=== PATIENT | male | born 1975 | race Caucasian/White ===

== ENCOUNTER → 2020-09-03 09:16 | Outpatient (BNVA) | payer MEDICARE, MEDICAID, SELFPAY | PROVIDERS: PCP Internal Medicine; Referring Provider Internal Medicine; Visit Provider Internal Medicine | DX: I48.19 Other persistent atrial fibrillation (principal); I44.7 Left bundle-branch block, unspecified; J96.10 Chronic respiratory failure, unspecified whether with hypoxia or hypercapnia; G71.11 Myotonic muscular dystrophy; Z79.01 Long term (current) use of anticoagulants; Z93.0 Tracheostomy status | CPT/HCPCS: 99212 ==

== ENCOUNTER 2020-10-28 11:58 | Emergency (ER) | payer MEDICARE, MEDICAID, SELFPAY ==
[2020-10-28] VITALS (19 sets, daily range): BP systolic 90–133; BP diastolic 57–98; PULSE 80–150; RESP 12–25; TEMP 36.7–37.2; O2SAT 80–99; BMI 36.4
--- NOTE | 2020-10-28 12:41 | PC.NURSE ---
patient a&ox3 upon arrival from ems, able to offer assistance for patient background, patients o2 sat was in the 80s, provider at bedside, attempts to transfer patient to hospital vent failed due to the type of trach the patient has due to his narrow airway, rt at bedside, deep suctioned patient and applied a trach mask, patients o2 sat increased to high 90s on 100% air, patient ekg monitor tech tachy 120s-150s, pt continues to be awake, and verbal, awaiting orders from provider, will continue to monitor.
--- NOTE | 2020-10-28 12:42 | ECG_ITS ---
Test Reason : SOB Blood Pressure : / mmHG Vent. Rate : 135 BPM Atrial Rate : 111 BPM P-R Int : 000 ms QRS Dur : 180 ms QT Int : 384 ms P-R-T Axes : 000 -25 132 degrees QTc Int : 576 ms Atrial fibrillation with rapid ventricular response Left bundle branch block Abnormal ECG When compared with ECG of 10-SEP-2017 17:35, No significant change was found Referred By: Marquis Talamantes Electronically Signed By:GALO CHOWDARY
--- NOTE | 2020-10-28 12:42 | XR_ITS ---
EXAMINATION: XR CHEST CLINICAL INFORMATION: Short of breath, hypoxia. COMPARISON: None TECHNIQUE: Frontal view of the chest was obtained. FINDINGS: The lungs are hypoexpanded with mild patchy opacity right lung base likely atelectasis/effusion. Heart size is borderline normal. Pulmonary vascularity is normal. There is a tracheostomy tube in place in good position.. XR/XR chest 1V IMPRESSION: Hypoexpanded lungs with minimal patchy opacity right lung base question atelectasis or effusion.
--- NOTE | 2020-10-28 13:00 | PC.NURSE ---
chest xray performed
[2020-10-28 13:26] LABS: MANUAL DIFF FLAG NO
[2020-10-28 13:27] LABS: Basophils Percent Auto 0.3 % (0-2); Eosinophils Absolute Auto 0.2 X10*3/uL (0.0-0.4); Eosinophils Percent Auto 1.6 % (0-4); Hematocrit 41.6 % (42-52); Hemoglobin 12.7 g/dl (14.0-18.0); Imm Gran Abs Auto 0.06 X10*3/uL (0.00-0.03); Imm Gran Pct Auto 0.4 % (0.0-0.4); Lymphocytes Absolute Auto 1.1 X10*3/uL (1.2-4.9); Lymphocytes Percent Auto 8.3 % (20-40); Mean Corpuscular HGB Conc 30.5 g/dl (31.0-36.0); Mean Corpuscular Hemoglobin 27.4 pg (27.0-33.0); Mean Corpuscular Volume 89.7 fL (80-98); Mean Platelet Volume 12.5 fL (9.4-12.4); Monocytes Absolute Auto 1.1 X10*3/uL (0.1-1.2); Neutrophils Percent Auto 81.4 % (45-73); Platelet Count 227 X10*3/uL (160-400); Red Blood Count 4.64 X10*6/uL (4.60-5.80); White Blood Count 13.6 X10*3/uL (4.8-10.8)
--- NOTE | 2020-10-28 13:31 | PC.NURSE ---
patient a&ox3, court recording monitor afib 130s-160, pt has trach collar on 100% oz sats in high 90s, bp stable, at bedside, ivf started per order, labs obtained, covid swab obtained, will continue to monitor.
[2020-10-28 13:33] LABS: INTERNATIONAL NORM RATIO 1.5 (0.9-1.1); Prothrombin Time 17.5 SEC (10.8-13.0)
[2020-10-28] MEDS: 0.9 % Sodium Chloride 1,000 ML 999 ML IV (13:33)
[2020-10-28 13:36] LABS: Partial Thromboplastin Time 42.4 SEC (24.1-38.0)
[2020-10-28 13:47] LABS: Lactic Acid 1.2 mmol/L (0.5-2.0)
[2020-10-28 13:59] LABS: Anion Gap 12 (12-20); Bilirubin Total 1.8 mg/dL (0.0-1.0); Blood Urea Nitrogen 18 mg/dL (9-16); Calcium 9.7 mg/dL (8.4-10.2); Carbon Dioxide 30 mmol/L (22-29); Chloride 108 mmol/L (96-108); Creatinine Clr Calc Pharmacy 132.9; Estimated Glomerular Filt Rate > 60; Glucose Random 186 mg/dL (60-115); Potassium 4.1 mmol/l (3.3-5.1); Sodium 146 mmol/L (135-145)
[2020-10-28] MEDS: levoFLOXacin/D5W 750 MG/150 ML PIGGYBACK 100 MG IV (13:59)
--- NOTE | 2020-10-28 14:03 | PC.NURSE ---
iv antibiotics running per order, changed trach dressing per patient request, pt remains afib 130-150- provider is aware, will continue to montior.
[2020-10-28 14:15] LABS: B Type Natriuretic Peptide 56 pg/mL (<100)
--- NOTE | 2020-10-28 14:15 | ED_ITS ---
HPI - General Adult General Chief complaint: Upper Respiratory Symptoms Stated complaint: DIZZY/HEADACHE/?PNEUMONIA Time Seen by Provider: 10/28/20 12:42 Source: patient Limitations: no limitations History of Present Illness HPI narrative: 45-year-old male who presents emergency department for evaluation of possible pneumonia, difficulty breathing and hypoxia. The patient has obstructive sleep apnea and has a tracheostomy. According to his , the patient has this for emergencies and also he uses a ventilator at night. The patient has not been feeling well since yesterday. The patient had a sore throat. He has had increased thick secretions from his tracheostomy and he also coughs up thick phlegm. Last night, the patient had increased difficulty breathing. This morning, the patient's tracheal secretions became very thick and yellow in the is having difficulty suctioning and the patient's trachea I spoke to the patient's provider who felt the patient may have developed pneumonia and was advised to go to the emergency department for evaluation. The patient denied fever, chills, chest pain, abdominal pain, nausea, vomiting or diarrhea. The patient stays at home and does not believe that he has had any COVID-19 exposures. He has not had his influenza vaccine this year since no one has been able to come to the house and given to him and he has not been able to leave the house secondary to his COVID precautions. Related Data Home Medications Medication Instructions Recorded Confirmed ascorbic acid (vitamin C) 500 mg 500 mg PO DAILY 09/03/20 09/03/20 tablet ferrous sulfate 140 mg (45 mg 140 mg PO DAILY 09/03/20 09/03/20 iron) tablet,extended release furosemide 20 mg tablet 20 mg PO QAM 09/03/20 09/03/20 metformin 500 mg tablet,extended 500 mg PO DAILY 09/03/20 09/03/20 release 24 hr metoprolol tartrate 50 mg tablet 50 mg PO BID 09/03/20 09/03/20 omeprazole 20 mg capsule,delayed 20 mg PO QAM 09/03/20 09/03/20 release rivaroxaban 20 mg tablet 20 mg PO ONCE tab 09/03/20 09/03/20 Previous Rx's Medication Instructions Recorded colestipol 1 gram tablet 1 g PO Q OTHER DAY #45 tab 08/25/20 pravastatin 20 mg tablet 20 mg PO DAILY #90 tab 08/25/20 levofloxacin 750 mg PO DAILY 5 Days #5 tab 10/28/20 Allergies Allergy/AdvReac Type Severity Reaction Status Date / Time No Known Allergies Allergy Verified 09/04/20 06:18 [No Known Allergies*] [facility] Past Medical History [facility] Narrative: Atrial fibrillation Medical History Chronic respiratory failure Left bundle branch block Myotonic dystrophy Obstructive sleep apnea Persistent atrial fibrillation Tracheostomy in place Surgical History History of cholecystectomy History of lithotripsy History of tracheostomy Family History Family History Father Medical history unknown Mother CVD (cardiovascular disease) Stroke Maternal Grandmother Cancer Maternal Grandfather Diabetes Social History Social History Alcohol intake: never Smoking Status: Never smoker Use of substances other than those prescribed or required for medical reasons: No Advance Directives: No Advance Directives Information Provided: No Physical Exam Vital Signs: Vital Signs: Last Vital Signs Temp 98.0 F 10/28/20 16:30 Pulse 105 H 10/28/20 16:30 Resp 15 10/28/20 16:30 BP 104/68 10/28/20 16:30 Pulse Ox 93 10/28/20 16:30 Body Mass Index 36.4 Const: General: cooperative, diaphoretic, ill appearing and other (Hypoxic and in respiratory distress) Nutritional Appearance: obese Orientation/consciousness: oriented to person and oriented to place Limitations: no limitations HENMT: Head: Yes normal to inspection, Yes normocephalic and Yes atraumatic Ears: external ears normal General nose exam: Normal external nose present Face and sinus: Yes normal facial exam Mouth: Normal oral and palatal mucosa present Throat: Yes posterior oropharynx normal Eyes: Periorbital: periorbital findings normal Eyelids: Yes eyelids normal Conjunctivae: conjunctivae normal Sclerae: sclerae normal Corneas: corneas normal Pupils: Equal, round and reactive pupils present Direct Ophthalmoscopy: normal light reflex Neck: Neck: Yes full ROM, Yes no lymphadenopathy, Yes no meningeal signs, Yes trachea midline, Yes supple and Yes other (Tracheostomy) Chest: Chest palpation & inspection: normal inspection of the chest and normal palpation of entire chest wall Resp: Effort & Inspection: labored, retractions and uses accessory muscles Auscultation: clear to auscultation bilaterally Cardio: Rate: tachycardic Rhythm: abnormal rhythm irregularly irregular Heart sounds: S1 normal heart sound present, S2 normal heart sound present and no murmurs GI: Inspection: Yes normal to inspection Palpation (GI): Soft to palpation, nontender, no guarding, not rigid and No hepatosplenomegaly present : General: Yes no CVA tenderness Back/Spine/Pelvis: Back: no CVA tenderness Cervical Spine: normal cervical lordosis Thoracic/Lumbar Spine: thoracic and lumbar spine normal to inspection Skin: Lesions: no lesions Rashes: no rashes Wounds: no wounds Neuro: General: oriented to person, oriented to place and no meningeal signs Cranial nerves: Yes Equal, round and reactive pupils present Cognition (Neuro): normal cognition Motor exam (neuro): 5/5 motor strength present throughout Extrem: General: Yes normal to inspection and Yes full ROM Psych: Appearance: well kempt Mental Status: mental status grossly normal Speech and movement: Normal speech and movement present Affect: normal affect Attitude: cooperative Thought process: Normal thought process present Thought content: Normal thought content present Course Course Course Narrative: 45-year-old male the history obstructive sleep apnea with tracheostomy and ventilator at night who presents to the emergency department for evaluation of shortness of breath and increased secretions times 2 days. On presentation the patient appeared to be in significant respiratory distress. The patient's tracheal secretions were thick. With respiratory therapy help, we were able to suction out large thick secretions from the patient's trachea. The inner cannula was also removed and cleaned. The patient's hypoxia improved significantly with a tracheal mask and suctioning. Patient's lung exam was clear. The patient is INR was 1.5. Lactic acid was normal. Troponin was elevated at 97.0.. The patient will need a repeat 3 hour troponin. Patient also was in rapid AFib was treated with diltiazem 20 mg and 15 mg IV push. Patient was treated with Levaquin 750 mg IV. 1707: The patient repeat troponin decreased to 88. The patient feels significantly better and does not want to be hospitalized in believes that he can take care of himself at home with his 's help. The patient will therefore be discharged home. He was given a prescription for Levaquin 500 mg once a day for 5 days. He was also given his outpatient dose of metoprolol since he has persistent tachycardia secondary to atrial fibrillation. Medical Decision Making Lab Data Result diagrams: 10/28/20 13:18 10/28/20 13:18 Labs: Lab Results 10/28/20 10/28/20 10/28/20 Range/Units 13:18 13:18 13:18 WBC 13.6 H (4.8-10.8) X10*3/uL RBC 4.64 (4.60-5.80) X10*6/uL Hgb 12.7 L (14.0-18.0) g/dl Hct 41.6 L (42-52) % MCV 89.7 (80-98) fL MCH 27.4 (27.0-33.0) pg MCHC 30.5 L (31.0-36.0) g/dl RDW 17.0 H (11.0-16.0) % Plt Count 227 (160-400) X10*3/uL MPV 12.5 H (9.4-12.4) fL Immature Gran % (Auto) 0.4 (0.0-0.4) % Neut % (Auto) 81.4 H (45-73) % Lymph % (Auto) 8.3 L (20-40) % [place] % (Auto) 8.0 (2-11) % Eos % (Auto) 1.6 (0-4) % Baso % (Auto) 0.3 (0-2) % Lymph # (Auto) 1.1 L (1.2-4.9) X10*3/uL [place] # (Auto) 1.1 (0.1-1.2) X10*3/uL Eos # (Auto) 0.2 (0.0-0.4) X10*3/uL Baso # (Auto) 0.0 (0.0-0.2) X10*3/uL Abs Immat Gran (auto) 0.06 H (0.00-0.03) X10*3/uL Absolute Neuts (auto) 11.0 H (2.0-8.3) X10*3/uL Absolute Nucleated RBC 0.000 (0.0-0.012) X10*3/uL Nucleated RBC % (auto) 0.0 (0.0-0.2) /100WBC PT 17.5 H (10.8-13.0) SEC INR 1.5 H (0.9-1.1) APTT 42.4 H (24.1-38.0) SEC Sodium (135-145) mmol/L Potassium (3.3-5.1) mmol/l Chloride (96-108) mmol/L Carbon Dioxide (22-29) mmol/L Anion Gap (12-20) BUN (9-16) mg/dL Creatinine (0.5-1.4) mg/dL Estim Creat Clear Calc Estimated GFR Random Glucose (60-115) mg/dL Lactic Acid 1.2 (0.5-2.0) mmol/L Calcium (8.4-10.2) mg/dL Total Bilirubin (0.0-1.0) mg/dL Troponin I High Sens (<3.5-35.0) ng/L B-Natriuretic Peptide (<100) pg/mL NT-Pro-B Natriuret Pep Coronavirus (PCR) (Negative) Influenza Type A (PCR) (Negative) Influenza Type B (PCR) (Negative) RSV RNA Qual (PCR) (Negative) 10/28/20 10/28/20 10/28/20 Range/Units 13:18 13:18 13:18 WBC (4.8-10.8) X10*3/uL RBC (4.60-5.80) X10*6/uL Hgb (14.0-18.0) g/dl Hct (42-52) % MCV (80-98) fL MCH (27.0-33.0) pg MCHC (31.0-36.0) g/dl RDW (11.0-16.0) % Plt Count (160-400) X10*3/uL MPV (9.4-12.4) fL Immature Gran % (Auto) (0.0-0.4) % Neut % (Auto) (45-73) % Lymph % (Auto) (20-40) % [place] % (Auto) (2-11) % Eos % (Auto) (0-4) % Baso % (Auto) (0-2) % Lymph # (Auto) (1.2-4.9) X10*3/uL [place] # (Auto) (0.1-1.2) X10*3/uL Eos # (Auto) (0.0-0.4) X10*3/uL Baso # (Auto) (0.0-0.2) X10*3/uL Abs Immat Gran (auto) (0.00-0.03) X10*3/uL Absolute Neuts (auto) (2.0-8.3) X10*3/uL Absolute Nucleated RBC (0.0-0.012) X10*3/uL Nucleated RBC % (auto) (0.0-0.2) /100WBC PT (10.8-13.0) SEC INR (0.9-1.1) APTT (24.1-38.0) SEC Sodium 146 H (135-145) mmol/L Potassium 4.1 (3.3-5.1) mmol/l Chloride 108 (96-108) mmol/L Carbon Dioxide 30 H (22-29) mmol/L Anion Gap 12 (12-20) BUN 18 H (9-16) mg/dL Creatinine 0.77 (0.5-1.4) mg/dL Estim Creat Clear Calc 132.9 Estimated GFR > 60 Random Glucose 186 H (60-115) mg/dL Lactic Acid (0.5-2.0) mmol/L Calcium 9.7 (8.4-10.2) mg/dL Total Bilirubin 1.8 H (0.0-1.0) mg/dL Troponin I High Sens 97.0 H (<3.5-35.0) ng/L B-Natriuretic Peptide (<100) pg/mL NT-Pro-B Natriuret Pep Cancelled Coronavirus (PCR) (Negative) Influenza Type A (PCR) (Negative) Influenza Type B (PCR) (Negative) RSV RNA Qual (PCR) (Negative) 10/28/20 10/28/20 10/28/20 Range/Units 13:22 13:22 15:51 WBC (4.8-10.8) X10*3/uL RBC (4.60-5.80) X10*6/uL Hgb (14.0-18.0) g/dl Hct (42-52) % MCV (80-98) fL MCH (27.0-33.0) pg MCHC (31.0-36.0) g/dl RDW (11.0-16.0) % Plt Count (160-400) X10*3/uL MPV (9.4-12.4) fL Immature Gran % (Auto) (0.0-0.4) % Neut % (Auto) (45-73) % Lymph % (Auto) (20-40) % [place] % (Auto) (2-11) % Eos % (Auto) (0-4) % Baso % (Auto) (0-2) % Lymph # (Auto) (1.2-4.9) X10*3/uL [place] # (Auto) (0.1-1.2) X10*3/uL Eos # (Auto) (0.0-0.4) X10*3/uL Baso # (Auto) (0.0-0.2) X10*3/uL Abs Immat Gran (auto) (0.00-0.03) X10*3/uL Absolute Neuts (auto) (2.0-8.3) X10*3/uL Absolute Nucleated RBC (0.0-0.012) X10*3/uL Nucleated RBC % (auto) (0.0-0.2) /100WBC PT (10.8-13.0) SEC INR (0.9-1.1) APTT (24.1-38.0) SEC Sodium (135-145) mmol/L Potassium (3.3-5.1) mmol/l Chloride (96-108) mmol/L Carbon Dioxide (22-29) mmol/L Anion Gap (12-20) BUN (9-16) mg/dL Creatinine (0.5-1.4) mg/dL Estim Creat Clear Calc Estimated GFR Random Glucose (60-115) mg/dL Lactic Acid (0.5-2.0) mmol/L Calcium (8.4-10.2) mg/dL Total Bilirubin (0.0-1.0) mg/dL Troponin I High Sens 88.7 H (<3.5-35.0) ng/L B-Natriuretic Peptide 56 (<100) pg/mL NT-Pro-B Natriuret Pep Coronavirus (PCR) NEGATIVE (Negative) Influenza Type A (PCR) NEGATIVE (Negative) Influenza Type B (PCR) NEGATIVE (Negative) RSV RNA Qual (PCR) NEGATIVE (Negative) Critical Care Time Critical Care Time Critical Care Time: Yes Total Critical Care Time: 45 Attestation: Critical Care: The patient was critically ill with a high probability of imminent or life threatening deterioration. I spent greater than 30 minutes of discontinuous time evaluating the patient,delivering critical care at the bedside, discussing and evaluating pertinent data with consultants. Critical care time does not include time spent performing separately billable procedures or teaching. Total time spent performing critical care was 45 minutes. Discharge Plan Discharge Clinical Impression: Acute respiratory distress Pneumonia Qualifiers: Pneumonia type: due to unspecified organism Laterality: right Lung location: lower lobe of lung Qualified Code(s): J18.9 - Pneumonia, unspecified organism Atrial fibrillation Qualifiers: Atrial fibrillation type: longstanding persistent Qualified Code(s): I48.11 - Longstanding persistent atrial fibrillation Patient Disposition: Home, Self-Care Instructions: Pneumonia (ED) Additional Instructions: Your chest x-ray is concerning for pneumonia and a right lower lobe of your lung. You received Levaquin 750 mg IV. This drug will last 24 hours. Take Levaquin 750 mg once a day for 5 days. Start your 1st dose tomorrow morning. Take all your no patient medications as prescribed by your doctor. Usual ventilator for the next 24 hours. Your should suction you frequently to prevent mucous plugging of your tracheostomy tube. Follow-up with your doctor in 2 days. Please return to the emergency department if your symptoms get worse or if you develop any symptoms that are concerning to you. Prescriptions: New levofloxacin 750 mg tablet 750 mg PO DAILY 5 Days Qty: 5 RF: 0 No Action pravastatin 20 mg tablet 20 mg PO DAILY Qty: 90 RF: 0 colestipol 1 gram tablet 1 g PO Q OTHER DAY Qty: 45 RF: 0 ferrous sulfate 140 mg (45 mg iron) tablet extended release 140 mg PO DAILY RF: 0 ascorbic acid (vitamin C) 500 mg tablet 500 mg PO DAILY RF: 0 furosemide 20 mg tablet 20 mg PO QAM RF: 0 metoprolol tartrate 50 mg tablet 50 mg PO BID RF: 0 Xarelto 20 mg tablet 20 mg PO ONCE RF: 0 metformin 500 mg tablet extended release 24 hr 500 mg PO DAILY RF: 0 omeprazole 20 mg capsule,delayed release(DR/EC) 20 mg PO QAM RF: 0 Referrals: Maryam Hairston [Emergency Nurse] - 2 days
--- NOTE | 2020-10-28 14:20 | PC.NURSE ---
patient desat into 89%, pt requesting deep suction, deep suctioning performed- 3 passes with adequate re-oxygenation between each pass, patient tolerated suctioning well, o2 sat increased to 99%
[2020-10-28] MEDS: dilTIAZem HCL 50 MG/10 ML VIAL 20 MG IVPUSH (14:31)
[2020-10-28] MEDS: Flu Vacc QS2020-21(6mos up)/PF 0.5 ML SYRINGE IM (14:31)
--- NOTE | 2020-10-28 14:40 | PC.NURSE ---
patient medicated with cardizem per order patients current hr on the monitor is afib mid 100s, will continue to monitor.
[2020-10-28 14:48] LABS: Influenza A PCR NEGATIVE (Negative); Influenza B PCR NEGATIVE (Negative); Resp Syncy Virus RNA Qual PCR NEGATIVE (Negative); SARS COV2 PCR INHOUSE NEGATIVE (Negative)
[2020-10-28] MEDS: dilTIAZem HCL 50 MG/10 ML VIAL 15 MG IVPUSH (15:13)
--- NOTE | 2020-10-28 15:14 | PC.NURSE ---
pt oob with male assist to attempt to urinate, pt was unable to do so, pt put back in bed and made comfortable, pt medicated with additional dose of cardizem, pt currently afib 110-113 on monitor, vitals otherwise stable, will continue to monitor.
--- NOTE | 2020-10-28 16:15 | PC.NURSE ---
Sats dropped while on trach collar into high 70 and pt reporting SOB with tachypnea. Pt suctioned with minimal secretions noted and no relief from SOB. RT notified. He was placed back on home ventilator at 3liters o2 with sats improving to mid 90s immediately. Pt feels better at this time. aware that pt is on home vent.
[2020-10-28 16:34] LABS: Troponin-I High Sensitivity 88.7 ng/L (<3.5-35.0)
[2020-10-28] MEDS: Metoprolol Tartrate 50 MG TABLET PO (17:34)
--- NOTE | 2020-10-28 17:37 | PC.NURSE ---
PT MEDICATED PER ORDER, PT AFIB 115 ON MONITOR, VITALS OTHERWISE STABLE, WILL CONTINUE TO MONITOR.
--- NOTE | 2020-10-28 19:05 | PC.NURSE ---
patient continues to be a&ox3, vss, pt monitoring manager afib now rate controlled in the 80s, pt awaiting ambulace to transfer back to home, pt is currently on home vent for the transfer, prescriptions for vent supplies have been faxed to the home pharmacy patients requested. will continue to monitor.
--- NOTE | 2020-10-28 20:03 | PC.NURSE ---
patient a&ox3, currently on home vent awaiting for ambulance to transport home, at bedside, pt afib rate controlled 80s on equipment monitor phototypesetting, no c/o pain or discomfort, pt in good spirits and sipping on some water, will continue to monitor.
== END 2020-10-28 20:55 | disposition home or self-care (01) ==
PROVIDERS: Emergency Provider Emergency Medicine Emergency Medical Services
DX: J18.9 Pneumonia, unspecified organism (principal); R06.02 Shortness of breath; I48.11 Longstanding persistent atrial fibrillation; Z20.828 Contact with and (suspected) exposure to other viral communicable diseases; Z23 Encounter for immunization
CPT/HCPCS: 0241U; 36415; 71045; 80048; 82247; 83605; 83880; 84484; 85025; 85610; 85730; 87040; 90471; 90686; 93005; 96365; 96366; 96375; 96376; 99284; 99291; J1956

== ENCOUNTER → 2020-11-27 09:52 | Outpatient (BNVA) | payer MEDICARE, MEDICAID, SELFPAY | PROVIDERS: PCP Internal Medicine; Visit Provider Internal Medicine | DX: I48.19 Other persistent atrial fibrillation (principal); I44.7 Left bundle-branch block, unspecified; J96.10 Chronic respiratory failure, unspecified whether with hypoxia or hypercapnia; G71.11 Myotonic muscular dystrophy; Z93.0 Tracheostomy status | CPT/HCPCS: Q3014 ==

== ENCOUNTER 2020-12-21 14:06 | Emergency (ER) | payer MEDICARE, MEDICAID, SELFPAY ==
--- NOTE | ~2020-12-21 | XR_ITS ---
EXAMINATION: XR SHOULDER, RIGHT CLINICAL INFORMATION: Fall COMPARISON: None TECHNIQUE: Three views of the right shoulder. FINDINGS: Acromioclavicular and glenohumeral articulations are maintained. No fracture, dislocation or acute osseous abnormality is seen. Tracheostomy is midline. A small right pleural effusion is suspected. XR/XR shoulder RT min 2V IMPRESSION: No acute fracture or dislocation is seen.
--- NOTE | ~2020-12-21 | CT_ITS ---
EXAMINATION: CT HEAD WITHOUT CONTRAST CT CERVICAL SPINE WITHOUT CONTRAST CLINICAL INFORMATION: 45-year-old male patient following trauma. Patient on Xarelto. COMPARISON: CT of the head on 06/24/2017. CT the brain and cervical spine on 05/25/2019. CT of the head on 06/18/2019. TECHNIQUE: Contiguous axial imaging was performed from the skullbase to vertex without intravenous administration of contrast. Multidetector helical imaging was performed through the cervical spine. This CT examination was performed using dose optimization techniques as appropriate, variously including the following: *Automated exposure control *Adjustment of mA and/or kV according to patient size (this includes techniques or standardized protocols for targeted exams where dose is matched to indication/reason for exam; i.e. extremities or head) *Use of iterative reconstruction technique DLP: 1183 mGy-cm. FINDINGS: HEAD: There is no evidence of acute intracranial hemorrhage or territorial infarction. No abnormal mass effect or midline shift is seen. [place] to white matter differentiation is well preserved. No extra-axial fluid collections are identified. The ventricles are normal in size. Brain parenchymal attenuation is normal. The osseous structures are normal. A moderate-sized scalp hematoma is noted over the right parieto-occipital region. Scattered dermal calcifications are present. The mastoid air cells and visualized portions of the paranasal sinuses are well aerated. CERVICAL SPINE: No acute fracture or dislocation is identified in the cervical spine. There is fixed but chronic rotatory subluxation at C1-C2. No change from previous. The disc spaces are maintained. No focal protrusion is noted. The paraspinal soft tissues are normal. The lung apices are clear. CT/CT cervical spine wo con IMPRESSION: 1. No acute intracranial pathology. 2. No evidence of acute cervical spine traumatic injury.
--- NOTE | 2020-12-21 14:08 | ED_ITS ---
HPI - Fall General Chief Complaint: Extremity Injury, Upper Stated Complaint: bump on head Time Seen by Provider: 12/21/20 14:07 Source: patient, EMS and old records reviewed Mode of arrival: EMS Limitations: no limitations History of Present Illness HPI Narrative: 45 yo male with hx of tracheostomy, myotonic dystrophy, LBBB, afib on xarelto - fell on Tuesday - has hematoma to R occiput that seems to be bigger as well as R shoulder pain complaint: fall Onset (ago): day(s) (Tuesday ) Fall from: standing Fall witnessed: yes, by family Place fall occurred: home Loss of consciousness: none Prolonged down time: no Symptoms prior to fall: other (hematoma to occiput, R shoulder pain) Context: history of frequent falls (lost balance) Location of injury: head Location of injury - extremities: right: shoulder Related Data Home Medications Medication Instructions Recorded Confirmed ferrous sulfate 140 mg (45 mg 140 mg PO DAILY 09/03/20 11/27/20 iron) tablet,extended release furosemide 20 mg tablet 20 mg PO QAM 09/03/20 11/27/20 metoprolol tartrate 50 mg tablet 50 mg PO BID 09/03/20 11/27/20 Previous Rx's Medication Instructions Recorded pravastatin 20 mg tablet 20 mg PO DAILY #90 tab 11/12/20 colestipol 1 gram tablet 1 g PO Q OTHER DAY #45 tab 11/18/20 metformin 500 mg tablet,extended 500 mg PO DAILY 90 Days #90 tab 12/10/20 release 24 hr ascorbic acid (vitamin C) 500 mg 500 mg PO DAILY #30 tab 12/19/20 tablet omeprazole 20 mg capsule,delayed 20 mg PO QAM #90 cap 12/19/20 release rivaroxaban 20 mg tablet 20 mg PO DAILY #90 tab 12/19/20 Allergies Allergy/AdvReac Type Severity Reaction Status Date / Time No Known Allergies Allergy Verified 11/27/20 09:55 [No Known Allergies*] Review of Systems Review of Systems: Constitutional : No Fever, No Chills ENT/Mouth : No Ear Pain, No Hoarseness, No sore throat Eyes: No Eye Pain, No Swelling, No Redness, No Foreign Body Cardiovascular : No Chest Pain, No SOB Respiratory : No Cough, No Dyspnea Gastrointestinal : No Nausea, No Vomiting, No Diarrhea, No abdominal Pain Genitourinary : No Dysuria, No Hematuria Musculoskeletal : positive joint pain, No Myalgias, No Joint Swelling Skin : No Skin lacerations, No rash Neuro : No Weakness, No Numbness, No Loss of Consciousness, No Dizziness, No Headache Psych : No Anxiety/Panic, No Depression Heme/Lymph: no easy bruising, no Lymphadenopathy Endocrine : No Polyuria, No Polydipsia All other systems reviewed and are negative [facility] Past Medical History Attestation statement: The following information was validated with the patient. Medical History Chronic respiratory failure Left bundle branch block Myotonic dystrophy Obstructive sleep apnea Persistent atrial fibrillation Tracheostomy in place Surgical History History of cholecystectomy History of lithotripsy History of tracheostomy Family History Family History Father Medical history unknown Mother CVD (cardiovascular disease) Stroke Maternal Grandmother Cancer Maternal Grandfather Diabetes Social History Social History Alcohol intake: never Smoking Status: Never smoker Use of substances other than those prescribed or required for medical reasons: No Advance Directives: Yes Advance Directives Information Provided: No Advance Directives on File: No Physical Exam Vital Signs: Vital Signs: Last Vital Signs Temp 98.0 F 12/21/20 14:13 Pulse 90 12/21/20 14:13 Resp 16 12/21/20 14:13 BP 124/91 H 12/21/20 14:13 Pulse Ox 99 12/21/20 14:13 Body Mass Index 36.3 Appearance: Alert. Oriented X3. No acute distress. Eyes: Pupils equal, round and reactive to light. ENT: Pharynx normal. Trach in place c/d/i. contusion to R occiput Neck: Normal inspection. Neck supple. CVS: Normal heart rate and rhythm. Pulses normal. Respiratory: No respiratory distress. Breath sounds normal. Abdomen: Soft and nontender. Skin: Skin warm and dry. Normal skin color. Normal skin turgor. Extremities: No lower extremity edema. R shoulder mild ttp normal elbow Neuro: at baseline per family Course Course Course Narrative: negative for trauma stable for DC MDM - Fall MDM Narrative Medical decision making narrative: 45 yo male with hx of afib on xarelto mytonic dystrophy / has trach frequent falls - fell on Tuesday caregiver worried as the patient's hematoma is increasing in size at this time - CT head/cspine, R shoulder xray ordered Discharge Plan Discharge Clinical Impression: Hematoma Patient Disposition: Home, Self-Care Instructions: Hematoma (ED) Additional Instructions: return to ED for any worsening symptoms or concerns Prescriptions: No Action pravastatin 20 mg tablet 20 mg PO DAILY Qty: 90 RF: 1 colestipol 1 gram tablet 1 g PO Q OTHER DAY Qty: 45 RF: 1 metformin 500 mg tablet extended release 24 hr 500 mg PO DAILY 90 Days Qty: 90 RF: 1 rivaroxaban [Xarelto] 20 mg tablet 20 mg PO DAILY Qty: 90 RF: 1 omeprazole 20 mg capsule,delayed release(DR/EC) 20 mg PO QAM Qty: 90 RF: 3 ascorbic acid (vitamin C) [Vitamin C] 500 mg tablet 500 mg PO DAILY Qty: 30 RF: 5 ferrous sulfate 140 mg (45 mg iron) tablet extended release 140 mg PO DAILY RF: 0 furosemide 20 mg tablet 20 mg PO QAM RF: 0 metoprolol tartrate 50 mg tablet 50 mg PO BID RF: 0
[2020-12-21 14:13] VITALS: BP 124/91; PULSE 90; RESP 16; TEMP 36.7; O2SAT 99; BMI 36.3
== END 2020-12-21 17:23 | disposition home or self-care (01) ==
PROVIDERS: Emergency Provider Emergency Medicine; PCP Internal Medicine
DX: S00.83XA Contusion of other part of head, initial encounter (principal); S40.911A Unspecified superficial injury of right shoulder, initial encounter; M25.511 Pain in right shoulder; G44.309 Post-traumatic headache, unspecified, not intractable; M54.2 Cervicalgia; W01.0XXA Fall on same level from slipping, tripping and stumbling without subsequent striking against object, initial encounter; Y93.9 Activity, unspecified; Y92.9 Unspecified place or not applicable; Y99.9 Unspecified external cause status; Z20.822 Contact with and (suspected) exposure to COVID-19; I48.91 Unspecified atrial fibrillation; Z79.01 Long term (current) use of anticoagulants; Z91.81 History of falling; Z79.899 Other long term (current) drug therapy
CPT/HCPCS: 70450; 72125; 73030; 99284

== ENCOUNTER → 2020-12-24 09:24 | Outpatient (BNVA) | payer MEDICARE, MEDICAID, SELFPAY | PROVIDERS: PCP Internal Medicine; Visit Provider Internal Medicine | DX: I48.19 Other persistent atrial fibrillation (principal); I44.7 Left bundle-branch block, unspecified; J96.10 Chronic respiratory failure, unspecified whether with hypoxia or hypercapnia; G71.11 Myotonic muscular dystrophy; Z93.0 Tracheostomy status | CPT/HCPCS: Q3014 ==

== ENCOUNTER → 2021-04-02 10:13 | Outpatient (BNVA) | payer MEDICARE, MEDICAID, SELFPAY | PROVIDERS: PCP Internal Medicine; Visit Provider Internal Medicine | DX: I48.19 Other persistent atrial fibrillation (principal); I44.7 Left bundle-branch block, unspecified; J96.10 Chronic respiratory failure, unspecified whether with hypoxia or hypercapnia; G71.11 Myotonic muscular dystrophy; Z93.0 Tracheostomy status | CPT/HCPCS: Q3014 ==

== ENCOUNTER → 2021-06-17 14:19 | Outpatient (BNVA) | payer MEDICARE, MEDICAID, SELFPAY | PROVIDERS: PCP Internal Medicine; Visit Provider Internal Medicine | DX: G71.11 Myotonic muscular dystrophy (principal); G47.33 Obstructive sleep apnea (adult) (pediatric); J96.10 Chronic respiratory failure, unspecified whether with hypoxia or hypercapnia; Z93.0 Tracheostomy status; Z99.89 Dependence on other enabling machines and devices | CPT/HCPCS: Q3014 ==

== ENCOUNTER 2022-01-12 12:06 | Inpatient (IN) | payer MEDICARE, MEDICAID, SELFPAY ==
[2022-01-12] VITALS (15 sets, daily range): BP systolic 97–112; BP diastolic 64–77; PULSE 84–145; RESP 12–30; TEMP 36.7–36.9; O2SAT 94–99; BMI 32.8
--- NOTE | 2022-01-12 | ECG_ITS ---
Test Reason : REPEAT Blood Pressure : / mmHG Vent. Rate : 096 BPM Atrial Rate : 000 BPM P-R Int : 000 ms QRS Dur : 180 ms QT Int : 434 ms P-R-T Axes : 000 -13 147 degrees QTc Int : 548 ms Atrial fibrillation Left bundle branch block Abnormal ECG When compared with ECG of 12-JAN-2022 12:30, No significant change was found Referred By: Jeanna Nunez Electronically Signed By:GALO CHOWDARY
--- NOTE | ~2022-01-12 | CT_ITS ---
EXAMINATION: CT CHEST WITHOUT CONTRAST CLINICAL INFORMATION: Pneumonia COMPARISON: Chest radiograph earlier today and prior chest CT 12/18/2006 TECHNIQUE: Multidetector volumetric CT imaging of the chest was done. Axial MIP volume rendering provided. Sagittal and coronal reformatted images were obtained. This CT examination was performed using dose optimization techniques as appropriate, variously including the following: *Automated exposure control *Adjustment of mA and/or kV according to patient size (this includes techniques or standardized protocols for targeted exams where dose is matched to indication/reason for exam; i.e. extremities or head) *Use of iterative reconstruction technique DLP: 507 mGy-cm FINDINGS: LUNGS: There is a left lower lobe collapse/consolidation with 2 areas of infiltrate/atelectasis. There is a small area of patchy groundglass infiltrate in the left upper lobe along the major fissure (5:158). Multiple solid and groundglass nodular densities are seen. [place] images of all have been saved. For example, there is a 5 mm solid left apical nodule (5:126), a 7 mm right upper lobe groundglass nodule (6:167), an 8 mm left upper lobe solid nodule (5:173) along with multiple others. The quality of the 2006 CT chest is not adequate for comparison. At that time, the lungs were markedly hypoinflated, marked respiratory artifact was present bilateral lower lobe collapse/consolidation pleural effusions were present. MEDIASTINUM: Heart is enlarged, pericardial effusion is present. Both of these are new findings since 2006. A tracheostomy tube is in place in good position. Multiple small mediastinal lymph nodes are present with the largest measuring about 0.8 cm in short axis (for example 5:132). PLEURA: There is no pleural effusion. No pleural mass or thickening. AXILLA: No lymphadenopathy. UPPER ABDOMEN: Unremarkable. OSSEOUS STRUCTURES: Unremarkable. CT/CT chest wo con IMPRESSION: 1. Cardiomegaly and a small pericardial effusion. 2. Left lower lobe infiltrate/consolidation consistent with pneumonia. 3. Additional area of groundglass infiltrate in the left upper lobe. 4. Multiple solid and groundglass pulmonary nodules with the largest solid nodule measuring 8 mm. 2017 Fleischner Society Recommendations for Lung Nodule(s): Follow-Up based on size (average of long- and short-axis diameters). Use most suspicious nodule for followup. Multiple Solid lung nodules 6-8 mm: Follow up management based on most suspicious nodule. In a low-risk patient, recommend a non-contrast Chest CT at 3-6 months, then consider another non-contrast Chest CT at 18-24 months. In a high-risk patient, recommend a non-contrast Chest CT at 3-6 months, then another non-contrast Chest CT at 18-24 months. These guidelines do not apply to patients younger than 35 years, immunocompromised patients, and patients with cancer. F/u in patients with significant comorbidities as clinically warranted. For lung cancer screening, adhere to Lung-RADS guidelines. Reference: Radiology. 2017 [place]; 284(1):228-243 Fleischner guidelines were followed.
--- NOTE | ~2022-01-12 | XR_ITS ---
EXAMINATION: XR CHEST CLINICAL INFORMATION: Dyspnea COMPARISON: Previous chest x-ray September 2020 TECHNIQUE: Frontal view of the chest was obtained. FINDINGS: The cardiac and mediastinal contours are stable. There is a tracheostomy tube that appears similar in position. The lung volumes are low. There may be atelectasis at the lung bases. The lungs are otherwise clear. There is no pleural effusion or pneumothorax. XR/XR chest 1V IMPRESSION: No evidence for acute disease in the chest. Low lung volumes and atelectasis at the lung bases similar to September 2020 exam.
--- NOTE | 2022-01-12 12:19 | ECG_ITS ---
Test Reason : DYSPNEA Blood Pressure : / mmHG Vent. Rate : 115 BPM Atrial Rate : 000 BPM P-R Int : 000 ms QRS Dur : 168 ms QT Int : 422 ms P-R-T Axes : 000 -36 136 degrees QTc Int : 583 ms Atrial fibrillation with rapid ventricular response Left axis deviation Left bundle branch block Abnormal ECG When compared with ECG of 28-OCT-2020 13:26, No significant changes seen Referred By: Paula Silva Electronically Signed By:GALO CHOWDARY
--- NOTE | 2022-01-12 12:30 | ED.SOB ---
HPI - SOB/Dyspnea General Chief Complaint: Upper Respiratory Symptoms Stated Complaint: RESPIRATORY FAILURE,TRACH,ON CPAP Time Seen by Provider: 01/12/22 12:16 Source: patient, EMS and old records reviewed Mode of arrival: EMS Limitations: no limitations History of Present Illness HPI Narrative: patient reports increased sputum productions x 3 days, then noted he felt weak and dizzy at home and couldn't breathe x 1 hour, EMS found him hypoxic and tried to suction his trach with some secretions ended up capping trach and using CPAP with good effect. MD elicited complaint: shortness of breath and cough Pertinent past history: COPD and other (chronic resp failure, 3L NC, trach ac night from what I can tell obesity hypoventilation syndrome/COPD/chronic resp failure per pulm notes) Onset (ago): hour(s) (1) Timing: improved Severity: severe Exacerbating factors: lying flat and coughing Relieving factors: oxygen (CPAP with EMS) Known history of: COPD Associated symptoms: cough, sputum production and lightheadedness Treatment prior to arrival: oxygen Related Data Home Medications Medication Instructions Recorded Confirmed albuterol sulfate 2.5 mg INHALATION QID PRN 06/17/21 01/12/22 albuterol sulfate 90 mcg/actuation 2 puff INHALATION Q6H PRN 06/17/21 01/12/22 aerosol inhaler colestipol 1 gram tablet 1 g PO .mwf tab 06/17/21 01/12/22 multivitamin (Daily Multi-Vitamin) 1 tab PO DAILY 06/17/21 01/12/22 Previous Rx's Medication Instructions Recorded ascorbic acid (vitamin C) 500 mg 500 mg PO DAILY #30 tab 07/18/21 tablet (Vitamin C) metoprolol tartrate 50 mg tablet 50 mg PO BID #180 tab 08/12/21 pravastatin 20 mg tablet 20 mg PO DAILY #90 tab 11/09/21 tracheostomy #1 ea 12/08/21 ferrous sulfate 140 mg (45 mg 140 mg PO DAILY 90 Days #90 tab 12/10/21 iron) tablet,extended release furosemide 20 mg tablet 20 mg PO QAM #90 tab 12/10/21 metformin 500 mg tablet,extended 500 mg PO DAILY 90 Days #90 tab 12/10/21 release 24 hr omeprazole 20 mg capsule,delayed 20 mg PO QAM #90 cap 12/10/21 release rivaroxaban 20 mg tablet (Xarelto) 20 mg PO DAILY #90 tab 12/10/21 Allergies Allergy/AdvReac Type Severity Reaction Status Date / Time No Known Allergies Allergy Verified 12/10/21 09:06 [No Known Allergies*] Review of Systems Review of Systems: Constitutional : No Fever, No Chills ENT/Mouth : No sore throat, No Rhinorrhea, No Swallowing Difficulty Eyes: No Eye Pain, No Swelling, No Redness Cardiovascular : No Chest Pain, positive SOB, pos Orthopnea, no Edema Respiratory : No Cough, pos Sputum, No Wheezing, positive dyspnea Gastrointestinal : No Nausea, No Vomiting, No Diarrhea, No abdominal Pain, No Hematochezia, No Melena Genitourinary : No Dysuria, No Urinary Frequency, No Hematuria Musculoskeletal : No joint pain, No Myalgias Skin : No Skin Lesions, No rash Neuro : pos Weakness, No Numbness, No Dizziness, No Headache Psych : No Anxiety/Panic, No Depression Heme/Lymph: No Bruising, No Lymphadenopathy Endocrine : No Polyuria, No Polydipsia All other systems reviewed and are negative [facility] Past Medical History Attestation statement: The following information was validated with the patient. Source: old records reviewed Medical History Anemia Chronic respiratory failure GERD (gastroesophageal reflux disease) Left bundle branch block Myotonic dystrophy Obesity Obstructive sleep apnea Persistent atrial fibrillation Psoriasis Pure hypercholesterolemia Tracheostomy in place Surgical History History of cholecystectomy History of lithotripsy History of tracheostomy Family History Family History Father Medical history unknown Mother CVD (cardiovascular disease) Stroke Maternal Grandmother Cancer Maternal Grandfather Diabetes Social History Social History Housing: House Alcohol intake: never Patient Tobacco Use Status: Never used Tobacco Second Hand Smoke Exposure: Yes Advance Directives: No Advance Directives Information Provided: No service: No Current occupational status: disabled Physical Exam Vital Signs: Vital Signs: Last Vital Signs Temp 98.2 F 01/12/22 15:13 Pulse 105 H 01/12/22 15:13 Resp 14 01/12/22 15:13 BP 106/70 01/12/22 15:13 Pulse Ox 98 01/12/22 15:13 Oxygen Flow Rate 15 01/12/22 12:15 BMI result Body Mass Index 32.8 Appearance: slightly somnolent Oriented X3. Mild acute distress. Eyes: Pupils equal, round and reactive to light. ENT: Pharynx normal. Neck: Normal inspection. Neck supple. CVS: tachycardic irregular heart rate and rhythm. Pulses normal. Respiratory: Mild respiratory distress. Breath sounds very diminished. Foul smelling trach with some secretions no blood noted Abdomen: Soft and non-tender. Skin: Skin warm and dry. pale skin color. Normal skin turgor. Extremities: No lower extremity edema. No calf ttp Neuro: Oriented X 3. No motor deficit. No sensory deficit. UE seems slightly contracted Course Course Course Narrative: Dr. Ariza at bedside - ECHO done ?pericardial effusion, message sent to Dr. Triplett aware ECHO stat ordered in ED Dr. Villa aware of trach issues in ED patient doing well on NC at this time. will place him on his home O2 vent settings, did not take his xarelto this AM delay in labs due to failed staff attempt I was not made aware of this. patient has his own home O2 vent - refuses to go on it, was checked by biomed put patient on his home vent pressure support cardiology notes that this is likely not tamponade refuses CT scan at this time although has had head CT scans in the past without issue, still refuses CT scan of chest slight rise in troponin - suspect due to hypoxia Cardiology aware had ECHO EKG unchanged no chest pain. on his home vent being treated for possible tracheitis - rise in troponin but likely due to his hypoxic event at home has not had chest pain, will continue to trend and monitor, will broaden coverage and add on flagyl, vancomycin for possible trachetitis cannot go to the floor with home vent per hospitalist ICU aware will admit pateint he uses his vent every night per MDM - SOB/Dyspnea MDM Narrative Medical decision making narrative: 46 yo male with hx of myotonic dystrophy, chronic resp failure - trach with night CPAP, REBECA, LBBB, persistent afib on xarelto, HLD, GERD, comes in with c/o feeling dyspnea and increased sputum production - at this time required CPAP en route but he is improving now on NC 6L - mentation improving will obtain labs, CXR, ECHO given possible efffusion seen on bedside ECHO, neb treatment. Could be CHF, tracheitis, mucous plugging, dispo per results and findings. Lab Data Result diagrams: 01/12/22 14:06 01/12/22 14:06 Labs: Lab Results 01/12/22 01/12/22 01/12/22 Range/Units 12:47 13:34 14:06 WBC 15.7 H (4.8-10.8) X10*3/uL RBC 4.46 L (4.60-5.80) X10*6/uL Hgb 13.1 L (14.0-18.0) g/dl Hct 43.7 (42.0-52.0) % MCV 98.0 (80.0-98.0) fL MCH 29.4 (27.0-33.0) pg MCHC 30.0 L (31.0-36.0) g/dl RDW 15.1 (11.0-16.0) % Plt Count 196 (160-400) X10*3/uL MPV 12.9 H (9.4-12.4) fL Immature Gran % (Auto) 0.5 H (0.0-0.4) % Neut % (Auto) 88.6 H (45-73) % Lymph % (Auto) 4.4 L (20-40) % [place] % (Auto) 5.8 (2-11) % Eos % (Auto) 0.4 (0-4) % Baso % (Auto) 0.3 (0-2) % Lymph # (Auto) 0.7 L (1.2-4.9) X10*3/uL [place] # (Auto) 0.9 (0.1-1.2) X10*3/uL Eos # (Auto) 0.1 (0.0-0.4) X10*3/uL Baso # (Auto) 0.0 (0.0-0.2) X10*3/uL Abs Immat Gran (auto) 0.08 H (0.00-0.03) X10*3/uL Absolute Neuts (auto) 13.9 H (2.0-8.3) x10*3/uL Absolute Nucleated RBC 0.000 (0.0-0.012) X10*3/uL Nucleated RBC % (auto) 0.0 (0.0-0.2) /100WBC PT (9.9-13.0) SEC INR (0.9-1.1) O2 Saturation 91.0 % ABG pH at Pt Temp 7.32 L (7.35-7.45) ABG pCO2 at Pt Temp 50 H (32-45) mmHg ABG pO2 at Pt Temp 80 L (83-108) mmHg ABG HCO3 26 (22-26) mmol/L ABG Base Excess (Actual) -0.3 mmol/L VBG pH (7.32-7.43) VBG pCO2 mmHg VBG pO2 mmHg VBG HCO3 (22-26) mmol/L VBG O2 Saturation % VBG Base Excess mmol/L Sodium (135-145) mmol/L Potassium (3.3-5.1) mmol/L Chloride (96-108) mmol/L Carbon Dioxide (22-29) mmol/L Anion Gap (12-20) BUN (9-16) mg/dL Creatinine (0.5-1.4) mg/dL Estim Creat Clear Calc Estimated GFR Random Glucose (60-115) mg/dL Lactic Acid (0.5-2.0) mmol/L Calcium (8.4-10.2) mg/dL Magnesium (1.6-2.6) mg/dL Total Bilirubin (0.0-1.0) mg/dL Direct Bilirubin (0.0-0.5) mg/dL AST (5-37) U/L ALT (0-40) U/L Alkaline Phosphatase (39-117) U/L Troponin I High Sens (<3.5-35.0) ng/L C-Reactive Protein (< or = 0.50) mg/dL B-Natriuretic Peptide (<100) pg/mL Total Protein (6.5-8.0) g/dL Albumin (3.5-5.0) g/dL Lipase (8-78) U/L Procalcitonin ng/mL COVID-19 ([place]) Negative (Negative) COVID-19 Clin Com See Note 01/12/22 01/12/22 01/12/22 Range/Units 14:06 14:06 14:06 WBC (4.8-10.8) X10*3/uL RBC (4.60-5.80) X10*6/uL Hgb (14.0-18.0) g/dl Hct (42.0-52.0) % MCV (80.0-98.0) fL MCH (27.0-33.0) pg MCHC (31.0-36.0) g/dl RDW (11.0-16.0) % Plt Count (160-400) X10*3/uL MPV (9.4-12.4) fL Immature Gran % (Auto) (0.0-0.4) % Neut % (Auto) (45-73) % Lymph % (Auto) (20-40) % [place] % (Auto) (2-11) % Eos % (Auto) (0-4) % Baso % (Auto) (0-2) % Lymph # (Auto) (1.2-4.9) X10*3/uL [place] # (Auto) (0.1-1.2) X10*3/uL Eos # (Auto) (0.0-0.4) X10*3/uL Baso # (Auto) (0.0-0.2) X10*3/uL Abs Immat Gran (auto) (0.00-0.03) X10*3/uL Absolute Neuts (auto) (2.0-8.3) x10*3/uL Absolute Nucleated RBC (0.0-0.012) X10*3/uL Nucleated RBC % (auto) (0.0-0.2) /100WBC PT 15.1 H (9.9-13.0) SEC INR 1.3 H (0.9-1.1) O2 Saturation % ABG pH at Pt Temp (7.35-7.45) ABG pCO2 at Pt Temp (32-45) mmHg ABG pO2 at Pt Temp (83-108) mmHg ABG HCO3 (22-26) mmol/L ABG Base Excess (Actual) mmol/L VBG pH (7.32-7.43) VBG pCO2 mmHg VBG pO2 mmHg VBG HCO3 (22-26) mmol/L VBG O2 Saturation % VBG Base Excess mmol/L Sodium 147 H (135-145) mmol/L Potassium 5.1 (3.3-5.1) mmol/L Chloride 108 (96-108) mmol/L Carbon Dioxide 29 (22-29) mmol/L Anion Gap 15 (12-20) BUN 19 H (9-16) mg/dL Creatinine 0.93 (0.5-1.4) mg/dL Estim Creat Clear Calc 103.3 Estimated GFR > 60 Random Glucose 281 H D (60-115) mg/dL Lactic Acid 1.9 (0.5-2.0) mmol/L Calcium 10.4 H D (8.4-10.2) mg/dL Magnesium 2.6 (1.6-2.6) mg/dL Total Bilirubin 0.9 (0.0-1.0) mg/dL Direct Bilirubin 0.4 (0.0-0.5) mg/dL AST 32 (5-37) U/L ALT 22 (0-40) U/L Alkaline Phosphatase 203 H (39-117) U/L Troponin I High Sens (<3.5-35.0) ng/L C-Reactive Protein 3.60 H (< or = 0.50) mg/dL B-Natriuretic Peptide (<100) pg/mL Total Protein 7.4 (6.5-8.0) g/dL Albumin 3.8 (3.5-5.0) g/dL Lipase 30 (8-78) U/L Procalcitonin ng/mL COVID-19 ([place]) (Negative) COVID-19 Clin Com 01/12/22 01/12/22 01/12/22 Range/Units 14:06 14:06 14:06 WBC (4.8-10.8) X10*3/uL RBC (4.60-5.80) X10*6/uL Hgb (14.0-18.0) g/dl Hct (42.0-52.0) % MCV (80.0-98.0) fL MCH (27.0-33.0) pg MCHC (31.0-36.0) g/dl RDW (11.0-16.0) % Plt Count (160-400) X10*3/uL MPV (9.4-12.4) fL Immature Gran % (Auto) (0.0-0.4) % Neut % (Auto) (45-73) % Lymph % (Auto) (20-40) % [place] % (Auto) (2-11) % Eos % (Auto) (0-4) % Baso % (Auto) (0-2) % Lymph # (Auto) (1.2-4.9) X10*3/uL [place] # (Auto) (0.1-1.2) X10*3/uL Eos # (Auto) (0.0-0.4) X10*3/uL Baso # (Auto) (0.0-0.2) X10*3/uL Abs Immat Gran (auto) (0.00-0.03) X10*3/uL Absolute Neuts (auto) (2.0-8.3) x10*3/uL Absolute Nucleated RBC (0.0-0.012) X10*3/uL Nucleated RBC % (auto) (0.0-0.2) /100WBC PT (9.9-13.0) SEC INR (0.9-1.1) O2 Saturation % ABG pH at Pt Temp (7.35-7.45) ABG pCO2 at Pt Temp (32-45) mmHg ABG pO2 at Pt Temp (83-108) mmHg ABG HCO3 (22-26) mmol/L ABG Base Excess (Actual) mmol/L VBG pH (7.32-7.43) VBG pCO2 mmHg VBG pO2 mmHg VBG HCO3 (22-26) mmol/L VBG O2 Saturation % VBG Base Excess mmol/L Sodium (135-145) mmol/L Potassium (3.3-5.1) mmol/L Chloride (96-108) mmol/L Carbon Dioxide (22-29) mmol/L Anion Gap (12-20) BUN (9-16) mg/dL Creatinine (0.5-1.4) mg/dL Estim Creat Clear Calc Estimated GFR Random Glucose (60-115) mg/dL Lactic Acid (0.5-2.0) mmol/L Calcium (8.4-10.2) mg/dL Magnesium (1.6-2.6) mg/dL Total Bilirubin (0.0-1.0) mg/dL Direct Bilirubin (0.0-0.5) mg/dL AST (5-37) U/L ALT (0-40) U/L Alkaline Phosphatase (39-117) U/L Troponin I High Sens 228.8 H* (<3.5-35.0) ng/L C-Reactive Protein (< or = 0.50) mg/dL B-Natriuretic Peptide 64 (<100) pg/mL Total Protein (6.5-8.0) g/dL Albumin (3.5-5.0) g/dL Lipase (8-78) U/L Procalcitonin 0.59 ng/mL COVID-19 ([place]) (Negative) COVID-19 Clin Com 01/12/22 01/12/22 Range/Units 14:13 16:02 WBC (4.8-10.8) X10*3/uL RBC (4.60-5.80) X10*6/uL Hgb (14.0-18.0) g/dl Hct (42.0-52.0) % MCV (80.0-98.0) fL MCH (27.0-33.0) pg MCHC (31.0-36.0) g/dl RDW (11.0-16.0) % Plt Count (160-400) X10*3/uL MPV (9.4-12.4) fL Immature Gran % (Auto) (0.0-0.4) % Neut % (Auto) (45-73) % Lymph % (Auto) (20-40) % [place] % (Auto) (2-11) % Eos % (Auto) (0-4) % Baso % (Auto) (0-2) % Lymph # (Auto) (1.2-4.9) X10*3/uL [place] # (Auto) (0.1-1.2) X10*3/uL Eos # (Auto) (0.0-0.4) X10*3/uL Baso # (Auto) (0.0-0.2) X10*3/uL Abs Immat Gran (auto) (0.00-0.03) X10*3/uL Absolute Neuts (auto) (2.0-8.3) x10*3/uL Absolute Nucleated RBC (0.0-0.012) X10*3/uL Nucleated RBC % (auto) (0.0-0.2) /100WBC PT (9.9-13.0) SEC INR (0.9-1.1) O2 Saturation % ABG pH at Pt Temp (7.35-7.45) ABG pCO2 at Pt Temp (32-45) mmHg ABG pO2 at Pt Temp (83-108) mmHg ABG HCO3 (22-26) mmol/L ABG Base Excess (Actual) mmol/L VBG pH 7.27 L (7.32-7.43) VBG pCO2 72 mmHg VBG pO2 40 mmHg VBG HCO3 33 H (22-26) mmol/L VBG O2 Saturation 56.0 % VBG Base Excess 4.5 mmol/L Sodium (135-145) mmol/L Potassium (3.3-5.1) mmol/L Chloride (96-108) mmol/L Carbon Dioxide (22-29) mmol/L Anion Gap (12-20) BUN (9-16) mg/dL Creatinine (0.5-1.4) mg/dL Estim Creat Clear Calc Estimated GFR Random Glucose (60-115) mg/dL Lactic Acid (0.5-2.0) mmol/L Calcium (8.4-10.2) mg/dL Magnesium (1.6-2.6) mg/dL Total Bilirubin (0.0-1.0) mg/dL Direct Bilirubin (0.0-0.5) mg/dL AST (5-37) U/L ALT (0-40) U/L Alkaline Phosphatase (39-117) U/L Troponin I High Sens 461.4 H* D (<3.5-35.0) ng/L C-Reactive Protein (< or = 0.50) mg/dL B-Natriuretic Peptide (<100) pg/mL Total Protein (6.5-8.0) g/dL Albumin (3.5-5.0) g/dL Lipase (8-78) U/L Procalcitonin ng/mL COVID-19 ([place]) (Negative) COVID-19 Clin Com ECG Data Attestation: I personally reviewed and interpreted this ECG as follows: ECG interpretation date: 01/12/22 ECG interpretation time: 12:52 Interpretation: Rate: 115 Rhythm: afib [place]: left LBBB ST T wave : tall T waves qTC: normal prior studies: no change from 2020 The study has been interpreted contemporaneously by me. Critical Care Time Critical Care Time Critical Care Time: Yes Total Critical Care Time: 90 Attestation: medical consults, stat ECHO, O2 correction and supplementation, review of records, repeat ABGs I attest to this time spent taking care of the patient Discharge Plan Discharge Clinical Impression: Atrial fibrillation with rapid ventricular response, Hypoxia, Elevated troponin Leukocytosis Qualifiers: Leukocytosis type: unspecified Qualified Code(s): D72.829 - Elevated white blood cell count, unspecified Acute tracheitis Qualifiers: Airway obstruction: without obstruction Qualified Code(s): J04.10 - Acute tracheitis without obstruction Patient Disposition: Admitted As Inpatient
[2022-01-12] MEDS: Albuterol Sulfate (0.083%) 2.5 MG/3 ML VIAL.NEB INHALE (12:35)
--- NOTE | 2022-01-12 12:39 | CA_ITS ---
Transthoracic Echocardiogram Patient (Last, First, Middle): Jose Puentes L Gender: Male Date of : 1975 Age: 46 Procedure Date: 01/12/2022 Procedure Type: Transthoracic Echocardiogram Location: ER Height: 167.64 cm Weight: 92.08 kg BSA: 2.01 m2 Heart Rate: bpm BP: 122 / [address] Hot Mix: Referring MD: Paula Silva DO Symptoms: acute dyspnea, possible effusion Study Quality: Technically Difficult/CONTRAST ECG Rhythm: Undetermined Conclusions: - Technically difficult study. - LVEF moderately reduced. Probably 30-35%. - Small to moderate pericardial effusion noted lateral/inferolateral to left ventricle. Doubt any tamponade physiology but difficult to assess inflow Dopplers due to atrial flutter versus fibrillation and rapid rate. Findings Procedure Information Contrast agent, definity, is being given per protocol without apparent complications. Left Ventricle Normal left ventricular cavity size. There is mildly increased left ventricular wall thickness. There is paradoxical septal motion consistent with a left bundle branch block. Diastolic function is indeterminate on the basis of available data. LVEF moderately reduced. Probably 30-35%. Difficult to accurately quantify due to tachycardia, abnormal septal motion, limited image quality and off axis views. Right Ventricle The right ventricle was not well visualized. Atria The left atrium is moderately dilated. The right atrium is normal in size. Aortic Valve The aortic valve was not well visualized. There is no aortic valve stenosis. The mean gradient is 6 mmHg. There is no aortic valve regurgitation. Mitral Valve The mitral valve appears normal. There is trace mitral valve regurgitation. There is no mitral valve stenosis. Pulmonic Valve The pulmonic valve was not well visualized. Tricuspid Valve There is trace tricuspid valve regurgitation. The pulmonary artery systolic pressure is normal. Great Vessels The aorta was not well visualized. Venous The inferior vena cava is normal in size and collapses less than 50% with inspiration. Pericardium/Pleural Small to moderate pericardial effusion noted lateral/inferolateral to left ventricle. Doubt any tamponade physiology but difficult to assess inflow Dopplers due to atrial flutter versus fibrillation and rapid rate. Prior Study Comparison Changes noted compared to prior study dated: 04/28/2017. Pericardial effusion not previously described. Measurements 2D Linear Measurements IVSd: 1.23 0.6-0.9/0.6-1.0 cm LVIDd: 4.20 3.9-5.3/4.2-5.9 cm LVIDd Index: 2.09 2.4-3.2/2.2-3.1 cm/m2 LVIDs: 3.51 2.0-3.6 cm LVPWd: 1.21 0.7-1.1 cm LA Diam: 4.70 2.7-3.8/3.0-4.0 cm LAIDs Index: 2.34 1.5-2.3 cm/m2 LV Mass: 227.41 67-162/88-224 g LV Mass Index: 113.14 43-95/49-115 g/m2 LVOT Diam: 2.00 3.0+(-)1.3 cm 2D Systolic Function EF 4C: 34.40 >55% EF 2C: 18.50 >55% EF BiP: 30.30 >55% Mitral Valve E'Lateral: 11.10 E'Medial: 7.94 Aortic Valve AoV Pk John: 1.64 AoV Mn John: 1.09 AoV VTI: 0.30 AoV Pk Grad: 11.00 Aov Mn Grad: 6.00 TONG Cont.VTI: 1.08 LVOT LVOT Pk John: 0.69 LVOT Mn John: 0.49 LVOT VTI: 0.10 LVOT Pk Grad: 2.00 LVOT Mn Grad: 1.00 LVOT Diam: 2.00 LVOT Area: 3.14 Diastolic Function E'Medial: 7.94 E' Laterial: 11.10 Tricuspid Valve TR Pk John: 2.30 TR Pk Grad: 21.00 Pulmonary Valve PV Pk John: 1.25 Peak PV Grad: 6.00 Updated in Other Vendor System with Status of Final Prakash Triplett MD electronically signed on 01/12/2022 4:15:58 PM with status of Final
[2022-01-12 12:55] LABS: ABG Base Excess -0.3 mmol/L; ABG HCO3 26 mmol/L (22-26); ABG pCO2 50 mmHg (32-45); ABG pH 7.32 (7.35-7.45); ABG pO2 80 mmHg (83-108)
--- NOTE | 2022-01-12 13:16 | PHA.MEDREC ---
Pharmacy Consult ? Medication Reconciliation Pharmacy has completed the medication reconciliation.
[2022-01-12 13:21] LABS: ABG Refer to POC result
[2022-01-12 13:55] LABS: COVID-19 Test Negative (Negative)
[2022-01-12 14:16] LABS: MANUAL DIFF FLAG NO
[2022-01-12 14:19] LABS: Venous Blood Gas Refer to POC result
[2022-01-12 14:20] LABS: VBG Base Excess 4.5 mmol/L; VBG HCO3 33 mmol/L (22-26); VBG pCO2 72 mmHg; VBG pH 7.27 (7.32-7.43); VBG pO2 40 mmHg
[2022-01-12 14:20] LABS: Basophils Percent Auto 0.3 % (0-2); Eosinophils Absolute Auto 0.1 X10*3/uL (0.0-0.4); Eosinophils Percent Auto 0.4 % (0-4); Hematocrit 43.7 % (42.0-52.0); Hemoglobin 13.1 g/dl (14.0-18.0); Imm Gran Abs Auto 0.08 X10*3/uL (0.00-0.03); Imm Gran Pct Auto 0.5 % (0.0-0.4); Lymphocytes Absolute Auto 0.7 X10*3/uL (1.2-4.9); Lymphocytes Percent Auto 4.4 % (20-40); Mean Corpuscular Hemoglobin 29.4 pg (27.0-33.0); Mean Platelet Volume 12.9 fL (9.4-12.4); Monocytes Absolute Auto 0.9 X10*3/uL (0.1-1.2); Monocytes Percent Auto 5.8 % (2-11); Neutrophils Absolute Auto 13.9 x10*3/uL (2.0-8.3); Neutrophils Percent Auto 88.6 % (45-73); Platelet Count 196 X10*3/uL (160-400); Red Blood Count 4.46 X10*6/uL (4.60-5.80); Red Cell Distribution Width 15.1 % (11.0-16.0); White Blood Count 15.7 X10*3/uL (4.8-10.8)
[2022-01-12 14:31] LABS: INTERNATIONAL NORM RATIO 1.3 (0.9-1.1); Prothrombin Time 15.1 SEC (9.9-13.0)
[2022-01-12 14:32] LABS: Lactic Acid 1.9 mmol/L (0.5-2.0)
[2022-01-12 14:38] LABS: Alanine Aminotransferase 22 U/L (0-40); Anion Gap 15 (12-20); Aspartate Amino Transferase 32 U/L (5-37); Bilirubin Direct 0.4 mg/dL (0.0-0.5); Bilirubin Total 0.9 mg/dL (0.0-1.0); Blood Urea Nitrogen 19 mg/dL (9-16); Calcium 10.4 mg/dL (8.4-10.2); Carbon Dioxide 29 mmol/L (22-29); Chloride 108 mmol/L (96-108); Creatinine Clr Calc Pharmacy 103.3; Estimated Glomerular Filt Rate > 60; Glucose Random 281 mg/dL (60-115); Magnesium 2.6 mg/dL (1.6-2.6); Potassium 5.1 mmol/L (3.3-5.1); Sodium 147 mmol/L (135-145); Total Protein 7.4 g/dL (6.5-8.0)
[2022-01-12 14:39] LABS: Albumin Level 3.8 g/dL (3.5-5.0); Alkaline Phosphatase 203 U/L (39-117); Lipase 30 U/L (8-78)
[2022-01-12 14:41] LABS: B Type Natriuretic Peptide 64 pg/mL (<100)
[2022-01-12] MEDS: methylPREDNISolone Sod Succ 125 MG/2 ML VIAL 60 MG IVPUSH (14:42)
[2022-01-12] MEDS: levoFLOXacin/D5W 500 MG/100 ML PIGGYBACK 100 MG IV (14:42)
[2022-01-12] MEDS: dilTIAZem HCL 50 MG/10 ML VIAL IVPUSH (14:42)
[2022-01-12 14:44] LABS: Troponin-I High Sensitivity 228.8 ng/L (<3.5-35.0)
[2022-01-12 15:08] LABS: Procalcitonin 0.59 ng/mL
--- NOTE | 2022-01-12 15:42 | PC.NURSE ---
PT CURRENTLY ON HOME VENT, THROUGH TRACH, TRACH WAS CHANGED BY RT ON ARRIVAL DUE TO CONCERN FOR PLUG. CURRENTLY SATING WELL, 96-98% PT HAS MINIMAL SECREATIONS VIA TRACH LABS DONE AND MEDS GIVEN ORDERED
[2022-01-12 16:41] LABS: Troponin-I High Sensitivity 461.4 ng/L (<3.5-35.0)
[2022-01-12 17:09] LABS: ABG Base Excess 3.6 mmol/L; ABG HCO3 25 mmol/L (22-26); ABG pCO2 30 mmHg (32-45); ABG pH 7.52 (7.35-7.45); ABG pO2 51 mmHg (83-108)
--- NOTE | 2022-01-12 17:25 | P.HPCC_ITS ---
History of Present Illness Date of Service: 01/12/22 Attending physician on admission: Yunior Ariza Chief Complaint: sob 46-year-old male with permanent tracheostomy for the last 12 years due to underlying myotonic muscular dystrophy and he has been having frequent recurrent chest infections apparently he and his administer self-care to the tracheostomy and a came in fairly dirty probably occluded by concretions and he developed respiratory distress there were unable to clear the it tracheostomy outer cannula at home came in in some extremis status asthmaticus and frequent suctioning and lavage and then high-dose continuous nebulized treatments and slowly breathing calm down CT scan of the chest shows a right lower lobe infiltrate so it is possible aspiration mechanism involved not due to dysphagia but may be more likely microaspiration from that rather dirty tracheostomy and bedside echo that I had done from the subxiphoid position shows no primary valve disease but about a 250-300 cc tidal volume pericardial effusion but the right ventricle appears to expand it was noted mostly posteriorly but I can not rule in or out significant thickening of the parietal pericardium to the point where it there could be some restrictive a rather constrictive hemodynamics the inflow data obtained across mitral and tricuspid valve was tented by the rapid atrial fibrillation so very hard to interpret but he had a significantly myopathic left ventricle with severe septal paradox due to a very wide left bundle branch block which was a complete left bundle branch block with left axis 70 millisecond QRS but that the years coupled back atrial fibrillation probably has led to the myopathy but he also had rising troponins 50 8 the over the course of 12 hours but negative BNP interestingly enough and there was no indication of interstitial edema or pleural effusion so I do not think heart failure played a role He presented with rapid atrial fibrillation out of control at rate 170 related to work of breathing and came down to about 110 as a result of improving his breathing work and he he was placed on a low-dose Cardizem drip at the keep his rates at approximately 80 and he was just put on a at minimal maintenance IV drip started on steroids bronchodilator therapy and because of the fetid odor of the sputum the likelihood is there probably is an anaerobic infection and was started on a combination of clindamycin and Levaquin Review of Systems Review of Systems: No fever no shaking chills no chest discomfort Yes all other systems are reviewed and are negative [facility] Past Medical History Medical History Anemia Cardiomyopathy Chronic respiratory failure GERD (gastroesophageal reflux disease) Left bundle branch block Myotonic dystrophy Obesity Obstructive sleep apnea Persistent atrial fibrillation Pneumonia Psoriasis Pure hypercholesterolemia Tracheostomy dependent Tracheostomy in place Family History Family History Father Medical history unknown Mother CVD (cardiovascular disease) Stroke Maternal Grandmother Cancer Maternal Grandfather Diabetes Surgical History Surgical History History of cholecystectomy History of lithotripsy History of tracheostomy Social History Social History Housing: House Alcohol intake: never Patient Tobacco Use Status: Never used Tobacco Second Hand Smoke Exposure: Yes Currently Displaying Signs/Symptoms of Drug Intoxication Withdrawal: No Advance Directives: No Advance Directives Information Provided: No service: No Current occupational status: disabled Meds Allergies Allergy/AdvReac Type Severity Reaction Status Date / Time No Known Allergies Allergy Verified 12/10/21 09:06 [No Known Allergies*] Active Medications: Current Medications Vancomycin HCl 1,250 mg/ (Sodium Chloride) 250 mls @ 166.667 mls/hr IV ONCE ONE Stop: 01/12/22 18:10 Metronidazole (Flagyl) 500 mg in 100 mls @ 100 mls/hr IV ONCE ONE Stop: 01/12/22 17:40 Sodium Chloride (Ns) 1,000 mls @ 40 mls/hr IVCONT .Q24H [facility] Pantoprazole Sodium 40 mg/ (Sodium Chloride) 110 mls @ 400 mls/hr IV DAILY@0630 [facility] Levofloxacin (Levaquin) 750 mg in 150 mls @ 100 mls/hr IV Q24H [facility] Pharmacy Consult (Consult Rx Perform Med Rec) 1 each MISCELLANE ONCE PRN PRN Reason: Consult order Rivaroxaban (Rivaroxaban 20 Mg Tablet) 20 mg PO DAILY [facility] Home Medications Medication Instructions Recorded Confirmed Last Taken Type albuterol sulfate 2.5 mg INHALATION QID PRN 06/17/21 01/12/22 Unknown History albuterol sulfate 90 mcg/actuation 2 puff INHALATION Q6H PRN 06/17/21 01/12/22 Unknown History aerosol inhaler colestipol 1 gram tablet 1 g PO .mwf tab 06/17/21 01/12/22 Unknown History multivitamin (Daily Multi-Vitamin) 1 tab PO DAILY 06/17/21 01/12/22 Unknown History Physical Exam Vital Signs: Vital Signs: Last Vital Signs Temp 98.2 F 01/12/22 15:13 Pulse 105 H 01/12/22 15:13 Resp 14 01/12/22 15:13 BP 106/70 01/12/22 15:13 Pulse Ox 98 01/12/22 15:13 Oxygen Flow Rate 15 01/12/22 12:15 BMI result Body Mass Index 32.8 And his vital signs were stable and he has got some deformities of his extre mities from the muscular dystrophy but nonfocal neurologically and mental status was intact Chest with virtual absence of breath sounds bilaterally and significant diaphragmatic effort and prolonged expiratory time Abdomen somewhat obese but no organomegaly and nontender Cardiac exam by bedside echo as described Skin intact with no acrocyanosis Results Labs CBC and Chem 7: 01/13/22 05:25 01/13/22 05:25 Labs: Laboratory Results - last 24 hr 01/12/22 01/12/22 01/12/22 12:47 13:34 14:06 MCV 98.0 MCH 29.4 MCHC 30.0 L RDW 15.1 Plt Count 196 MPV 12.9 H Immature Gran % (Auto) 0.5 H Neut % (Auto) 88.6 H Lymph % (Auto) 4.4 L [place] % (Auto) 5.8 Eos % (Auto) 0.4 Baso % (Auto) 0.3 Lymph # (Auto) 0.7 L [place] # (Auto) 0.9 Eos # (Auto) 0.1 Baso # (Auto) 0.0 Abs Immat Gran (auto) 0.08 H Absolute Neuts (auto) 13.9 H Absolute Nucleated RBC 0.000 Nucleated RBC % (auto) 0.0 PT INR O2 Saturation 91.0 ABG pH at Pt Temp 7.32 L ABG pCO2 at Pt Temp 50 H ABG pO2 at Pt Temp 80 L ABG HCO3 26 ABG Base Excess (Actual) -0.3 VBG pH VBG pCO2 VBG pO2 VBG HCO3 VBG O2 Saturation VBG Base Excess Anion Gap Estim Creat Clear Calc Estimated GFR Random Glucose Lactic Acid Calcium Magnesium Total Bilirubin Direct Bilirubin AST ALT Alkaline Phosphatase C-Reactive Protein B-Natriuretic Peptide Total Protein Albumin Lipase Procalcitonin COVID-19 ([place]) Negative COVID-19 Clin Com See Note 01/12/22 01/12/22 01/12/22 14:06 14:06 14:06 MCV MCH MCHC RDW Plt Count MPV Immature Gran % (Auto) Neut % (Auto) Lymph % (Auto) [place] % (Auto) Eos % (Auto) Baso % (Auto) Lymph # (Auto) [place] # (Auto) Eos # (Auto) Baso # (Auto) Abs Immat Gran (auto) Absolute Neuts (auto) Absolute Nucleated RBC Nucleated RBC % (auto) PT 15.1 H INR 1.3 H O2 Saturation ABG pH at Pt Temp ABG pCO2 at Pt Temp ABG pO2 at Pt Temp ABG HCO3 ABG Base Excess (Actual) VBG pH VBG pCO2 VBG pO2 VBG HCO3 VBG O2 Saturation VBG Base Excess Anion Gap 15 Estim Creat Clear Calc 103.3 Estimated GFR > 60 Random Glucose 281 H D Lactic Acid 1.9 Calcium 10.4 H D Magnesium 2.6 Total Bilirubin 0.9 Direct Bilirubin 0.4 AST 32 ALT 22 Alkaline Phosphatase 203 H C-Reactive Protein 3.60 H B-Natriuretic Peptide Total Protein 7.4 Albumin 3.8 Lipase 30 Procalcitonin COVID-19 ([place]) COVID-19 Clin Com 01/12/22 01/12/22 01/12/22 14:06 14:06 14:13 MCV MCH MCHC RDW Plt Count MPV Immature Gran % (Auto) Neut % (Auto) Lymph % (Auto) [place] % (Auto) Eos % (Auto) Baso % (Auto) Lymph # (Auto) [place] # (Auto) Eos # (Auto) Baso # (Auto) Abs Immat Gran (auto) Absolute Neuts (auto) Absolute Nucleated RBC Nucleated RBC % (auto) PT INR O2 Saturation ABG pH at Pt Temp ABG pCO2 at Pt Temp ABG pO2 at Pt Temp ABG HCO3 ABG Base Excess (Actual) VBG pH 7.27 L VBG pCO2 72 VBG pO2 40 VBG HCO3 33 H VBG O2 Saturation 56.0 VBG Base Excess 4.5 Anion Gap Estim Creat Clear Calc Estimated GFR Random Glucose Lactic Acid Calcium Magnesium Total Bilirubin Direct Bilirubin AST ALT Alkaline Phosphatase C-Reactive Protein B-Natriuretic Peptide 64 Total Protein Albumin Lipase Procalcitonin 0.59 COVID-19 ([place]) COVID-19 [employer] 01/12/22 17:02 MCV MCH MCHC RDW Plt Count MPV Immature Gran % (Auto) Neut % (Auto) Lymph % (Auto) [place] % (Auto) Eos % (Auto) Baso % (Auto) Lymph # (Auto) [place] # (Auto) Eos # (Auto) Baso # (Auto) Abs Immat Gran (auto) Absolute Neuts (auto) Absolute Nucleated RBC Nucleated RBC % (auto) PT INR O2 Saturation 82.0 ABG pH at Pt Temp 7.52 H ABG pCO2 at Pt Temp 30 L ABG pO2 at Pt Temp 51 L ABG HCO3 25 ABG Base Excess (Actual) 3.6 VBG pH VBG pCO2 VBG pO2 VBG HCO3 VBG O2 Saturation VBG Base Excess Anion Gap Estim Creat Clear Calc Estimated GFR Random Glucose Lactic Acid Calcium Magnesium Total Bilirubin Direct Bilirubin AST ALT Alkaline Phosphatase C-Reactive Protein B-Natriuretic Peptide Total Protein Albumin Lipase Procalcitonin COVID-19 ([place]) COVID-19 Clin Com Imaging Radiologist's Impressions: Impressions Chest X-Ray 01/12/22 12:30 IMPRESSION: No evidence for acute disease in the chest. Low lung volumes and atelectasis at the lung bases similar to September 2020 exam. Assessment and Plan (1) Tracheostomy dependent: Status: Acute (2) Pneumonia: Qualifiers: Pneumonia type: aspiration pneumonia Aspiration pneumonia type: unspecified Laterality: right Lung location: lower lobe of lung Qualified Code(s): J69.0 - Pneumonitis due to inhalation of food and vomit Status: Acute (3) Acute and chronic respiratory failure: Qualifiers: Respiratory failure complication: hypoxia and hypercapnia Qualified Code(s): J96.21 - Acute and chronic respiratory failure with hypoxia; J96.22 - Acute and chronic respiratory failure with hypercapnia Status: Acute (4) Cardiomyopathy: Status: Acute (5) Atrial fibrillation with rapid ventricular response: Status: Acute (6) Leukocytosis: Qualifiers: Leukocytosis type: unspecified Qualified Code(s): D72.829 - Elevated white blood cell count, unspecified Status: Acute (7) Hypoxia: Status: Acute (8) Acute tracheitis: Qualifiers: Airway obstruction: without obstruction Qualified Code(s): J04.10 - Acute tracheitis without obstruction Status: Acute (9) Elevated troponin: Status: Acute (10) GERD (gastroesophageal reflux disease): Qualifiers: Esophagitis presence: without esophagitis Qualified Code(s): K21.9 - Gastro-esophageal reflux disease without esophagitis Status: Acute (11) Pure hypercholesterolemia: Status: Acute (12) Obesity: Status: Acute (13) Psoriasis: Status: Acute (14) Anemia: Status: Acute (15) Myotonic dystrophy: Status: Acute (16) Left bundle branch block: Status: Acute (17) Chronic respiratory failure: Qualifiers: Respiratory failure complication: unspecified whether with hypoxia or hypercapnia Qualified Code(s): J96.10 - Chronic respiratory failure, unspecified whether with hypoxia or hypercapnia Status: Acute (18) Persistent atrial fibrillation: Status: Acute Plan The plan is to rest him overnight on his home ventilator which brought his rising pCO2 which had gone from 50-70 back down to 30 with a compensated pH Treated heart rate with a low-dose IV Cardizem drip Airway management and probable exchange of his old tracheostomy tube in the morning
[2022-01-12] MEDS: metroNIDAZOLE/NS 500 MG/100 ML PIGGYBACK 100 MG IV (18:21)
[2022-01-12] MEDS: vancomycin HCL 1,250 MG in 0.9 % Sodium Chloride 250 ML 166.67 MG IV (18:22)
[2022-01-12] MEDS: 0.9 % Sodium Chloride 1,000 ML 40 ML IVCONT (18:23)
--- NOTE | 2022-01-12 19:10 | MHC.CM.PN ---
CM met with pt and his . Pt is on his own home CPAP. A&Ox3. IMM reviewed and signed 01/12/2022@4856. HCP on file.HCP/ Evelia Puentes ([phone]). Pt received 2 Pfizer vaccinations, second dose 1 week ago. Scheduled for Booster in July. Pt has a home ventilator, oxygen, nebulizer, suction and walker. Resp. services provided by [employer]. No home services. Pt has been essentially homebound with Covid Pandemic. Pt is independent at home and completes ADL's without assistance. D/C plan is home, ? [facility] services. No referrals placed. Pt and unsure if they will need them. Pt will need transportation home. CM to follow for d/c needs.
[2022-01-12 20:02] LABS: Anion Gap 14 (12-20); Blood Urea Nitrogen 18 mg/dL (9-16); Calcium 9.9 mg/dL (8.4-10.2); Carbon Dioxide 25 mmol/L (22-29); Chloride 111 mmol/L (96-108); Creatinine Clr Calc Pharmacy 126.5; Estimated Glomerular Filt Rate > 60; Glucose Random 183 mg/dL (60-115); Potassium 4.2 mmol/L (3.3-5.1); Sodium 146 mmol/L (135-145)
[2022-01-12] MEDS: Albuterol/Iprat 2.5/0.5MG 3 ML AMPUL.NEB INHALE ×2 (20:15→23:40)
[2022-01-12 20:20] LABS: Troponin-I High Sensitivity 680.1 ng/L (<3.5-35.0)
[2022-01-12 20:24] LABS: TSH reflex Free T4 1.18 uIU/mL (0.32-4.0)
[2022-01-12 20:36] LABS: ABG Refer to POC result
[2022-01-12] MEDS: Clindamycin Phosphate/D5W 600 MG/50 ML PIGGYBACK 100 MG IV (20:51)
[2022-01-12] MEDS: dilTIAZem HCL 125 MG in 0.9 % Sodium Chloride 100 ML 10 MG IVCONT (20:51)
[2022-01-12 22:01] LABS: Glucose, Whole Blood 208 mg/dL (60-115)
[2022-01-12] MEDS: Insulin Lispro 100 UNIT/ML 3 ML VIAL SUBCUT (22:21)
[2022-01-12] MEDS: methylPREDNISolone Sod Succ 40 MG/ML VIAL IVPUSH (22:22)
--- NOTE | 2022-01-12 22:32 | PC.NURSE ---
PT's HR fluctuating between 80-90 bpm with cardizem drip at 10 mL/hr. Drip paused at this time for HR below 90.
[2022-01-12] MEDS: Lactated Ringers 1,000 ML 50 ML IVCONT (23:26)
[2022-01-13] VITALS (29 sets, daily range): BP systolic 91–145; BP diastolic 55–88; PULSE 73–112; RESP 12–29; TEMP 36.6–36.8; O2SAT 90–100; BMI 32.1; BMI 32.4
[2022-01-13] MEDS: Clindamycin Phosphate/D5W 600 MG/50 ML PIGGYBACK 100 MG IV ×4 (02:23→20:58)
--- NOTE | 2022-01-13 02:50 | PC.NURSE ---
ADMIT TO 255-2 VIA STRETCHER...VENTED VIA HOME VENTILATOR/#6.0 CUFFLESS SHILEY TRACH...RATE 12/TV900/PEEP 0/O2 8 L/M...SAO2 96-98%..SUCTIONED SMALL AMOUNT THICK BANUELOS SECRETIONS VIA TRACH..ALERT...ORIENTED X3...SPEECH CLEAR..WOODS...ATRIAL FIB HR 90'S-100'S...CARDIZEM DRIP 5 MG/HR....OOB TO BEDSIDE COMMODE WITH 2 ASSISTS...REFUSED BEDPAN....(+) FLATUS BUT NO STOOL...BACK TO BED...RESTFUL... AT BEDSIDE...REFUSED SEQUENTIAL STOCKINGS...NAPPING INTERMITTANTLY..AWAKE/COHERENT WITH F/U ASSESSMENT...MENTATING AT BASELINE
[2022-01-13] MEDS: Albuterol/Iprat 2.5/0.5MG 3 ML AMPUL.NEB INHALE ×6 (04:00→23:09)
[2022-01-13] MEDS: Pantoprazole Sodium 40 MG/10 ML VIAL IVPUSH (05:26)
[2022-01-13 05:37] LABS: VBG Base Excess -0.2 mmol/L; VBG HCO3 20 mmol/L (22-26); VBG pCO2 22 mmHg; VBG pH 7.55 (7.32-7.43); VBG pO2 68 mmHg
[2022-01-13 05:40] LABS: Venous Blood Gas Refer to POC result
[2022-01-13 05:50] LABS: Hematocrit 38.7 % (42.0-52.0); Imm Gran Abs Auto 0.02 X10*3/uL (0.00-0.03); Imm Gran Pct Auto 0.3 % (0.0-0.4); Lymphocytes Absolute Auto 0.4 X10*3/uL (1.2-4.9); Lymphocytes Percent Auto 5.2 % (20-40); MANUAL DIFF FLAG SCAN; Mean Corpuscular Hemoglobin 29.1 pg (27.0-33.0); Mean Corpuscular Volume 93.9 fL (80.0-98.0); Mean Platelet Volume 13.3 fL (9.4-12.4); Monocytes Absolute Auto 0.1 X10*3/uL (0.1-1.2); Monocytes Percent Auto 0.9 % (2-11); Neutrophils Absolute Auto 7.2 x10*3/uL (2.0-8.3); Neutrophils Percent Auto 93.6 % (45-73); Platelet Count 156 X10*3/uL (160-400); Red Blood Count 4.12 X10*6/uL (4.60-5.80); Red Cell Distribution Width 14.9 % (11.0-16.0); SCAN SMEAR FLAG 1; White Blood Count 7.7 X10*3/uL (4.8-10.8)
[2022-01-13 06:07] LABS: Anion Gap 18 (12-20); Blood Urea Nitrogen 18 mg/dL (9-16); C Reactive Protein 4.64 mg/dL (< or = 0.50); Calcium 10.1 mg/dL (8.4-10.2); Carbon Dioxide 19 mmol/L (22-29); Chloride 112 mmol/L (96-108); Creatinine Clr Calc Pharmacy 123.9; Estimated Glomerular Filt Rate > 60; Glucose Random 247 mg/dL (60-115); Magnesium 2.3 mg/dL (1.6-2.6); Phosphorus 1.5 mg/dL (2.7-4.5); Potassium 3.9 mmol/L (3.3-5.1); Sodium 145 mmol/L (135-145)
[2022-01-13 06:13] LABS: SLIDE REVIEW VERIFIED
[2022-01-13 07:26] LABS: Glucose, Whole Blood 219 mg/dL (60-115)
--- NOTE | 2022-01-13 07:47 | P.CDIC_ITS ---
CDI Concurrent Query Documentation Clarification: PHYSICIAN'S DOCUMENTATION REQUEST Date of Query: 01/13/22 0748 Patient Name: Jose Puentes Admit Date: 01/12/22 Dear Doctor, A review of the medical record indicates additional documentation may be needed. Please review below and update the documentation accordingly. Clinical Indicators: Risk Factors/Clinical Indicators/Treatments Shortness of breath, cough, has trach respiratory rate 30 on home oxygen 3L NC and CPAP Obesity Hypoventilation Syndrome Per ED, Chronic Respiratory Failure, hypoxia If possible, please further clarify the type and acuity of respiratory failure: Type: * Respiratory failure with hypoxia * Respiratory failure with hypercapnia * Respiratory failure with hypoxia and hypercapnia * Other (please specify) * Unable to determine Acuity: * Acute * Chronic * Acute on chronic * Unable to determine Use of terms such as suspected, likely, concern for, or probable (associated with a specific diagnosis that is being evaluated, monitored, or treated as if it exists) are acceptable and can be coded in the inpatient setting, when documented at the time of discharge. Thank you, Kay Heller RN Extension: [phone] Please use your independent medical judgment in providing your response. THIS QUERY IS PART OF THE PERMANENT MEDICAL RECORD Provider Response: Other Other Diagnosis: Hypoxic and hypercapnic respiratory failure which is acute on chronic
[2022-01-13 08:00] LABS: Vitamin D 25-OH Total 36.8 ng/mL (>30)
[2022-01-13] MEDS: methylPREDNISolone Sod Succ 40 MG/ML VIAL IVPUSH ×2 (08:08→20:58)
[2022-01-13] MEDS: Insulin Lispro 100 UNIT/ML 3 ML VIAL SUBCUT ×4 (08:08→21:48)
[2022-01-13] MEDS: Potassium Phosphate/NS 15 MMOL/250 ML PLAST..BAG 62.5 MMOL IV (08:51)
--- NOTE | 2022-01-13 11:07 | P.CONCA_ITS ---
History of Present Illness History of Present Illness Date of Service: 01/13/22 Chief complaint: Acute hypercarbic,hypoxic respiratory failure Narrative: This is a cardiology consultation regarding cardiomyopathy as well as atrial fibrillation. Well known to us. He has a history of myotonic dystrophy and chronic respiratory failure. He also has a tracheostomy that is many years old. We have not been able to see him in the office in the last few years mainly due to COVID as well as transport issues. However, we were able to do tele visits, last in March of 2021. At that time, he was recently doing okay. Heart rates were between 70-80/Min. Most likely, atrial fibrillation although we do not have any EKG from that time. However EKG from October 2020 had shown atrial fibrillation with left bundle-branch block pattern. He is maintained on beta- blockers and anticoagulation. Current admission is for shortness of breath and he is being treated for pneumonia. From the cardiac standpoint he is on Cardizem drip for atrial fibrillation. He states that he is generally feeling okay. At home, he is generally able to get around although quite limited due to myotonic dystrophy and chronic respiratory failure. He really does not feel palpitations. Review of Systems Review of Systems: Yes all other systems are reviewed and are negative Cardiovascular: Cardiovascular: Reports as per HPI, Reports no additional cardiovascular complaints, Denies acrocyanosis, Denies cool extremities, Denies chest pain, Denies diaphoresis, Denies syncope, Denies claudication, Denies leg edema, Denies lightheadedness, Denies palpitations and Reports dyspnea Respiratory: Respiratory: Reports dyspnea Neurologic: Denies syncope Endocrine: Endocrine: Denies palpitations [facility] Past Medical History Medical History (Updated 01/13/22 @ 11:11 by Prakash Triplett MD) Anemia Cardiomyopathy Chronic respiratory failure GERD (gastroesophageal reflux disease) Left bundle branch block Myotonic dystrophy Obesity Obstructive sleep apnea Persistent atrial fibrillation Psoriasis Pure hypercholesterolemia Tracheostomy in place Family History Family History Father Medical history unknown Mother CVD (cardiovascular disease) Stroke Maternal Grandmother Cancer Maternal Grandfather Diabetes Surgical History Surgical History History of cholecystectomy History of lithotripsy History of tracheostomy Social History Social History Housing: House Alcohol intake: never Patient Tobacco Use Status: Never used Tobacco Second Hand Smoke Exposure: Yes Currently Displaying Signs/Symptoms of Drug Intoxication Withdrawal: No Advance Directives: No Advance Directives Information Provided: No service: No Current occupational status: disabled Meds Allergies Allergy/AdvReac Type Severity Reaction Status Date / Time No Known Allergies Allergy Verified 12/10/21 09:06 [No Known Allergies*] Active Medications: Current Medications Albuterol/Ipratropium (Albuterol/Iprat 2.5/0.5mg 3 Ml Ampul.Neb) 3 ml INHALE RQ4H [facility] Last Admin: 01/13/22 07:55 Dose: 3 ml Documented by: Dextrose (Dextrose 50 % 25 Gm/50 Ml Vial) 25 gm IVPUSH Q15M PRN; Protocol PRN Reason: per Hypoglycemia Standing Ord. Glucose (Glucose Gel 15 Gm Gel..Gram.) 15 gm PO Q15M PRN; Protocol PRN Reason: per Hypoglycemia Standing Ord. Levofloxacin (Levaquin) 750 mg in 150 mls @ 100 mls/hr IV Q24H [facility] Clindamycin Phosphate (Cleocin) 600 mg in 50 mls @ 100 mls/hr IV Q6H [facility] Last Infusion: 01/13/22 08:46 Dose: Infused Documented by: Diltiazem HCl 125 mg/ Sodium (Chloride) 125 mls @ 0 mls/hr IVCONT .Q0M ALEX; Protocol Last Titration: 01/13/22 09:49 Dose: 5 mg/hr, 5 mls/hr Documented by: Lactated Ringer's (Lr) 1,000 mls @ 50 mls/hr IVCONT .Q20H ALEX Last Admin: 01/12/22 23:26 Dose: 50 mls/hr Documented by: Potassium Phosphate (Kphos) 15 mmol in 250 mls @ 62.5 mls/hr IV ONCE ONE Stop: 01/13/22 12:15 Last Admin: 01/13/22 08:51 Dose: 62.5 mls/hr Documented by: Insulin Human Lispro (Insulin Lispro 100 Unit/Ml 3 Ml Vial) 0 unit SUBCUT QIDACHS ALEX; Protocol Stop: 01/13/22 17:19 Last Admin: 01/13/22 08:08 Dose: 4 unit Documented by: Methylprednisolone Sodium Succinate (Methylprednisolone Sod Succ 40 Mg/Ml Vial) 40 mg IVPUSH BID [facility] Last Admin: 01/13/22 08:08 Dose: 40 mg Documented by: Pantoprazole Sodium (Pantoprazole Sodium 40 Mg/10 Ml Vial) 40 mg IVPUSH DAILY@0630 [facility] Last Admin: 01/13/22 05:26 Dose: 40 mg Documented by: Pharmacy Consult (Consult Rx Perform Med Rec) 1 each MISCELLANE ONCE PRN PRN Reason: Consult order Rivaroxaban (Rivaroxaban 20 Mg Tablet) 20 mg PO DAILY [facility] Home Medications Medication Instructions Recorded Confirmed Last Taken Type albuterol sulfate 2.5 mg INHALATION QID PRN 06/17/21 01/12/22 Unknown History albuterol sulfate 90 mcg/actuation 2 puff INHALATION Q6H PRN 06/17/21 01/12/22 Unknown History aerosol inhaler colestipol 1 gram tablet 1 g PO .mwf tab 06/17/21 01/12/22 Unknown History multivitamin (Daily Multi-Vitamin) 1 tab PO DAILY 06/17/21 01/12/22 Unknown History Physical Exam Vital Signs: Vital Signs: Last Vital Signs Temp 98.2 F 01/13/22 08:00 Pulse 92 01/13/22 10:00 Resp 13 01/13/22 10:00 BP 106/62 01/13/22 10:00 Pulse Ox 100 01/13/22 10:00 Oxygen Flow Rate 8 01/12/22 17:10 BMI result Body Mass Index 32.4 Const: General: comfortable HENMT: Other: Unremarkable Neck: Neck: Yes normal visual inspection Chest: Chest palpation & inspection: normal inspection of the chest Resp: Auscultation: rhonchi Cardio: Palpation: normal PMI Heart sounds: S1 normal heart sound present, S2 normal heart sound present, no gallops, no murmurs and no rubs GI: Palpation (GI): Soft to palpation Back/Spine/Pelvis: Other: unremarkable Skin: Lesions: other Neuro: General: other Extrem: General: Yes other Psych: Mental Status: other Objective Labs and Meds Result diagrams: 01/13/22 05:25 01/13/22 05:25 Lab results: Laboratory Results - last 24 hr 01/12/22 01/12/22 01/12/22 12:47 13:34 14:06 WBC 15.7 H RBC 4.46 L Hgb 13.1 L Hct 43.7 MCV 98.0 MCH 29.4 MCHC 30.0 L RDW 15.1 Plt Count 196 MPV 12.9 H Immature Gran % (Auto) 0.5 H Neut % (Auto) 88.6 H Lymph % (Auto) 4.4 L [place] % (Auto) 5.8 Eos % (Auto) 0.4 Baso % (Auto) 0.3 Lymph # (Auto) 0.7 L [place] # (Auto) 0.9 Eos # (Auto) 0.1 Baso # (Auto) 0.0 Abs Immat Gran (auto) 0.08 H Absolute Neuts (auto) 13.9 H Absolute Nucleated RBC 0.000 Nucleated RBC % (auto) 0.0 Smear Tech's Comments PT INR O2 Saturation 91.0 ABG pH at Pt Temp 7.32 L ABG pCO2 at Pt Temp 50 H ABG pO2 at Pt Temp 80 L ABG HCO3 26 ABG Base Excess (Actual) -0.3 VBG pH VBG pCO2 VBG pO2 VBG HCO3 VBG O2 Saturation VBG Base Excess Sodium Potassium Chloride Carbon Dioxide Anion Gap BUN Creatinine Estim Creat Clear Calc Estimated GFR POC Glucose Random Glucose Lactic Acid Calcium Phosphorus Magnesium Total Bilirubin Direct Bilirubin AST ALT Alkaline Phosphatase Troponin I High Sens C-Reactive Protein B-Natriuretic Peptide Total Protein Albumin Lipase 25-OH Vitamin D Total Procalcitonin TSH COVID-19 ([facility]) Negative COVID-19 Clin Com See Note 01/12/22 01/12/22 01/12/22 14:06 14:06 14:06 WBC RBC Hgb Hct MCV MCH MCHC RDW Plt Count MPV Immature Gran % (Auto) Neut % (Auto) Lymph % (Auto) [place] % (Auto) Eos % (Auto) Baso % (Auto) Lymph # (Auto) [place] # (Auto) Eos # (Auto) Baso # (Auto) Abs Immat Gran (auto) Absolute Neuts (auto) Absolute Nucleated RBC Nucleated RBC % (auto) Smear Tech's Comments PT 15.1 H INR 1.3 H O2 Saturation ABG pH at Pt Temp ABG pCO2 at Pt Temp ABG pO2 at Pt Temp ABG HCO3 ABG Base Excess (Actual) VBG pH VBG pCO2 VBG pO2 VBG HCO3 VBG O2 Saturation VBG Base Excess Sodium 147 H Potassium 5.1 Chloride 108 Carbon Dioxide 29 Anion Gap 15 BUN 19 H Creatinine 0.93 Estim Creat Clear Calc 103.3 Estimated GFR > 60 POC Glucose Random Glucose 281 H D Lactic Acid 1.9 Calcium 10.4 H D Phosphorus Magnesium 2.6 Total Bilirubin 0.9 Direct Bilirubin 0.4 AST 32 ALT 22 Alkaline Phosphatase 203 H Troponin I High Sens C-Reactive Protein 3.60 H B-Natriuretic Peptide Total Protein 7.4 Albumin 3.8 Lipase 30 25-OH Vitamin D Total Procalcitonin TSH COVID-19 ([place]) COVID-19 Clin Com 01/12/22 01/12/22 01/12/22 14:06 14:06 14:06 WBC RBC Hgb Hct MCV MCH MCHC RDW Plt Count MPV Immature Gran % (Auto) Neut % (Auto) Lymph % (Auto) [place] % (Auto) Eos % (Auto) Baso % (Auto) Lymph # (Auto) [place] # (Auto) Eos # (Auto) Baso # (Auto) Abs Immat Gran (auto) Absolute Neuts (auto) Absolute Nucleated RBC Nucleated RBC % (auto) Smear Tech's Comments PT INR O2 Saturation ABG pH at Pt Temp ABG pCO2 at Pt Temp ABG pO2 at Pt Temp ABG HCO3 ABG Base Excess (Actual) VBG pH VBG pCO2 VBG pO2 VBG HCO3 VBG O2 Saturation VBG Base Excess Sodium Potassium Chloride Carbon Dioxide Anion Gap BUN Creatinine Estim Creat Clear Calc Estimated GFR POC Glucose Random Glucose Lactic Acid Calcium Phosphorus Magnesium Total Bilirubin Direct Bilirubin AST ALT Alkaline Phosphatase Troponin I High Sens 228.8 H* C-Reactive Protein B-Natriuretic Peptide 64 Total Protein Albumin Lipase 25-OH Vitamin D Total Procalcitonin 0.59 TSH COVID-19 ([place]) COVID-19 Clin Com 01/12/22 01/12/22 01/12/22 14:13 16:02 17:02 WBC RBC Hgb Hct MCV MCH MCHC RDW Plt Count MPV Immature Gran % (Auto) Neut % (Auto) Lymph % (Auto) [place] % (Auto) Eos % (Auto) Baso % (Auto) Lymph # (Auto) [place] # (Auto) Eos # (Auto) Baso # (Auto) Abs Immat Gran (auto) Absolute Neuts (auto) Absolute Nucleated RBC Nucleated RBC % (auto) Smear Tech's Comments PT INR O2 Saturation 82.0 ABG pH at Pt Temp 7.52 H ABG pCO2 at Pt Temp 30 L ABG pO2 at Pt Temp 51 L ABG HCO3 25 ABG Base Excess (Actual) 3.6 VBG pH 7.27 L VBG pCO2 72 VBG pO2 40 VBG HCO3 33 H VBG O2 Saturation 56.0 VBG Base Excess 4.5 Sodium Potassium Chloride Carbon Dioxide Anion Gap BUN Creatinine Estim Creat Clear Calc Estimated GFR POC Glucose Random Glucose Lactic Acid Calcium Phosphorus Magnesium Total Bilirubin Direct Bilirubin AST ALT Alkaline Phosphatase Troponin I High Sens 461.4 H* D C-Reactive Protein B-Natriuretic Peptide Total Protein Albumin Lipase 25-OH Vitamin D Total Procalcitonin TSH COVID-19 ([place]) COVID-19 [facility] 01/12/22 01/12/22 01/12/22 19:29 19:29 21:56 WBC RBC Hgb Hct MCV MCH MCHC RDW Plt Count MPV Immature Gran % (Auto) Neut % (Auto) Lymph % (Auto) [place] % (Auto) Eos % (Auto) Baso % (Auto) Lymph # (Auto) [place] # (Auto) Eos # (Auto) Baso # (Auto) Abs Immat Gran (auto) Absolute Neuts (auto) Absolute Nucleated RBC Nucleated RBC % (auto) Smear Tech's Comments PT INR O2 Saturation ABG pH at Pt Temp ABG pCO2 at Pt Temp ABG pO2 at Pt Temp ABG HCO3 ABG Base Excess (Actual) VBG pH VBG pCO2 VBG pO2 VBG HCO3 VBG O2 Saturation VBG Base Excess Sodium 146 H Potassium 4.2 Chloride 111 H Carbon Dioxide 25 Anion Gap 14 BUN 18 H Creatinine 0.76 Estim Creat Clear Calc 126.5 Estimated GFR > 60 POC Glucose 208 H Random Glucose 183 H Lactic Acid Calcium 9.9 Phosphorus Magnesium Total Bilirubin Direct Bilirubin AST ALT Alkaline Phosphatase Troponin I High Sens 680.1 H* C-Reactive Protein B-Natriuretic Peptide Total Protein Albumin Lipase 25-OH Vitamin D Total Procalcitonin TSH 1.18 COVID-19 ([place]) COVID-19 [facility] 01/13/22 01/13/22 01/13/22 05:25 05:25 05:25 WBC 7.7 RBC 4.12 L Hgb 12.0 L Hct 38.7 L MCV 93.9 MCH 29.1 MCHC 31.0 RDW 14.9 Plt Count 156 L MPV 13.3 H Immature Gran % (Auto) 0.3 Neut % (Auto) 93.6 H Lymph % (Auto) 5.2 L [place] % (Auto) 0.9 L Eos % (Auto) 0.0 Baso % (Auto) 0.0 Lymph # (Auto) 0.4 L [place] # (Auto) 0.1 Eos # (Auto) 0.0 Baso # (Auto) 0.0 Abs Immat Gran (auto) 0.02 Absolute Neuts (auto) 7.2 Absolute Nucleated RBC 0.000 Nucleated RBC % (auto) 0.0 Smear Tech's Comments VERIFIED PT INR O2 Saturation ABG pH at Pt Temp ABG pCO2 at Pt Temp ABG pO2 at Pt Temp ABG HCO3 ABG Base Excess (Actual) VBG pH VBG pCO2 VBG pO2 VBG HCO3 VBG O2 Saturation VBG Base Excess Sodium 145 Potassium 3.9 Chloride 112 H Carbon Dioxide 19 L Anion Gap 18 BUN 18 H Creatinine 0.77 Estim Creat Clear Calc 123.9 Estimated GFR > 60 POC Glucose Random Glucose 247 H Lactic Acid Calcium 10.1 Phosphorus 1.5 L Magnesium 2.3 Total Bilirubin Direct Bilirubin AST ALT Alkaline Phosphatase Troponin I High Sens 685.0 H* C-Reactive Protein 4.64 H B-Natriuretic Peptide Total Protein Albumin Lipase 25-OH Vitamin D Total 36.8 Procalcitonin TSH COVID-19 ([place]) COVID-19 Clin Com 01/13/22 01/13/22 05:30 07:22 WBC RBC Hgb Hct MCV MCH MCHC RDW Plt Count MPV Immature Gran % (Auto) Neut % (Auto) Lymph % (Auto) [place] % (Auto) Eos % (Auto) Baso % (Auto) Lymph # (Auto) [place] # (Auto) Eos # (Auto) Baso # (Auto) Abs Immat Gran (auto) Absolute Neuts (auto) Absolute Nucleated RBC Nucleated RBC % (auto) Smear Tech's Comments PT INR O2 Saturation ABG pH at Pt Temp ABG pCO2 at Pt Temp ABG pO2 at Pt Temp ABG HCO3 ABG Base Excess (Actual) VBG pH 7.55 H VBG pCO2 22 VBG pO2 68 VBG HCO3 20 L VBG O2 Saturation 91.0 VBG Base Excess -0.2 Sodium Potassium Chloride Carbon Dioxide Anion Gap BUN Creatinine Estim Creat Clear Calc Estimated GFR POC Glucose 219 H Random Glucose Lactic Acid Calcium Phosphorus Magnesium Total Bilirubin Direct Bilirubin AST ALT Alkaline Phosphatase Troponin I High Sens C-Reactive Protein B-Natriuretic Peptide Total Protein Albumin Lipase 25-OH Vitamin D Total Procalcitonin TSH COVID-19 ([place]) COVID-19 Clin Com ECG Interpretation: EKG with atrial fibrillation at 96/Min; left bundle-branch block pattern. Imaging Radiologist's impression: Impressions Chest X-Ray 01/12/22 12:30 IMPRESSION: No evidence for acute disease in the chest. Low lung volumes and atelectasis at the lung bases similar to September [address] 01/12/22 21:51 IMPRESSION: 1. Cardiomegaly and a small pericardial effusion. 2. Left lower lobe infiltrate/consolidation consistent with pneumonia. 3. Additional area of groundglass infiltrate in the left upper lobe. 4. Multiple solid and groundglass pulmonary nodules with the largest solid nodule measuring 8 mm. 2017 Fleischner Society Recommendations for Lung Nodule(s): Follow-Up based on size (average of long- and short-axis diameters). Use most suspicious nodule for followup. Multiple Solid lung nodules 6-8 mm: Follow up management based on most suspicious nodule. In a low-risk patient, recommend a non-contrast Chest CT at 3-6 months, then consider another non-contrast Chest CT at 18-24 months. In a high-risk patient, recommend a non-contrast Chest CT at 3-6 months, then another non-contrast Chest CT at 18-24 months. These guidelines do not apply to patients younger than 35 years, immunocompromised patients, and patients with cancer. F/u in patients with significant comorbidities as clinically warranted. For lung cancer screening, adhere to Lung-RADS guidelines. Reference: Radiology. 2017 Apr; 284(1):228-243 Fleischner guidelines were followed. Assessment and Plan (1) Atrial fibrillation with rapid ventricular response: Status: Acute (2) Left bundle branch block: Status: Acute (3) Cardiomyopathy: Status: Acute (4) Myotonic dystrophy: Status: Acute (5) Tracheostomy in place: Status: Acute Plan Labs reviewed. He has elevation troponins from 228, 461 and 680. Possible underlying coronary disease but difficult to assess mainly because of neuro logical issues/vent dependence. He is not total for a stress test and cardiac catheterization is also quite challenging. He has no clear chest pain. Hence reasonable to just medically managed at least at this time. May resume beta- blockers that he takes at home but switch to sustained release. Continue with anticoagulation as he takes at home-Xarelto. He does have cardiomyopathy which could be from some combination of left bundle- branch block plus/minus coronary disease+/-nonischemic cardiomyopathy. However, investigating this from ischemic standpoint is very difficult. Also other measu res like a Bi V ICD is also difficult and he may still not feel better as most of the shortness of breath seems to be rather respiratory than cardiac. I did bring it up with them but no definitive plans as yet. Also discussed with Dr. Ariza. With regard to the pericardial effusion on echo, could be related to the pneumonia on the left lung field. No specific management for that at this time. Procedures Date of Service Date of Service: 01/13/22
[2022-01-13 12:06] LABS: Glucose, Whole Blood 284 mg/dL (60-115)
--- NOTE | 2022-01-13 12:22 | PM.CNPUL ---
History of Present Illness History of Present Illness Consult date: 01/13/22 Chief complaint: Acute hypercarbic,hypoxic respiratory failure Narrative: This is an inpatient pulmonary consultation. The patient is a 46-year-old gentleman with known myotonic dystrophy and chronic respiratory failure currently with a tracheostomy. 6CFS that has not been changed in a significant amount time. The patient has been homebound due to different obstacles including his living situation a 2nd floor where he has gotten weaker in cannot go down the stairs and now with the pandemic he has been basically homebound for about 3 years. His , caregiver has been very diligent taking good care him. He also has a respiratory company that since her respiratory therapist once a month to check his ventilator. The patient does have a new port ventilator set up with a total volume of 900 due to fact that he does ventilate with an on cough tracheostomy. He uses the ventilator to be at nighttime when he sleeps. During the daytime he has oxygen. More recently started developing a worsening cough in addition to shortness of breath. He presented to the ER with acute on chronic hypercarbic respiratory failure and hypoxia. He was placed on a ventilator. His significant mucus plugging. He also had AFib rapid ventricular response. He was placed on rate controlling agents in addition to broad-spectrum antibiotics. He had a CT scan of the chest that was personally by me demonstrating a right lower lobe consolidation suggesting of aspiration pneumonia. Current antibiotic regimen is covering him for broad-spectrum in addition to aspiration. The patient does have his own teeth. He has poor dentition. He still eats and denies any choking needs. My suspicion is that he is not protecting his airway and developing further micro aspirations now due to his progressive muscular dystrophy. I did change his tracheostomy at the bedside. The area was irritated friable due to the secretions. Now is trach is not available and will have to provide him with a new trach which I have already called his DME company and provide information. I will also write a script in order for him to receive that. Review of Systems Constitutional: Constitutional: Reports difficulty sleeping, Reports fatigue and Reports weakness Eyes: Eyes: Denies change in vision ENT: Reports Normal hearing present, Denies dysphagia, Denies mouth pain, Denies nasal congestion and Denies neck pain Cardiovascular: Cardiovascular: Reports palpitations Respiratory: Respiratory: Reports change in phlegm color, Reports chest congestion, Reports excessive phlegm production, Denies pain on inspiration and Denies pain with cough Gastrointestinal: Gastrointestinal: Denies dysphagia Musculoskeletal: Musculoskeletal: Denies neck pain Neurologic: Reports Normal hearing present and Reports weakness Psychiatric: Psychiatric: Reports no additional psychiatric complaints Endocrine: Endocrine: Reports fatigue and Reports palpitations [facility] Past Medical History Medical History (Updated 01/13/22 @ 12:32 by Mikhail Sierra MD) Anemia Cardiomyopathy Chronic respiratory failure GERD (gastroesophageal reflux disease) Left bundle branch block Myotonic dystrophy Obesity Obstructive sleep apnea Persistent atrial fibrillation Pneumonia Psoriasis Pure hypercholesterolemia Tracheostomy dependent Tracheostomy in place Family History Family History Father Medical history unknown Mother CVD (cardiovascular disease) Stroke Maternal Grandmother Cancer Maternal Grandfather Diabetes Surgical History Surgical History History of cholecystectomy History of lithotripsy History of tracheostomy Social History Social History Housing: House Alcohol intake: never Patient Tobacco Use Status: Never used Tobacco Second Hand Smoke Exposure: Yes Currently Displaying Signs/Symptoms of Drug Intoxication Withdrawal: No Advance Directives: No Advance Directives Information Provided: No service: No Current occupational status: disabled Meds Allergies Allergy/AdvReac Type Severity Reaction Status Date / Time No Known Allergies Allergy Verified 12/10/21 09:06 [No Known Allergies*] Active Medications: Current Medications Albuterol/Ipratropium (Albuterol/Iprat 2.5/0.5mg 3 Ml Ampul.Neb) 3 ml INHALE RQ4H [facility] Last Admin: 01/13/22 11:44 Dose: 3 ml Documented by: Chlorhexidine Gluconate (Chlorhexidine Gluc Oral Rinse 15 Ml Mouthwash) 15 ml BUCCAL TID [facility] Dextrose (Dextrose 50 % 25 Gm/50 Ml Vial) 25 gm IVPUSH Q15M PRN; Protocol PRN Reason: per Hypoglycemia Standing Ord. Glucose (Glucose Gel 15 Gm Gel..Gram.) 15 gm PO Q15M PRN; Protocol PRN Reason: per Hypoglycemia Standing Ord. Levofloxacin (Levaquin) 750 mg in 150 mls @ 100 mls/hr IV Q24H [facility] Clindamycin Phosphate (Cleocin) 600 mg in 50 mls @ 100 mls/hr IV Q6H [facility] Last Infusion: 01/13/22 08:46 Dose: Infused Documented by: Diltiazem HCl 125 mg/ Sodium (Chloride) 125 mls @ 0 mls/hr IVCONT .Q0M [facility]; Protocol Last Titration: 01/13/22 09:49 Dose: 5 mg/hr, 5 mls/hr Documented by: Lactated Ringer's (Lr) 1,000 mls @ 50 mls/hr IVCONT .Q20H [facility] Last Admin: 01/12/22 23:26 Dose: 50 mls/hr Documented by: Insulin Human Lispro (Insulin Lispro 100 Unit/Ml 3 Ml Vial) 0 unit SUBCUT QIDACHS [facility]; Protocol Stop: 01/13/22 17:19 Last Admin: 01/13/22 12:11 Dose: 6 unit Documented by: Methylprednisolone Sodium Succinate (Methylprednisolone Sod Succ 40 Mg/Ml Vial) 40 mg IVPUSH BID [facility] Last Admin: 01/13/22 08:08 Dose: 40 mg Documented by: Pantoprazole Sodium (Pantoprazole Sodium 40 Mg/10 Ml Vial) 40 mg IVPUSH DAILY@0630 [facility] Last Admin: 01/13/22 05:26 Dose: 40 mg Documented by: Pharmacy Consult (Consult Rx Perform Med Rec) 1 each MISCELLANE ONCE PRN PRN Reason: Consult order Rivaroxaban (Rivaroxaban 20 Mg Tablet) 20 mg PO DAILY [facility] Home Medications Medication Instructions Recorded Confirmed Last Taken Type albuterol sulfate 2.5 mg INHALATION QID PRN 06/17/21 01/12/22 Unknown History albuterol sulfate 90 mcg/actuation 2 puff INHALATION Q6H PRN 06/17/21 01/12/22 Unknown History aerosol inhaler colestipol 1 gram tablet 1 g PO .mwf tab 06/17/21 01/12/22 Unknown History multivitamin (Daily Multi-Vitamin) 1 tab PO DAILY 06/17/21 01/12/22 Unknown History Physical Exam Vital Signs: Vital Signs: Last Vital Signs Temp 98.2 F 01/13/22 08:00 Pulse 85 01/13/22 11:00 Resp 12 01/13/22 11:00 BP 110/62 01/13/22 11:00 Pulse Ox 98 01/13/22 11:00 Oxygen Flow Rate 8 01/12/22 17:10 BMI result Body Mass Index 32.4 Const: General: alert Neck: Neck: Yes normal visual inspection, Yes full ROM, Yes no lymphadenopathy and Yes tracheostomy present Chest: Chest palpation & inspection: normal inspection of the chest Resp: Auscultation: diminished lung sounds Cardio: Rate: regular rate Rhythm: regular rhythm Heart sounds: S1 normal heart sound present and S2 normal heart sound present GI: Palpation (GI): Soft to palpation and nontender Auscultation: normal bowel sounds Skin: General skin exam: rashes and/or lesions noted Neuro: Cranial nerves: Yes Normal hearing present Results Laboratory Findings CBC and BMP: 01/13/22 05:25 01/13/22 05:25 ABG, PT/INR, D-dimer: PT/INR, D-dimer PT 15.1 SEC (9.9-13.0) H 01/12/22 14:06 INR 1.3 (0.9-1.1) H 01/12/22 14:06 Abnormal lab findings: Abnormal Labs 01/12/22 01/12/22 01/12/22 12:47 14:06 14:06 WBC 15.7 H RBC 4.46 L Hgb 13.1 L Hct MCHC 30.0 L Plt Count MPV 12.9 H Immature Gran % (Auto) 0.5 H Neut % (Auto) 88.6 H Lymph % (Auto) 4.4 L [place] % (Auto) Lymph # (Auto) 0.7 L Abs Immat Gran (auto) 0.08 H Absolute Neuts (auto) 13.9 H PT 15.1 H INR 1.3 H ABG pH at Pt Temp 7.32 L ABG pCO2 at Pt Temp 50 H ABG pO2 at Pt Temp 80 L VBG pH VBG HCO3 Sodium Chloride Carbon Dioxide BUN POC Glucose Random Glucose Calcium Phosphorus Alkaline Phosphatase Troponin I High Sens C-Reactive Protein 01/12/22 01/12/22 01/12/22 14:06 14:06 14:13 WBC RBC Hgb Hct MCHC Plt Count MPV Immature Gran % (Auto) Neut % (Auto) Lymph % (Auto) [place] % (Auto) Lymph # (Auto) Abs Immat Gran (auto) Absolute Neuts (auto) PT INR ABG pH at Pt Temp ABG pCO2 at Pt Temp ABG pO2 at Pt Temp VBG pH 7.27 L VBG HCO3 33 H Sodium 147 H Chloride Carbon Dioxide BUN 19 H POC Glucose Random Glucose 281 H D Calcium 10.4 H D Phosphorus Alkaline Phosphatase 203 H Troponin I High Sens 228.8 H* C-Reactive Protein 3.60 H 01/12/22 01/12/22 01/12/22 16:02 17:02 19:29 WBC RBC Hgb Hct MCHC Plt Count MPV Immature Gran % (Auto) Neut % (Auto) Lymph % (Auto) [place] % (Auto) Lymph # (Auto) Abs Immat Gran (auto) Absolute Neuts (auto) PT INR ABG pH at Pt Temp 7.52 H ABG pCO2 at Pt Temp 30 L ABG pO2 at Pt Temp 51 L VBG pH VBG HCO3 Sodium 146 H Chloride 111 H Carbon Dioxide BUN 18 H POC Glucose Random Glucose 183 H Calcium Phosphorus Alkaline Phosphatase Troponin I High Sens 461.4 H* D C-Reactive Protein 01/12/22 01/12/22 01/13/22 19:29 21:56 05:25 WBC RBC 4.12 L Hgb 12.0 L Hct 38.7 L MCHC Plt Count 156 L MPV 13.3 H Immature Gran % (Auto) Neut % (Auto) 93.6 H Lymph % (Auto) 5.2 L [place] % (Auto) 0.9 L Lymph # (Auto) 0.4 L Abs Immat Gran (auto) Absolute Neuts (auto) PT INR ABG pH at Pt Temp ABG pCO2 at Pt Temp ABG pO2 at Pt Temp VBG pH VBG HCO3 Sodium Chloride Carbon Dioxide BUN POC Glucose 208 H Random Glucose Calcium Phosphorus Alkaline Phosphatase Troponin I High Sens 680.1 H* C-Reactive Protein 01/13/22 01/13/22 01/13/22 05:25 05:25 05:30 WBC RBC Hgb Hct MCHC Plt Count MPV Immature Gran % (Auto) Neut % (Auto) Lymph % (Auto) [place] % (Auto) Lymph # (Auto) Abs Immat Gran (auto) Absolute Neuts (auto) PT INR ABG pH at Pt Temp ABG pCO2 at Pt Temp ABG pO2 at Pt Temp VBG pH 7.55 H VBG HCO3 20 L Sodium Chloride 112 H Carbon Dioxide 19 L BUN 18 H POC Glucose Random Glucose 247 H Calcium Phosphorus 1.5 L Alkaline Phosphatase Troponin I High Sens 685.0 H* C-Reactive Protein 4.64 H 01/13/22 01/13/22 07:22 12:03 WBC RBC Hgb Hct MCHC Plt Count MPV Immature Gran % (Auto) Neut % (Auto) Lymph % (Auto) [place] % (Auto) Lymph # (Auto) Abs Immat Gran (auto) Absolute Neuts (auto) PT INR ABG pH at Pt Temp ABG pCO2 at Pt Temp ABG pO2 at Pt Temp VBG pH VBG HCO3 Sodium Chloride Carbon Dioxide BUN POC Glucose 219 H 284 H Random Glucose Calcium Phosphorus Alkaline Phosphatase Troponin I High Sens C-Reactive Protein Microbiology: Microbiology 01/13/22 00:37 Sputum - Suctioned Gram Stain - Final 01/12/22 14:06 Blood - Venous Blood Culture - Preliminary Prelim: GPC Gram Stain only Assessment and Plan (1) Acute and chronic respiratory failure: Qualifiers: Respiratory failure complication: hypoxia and hypercapnia Qualified Code(s): J96.21 - Acute and chronic respiratory failure with hypoxia; J96.22 - Acute and chronic respiratory failure with hypercapnia Status: Acute (2) Pneumonia: Qualifiers: Pneumonia type: aspiration pneumonia Aspiration pneumonia type: unspecified Laterality: right Lung location: lower lobe of lung Qualified Code(s): J69.0 - Pneumonitis due to inhalation of food and vomit Status: Acute (3) Myotonic dystrophy: Status: Acute (4) Tracheostomy dependent: Status: Acute Plan Changes tracheostomy at the bedside 6CFS, will [id number] moving forward Ventilator support with sleep and naps OXygen via trach collar while not on the ventilator, needs humidification 8-10 days of abx therapy should get swallow eval Start chlorhexadine mouth wash x 30 days Needs CPT with cough assist, to be set up as an outpt Needs to f/u with pulmonary in 3-4 weeks to change his tracheostomy Procedures Date of Service Date of Service: 01/13/22
[2022-01-13] MEDS: levoFLOXacin/D5W 750 MG/150 ML PIGGYBACK 100 MG IV (14:18)
--- NOTE | 2022-01-13 14:32 | P.CONGS_ITS ---
History of Present Illness Consult details Consult date: 01/13/22 Narrative: 46-year-old male referred to me for trach change. He is well known to me for care of his tracheostomy for many years now. He has been regularly seeing me in the office for trach change in the past. He was admitted yesterday because of hypercarbic hypoxic respiratory failure. He does have a history of. However, he seemed to have had a cough for the past few days which has been worsening. He had to be placed on the ventilator. He also seems to have a pneumonia on the left side as well. According to his who is his primary caregiver, he has had not changed his tracheostomy in a long time because of the inavailability the same type of tracheostomy. The particular trach tube that he has been using has been phased out and the company has been bought out by [employer]. He normally uses his ventilator at night for his chronic respiratory failure. He has known Myotonic dystrophy as well. Review of Systems Constitutional: Constitutional: Denies chills and Denies fever(s) Cardiovascular: Cardiovascular: Denies chest pain Respiratory: Respiratory: Reports cough Gastrointestinal: Gastrointestinal: Denies abdominal pain Genitourinary: Genitourinary: Denies difficulty urinating PMFSH Past Medical History Medical History Anemia Cardiomyopathy Chronic respiratory failure GERD (gastroesophageal reflux disease) Left bundle branch block Myotonic dystrophy Obesity Obstructive sleep apnea Persistent atrial fibrillation Pneumonia Psoriasis Pure hypercholesterolemia Tracheostomy dependent Tracheostomy in place Family History Family History Father Medical history unknown Mother CVD (cardiovascular disease) Stroke Maternal Grandmother Cancer Maternal Grandfather Diabetes Surgical History Surgical History History of cholecystectomy History of lithotripsy History of tracheostomy Social History Social History Housing: House Alcohol intake: never Patient Tobacco Use Status: Never used Tobacco Second Hand Smoke Exposure: Yes Currently Displaying Signs/Symptoms of Drug Intoxication Withdrawal: No Advance Directives: No Advance Directives Information Provided: No service: No Current occupational status: disabled Meds Allergies Allergy/AdvReac Type Severity Reaction Status Date / Time No Known Allergies Allergy Verified 12/10/21 09:06 [No Known Allergies*] Active Medications: Current Medications Albuterol/Ipratropium (Albuterol/Iprat 2.5/0.5mg 3 Ml Ampul.Neb) 3 ml INHALE RQ4H [facility] Last Admin: 01/13/22 11:44 Dose: 3 ml Documented by: Chlorhexidine Gluconate (Chlorhexidine Gluc Oral Rinse 15 Ml Mouthwash) 15 ml BUCCAL TID [facility] Dextrose (Dextrose 50 % 25 Gm/50 Ml Vial) 25 gm IVPUSH Q15M PRN; Protocol PRN Reason: per Hypoglycemia Standing Ord. Glucose (Glucose Gel 15 Gm Gel..Gram.) 15 gm PO Q15M PRN; Protocol PRN Reason: per Hypoglycemia Standing Ord. Levofloxacin (Levaquin) 750 mg in 150 mls @ 100 mls/hr IV Q24H [facility] Last Admin: 01/13/22 14:18 Dose: 100 mls/hr Documented by: Clindamycin Phosphate (Cleocin) 600 mg in 50 mls @ 100 mls/hr IV Q6H [facility] Last Admin: 01/13/22 14:18 Dose: 100 mls/hr Documented by: Diltiazem HCl 125 mg/ Sodium (Chloride) 125 mls @ 0 mls/hr IVCONT .Q0M [facility]; Protocol Last Titration: 01/13/22 14:26 Dose: 7.5 mg/hr, 7.5 mls/hr Documented by: Lactated Ringer's (Lr) 1,000 mls @ 50 mls/hr IVCONT .Q20H [facility] Last Admin: 01/12/22 23:26 Dose: 50 mls/hr Documented by: Insulin Human Lispro (Insulin Lispro 100 Unit/Ml 3 Ml Vial) 0 unit SUBCUT QIDACHS [facility]; Protocol Stop: 01/13/22 17:19 Last Admin: 01/13/22 12:11 Dose: 6 unit Documented by: Methylprednisolone Sodium Succinate (Methylprednisolone Sod Succ 40 Mg/Ml Vial) 40 mg IVPUSH BID [facility] Last Admin: 01/13/22 08:08 Dose: 40 mg Documented by: Pantoprazole Sodium (Pantoprazole Sodium 40 Mg/10 Ml Vial) 40 mg IVPUSH DAILY@0630 [facility] Last Admin: 01/13/22 05:26 Dose: 40 mg Documented by: Pharmacy Consult (Consult Rx Perform Med Rec) 1 each MISCELLANE ONCE PRN PRN Reason: Consult order Rivaroxaban (Rivaroxaban 20 Mg Tablet) 20 mg PO DAILY [facility] Home Medications Medication Instructions Recorded Confirmed Last Taken Type albuterol sulfate 2.5 mg INHALATION QID PRN 06/17/21 01/12/22 Unknown History albuterol sulfate 90 mcg/actuation 2 puff INHALATION Q6H PRN 06/17/21 01/12/22 Unknown History aerosol inhaler colestipol 1 gram tablet 1 g PO .mwf tab 06/17/21 01/12/22 Unknown History multivitamin (Daily Multi-Vitamin) 1 tab PO DAILY 06/17/21 01/12/22 Unknown History Physical Exam Vital Signs: Vital Signs: Last Vital Signs Temp 98.2 F 01/13/22 08:00 Pulse 104 H 01/13/22 14:00 Resp 19 01/13/22 14:00 BP 130/74 01/13/22 14:00 Pulse Ox 98 01/13/22 14:00 Oxygen Flow Rate 8 01/12/22 17:10 BMI result Body Mass Index 32.4 Const: Other: Awake and comfortable, communicative, on ventilator via his tracheostomy Neck: Other: #[address] functioning well Resp: Other: on ventilator via tracheostomy Effort & Inspection: normal respiratory effort Cardio: Other: atrial fibrillation GI: Palpation (GI): Soft to palpation and nontender Results Labs Result diagrams: 01/13/22 05:25 01/13/22 05:25 Labs: Abnormal lab results 01/12/22 01/12/22 01/12/22 Range/Units 14:06 14:06 16:02 RBC (4.60-5.80) X10*6/uL Hgb (14.0-18.0) g/dl Hct (42.0-52.0) % Plt Count (160-400) X10*3/uL MPV (9.4-12.4) fL Neut % (Auto) (45-73) % Lymph % (Auto) (20-40) % [place] % (Auto) (2-11) % Lymph # (Auto) (1.2-4.9) X10*3/uL ABG pH at Pt Temp (7.35-7.45) ABG pCO2 at Pt Temp (32-45) mmHg ABG pO2 at Pt Temp (83-108) mmHg VBG pH (7.32-7.43) VBG HCO3 (22-26) mmol/L Sodium 147 H (135-145) mmol/L Chloride (96-108) mmol/L Carbon Dioxide (22-29) mmol/L BUN 19 H (9-16) mg/dL POC Glucose (60-115) mg/dL Random Glucose 281 H D (60-115) mg/dL Calcium 10.4 H D (8.4-10.2) mg/dL Phosphorus (2.7-4.5) mg/dL Alkaline Phosphatase 203 H (39-117) U/L Troponin I High Sens 228.8 H* 461.4 H* D (<3.5-35.0) ng/L C-Reactive Protein 3.60 H (< or = 0.50) mg/dL 01/12/22 01/12/22 01/12/22 Range/Units 17:02 19:29 19:29 RBC (4.60-5.80) X10*6/uL Hgb (14.0-18.0) g/dl Hct (42.0-52.0) % Plt Count (160-400) X10*3/uL MPV (9.4-12.4) fL Neut % (Auto) (45-73) % Lymph % (Auto) (20-40) % [place] % (Auto) (2-11) % Lymph # (Auto) (1.2-4.9) X10*3/uL ABG pH at Pt Temp 7.52 H (7.35-7.45) ABG pCO2 at Pt Temp 30 L (32-45) mmHg ABG pO2 at Pt Temp 51 L (83-108) mmHg VBG pH (7.32-7.43) VBG HCO3 (22-26) mmol/L Sodium 146 H (135-145) mmol/L Chloride 111 H (96-108) mmol/L Carbon Dioxide (22-29) mmol/L BUN 18 H (9-16) mg/dL POC Glucose (60-115) mg/dL Random Glucose 183 H (60-115) mg/dL Calcium (8.4-10.2) mg/dL Phosphorus (2.7-4.5) mg/dL Alkaline Phosphatase (39-117) U/L Troponin I High Sens 680.1 H* (<3.5-35.0) ng/L C-Reactive Protein (< or = 0.50) mg/dL 01/12/22 01/13/22 01/13/22 Range/Units 21:56 05:25 05:25 RBC 4.12 L (4.60-5.80) X10*6/uL Hgb 12.0 L (14.0-18.0) g/dl Hct 38.7 L (42.0-52.0) % Plt Count 156 L (160-400) X10*3/uL MPV 13.3 H (9.4-12.4) fL Neut % (Auto) 93.6 H (45-73) % Lymph % (Auto) 5.2 L (20-40) % [place] % (Auto) 0.9 L (2-11) % Lymph # (Auto) 0.4 L (1.2-4.9) X10*3/uL ABG pH at Pt Temp (7.35-7.45) ABG pCO2 at Pt Temp (32-45) mmHg ABG pO2 at Pt Temp (83-108) mmHg VBG pH (7.32-7.43) VBG HCO3 (22-26) mmol/L Sodium (135-145) mmol/L Chloride 112 H (96-108) mmol/L Carbon Dioxide 19 L (22-29) mmol/L BUN 18 H (9-16) mg/dL POC Glucose 208 H (60-115) mg/dL Random Glucose 247 H (60-115) mg/dL Calcium (8.4-10.2) mg/dL Phosphorus 1.5 L (2.7-4.5) mg/dL Alkaline Phosphatase (39-117) U/L Troponin I High Sens (<3.5-35.0) ng/L C-Reactive Protein 4.64 H (< or = 0.50) mg/dL 01/13/22 01/13/22 01/13/22 Range/Units 05:25 05:30 07:22 RBC (4.60-5.80) X10*6/uL Hgb (14.0-18.0) g/dl Hct (42.0-52.0) % Plt Count (160-400) X10*3/uL MPV (9.4-12.4) fL Neut % (Auto) (45-73) % Lymph % (Auto) (20-40) % [place] % (Auto) (2-11) % Lymph # (Auto) (1.2-4.9) X10*3/uL ABG pH at Pt Temp (7.35-7.45) ABG pCO2 at Pt Temp (32-45) mmHg ABG pO2 at Pt Temp (83-108) mmHg VBG pH 7.55 H (7.32-7.43) VBG HCO3 20 L (22-26) mmol/L Sodium (135-145) mmol/L Chloride (96-108) mmol/L Carbon Dioxide (22-29) mmol/L BUN (9-16) mg/dL POC Glucose 219 H (60-115) mg/dL Random Glucose (60-115) mg/dL Calcium (8.4-10.2) mg/dL Phosphorus (2.7-4.5) mg/dL Alkaline Phosphatase (39-117) U/L Troponin I High Sens 685.0 H* (<3.5-35.0) ng/L C-Reactive Protein (< or = 0.50) mg/dL 01/13/22 Range/Units 12:03 RBC (4.60-5.80) X10*6/uL Hgb (14.0-18.0) g/dl Hct (42.0-52.0) % Plt Count (160-400) X10*3/uL MPV (9.4-12.4) fL Neut % (Auto) (45-73) % Lymph % (Auto) (20-40) % [place] % (Auto) (2-11) % Lymph # (Auto) (1.2-4.9) X10*3/uL ABG pH at Pt Temp (7.35-7.45) ABG pCO2 at Pt Temp (32-45) mmHg ABG pO2 at Pt Temp (83-108) mmHg VBG pH (7.32-7.43) VBG HCO3 (22-26) mmol/L Sodium (135-145) mmol/L Chloride (96-108) mmol/L Carbon Dioxide (22-29) mmol/L BUN (9-16) mg/dL POC Glucose 284 H (60-115) mg/dL Random Glucose (60-115) mg/dL Calcium (8.4-10.2) mg/dL Phosphorus (2.7-4.5) mg/dL Alkaline Phosphatase (39-117) U/L Troponin I High Sens (<3.5-35.0) ng/L C-Reactive Protein (< or = 0.50) mg/dL Short CBC 01/13/22 Range/Units 05:25 WBC 7.7 (4.8-10.8) X10*3/uL Hgb 12.0 L (14.0-18.0) g/dl Hct 38.7 L (42.0-52.0) % Plt Count 156 L (160-400) X10*3/uL BMP 01/12/22 01/12/22 01/13/22 14:06 19:29 05:25 Sodium 147 H 146 H 145 Potassium 5.1 4.2 3.9 Chloride 108 111 H 112 H Carbon Dioxide 29 25 19 L BUN 19 H 18 H 18 H Creatinine 0.93 0.76 0.77 Calcium 10.4 H D 9.9 10.1 Liver Function 01/12/22 Range/Units 14:06 Total Bilirubin 0.9 (0.0-1.0) mg/dL Direct Bilirubin 0.4 (0.0-0.5) mg/dL AST 32 (5-37) U/L ALT 22 (0-40) U/L Alkaline Phosphatase 203 H (39-117) U/L Albumin 3.8 (3.5-5.0) g/dL All other labs normal. Assessment and Plan (1) Tracheostomy dependent: Status: Acute Plan He has well known to me as I have been taking care of his tracheostomy for many years. He has been unable to procure a new tracheostomy for replacement. Unfortunately, the type of tracheostomy has been using has been phased out by a new company. However, Dr. Sierra of Pulmonary was able to a replacemen and his tracheotomy was change without difficulty bedside. He will try to get is similar tracheostomy tube for him for future changes fro [employer]. He also seems to have a left-sided pneumonia. His ejection fraction is at 30% and he has a small pericardial effusion. Procedures Date of Service Date of Service: 01/13/22
--- NOTE | 2022-01-13 15:52 | MHC.CM.PN ---
Met with pt and spouse in ICU: reviewed d/c plan - no services supported at this time. [facility] home if possible before [facility]. Will follow for d/c planning needs
[2022-01-13] MEDS: Chlorhexidine Gluc Oral Rinse 15 ML MOUTHWASH BUCCAL ×2 (16:20→20:58)
--- NOTE | 2022-01-13 16:23 | P.PNCC_ITS ---
Subjective Subjective Date of Service: 01/13/22 Interval History: 46-year-old with muscular dystrophy chronic tracheostomy which was changed today the inside of which was obviously dirty indicating probable microaspiration causing right lower lobe pneumonia and currently back on a trach collar seems to be comfortable with corrected acute on chronic hypercarbic and hypoxic respiratory failure No longer clinically in status asthmaticus Echo with modest pericardial effusion significant cardiomyopathy with 30% ejection fraction in large part due to significant left bundle branch block and septal paradox Critical Care Time (minutes): 45 Physical Exam Vital Signs: Vital Signs: Last Vital Signs Temp 98.2 F 01/13/22 08:00 Pulse 88 01/13/22 16:00 Resp 13 01/13/22 16:00 BP 107/78 01/13/22 16:00 Pulse Ox 98 01/13/22 16:00 Oxygen Flow Rate 8 01/12/22 17:10 BMI result Body Mass Index 32.4 Awake and alert and nonfocal neurologically Comfortable respiratory status off the ventilator which is necessary to indicate that he has got reserve comfortably enough to go home hopefully in the morning Abdomen benign nontender Bedside echo with 30% ejection fraction controlled heart rate on Cardizem Absent bilateral breath sounds but no adventitious sounds no accessory muscle use Skin intact Objective Data Labs CBC & Chem 7: 01/13/22 05:25 01/13/22 05:25 Labs: Laboratory Results - last 24 hr 01/12/22 01/12/22 01/12/22 16:02 17:02 19:29 WBC RBC Hgb Hct MCV MCH MCHC RDW Plt Count MPV Immature Gran % (Auto) Neut % (Auto) Lymph % (Auto) [place] % (Auto) Eos % (Auto) Baso % (Auto) Lymph # (Auto) [place] # (Auto) Eos # (Auto) Baso # (Auto) Abs Immat Gran (auto) Absolute Neuts (auto) Absolute Nucleated RBC Nucleated RBC % (auto) Smear Tech's Comments O2 Saturation 82.0 ABG pH at Pt Temp 7.52 H ABG pCO2 at Pt Temp 30 L ABG pO2 at Pt Temp 51 L ABG HCO3 25 ABG Base Excess (Actual) 3.6 VBG pH VBG pCO2 VBG pO2 VBG HCO3 VBG O2 Saturation VBG Base Excess Sodium 146 H Potassium 4.2 Chloride 111 H Carbon Dioxide 25 Anion Gap 14 BUN 18 H Creatinine 0.76 Estim Creat Clear Calc 126.5 Estimated GFR > 60 POC Glucose Random Glucose 183 H Calcium 9.9 Phosphorus Magnesium Troponin I High Sens 461.4 H* D C-Reactive Protein 25-OH Vitamin D Total TSH 1.18 01/12/22 01/12/22 01/13/22 19:29 21:56 05:25 WBC 7.7 RBC 4.12 L Hgb 12.0 L Hct 38.7 L MCV 93.9 MCH 29.1 MCHC 31.0 RDW 14.9 Plt Count 156 L MPV 13.3 H Immature Gran % (Auto) 0.3 Neut % (Auto) 93.6 H Lymph % (Auto) 5.2 L [place] % (Auto) 0.9 L Eos % (Auto) 0.0 Baso % (Auto) 0.0 Lymph # (Auto) 0.4 L [place] # (Auto) 0.1 Eos # (Auto) 0.0 Baso # (Auto) 0.0 Abs Immat Gran (auto) 0.02 Absolute Neuts (auto) 7.2 Absolute Nucleated RBC 0.000 Nucleated RBC % (auto) 0.0 Smear Tech's Comments VERIFIED O2 Saturation ABG pH at Pt Temp ABG pCO2 at Pt Temp ABG pO2 at Pt Temp ABG HCO3 ABG Base Excess (Actual) VBG pH VBG pCO2 VBG pO2 VBG HCO3 VBG O2 Saturation VBG Base Excess Sodium Potassium Chloride Carbon Dioxide Anion Gap BUN Creatinine Estim Creat Clear Calc Estimated GFR POC Glucose 208 H Random Glucose Calcium Phosphorus Magnesium Troponin I High Sens 680.1 H* C-Reactive Protein 25-OH Vitamin D Total TSH 01/13/22 01/13/22 01/13/22 05:25 05:25 05:30 WBC RBC Hgb Hct MCV MCH MCHC RDW Plt Count MPV Immature Gran % (Auto) Neut % (Auto) Lymph % (Auto) [place] % (Auto) Eos % (Auto) Baso % (Auto) Lymph # (Auto) [place] # (Auto) Eos # (Auto) Baso # (Auto) Abs Immat Gran (auto) Absolute Neuts (auto) Absolute Nucleated RBC Nucleated RBC % (auto) Smear Tech's Comments O2 Saturation ABG pH at Pt Temp ABG pCO2 at Pt Temp ABG pO2 at Pt Temp ABG HCO3 ABG Base Excess (Actual) VBG pH 7.55 H VBG pCO2 22 VBG pO2 68 VBG HCO3 20 L VBG O2 Saturation 91.0 VBG Base Excess -0.2 Sodium 145 Potassium 3.9 Chloride 112 H Carbon Dioxide 19 L Anion Gap 18 BUN 18 H Creatinine 0.77 Estim Creat Clear Calc 123.9 Estimated GFR > 60 POC Glucose Random Glucose 247 H Calcium 10.1 Phosphorus 1.5 L Magnesium 2.3 Troponin I High Sens 685.0 H* C-Reactive Protein 4.64 H 25-OH Vitamin D Total 36.8 TSH 01/13/22 01/13/22 07:22 12:03 WBC RBC Hgb Hct MCV MCH MCHC RDW Plt Count MPV Immature Gran % (Auto) Neut % (Auto) Lymph % (Auto) [place] % (Auto) Eos % (Auto) Baso % (Auto) Lymph # (Auto) [place] # (Auto) Eos # (Auto) Baso # (Auto) Abs Immat Gran (auto) Absolute Neuts (auto) Absolute Nucleated RBC Nucleated RBC % (auto) Smear Tech's Comments O2 Saturation ABG pH at Pt Temp ABG pCO2 at Pt Temp ABG pO2 at Pt Temp ABG HCO3 ABG Base Excess (Actual) VBG pH VBG pCO2 VBG pO2 VBG HCO3 VBG O2 Saturation VBG Base Excess Sodium Potassium Chloride Carbon Dioxide Anion Gap BUN Creatinine Estim Creat Clear Calc Estimated GFR POC Glucose 219 H 284 H Random Glucose Calcium Phosphorus Magnesium Troponin I High Sens C-Reactive Protein 25-OH Vitamin D Total TSH Microbiology Microbiology Results: Microbiology 01/12/22 14:06 Blood - Venous Blood Culture - Preliminary No growth after 24 hours. 01/13/22 00:37 Sputum - Suctioned Gram Stain - Final 01/12/22 14:06 Blood - Venous Blood Culture - Preliminary Prelim: GPC Gram Stain only Progress Note: A&P Assessment and plan (1) Tracheostomy dependent: Status: Acute (2) Pneumonia: Status: Acute (3) Acute and chronic respiratory failure: Status: Acute (4) Cardiomyopathy: Status: Acute (5) Atrial fibrillation with rapid ventricular response: Status: Acute (6) Leukocytosis: Status: Acute (7) Hypoxia: Status: Acute (8) Acute tracheitis: Status: Acute (9) Elevated troponin: Status: Acute (10) GERD (gastroesophageal reflux disease): Status: Acute (11) Pure hypercholesterolemia: Status: Acute (12) Obesity: Status: Acute (13) Psoriasis: Status: Acute (14) Anemia: Status: Acute (15) Tracheostomy in place: Status: Acute (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
[2022-01-13 17:02] LABS: Glucose, Whole Blood 249 mg/dL (60-115)
[2022-01-13] MEDS: dilTIAZem HCL 125 MG in 0.9 % Sodium Chloride 100 ML 10 MG IVCONT (17:05)
[2022-01-13] MEDS: Rivaroxaban 20 MG TABLET PO (20:58)
[2022-01-13 22:00] LABS: Glucose, Whole Blood 219 mg/dL (60-115)
[2022-01-14] VITALS (16 sets, daily range): BP systolic 106–133; BP diastolic 58–95; PULSE 74–113; RESP 12–26; TEMP 36.6–37.1; O2SAT 85–98; BMI 32.3
[2022-01-14] MEDS: Clindamycin Phosphate/D5W 600 MG/50 ML PIGGYBACK 100 MG IV (01:58)
--- NOTE | 2022-01-14 03:23 | PC.NURSE ---
Assumed care from HELLEN Faustin, at 15:00. Patient is alert and oriented x3. His priority has been that he needs sleep, and he is also initially upset about the number of tubes and wires attached to him. He was asking if one of his IVs could be discontinued. Discussed with MD, and given his adequate PO intake, his LR was discontinued; subsequently, he has been oliguric, with only 225 ccs urine output this evening. He had only about 50% of dinner as well. Patient with aspiration risk, his , Evelia, is present at bedside, and she and patient have been educated about good hand hygiene prior to trach care, as well as to encourage meals without talking, chewing food completely, taking small bites, and patient with speech and swallow eval in the AM, but is permitted to eat. Patient with cardizem gtt in context of rapid afib on telemetry with a BBB. HR tachycardia only exasperated with activity at this time noted to have HR in 130's with any activity or sitting at edge of bed to eat, associated breaking speech to breathe, tachypnea in the 30's. At rest, his HR was consistently in the 70's-90, and dilt has been weaned down to 2.5. Discussed with PA that cardio had recommended restarting lopressor long acting, and can we consider converting to PO dilt? Under consideration for AM. Patient with home ventilator, IMV settings Rt 12, tv 900, 3.5 lpm, small amount of clear inline secretions suctioned. Breathes over vent. When not sleeping, patient uses NC 3.5 LPM and has a capped trach and speaks, #6 cuffless shiley. Lung sounds are markedly diminished throughout bases and RML. Afebrile, continues on IV clindamycin and Levaquin. On solumedrol, POCs are 240's, recieved 4 U lispro with dinner and bedtime. Patient and say he does not check sugar at home. Consider checking A1C. Psoriasis on forehead and cheeks, eczema to bilateral elbows, used to use a cream topically for this at home, but not for some time. Nothing ordered at this time.
[2022-01-14] MEDS: Albuterol/Iprat 2.5/0.5MG 3 ML AMPUL.NEB INHALE ×3 (04:35→12:20)
[2022-01-14 05:13] LABS: MANUAL DIFF FLAG NO
[2022-01-14 05:16] LABS: Hematocrit 35.9 % (42.0-52.0); Hemoglobin 11.1 g/dl (14.0-18.0); Imm Gran Abs Auto 0.03 X10*3/uL (0.00-0.03); Imm Gran Pct Auto 0.6 % (0.0-0.4); Lymphocytes Absolute Auto 0.5 X10*3/uL (1.2-4.9); Lymphocytes Percent Auto 8.6 % (20-40); Mean Corpuscular HGB Conc 30.9 g/dl (31.0-36.0); Mean Corpuscular Hemoglobin 29.1 pg (27.0-33.0); Mean Platelet Volume 12.4 fL (9.4-12.4); Monocytes Absolute Auto 0.1 X10*3/uL (0.1-1.2); Monocytes Percent Auto 1.7 % (2-11); Neutrophils Absolute Auto 4.9 x10*3/uL (2.0-8.3); Neutrophils Percent Auto 89.1 % (45-73); Platelet Count 181 X10*3/uL (160-400); Red Blood Count 3.82 X10*6/uL (4.60-5.80); Red Cell Distribution Width 15.4 % (11.0-16.0); White Blood Count 5.5 X10*3/uL (4.8-10.8)
[2022-01-14 05:18] LABS: VBG HCO3 23 mmol/L (22-26); VBG pCO2 28 mmHg; VBG pH 7.53 (7.32-7.43); VBG pO2 55 mmHg
[2022-01-14 05:22] LABS: Venous Blood Gas Refer to POC result
[2022-01-14] MEDS: Pantoprazole Sodium 40 MG/10 ML VIAL IVPUSH (05:55)
[2022-01-14 06:02] LABS: Anion Gap 14 (12-20); Blood Urea Nitrogen 20 mg/dL (9-16); C Reactive Protein 1.75 mg/dL (< or = 0.50); Calcium 10.2 mg/dL (8.4-10.2); Carbon Dioxide 23 mmol/L (22-29); Chloride 113 mmol/L (96-108); Creatinine Clr Calc Pharmacy 114.9; Estimated Glomerular Filt Rate > 60; Glucose Random 280 mg/dL (60-115); Magnesium 2.4 mg/dL (1.6-2.6); Phosphorus 2.9 mg/dL (2.7-4.5); Potassium 4.1 mmol/L (3.3-5.1); Sodium 146 mmol/L (135-145)
[2022-01-14 07:05] LABS: Glucose, Whole Blood 256 mg/dL (60-115)
[2022-01-14] MEDS: Insulin Lispro 100 UNIT/ML 3 ML VIAL SUBCUT ×2 (07:20→11:34)
[2022-01-14] MEDS: methylPREDNISolone Sod Succ 40 MG/ML VIAL IVPUSH (07:20)
[2022-01-14] MEDS: Clindamycin Phosphate/D5W 600 MG/50 ML PIGGYBACK 50 MG IV ×2 (07:21→13:16)
[2022-01-14] MEDS: Metoprolol Tartrate 50 MG TABLET PO (07:22)
[2022-01-14] MEDS: Rivaroxaban 20 MG TABLET PO (07:22)
--- NOTE | 2022-01-14 10:13 | PM.DS ---
DS: Providers Provider Date of Service: 01/14/22 Date of admission: 01/12/22 17:10 Date of discharge: 01/14/22 Primary care physician: Constantino Foley MD Admitting clinician: Yunior Ariza Attending physician on admission: Yunior Ariza Consults: 01/13/22 09:58 Consult to General Surgery Routine Consulting Provider: Roberto Villa Reason for consultation: tracheostomy change Has provider been notified: Yes 01/13/22 09:59 Consult to Pulmonology Routine Consulting Provider: Kandis Saravia Reason for consultation: resp failure Has provider been notified: Yes 01/13/22 10:00 Consult to Cardiology Routine Consulting Provider: Prakash Triplett Reason for consultation: pericardial effusion Has provider been notified: Yes Attending physician on discharge: Yunior Ariza Discharging clinician: Yunior Ariza DS: Diagnosis Discharge Diagnosis (1) Tracheostomy dependent: Status: Acute (2) Pneumonia: Status: Acute (3) Acute and chronic respiratory failure: Status: Acute (4) Cardiomyopathy: Status: Acute (5) Atrial fibrillation with rapid ventricular response: Status: Acute (6) Leukocytosis: Status: Acute (7) Hypoxia: Status: Acute (8) Acute tracheitis: Status: Acute (9) Elevated troponin: Status: Acute (10) GERD (gastroesophageal reflux disease): Status: Acute (11) Pure hypercholesterolemia: Status: Acute (12) Obesity: Status: Acute (13) Psoriasis: Status: Acute (14) Anemia: Status: Acute (15) Tracheostomy in place: Status: Acute (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 and apparently developed acute respiratory distress probable mucous plugging which they could not alleviate at home from their learned suctioning mechanism came in here with aggressive lavage bronchodilator therapy and suctioning able to dislodge considerable volume of secretions which were fetid with CT scan revealing a right lower lobe probably consolidation and atelectasis on the basis of microaspiration for what appears to be a very dirty tracheostomy filled with the other debris as well including hair etc. and was started on Levaquin and clindamycin based on the quality of the sputum and we got back 4+ polys but mixed mary from that and contaminated blood cultures so I do not believe he was ever septic never had a positive lactic acid and just demonstrated a hyperchloremic metabolic acidosis with preserved renal function and he has chronic atrial fibrillation with a chronic complete left bundle branch block and my bedside echo revealed that he does have a cardiomyopathy in part due to the septal 30% ejection fraction probably at best no primary valve or pericardial disease and with negative BNP despite the nonspecific troponin which went from 250-4 50-650 over a 12 hour. That easily could of reflected subendocardial ischemic injury from persistent rapid atrial fibrillation which began at 170 on the persistent rapid atrial fibrillation but as work of breathing he has came down to 110 and then was briefly controlled at 80-90 with gentle IV Cardizem and now we are restoring his home oral metoprolol Bedside echo also demonstrated a modest pericardial effusion volume of about 250 cc without evidence of tamponade At that point it looked like he had acute hypoxemic and hypercarbic respiratory failure from community-acquired right lower lobe pneumonia possible microaspiration basis from a dirty tracheostomy with mucus plugging that the no precipitated the respiratory distress and status asthmaticus and between the toileting therapy and aggressive bronchodilators breathing mechanism calm down heart rate diminished never developed any heart failure his BNPs were always negative despite the troponin and the troponin might very well have been the no a demand is it ischemia of adeno verses Status at Discharge Cognitive/behavioral status at discharge: He never lost his mental status and his cognitive function is well preserved Overall status at discharge: patient is progressing back to baseline Time Spent with Patient Time attestation: Total time spent providing and/or coordinating discharge services: Discharge coordination time: Greater than 30 minutes Quality: Stroke Does the patient have a stroke diagnosis?: No Physical Exam Vital Signs: Vital Signs: Last Vital Signs Temp 97.8 F 01/14/22 08:00 Pulse 87 01/14/22 10:00 Resp 20 01/14/22 10:00 BP 117/77 01/14/22 10:00 Pulse Ox 96 01/14/22 10:00 Oxygen Flow Rate 8 01/12/22 17:10 BMI result Body Mass Index 32.3 117/77 oxygen saturation 98% heart rate 98 in controlled atrial fibrillation Diffuse weakness and deformity due to his muscular dystrophy Benign abdomen no organomegaly No adventitious sounds over chest no were accessory muscle use Cardiac exam by echo as explained above Skin is intact and no acrocyanosis DS: Data Data Completed and Pending Labs on day of discharge: Laboratory Results - last 24 hr 01/13/22 01/13/22 01/13/22 12:03 16:18 21:24 WBC RBC Hgb Hct MCV MCH MCHC RDW Plt Count MPV Immature Gran % (Auto) Neut % (Auto) Lymph % (Auto) [place] % (Auto) Eos % (Auto) Baso % (Auto) Lymph # (Auto) [place] # (Auto) Eos # (Auto) Baso # (Auto) Abs Immat Gran (auto) Absolute Neuts (auto) Absolute Nucleated RBC Nucleated RBC % (auto) VBG pH VBG pCO2 VBG pO2 VBG HCO3 VBG O2 Saturation VBG Base Excess Sodium Potassium Chloride Carbon Dioxide Anion Gap BUN Creatinine Estim Creat Clear Calc Estimated GFR POC Glucose 284 H 249 H 219 H Random Glucose Calcium Phosphorus Magnesium C-Reactive Protein 01/14/22 01/14/22 01/14/22 05:06 05:06 05:11 WBC 5.5 RBC 3.82 L Hgb 11.1 L Hct 35.9 L MCV 94.0 MCH 29.1 MCHC 30.9 L RDW 15.4 Plt Count 181 MPV 12.4 Immature Gran % (Auto) 0.6 H Neut % (Auto) 89.1 H Lymph % (Auto) 8.6 L [place] % (Auto) 1.7 L Eos % (Auto) 0.0 Baso % (Auto) 0.0 Lymph # (Auto) 0.5 L [place] # (Auto) 0.1 Eos # (Auto) 0.0 Baso # (Auto) 0.0 Abs Immat Gran (auto) 0.03 Absolute Neuts (auto) 4.9 Absolute Nucleated RBC 0.000 Nucleated RBC % (auto) 0.0 VBG pH 7.53 H VBG pCO2 28 VBG pO2 55 VBG HCO3 23 VBG O2 Saturation 83.0 VBG Base Excess 2.0 Sodium 146 H Potassium 4.1 Chloride 113 H Carbon Dioxide 23 Anion Gap 14 BUN 20 H Creatinine 0.83 Estim Creat Clear Calc 114.9 Estimated GFR > 60 POC Glucose Random Glucose 280 H Calcium 10.2 Phosphorus 2.9 Magnesium 2.4 C-Reactive Protein 1.75 H 01/14/22 07:02 WBC RBC Hgb Hct MCV MCH MCHC RDW Plt Count MPV Immature Gran % (Auto) Neut % (Auto) Lymph % (Auto) [place] % (Auto) Eos % (Auto) Baso % (Auto) Lymph # (Auto) [place] # (Auto) Eos # (Auto) Baso # (Auto) Abs Immat Gran (auto) Absolute Neuts (auto) Absolute Nucleated RBC Nucleated RBC % (auto) VBG pH VBG pCO2 VBG pO2 VBG HCO3 VBG O2 Saturation VBG Base Excess Sodium Potassium Chloride Carbon Dioxide Anion Gap BUN Creatinine Estim Creat Clear Calc Estimated GFR POC Glucose 256 H Random Glucose Calcium Phosphorus Magnesium C-Reactive Protein Preliminary micro results at discharge 01/12/22 14:06 Blood Culture - Preliminary Blood - Venous Coag negative Staphylococcus 01/13/22 00:37 Sputum Culture - Preliminary Sputum - Suctioned Culture in progress. 01/12/22 14:06 Blood Culture - Preliminary Blood - Venous Prelim: GPC Gram Stain only Discharge Plan Discharge Anticipated Discharge Date/Time: 01/14/22 12:00 Patient Disposition: Home, Self-Care Discharge Diagnosis: Acute on chronic hypoxic and hypercarbic respiratory failure Chronic tracheostomy with microaspiration Community-acquired pneumonia Underlying muscular dystrophy Status asthmaticus Referrals: Constantino Foley MD [Primary Care Provider] - 1 Week Roberto Villa MD [Physician] - 1 Week Mikhail Sierra MD [Physician] - 1 Week Discharge Medications: New levofloxacin 500 mg tablet 500 mg PO Q24H 7 Days Qty: 7 0RF clindamycin HCl 300 mg capsule 300 mg PO Q6H Qty: 30 0RF Continued ascorbic acid (vitamin C) [Vitamin C] 500 mg tablet 500 mg PO DAILY Qty: 30 5RF metoprolol tartrate 50 mg tablet 50 mg PO BID Qty: 180 1RF pravastatin 20 mg tablet 20 mg PO DAILY Qty: 90 1RF (DME) tracheostomy 6 See Rx Instructions .Route .MEDSUPPLY Qty: 1 3RF Rx Instructions: As directed omeprazole 20 mg capsule,delayed release(DR/EC) 20 mg PO QAM Qty: 90 3RF furosemide 20 mg tablet 20 mg PO QAM Qty: 90 1RF Xarelto 20 mg tablet 20 mg PO DAILY Qty: 90 1RF metformin 500 mg tablet extended release 24 hr 500 mg PO DAILY 90 Days Qty: 90 1RF ferrous sulfate 140 mg (45 mg iron) tablet extended release 140 mg PO DAILY 90 Days Qty: 90 1RF colestipol 1 gram tablet 1 g PO .mwf 0RF albuterol sulfate 2.5 mg /3 mL (0.083 %) solution for nebulization 2.5 mg inhalation QID PRN (Reason: Shortness Of Breath) 0RF multivitamin [Daily Multi-Vitamin] Tablet 1 tab PO DAILY 0RF albuterol sulfate 90 mcg/actuation HFA aerosol inhaler 2 puff inhalation Q6H PRN (Reason: Shortness Of Breath) 0RF Discharge Orders: Discharge Order (Routine); Ordered 01/14/22 Ordered By: Yunior Ariza Activity on Discharge: As tolerated Stand Alone Forms: Patient Portal Discharge page Care Plan Goals: Obtain necessary equipment including cough assist and material for the new tracheostomy and will perform his tracheostomy care with frequent suctioning and lavage and continue his bronchodilator therapy and one-week of the combined antibiotics Health Concerns: Recurrent respiratory distress because of limited reserve capacity but he was instructed about returning early Plan of Treatment: Continued Levaquin and clindamycin by mouth with pulmonary toileting via suctioning through tracheostomy with bronchodilator therapy and cardiac follow-up with outpatient cardiology Assessment: Overall the patient in my foot and myself feel respiratory reserve is adequate to continue his therapy at home and he uses on a p.r.n. basis and nocturnally his ventilator via the trach Patient Instructions: Pneumonia (DC)
--- NOTE | 2022-01-14 10:17 | MHC.CM.PN ---
Addendum entered by Petra Brown 01/14/22 13:30: Pt has been accepted by [facility] - informed pt and spouse: updated d/c plan Addendum entered by Petra Brown 01/14/22 13:01: No response from [facility]: referred to [facility] can accept today at 2pm BLS. Family in agreement: [facility] search ongoing Original Note: Met with pt to review d/c plans: pt's spouse states she has contacted Dr. Sierra (pulmonology) to ensure they are working on ordering pt's new replacement trach supplies and his specialty vest. They will f/u when the order is ready for delivery. Pt and spouse asking for [facility] to ensure resolution from [facility]. [facility] referrals placed: awaiting acceptance. Referral made per pt request [facility]
[2022-01-14 11:15] LABS: Glucose, Whole Blood 207 mg/dL (60-115)
--- NOTE | 2022-01-14 11:15 | P.PNCA_ITS ---
Subjective Subjective Date of Service: 01/14/22 Interval history: He states that he is generally feeling okay. No specific cardiac complaints at this time. Review of Systems Review of Systems Yes all other systems are reviewed and are negative Cardiovascular: Reports as per HPI, Reports no additional cardiovascular complaints, Denies acrocyanosis, Denies cool extremities, Denies chest pain, Denies diaphoresis, Denies syncope, Denies claudication, Denies leg edema, Denies lightheadedness, Denies palpitations and Denies dyspnea Respiratory: Denies dyspnea Denies syncope Endocrine: Denies palpitations Physical Exam Vital Signs: Last Vital Signs Temp 97.8 F 01/14/22 08:00 Pulse 94 01/14/22 11:00 Resp 18 01/14/22 11:00 BP 117/77 01/14/22 10:00 Pulse Ox 95 01/14/22 11:00 Oxygen Flow Rate 8 01/12/22 17:10 BMI result Body Mass Index 32.3 Const General: comfortable HENMT Other: Unremarkable Neck Neck: Yes normal visual inspection Chest Chest palpation & inspection: normal inspection of the chest Resp Auscultation: rhonchi Cardio Palpation: normal PMI Heart sounds: S1 normal heart sound present, S2 normal heart sound present, no gallops, no murmurs and no rubs GI Palpation (GI): Soft to palpation Back/Spine/Pelvis Other: unremarkable Skin Lesions: other Neuro General: other Extrem General: Yes other Psych Mental Status: other Objective Labs and Meds Result diagrams: 01/14/22 05:06 01/14/22 05:06 Lab results: Laboratory Results - last 24 hr 01/13/22 01/13/22 01/13/22 12:03 16:18 21:24 WBC RBC Hgb Hct MCV MCH MCHC RDW Plt Count MPV Immature Gran % (Auto) Neut % (Auto) Lymph % (Auto) [place] % (Auto) Eos % (Auto) Baso % (Auto) Lymph # (Auto) [place] # (Auto) Eos # (Auto) Baso # (Auto) Abs Immat Gran (auto) Absolute Neuts (auto) Absolute Nucleated RBC Nucleated RBC % (auto) VBG pH VBG pCO2 VBG pO2 VBG HCO3 VBG O2 Saturation VBG Base Excess Sodium Potassium Chloride Carbon Dioxide Anion Gap BUN Creatinine Estim Creat Clear Calc Estimated GFR POC Glucose 284 H 249 H 219 H Random Glucose Calcium Phosphorus Magnesium C-Reactive Protein 01/14/22 01/14/22 01/14/22 05:06 05:06 05:11 WBC 5.5 RBC 3.82 L Hgb 11.1 L Hct 35.9 L MCV 94.0 MCH 29.1 MCHC 30.9 L RDW 15.4 Plt Count 181 MPV 12.4 Immature Gran % (Auto) 0.6 H Neut % (Auto) 89.1 H Lymph % (Auto) 8.6 L [place] % (Auto) 1.7 L Eos % (Auto) 0.0 Baso % (Auto) 0.0 Lymph # (Auto) 0.5 L [place] # (Auto) 0.1 Eos # (Auto) 0.0 Baso # (Auto) 0.0 Abs Immat Gran (auto) 0.03 Absolute Neuts (auto) 4.9 Absolute Nucleated RBC 0.000 Nucleated RBC % (auto) 0.0 VBG pH 7.53 H VBG pCO2 28 VBG pO2 55 VBG HCO3 23 VBG O2 Saturation 83.0 VBG Base Excess 2.0 Sodium 146 H Potassium 4.1 Chloride 113 H Carbon Dioxide 23 Anion Gap 14 BUN 20 H Creatinine 0.83 Estim Creat Clear Calc 114.9 Estimated GFR > 60 POC Glucose Random Glucose 280 H Calcium 10.2 Phosphorus 2.9 Magnesium 2.4 C-Reactive Protein 1.75 H 01/14/22 07:02 WBC RBC Hgb Hct MCV MCH MCHC RDW Plt Count MPV Immature Gran % (Auto) Neut % (Auto) Lymph % (Auto) [place] % (Auto) Eos % (Auto) Baso % (Auto) Lymph # (Auto) [place] # (Auto) Eos # (Auto) Baso # (Auto) Abs Immat Gran (auto) Absolute Neuts (auto) Absolute Nucleated RBC Nucleated RBC % (auto) VBG pH VBG pCO2 VBG pO2 VBG HCO3 VBG O2 Saturation VBG Base Excess Sodium Potassium Chloride Carbon Dioxide Anion Gap BUN Creatinine Estim Creat Clear Calc Estimated GFR POC Glucose 256 H Random Glucose Calcium Phosphorus Magnesium C-Reactive Protein Progress Note: A&P Assessment and plan (1) Atrial fibrillation with rapid ventricular response: Status: Acute (2) Left bundle branch block: Status: Acute (3) Cardiomyopathy: Status: Acute (4) Myotonic dystrophy: Status: Acute (5) Tracheostomy in place: Status: Acute Plan Labs reviewed. He has elevation troponins from 228, 461 and 680. Possible underlying coronary disease but difficult to assess mainly because of neurological issues/vent dependence. He is not suitablle for a stress test and cardiac catheterization is also quite challenging. He has no clear chest pain. Hence reasonable to just medically managed at least at this time. May resume beta-blockers that he takes at home but switch to sustained release. Continue with anticoagulation as he takes at home-Xarelto. He does have cardiomyopathy which could be from some combination of left bundle- branch block +/- coronary disease+/-nonischemic cardiomyopathy. However, investigating this from ischemic standpoint is very difficult. Also other measures like a Bi V ICD is also difficult and he may still not feel better as most of the shortness of breath seems to be rather respiratory than cardiac. I did bring it up with them but no definitive plans as yet. Also discussed with Dr. Ariza. With regard to the pericardial effusion on echo, could be related to the pneumonia on the left lung field. No specific management for that at this time. Upon discharge, we can follow him up in the office and he already has an appointment in a few weeks. Fall Risk Details Current Medications: Current Medications Albuterol/Ipratropium (Albuterol/Iprat 2.5/0.5mg 3 Ml Ampul.Neb) 3 ml INHALE RQ4H [facility] Last Admin: 01/14/22 08:25 Dose: 3 ml Documented by: Chlorhexidine Gluconate (Chlorhexidine Gluc Oral Rinse 15 Ml Mouthwash) 15 ml BUCCAL TID [facility] Last Admin: 01/14/22 07:22 Dose: Not Given Documented by: Dextrose (Dextrose 50 % 25 Gm/50 Ml Vial) 25 gm IVPUSH Q15M PRN; Protocol PRN Reason: per Hypoglycemia Standing Ord. Glucose (Glucose Gel 15 Gm Gel..Gram.) 15 gm PO Q15M PRN; Protocol PRN Reason: per Hypoglycemia Standing Ord. Levofloxacin (Levaquin) 750 mg in 150 mls @ 100 mls/hr IV Q24H [facility] Last Infusion: 01/13/22 16:30 Dose: Infused Documented by: Clindamycin Phosphate (Cleocin) 600 mg in 50 mls @ 100 mls/hr IV Q6H [facility] Last Infusion: 01/14/22 08:23 Dose: Infused Documented by: Insulin Human Lispro (Insulin Lispro 100 Unit/Ml 3 Ml Vial) 0 unit SUBCUT QIDACHS [facility]; Protocol Last Admin: 01/14/22 07:20 Dose: 6 unit Documented by: Methylprednisolone Sodium Succinate (Methylprednisolone Sod Succ 40 Mg/Ml Vial) 40 mg IVPUSH BID [facility] Last Admin: 01/14/22 07:20 Dose: 40 mg Documented by: Metoprolol Tartrate (Metoprolol Tartrate 50 Mg Tablet) 50 mg PO BID [facility]; Protocol Last Admin: 01/14/22 07:22 Dose: 50 mg Documented by: Pantoprazole Sodium (Pantoprazole Sodium 40 Mg/10 Ml Vial) 40 mg IVPUSH DAILY@0630 [facility] Last Admin: 01/14/22 05:55 Dose: 40 mg Documented by: Pharmacy Consult (Consult Rx Perform Med Rec) 1 each MISCELLANE ONCE PRN PRN Reason: Consult order Rivaroxaban (Rivaroxaban 20 Mg Tablet) 20 mg PO DAILY [facility] Last Admin: 01/14/22 07:22 Dose: 20 mg Documented by: Time Spent With Patient Time: Total time spent is greater than 50% in coordination of care (as documented) at patient's floor/unit and/or counseling patient: Time with patient: less than 15 minutes Progress Note: Quality Stroke Does the patient have a stroke diagnosis?: No Procedures Date of Service Date of Service: 01/14/22
[2022-01-14 12:51] LABS: Calcium (PTHI) 9.7 mg/dL (8.6-10.3); PTHI 93 pg/mL (16-77)
== END 2022-01-14 14:37 | disposition home health service (06) | DRG 177 ==
LOC: HO.ED 14:33 → HO.EDOVER 17:26 → HO.ICU 01-13 00:15
PROVIDERS: Physician Assistant; Admitting Provider Internal Medicine Cardiovascular Disease; Emergency Provider Emergency Medicine; PCP Internal Medicine; Visit Provider Internal Medicine Cardiovascular Disease
DX: J69.0 Pneumonitis due to inhalation of food and vomit (principal); J96.22 Acute and chronic respiratory failure with hypercapnia; E66.2 Morbid (severe) obesity with alveolar hypoventilation; I48.19 Other persistent atrial fibrillation; I42.9 Cardiomyopathy, unspecified; J98.11 Atelectasis; J04.10 Acute tracheitis without obstruction; I48.91 Unspecified atrial fibrillation; G71.11 Myotonic muscular dystrophy; K21.9 Gastro-esophageal reflux disease without esophagitis; I44.7 Left bundle-branch block, unspecified; D72.829 Elevated white blood cell count, unspecified; Z20.822 Contact with and (suspected) exposure to COVID-19; Z68.32 Body mass index [BMI] 32.0-32.9, adult; Z99.81 Dependence on supplemental oxygen; Z87.442 Personal history of urinary calculi; Z79.01 Long term (current) use of anticoagulants; Z79.84 Long term (current) use of oral hypoglycemic drugs; Z79.899 Other long term (current) drug therapy
CPT/HCPCS: 36415; 71045; 71250; 80048; 80076; 82306; 82803; 82947; 83605; 83690; 83735; 83880; 83970; 84100; 84145; 84443; 84484; 85025; 85610; 86140; 87040; 87070; 87147; 87205; 87635; 93005; 93306; 94640; 94799; 96365; 96367; 96375; 99285; J1956; J2920; J2930; J3370; Q9957

== ENCOUNTER → 2022-02-12 12:46 | Outpatient (BNVA) | payer MEDICARE, MEDICAID, SELFPAY | PROVIDERS: PCP Internal Medicine; Visit Provider Internal Medicine Pulmonary Disease | DX: Z43.0 Encounter for attention to tracheostomy (principal) | CPT/HCPCS: 99212 ==

== ENCOUNTER → 2022-03-11 14:19 | Outpatient (BNVA) | payer MEDICARE, MEDICAID, SELFPAY | PROVIDERS: PCP Internal Medicine; Visit Provider Internal Medicine | DX: J96.10 Chronic respiratory failure, unspecified whether with hypoxia or hypercapnia (principal); Z93.0 Tracheostomy status | CPT/HCPCS: 99212 ==

== ENCOUNTER → 2022-03-17 13:03 | Outpatient (BNVA) | payer MEDICARE, MEDICAID, SELFPAY | PROVIDERS: PCP Internal Medicine; Visit Provider Internal Medicine Pulmonary Disease | DX: Z43.0 Encounter for attention to tracheostomy (principal) | CPT/HCPCS: 99212 ==

== ENCOUNTER 2022-04-01 10:17 | Outpatient (REF) | payer MEDICARE, MEDICAID, SELFPAY ==
[2022-04-01 10:30] LABS: MANUAL DIFF FLAG NO
[2022-04-01 10:38] LABS: Basophils Percent Auto 0.4 % (0-2); Eosinophils Absolute Auto 0.2 X10*3/uL (0.0-0.4); Eosinophils Percent Auto 2.7 % (0-4); Hematocrit 36.6 % (42.0-52.0); Hemoglobin 11.4 g/dl (14.0-18.0); Imm Gran Abs Auto 0.03 X10*3/uL (0.00-0.03); Imm Gran Pct Auto 0.4 % (0.0-0.4); Lymphocytes Absolute Auto 1.2 X10*3/uL (1.2-4.9); Lymphocytes Percent Auto 17.6 % (20-40); Mean Corpuscular HGB Conc 31.1 g/dl (31.0-36.0); Mean Corpuscular Hemoglobin 29.5 pg (27.0-33.0); Mean Corpuscular Volume 94.6 fL (80.0-98.0); Mean Platelet Volume 12.5 fL (9.4-12.4); Monocytes Absolute Auto 0.6 X10*3/uL (0.1-1.2); Monocytes Percent Auto 8.9 % (2-11); Neutrophils Absolute Auto 4.8 x10*3/uL (2.0-8.3); Platelet Count 162 X10*3/uL (160-400); Red Blood Count 3.87 X10*6/uL (4.60-5.80); Red Cell Distribution Width 15.4 % (11.0-16.0); White Blood Count 6.9 X10*3/uL (4.8-10.8)
[2022-04-01 10:44] LABS: Estimated Average Glucose 126 mg/dL
--- NOTE | 2022-04-01 11:48 | HM_ITS ---
Conclusion: 1. Patient was monitored for total period of 3 days 2. Baseline rhythm is atrial fibrillation with average of 71 beats per minute with good rate control 3. No significant pauses or bradycardia noted 4. Occasional PVCs noted 5. No patient reported events MTDD
--- NOTE | 2022-04-01 11:48 | CA_ITS ---
Transthoracic Echocardiogram Patient (Last, First, Middle): Jose Puentes L Gender: Male Date of : 1975 Age: 46 Procedure Date: 04/01/2022 Procedure Type: Transthoracic Echocardiogram Location: OP Height: 165.1 cm Weight: 90.72 kg BSA: 1.98 m2 Heart Rate: bpm Bead Cutter: JONO Referring MD: Prakash Triplett MD Room Server: John Renteria MD Symptoms: I42.9 - Cardiomyopathy, unspecified Study Quality: Technically Difficult/Contrast ECG Rhythm: Atrial Fibrillation Conclusions: - 1. Technically limited study despite use of contrast agent 2. Moderate to severe LV systolic dysfunction with LVEF of 30-35% 3. Limited visualization of cardiac valves with normal cardiac valvular Doppler 4. Pericardium not well evaluated on this study Findings Procedure Information Contrast agent, definity, is being given per protocol without apparent complications. Left Ventricle Normal left ventricular cavity size. There is mildly increased left ventricular wall thickness. The left ventricular systolic function is moderate to severely decreased. The visually estimated ejection fraction is between 30-35%. Regional wall motion abnormalities can not be excluded due to suboptimal endocardial definition. Diastolic function is indeterminate on the basis of available data. Right Ventricle The right ventricle was not well visualized. Atria The left atrium was not well visualized. Interatrial shunt cannot be excluded. The right atrium was not well visualized. Aortic Valve The aortic valve was not well visualized. There is no aortic valve stenosis. There is no aortic valve regurgitation. Mitral Valve The mitral valve was not well visualized. There is trace mitral valve regurgitation. Pulmonic Valve The pulmonic valve was not well visualized. Tricuspid Valve The tricuspid valve was not well visualized. There is mild tricuspid valve regurgitation. The right ventricular systolic pressure is normal. The right ventricular systolic pressure is 29 mmHg. Mildly elevated right atrial pressure. Great Vessels The aorta was not well visualized. The pulmonary artery was not well visualized. Venous The inferior vena cava is mildly dilated and collapses less than 50% with inspiration. Pericardium/Pleural The pericardium was not well visualized. Prior Study Comparison No significant change compared to prior study dated: 01/12/2022. Measurements 2D Linear Measurements IVSd: 1.26 0.6-0.9/0.6-1.0 cm LVIDd: 3.68 3.9-5.3/4.2-5.9 cm LVIDd Index: 1.86 2.4-3.2/2.2-3.1 cm/m2 LVIDs: 3.07 2.0-3.6 cm LVPWd: 1.17 0.7-1.1 cm LA Diam: 2.90 2.7-3.8/3.0-4.0 cm LAIDs Index: 1.46 1.5-2.3 cm/m2 LV Mass: 185.39 67-162/88-224 g LV Mass Index: 93.63 43-95/49-115 g/m2 LVOT Diam: 2.10 3.0+(-)1.3 cm Aortic Valve AoV Pk John: 0.80 AoV Mn John: 0.57 AoV VTI: 0.14 AoV Pk Grad: 3.00 Aov Mn Grad: 2.00 TONG Cont.VTI: 2.32 LVOT LVOT Pk John: 0.55 LVOT Mn John: 0.37 LVOT VTI: 0.09 LVOT Pk Grad: 1.00 LVOT Mn Grad: 1.00 LVOT Diam: 2.10 LVOT Area: 3.46 Tricuspid Valve TR Pk John: 2.31 TR Pk Grad: 21.00 RA Press: 8.00 RVSP: 29.00 Great Vessels Aorta Sinus of Valsalva: 3.50 2.0-3.[address] [place]: 3.18 1.7-3.4 cm Ao Asc: 3.50 2.1-3.4 cm Updated in Other Vendor System with Status of Final John Renteria MD electronically signed on 04/02/2022 3:53:53 PM with status of Final
[2022-04-01 11:50] LABS: Appearance Urine CLEAR; Color Urine YELLOW; Glucose Urine UA NEG (NEG); Leukocyte Esterase Urine NEG (NEG); Nitrite Urine NEG (NEG); Urine Blood NEG (NEG); Urine Ketones NEG (NEG); Urine Protein NEG (NEG-TRACE)
[2022-04-01 12:00] LABS: Alanine Aminotransferase 28 U/L (0-40); Albumin Level 3.3 g/dL (3.5-5.0); Alkaline Phosphatase 226 U/L (39-117); Anion Gap 12 (12-20); Aspartate Amino Transferase 33 U/L (5-37); Bilirubin Total 1.1 mg/dL (0.0-1.0); Blood Urea Nitrogen 18 mg/dL (9-16); Calcium 9.8 mg/dL (8.4-10.2); Carbon Dioxide 28 mmol/L (22-29); Chloride 106 mmol/L (96-108); Cholesterol 170 mg/dL; Estimated Glomerular Filt Rate > 60; Glucose Fasting 129 mg/dL (60-99); HDL Cholesterol 30 mg/dL; LDL Cholesterol Calculated 94 mg/dl; Potassium 4.1 mmol/L (3.3-5.1); Sodium 142 mmol/L (135-145); Total Protein 6.3 g/dL (6.5-8.0); Triglycerides 231 mg/dL
[2022-04-01 12:03] LABS: TSH reflex Free T4 2.29 uIU/mL (0.32-4.0); Vitamin D 25-OH Total 36.4 ng/mL (>30)
== END 2022-04-01 10:18 | disposition home or self-care (01) ==
LOC: HO.LAB 10:17
PROVIDERS: PCP Internal Medicine; Visit Provider Internal Medicine
DX: J44.9 Chronic obstructive pulmonary disease, unspecified (principal); I10 Essential (primary) hypertension; E78.00 Pure hypercholesterolemia, unspecified; E11.9 Type 2 diabetes mellitus without complications; E55.9 Vitamin D deficiency, unspecified; I48.19 Other persistent atrial fibrillation; I42.9 Cardiomyopathy, unspecified
CPT/HCPCS: 36415; 80053; 80061; 81003; 82306; 83036; 84443; 85025; 93242; 93306; 99212; Q9957

== ENCOUNTER → 2022-04-12 15:30 | Outpatient (BNVA) | payer MEDICARE, MEDICAID, SELFPAY | PROVIDERS: PCP Internal Medicine; Referring Provider Internal Medicine; Visit Provider Internal Medicine | DX: I48.19 Other persistent atrial fibrillation (principal); I44.7 Left bundle-branch block, unspecified; I42.9 Cardiomyopathy, unspecified; J96.10 Chronic respiratory failure, unspecified whether with hypoxia or hypercapnia; G71.11 Myotonic muscular dystrophy; Z93.0 Tracheostomy status; Z79.01 Long term (current) use of anticoagulants; Z79.899 Other long term (current) drug therapy | CPT/HCPCS: Q3014 ==

== ENCOUNTER → 2022-04-15 14:47 | Outpatient (BNVA) | payer MEDICARE, MEDICAID, SELFPAY | PROVIDERS: PCP Internal Medicine; Visit Provider Hospitalist | DX: Z93.0 Tracheostomy status (principal) | CPT/HCPCS: 99212 ==

== ENCOUNTER 2022-05-17 14:25 | Emergency (ER) | payer MEDICARE, MEDICAID, SELFPAY ==
--- NOTE | ~2022-05-17 | CT_ITS ---
EXAMINATION: CT HEAD WITHOUT CONTRAST CT CERVICAL SPINE WITHOUT CONTRAST CLINICAL INFORMATION: Stroke. On Xarelto COMPARISON: CT head and cervical spine 12/21/2020 TECHNIQUE: Imaging was performed from the skull base to vertex without intravenous administration of contrast. In addition, helical noncontrast CT imaging was acquired through the cervical spine and source images were reviewed along with axial reconstructions and sagittal and coronal MPRs. [This CT examination was performed using dose optimization techniques as appropriate, variously including the following: *Automated exposure control *Adjustment of mA and/or kV according to patient size (this includes techniques or standardized protocols for targeted exams where dose is matched to indication/reason for exam; i.e. extremities or head) *Use of iterative reconstruction technique] DLP: 1047 mGy-cm FINDINGS: HEAD: No intracranial mass, hemorrhage, or midline shift is visualized. The ventricles and sulci are proportional. No extra-axial collections are identified. The paranasal sinuses and mastoid air cells are well aerated. Scalp hematoma the posterior midline occipital region. No skull fracture. CERVICAL SPINE: There is no evidence of acute cervical spine fracture. Vertebral bodies remain normal in height. Cervical vertebrae have normal alignment. Cervical disc heights are normal. The facet joints are normal. No pre- or paravertebral soft tissue abnormality is identified. Limited assessment of the lung apices is unremarkable. CT/CT cervical spine wo con IMPRESSION: 1. No acute intracranial pathology. 2. No CT evidence of acute cervical spine fracture or traumatic subluxation
--- NOTE | ~2022-05-17 | CT_ITS ---
EXAMINATION: CT HEAD WITHOUT CONTRAST CT CERVICAL SPINE WITHOUT CONTRAST CLINICAL INFORMATION: Stroke. On Xarelto COMPARISON: CT head and cervical spine 12/21/2020 TECHNIQUE: Imaging was performed from the skull base to vertex without intravenous administration of contrast. In addition, helical noncontrast CT imaging was acquired through the cervical spine and source images were reviewed along with axial reconstructions and sagittal and coronal MPRs. [This CT examination was performed using dose optimization techniques as appropriate, variously including the following: *Automated exposure control *Adjustment of mA and/or kV according to patient size (this includes techniques or standardized protocols for targeted exams where dose is matched to indication/reason for exam; i.e. extremities or head) *Use of iterative reconstruction technique] DLP: 1047 mGy-cm FINDINGS: HEAD: No intracranial mass, hemorrhage, or midline shift is visualized. The ventricles and sulci are proportional. No extra-axial collections are identified. The paranasal sinuses and mastoid air cells are well aerated. Scalp hematoma the posterior midline occipital region. No skull fracture. CERVICAL SPINE: There is no evidence of acute cervical spine fracture. Vertebral bodies remain normal in height. Cervical vertebrae have normal alignment. Cervical disc heights are normal. The facet joints are normal. No pre- or paravertebral soft tissue abnormality is identified. Limited assessment of the lung apices is unremarkable. CT/CT head/brain wo con IMPRESSION: 1. No acute intracranial pathology. 2. No CT evidence of acute cervical spine fracture or traumatic subluxation
--- NOTE | 2022-05-17 14:46 | ECG_ITS ---
Test Reason : cp Blood Pressure : / mmHG Vent. Rate : 080 BPM Atrial Rate : 000 BPM P-R Int : 000 ms QRS Dur : 202 ms QT Int : 438 ms P-R-T Axes : 000 -33 129 degrees QTc Int : 505 ms Atrial fibrillation Left axis deviation Left bundle branch block Abnormal ECG When compared with ECG of 12-JAN-2022 21:14, No significant change was found Referred By: Yaneth Morrison Electronically Signed By:Gentry Kirby
[2022-05-17 14:47] VITALS: BP 120/73; PULSE 88; RESP 16; TEMP 36.6; O2SAT 99; BMI 32.3
[2022-05-17 14:48] VITALS: BP 127/81; PULSE 89; O2SAT 100
--- NOTE | 2022-05-17 15:06 | ED_ITS ---
HPI - Fall General Chief Complaint: Head Injury <Yaneth Bland CARMEN Morrison - Last Filed: 05/17/22 18:07> Stated Complaint: FALL W/HEAD LAC,-LOC,+THIN,UNABLE TO CCOLLAR:TRACH <Yaneth Bland CARMEN Morrison - Last Filed: 05/17/22 18:07> Time Seen by Provider: 05/17/22 14:40 <Yaneth Morrison CNP - Last Filed: 05/17/22 18:07> Source: patient <Yaneth MorrisonCARMEN - Last Filed: 05/17/22 18:07> Mode of arrival: EMS <Yaneth Bland CARMEN Morrison - Last Filed: 05/17/22 18:07> Limitations: no limitations <Yaneth Bland CARMEN Morrison - Last Filed: 05/17/22 18:07> History of Present Illness HPI Narrative: Patient presents emergency department via EMS after a fall at home. Fall reported to be mechanical in nature, he tripped over his oxygen tubing. Denies any precipitating symptoms. He fell backwards striking his head against the floor. He is on Xarelto. He does report some lightheadedness, in localized pain to the posterior head where there is a laceration, bleeding currently controlled. Denies neck pain, neck stiffness, vision changes, chest pain, palpitations, shortness breath, difficulty breathing, vomiting, abdominal pain, weakness, numbness or tingling of his extremities. <Yaneth Bland CARMEN Morrison - Last Filed: 05/17/22 18:07> Related Data Home Medications: Home Medications Medication Instructions Recorded Confirmed albuterol sulfate 2.5 mg/3 mL 2.5 mg inhalation QID PRN 06/17/21 05/17/22 (0.083 %) solution for nebulization Shortness Of Breath multivitamin (Daily Multi-Vitamin 1 tab PO DAILY 06/17/21 05/17/22 tablet) L.acidophilus,rhamnosus-B.breve-S.thermophilus 1 tab PO DAILY 05/17/22 05/17/22 3 billion cell chew tab metformin 500 mg tablet,extended 500 mg PO BEDTIME 05/17/22 05/17/22 release 24 hr omeprazole 20 mg capsule,delayed 20 mg PO DAILY 05/17/22 05/17/22 release Previous Rx's Medication Instructions Recorded tracheostomy #1 ea 12/08/21 ascorbic acid (vitamin C) 500 mg 500 mg PO DAILY #30 tabs 01/22/22 tablet (Vitamin C) colestipol 1 gram tablet 1 g PO MOWEFR 90 days #39 tabs 04/14/22 ferrous sulfate 140 mg (45 mg 140 mg PO DAILY 90 days #90 tabs 04/14/22 iron) tablet,extended release furosemide 20 mg tablet 20 mg PO QAM #90 tabs 04/14/22 metoprolol tartrate 50 mg tablet 50 mg PO BID 90 days #180 tabs 04/14/22 pravastatin 20 mg tablet 20 mg PO DAILY #90 tabs 04/14/22 rivaroxaban 20 mg tablet (Xarelto) 20 mg PO DAILY #90 tabs 04/14/22 <Yaneth Morrison CNP - Last Filed: 05/17/22 18:07> Allergies/Adverse Reactions: Allergies Allergy/AdvReac Type Severity Reaction Status Date / Time No Known Allergies Allergy Verified 04/15/22 15:17 [No Known Allergies*] <Yaneth Morrison CNP - Last Filed: 05/17/22 18:07> Review of Systems Review of Systems: Constitutional: No fever. No chills. No weakness. No fatigue. Eye: No swelling. No redness. No vision changes. Skin: No rash. No itching. Cardiovascular: No chest pain. No chest pressure. No palpitations. No pedal mario alberto a. Respiratory: No shortness of breath. No cough. No sputum production. Gastrointestinal: No anorexia. No nausea. No vomiting. No diarrhea. No abdominal pain. Genitourinary: No burning micturition. Neurologic: Positive headache. No dizziness. No pre-syncope/ syncope. No unilateral weakness. No ataxia. No numbness. No tingling. No change in bowel or bladder control. Musculoskeletal: No muscle pain. No back pain. No joint pain. No stiffness. <Yaneth Morrison CNP - Last Filed: 05/17/22 18:07> Yes all other systems are reviewed and are negative <Yaneth Morrison CNP - Last Filed: 05/17/22 18:07> [facility] Past Medical History Attestation statement: The following information was validated with the patient. 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 <Yaneth Morrison CNP - Last Filed: 05/17/22 18:07> Surgical History: Surgical History History of cholecystectomy History of lithotripsy History of tracheostomy <Yaneth Morrison CNP - Last Filed: 05/17/22 18:07> Family History Family History: Family History Father Medical history unknown Mother CVD (cardiovascular disease) Stroke Maternal Grandmother Cancer Maternal Grandfather Diabetes <Yaneth Morrison CNP - Last Filed: 05/17/22 18:07> Social History Social History: Social History Housing: House Alcohol intake: never Patient Tobacco Use Status: Never used Tobacco Second Hand Smoke Exposure: Yes Advance Directives: No Advance Directives Information Provided: No service: No Current occupational status: disabled Cognitive needs: Yes Hearing needs: No Vision needs: No <Yaneth Morrison CNP - Last Filed: 05/17/22 18:07> Physical Exam Vital Signs: Vital Signs: Last Vital Signs Temp 97.9 F 05/17/22 15:40 Pulse 76 05/17/22 15:40 Resp 16 05/17/22 15:40 BP 116/70 05/17/22 15:40 Pulse Ox 98 05/17/22 15:40 O2 Del Method 05/17/22 14:47 O2 Flow Rate 4 05/17/22 15:40 Oxygen Flow Rate 4 05/17/22 14:47 BMI result Body Mass Index 32.3 Vital signs have been reviewed as normal and appeared to be correct. Blood pressure normal.? Heart rate normal.? Respiration rate normal. Temperature normal.? Oxygen saturation normal. <Yaneth Morrison CNP - Last Filed: 05/17/22 18:07> Vital Signs: Last Vital Signs Temp 97.9 F 05/17/22 15:40 Pulse 76 05/17/22 15:40 Resp 16 05/17/22 15:40 BP 116/70 05/17/22 15:40 Pulse Ox 98 05/17/22 15:40 O2 Del Method 05/17/22 14:47 O2 Flow Rate 4 05/17/22 15:40 Oxygen Flow Rate 4 05/17/22 14:47 BMI result Body Mass Index 32.3 <BROOKE Strange - Last Filed: 05/17/22 20:23> Appearance: Alert.?Oriented to person, place and time. No acute distress.?Normal affect. Head: 1 cm laceration to occiput, bleeding controlled Eyes: Pupils equal, round and reactive to light.? EOMI. No nystagmus. 2 mm bilaterally ENT: Pharynx normal. TM normal bilaterally?? Neck: Normal inspection.? Neck supple.??No midline cervical spine tenderness step-offs, deformities. CVS: Heart sounds normal. Normal heart rate and rhythm.? Pulses normal.?? Respiratory: No respiratory distress.? Lung sounds clear to auscultation bilater ally. Tracheostomy patent? Abdomen: Soft and non-tender. Normoactive bowel sounds. Skin: Skin warm and dry.? Normal skin color.? ? Extremities: No lower extremity edema.? Neuro: Moves all extremities spontaneously. Sensation intact bilaterally. CN II- XII intact. No focal neuro deficits. Ambulates with normal steady gait. <Yaneth Morrison CNP - Last Filed: 05/17/22 18:07> Course Course Course Narrative: Patient is a 46-year-old male with a past medical history of GERD, hypercholesterolemia, cardiomyopathy, anemia, atrial fibrillation, left bundle branch block, chronic respiratory failure with tracheostomy in place. Presents emergency department for evaluation after a mechanical fall. Will obtain labs, EKG, CT of the head and cervical spine to exclude ICH/SAH/ fracture/subl.uxation <Yaneth Morrison CNP - Last Filed: 05/17/22 18:07> Reevaluation(s) Reevaluation #1: CBC is overall unremarkable. Potassium 5.3, EKG reveals no acute hyperkalemia changes, no acute ischemic findings, troponin 39.7, lower than baseline elevated troponins, no active chest pain. Scant amount of bleeding to laceration of the occiput, Three mary placed, bleeding controlled, patient tolerated procedure well, advised will need to be removed in 1 week. Discussed worsening signs and symptoms that should be re-evaluated. <Yaneth Morrison CNP - Last Filed: 05/17/22 18:07> Time: 17:00 <Yaneth Morrison CNP - Last Filed: 05/17/22 18:07> Reevaluation #2: Patient signed out to [facility] pending CT of the head. Discussed with patient plan of care for discharge home if CT of head is normal. <Yaneth Morrison CNP - Last Filed: 05/17/22 18:07> Time: 18:05 <Yaneth Morrison CNP - Last Filed: 05/17/22 18:07> Reevaluation #3: Explained to patient that him this potassium was high therefore lokelma was given. Second troponin pending. Patient tells me that he does not want to take Lokelma, I explained to them the risks of high potassium, they verbalized understanding. Tell me they do not want to wait for repeat labs or hospital admission. <BROOKE Strange - Last Filed: 05/17/22 20:23> Time: 20:19 <BROOKE Strange - Last Filed: 05/17/22 20:23> MDM - Fall Medical Records Attestation: I reviewed the patient's medical records. <Yaneth Morrison CNP - Last Filed: 05/17/22 18:07> Lab Data Attestation: I reviewed the patient's lab results. <Yaneth Morrison CNP - Last Filed: 05/17/22 18:07> Result diagrams: : 05/17/22 16:10 05/17/22 16:10 <Yaneth Morrison, INSTALLER TECHNICIAN - Last Filed: 05/17/22 18:07> Labs: Lab Results 05/17/22 05/17/22 05/17/22 Range/Units 16:10 16:10 16:10 WBC (4.8-10.8) X10*3/uL RBC (4.60-5.80) X10*6/uL Hgb (14.0-18.0) g/dl Hct (42.0-52.0) % MCV (80.0-98.0) fL MCH (27.0-33.0) pg MCHC (31.0-36.0) g/dl RDW (11.0-16.0) % Plt Count (160-400) X10*3/uL MPV (9.4-12.4) fL Absolute Nucleated RBC (0.0-0.012) X10*3/uL Nucleated RBC % (auto) (0.0-0.2) /100WBC Sodium 144 (135-145) mmol/L Potassium 5.3 H D (3.3-5.1) mmol/L Chloride 108 (96-108) mmol/L Carbon Dioxide 28 (22-29) mmol/L Anion Gap 13 (12-20) BUN 20 H (9-16) mg/dL Creatinine 0.72 (0.5-1.4) mg/dL Estim Creat Clear Calc 132.3 Estimated GFR > 60 Random Glucose 137 H D (60-115) mg/dL Calcium 9.2 D (8.4-10.2) mg/dL Magnesium 2.4 (1.6-2.6) mg/dL Total Bilirubin 0.7 (0.0-1.0) mg/dL AST 37 (5-37) U/L ALT 18 (0-40) U/L Alkaline Phosphatase 164 H D (39-117) U/L Troponin I High Sens 39.7 H D (<3.5-35.0) ng/L Total Protein 7.1 (6.5-8.0) g/dL Albumin 3.7 (3.5-5.0) g/dL COVID-19 ([facility]) Negative (Negative) COVID-19 Clin Com See Note 05/17/22 Range/Units 16:10 WBC 8.4 (4.8-10.8) X10*3/uL RBC 3.92 L (4.60-5.80) X10*6/uL Hgb 11.2 L (14.0-18.0) g/dl Hct 36.6 L (42.0-52.0) % MCV 93.4 (80.0-98.0) fL MCH 28.6 (27.0-33.0) pg MCHC 30.6 L (31.0-36.0) g/dl RDW 14.5 (11.0-16.0) % Plt Count 206 D (160-400) X10*3/uL MPV 12.8 H (9.4-12.4) fL Absolute Nucleated RBC 0.000 (0.0-0.012) X10*3/uL Nucleated RBC % (auto) 0.0 (0.0-0.2) /100WBC Sodium (135-145) mmol/L Potassium (3.3-5.1) mmol/L Chloride (96-108) mmol/L Carbon Dioxide (22-29) mmol/L Anion Gap (12-20) BUN (9-16) mg/dL Creatinine (0.5-1.4) mg/dL Estim Creat Clear Calc Estimated GFR Random Glucose (60-115) mg/dL Calcium (8.4-10.2) mg/dL Magnesium (1.6-2.6) mg/dL Total Bilirubin (0.0-1.0) mg/dL AST (5-37) U/L ALT (0-40) U/L Alkaline Phosphatase (39-117) U/L Troponin I High Sens (<3.5-35.0) ng/L Total Protein (6.5-8.0) g/dL Albumin (3.5-5.0) g/dL COVID-19 ([place]) (Negative) COVID-19 Clin Com <Yaneth Morrison CNP - Last Filed: 05/17/22 18:07> Lab Results 05/17/22 05/17/22 05/17/22 Range/Units 16:10 16:10 16:10 WBC (4.8-10.8) X10*3/uL RBC (4.60-5.80) X10*6/uL Hgb (14.0-18.0) g/dl Hct (42.0-52.0) % MCV (80.0-98.0) fL MCH (27.0-33.0) pg MCHC (31.0-36.0) g/dl RDW (11.0-16.0) % Plt Count (160-400) X10*3/uL MPV (9.4-12.4) fL Absolute Nucleated RBC (0.0-0.012) X10*3/uL Nucleated RBC % (auto) (0.0-0.2) /100WBC Sodium 144 (135-145) mmol/L Potassium 5.3 H D (3.3-5.1) mmol/L Chloride 108 (96-108) mmol/L Carbon Dioxide 28 (22-29) mmol/L Anion Gap 13 (12-20) BUN 20 H (9-16) mg/dL Creatinine 0.72 (0.5-1.4) mg/dL Estim Creat Clear Calc 132.3 Estimated GFR > 60 Random Glucose 137 H D (60-115) mg/dL Calcium 9.2 D (8.4-10.2) mg/dL Magnesium 2.4 (1.6-2.6) mg/dL Total Bilirubin 0.7 (0.0-1.0) mg/dL AST 37 (5-37) U/L ALT 18 (0-40) U/L Alkaline Phosphatase 164 H D (39-117) U/L Troponin I High Sens 39.7 H D (<3.5-35.0) ng/L Total Protein 7.1 (6.5-8.0) g/dL Albumin 3.7 (3.5-5.0) g/dL COVID-19 ([place]) Negative (Negative) COVID-19 Clin Com See Note 05/17/22 Range/Units 16:10 WBC 8.4 (4.8-10.8) X10*3/uL RBC 3.92 L (4.60-5.80) X10*6/uL Hgb 11.2 L (14.0-18.0) g/dl Hct 36.6 L (42.0-52.0) % MCV 93.4 (80.0-98.0) fL MCH 28.6 (27.0-33.0) pg MCHC 30.6 L (31.0-36.0) g/dl RDW 14.5 (11.0-16.0) % Plt Count 206 D (160-400) X10*3/uL MPV 12.8 H (9.4-12.4) fL Absolute Nucleated RBC 0.000 (0.0-0.012) X10*3/uL Nucleated RBC % (auto) 0.0 (0.0-0.2) /100WBC Sodium (135-145) mmol/L Potassium (3.3-5.1) mmol/L Chloride (96-108) mmol/L Carbon Dioxide (22-29) mmol/L Anion Gap (12-20) BUN (9-16) mg/dL Creatinine (0.5-1.4) mg/dL Estim Creat Clear Calc Estimated GFR Random Glucose (60-115) mg/dL Calcium (8.4-10.2) mg/dL Magnesium (1.6-2.6) mg/dL Total Bilirubin (0.0-1.0) mg/dL AST (5-37) U/L ALT (0-40) U/L Alkaline Phosphatase (39-117) U/L Troponin I High Sens (<3.5-35.0) ng/L Total Protein (6.5-8.0) g/dL Albumin (3.5-5.0) g/dL COVID-19 ([place]) (Negative) COVID-19 Clin Com <BROOKE Strange - Last Filed: 05/17/22 20:23> ECG Data Attestation: I personally reviewed and interpreted this ECG as follows: <Yaneth Morrison CNP - Last Filed: 05/17/22 18:07> ECG interpretation date: 05/17/22 <Yaneth Morrison CNP - Last Filed: 05/17/22 18:07> Prior ECG tracings: available for review <Yaneth Morrison CNP - Last Filed: 05/17/22 18:07> Interpretation: Rate: 80 Rhythm:? Atrial fibrillation, left bundle-branch block Normal QRS complex.?? ST T wave :??No ST depression, no T-wave inversion qTC: 505 prior studies:? The study has been interpreted contemporaneously by me. <Yaneth Bland CARMEN Morrison - Last Filed: 05/17/22 18:07> Discharge Plan Discharge Clinical Impression: Fall, Laceration of head, Left against medical advice, Acute hyperkalemia <Yanethcornelio Morrison CNP - Last Filed: 05/17/22 18:07> Patient Disposition: Home, Self-Care <Yaneth Edwinanora Morrison CNP - Last Filed: 05/17/22 18:07> Instructions: Against Medical Advice (ED), Fall Prevention (ED), Head Laceration (ED) <Yanethcornelio Morrison CNP - Last Filed: 05/17/22 18:07> Additional Instructions: 3 mary were placed to the laceration on your head, these will need to be removed in 7 days. If you develop redness, swelling, drainage, fevers, chills, bleeding, worsening pain to this site you should re-evaluated. A CT scan of your head and neck with no acute findings. Please follow-up with your primary care doctor as needed. Return to the emergency department any new or worsening symptoms or concerns. Your noted to have an elevated potassium. Please have this lab value recheck by her primary care provider in 2-3 days. You decided to leave against medical advice meaning your condition could worsen, diagnoses can go undiagnosed, decreased quality of life, stroke, heart attack, oral potential risk factors of leaving against medical advice. <Yanethcornelio Morrison CNP - Last Filed: 05/17/22 18:07> Prescriptions: No Action (DME) tracheostomy 6 See Rx Instructions .Route .MEDSUPPLY Qty: 1 3RF Rx Instructions: As directed ascorbic acid (vitamin C) [Vitamin C] 500 mg tablet 500 mg PO DAILY Qty: 30 5RF omeprazole 20 mg capsule,delayed release(DR/EC) 20 mg PO DAILY metformin 500 mg tablet extended release 24 hr 500 mg PO BEDTIME Probiotic 3 billion cell Tablet,Chewable 1 tab PO DAILY ferrous sulfate 140 mg (45 mg iron) tablet extended release 140 mg PO DAILY 90 Days Qty: 90 1RF metoprolol tartrate 50 mg tablet 50 mg PO BID 90 Days Qty: 180 1RF furosemide 20 mg tablet 20 mg PO QAM Qty: 90 1RF pravastatin 20 mg tablet 20 mg PO DAILY Qty: 90 1RF Xarelto 20 mg tablet 20 mg PO DAILY Qty: 90 1RF colestipol 1 gram tablet 1 g PO MOWEFR 90 Days Qty: 39 1RF albuterol sulfate 2.5 mg /3 mL (0.083 %) solution for nebulization 2.5 mg inhalation QID PRN (Reason: Shortness Of Breath) multivitamin [Daily Multi-Vitamin] Tablet 1 tab PO DAILY <Yaneth Morrison CNP - Last Filed: 05/17/22 18:07> Referrals: Constantino Foley MD [Primary Care Provider] - 2 days <Yaneth Morrison CNP - Last Filed: 05/17/22 18:07> Stand Alone Forms: Against Medical Advice <Yaneth Morrison CNP - Last Filed: 05/17/22 18:07>
[2022-05-17 15:40] VITALS: BP 116/70; PULSE 76; RESP 16; TEMP 36.6; O2SAT 98
--- NOTE | 2022-05-17 15:54 | P.HPHOSP_ITS ---
History of Present Illness Date of Service: 05/17/22 Chief Complaint: Shortness of breath 46 year male with unspecified cardiomyopathy, trach dependent, REBECA usues CPAP, unspecified asthma who presents with [facility] Medical History Anemia Cardiomyopathy Chronic respiratory failure GERD (gastroesophageal reflux disease) Left bundle branch block Myotonic dystrophy Obesity Obstructive sleep apnea Persistent atrial fibrillation Pneumonia Psoriasis Pure hypercholesterolemia Tracheostomy dependent Tracheostomy in place Family History Father Medical history unknown Mother CVD (cardiovascular disease) Stroke Maternal Grandmother Cancer Maternal Grandfather Diabetes Surgical History History of cholecystectomy History of lithotripsy History of tracheostomy Social History Housing: House Alcohol intake: never Patient Tobacco Use Status: Never used Tobacco Second Hand Smoke Exposure: Yes service: No Current occupational status: disabled Cognitive needs: Yes Hearing needs: No Vision needs: No Meds Allergies Allergy/AdvReac Type Severity Reaction Status Date / Time No Known Allergies Allergy Verified 04/15/22 15:17 [No Known Allergies*] Active Medications: Current Medications Pharmacy Consult (Consult Rx Perform Med Rec) 1 each MISCELLANE ONCE PRN PRN Reason: Consult order Home Medications Medication Instructions Recorded Confirmed Last Taken Type albuterol sulfate 2.5 mg/3 mL 2.5 mg inhalation QID PRN 06/17/21 04/14/22 Unknown History (0.083 %) solution for nebulization Shortness Of Breath multivitamin (Daily Multi-Vitamin 1 tab PO DAILY 06/17/21 04/14/22 Unknown History tablet) Physical Exam Vital Signs and Narrative: Vital Signs: Last Vital Signs Temp 97.9 F 05/17/22 15:40 Pulse 76 05/17/22 15:40 Resp 16 05/17/22 15:40 BP 116/70 05/17/22 15:40 Pulse Ox 98 05/17/22 15:40 O2 Del Method 05/17/22 14:47 O2 Flow Rate 4 05/17/22 15:40 Oxygen Flow Rate 4 05/17/22 14:47 BMI result Body Mass Index 32.3
[2022-05-17 16:23] LABS: Hemoglobin 11.2 g/dl (14.0-18.0); Red Cell Distribution Width 14.5 % (11.0-16.0)
[2022-05-17 16:25] LABS: Hematocrit 36.6 % (42.0-52.0); Mean Corpuscular HGB Conc 30.6 g/dl (31.0-36.0); Mean Corpuscular Hemoglobin 28.6 pg (27.0-33.0); Mean Corpuscular Volume 93.4 fL (80.0-98.0); Mean Platelet Volume 12.8 fL (9.4-12.4); Platelet Count 206 X10*3/uL (160-400); Red Blood Count 3.92 X10*6/uL (4.60-5.80); White Blood Count 8.4 X10*3/uL (4.8-10.8)
[2022-05-17 16:36] LABS: PLT ABN DIST 1
[2022-05-17 16:40] LABS: Troponin-I High Sensitivity 39.7 ng/L (<3.5-35.0)
[2022-05-17 16:41] LABS: Alanine Aminotransferase 18 U/L (0-40); Albumin Level 3.7 g/dL (3.5-5.0); Alkaline Phosphatase 164 U/L (39-117); Anion Gap 13 (12-20); Aspartate Amino Transferase 37 U/L (5-37); Bilirubin Total 0.7 mg/dL (0.0-1.0); Blood Urea Nitrogen 20 mg/dL (9-16); COVID-19 Test Negative (Negative); Calcium 9.2 mg/dL (8.4-10.2); Carbon Dioxide 28 mmol/L (22-29); Chloride 108 mmol/L (96-108); Creatinine Clr Calc Pharmacy 132.3; Estimated Glomerular Filt Rate > 60; Glucose Random 137 mg/dL (60-115); IDNOW Serial# 16C4AD1C; Magnesium 2.4 mg/dL (1.6-2.6); Potassium 5.3 mmol/L (3.3-5.1); Sodium 144 mmol/L (135-145); Total Protein 7.1 g/dL (6.5-8.0)
--- NOTE | 2022-05-17 17:16 | PHA.MEDREC ---
MED REC COMPLETE, NO ISSUES Pharmacy Consult ? Medication Reconciliation Pharmacy has completed the medication reconciliation.
[2022-05-17] MEDS: Sodium Zirconium Cyclosilicate 5 GM POWD.PACK PO (19:58)
[2022-05-17 20:28] LABS: Troponin-I High Sensitivity 44.3 ng/L (<3.5-35.0)
== END 2022-05-17 23:40 | disposition home or self-care (01) ==
PROVIDERS: Internal Medicine; Nurse Practitioner Family; Physician Assistant; Emergency Provider Emergency Medicine; PCP Internal Medicine
DX: S01.91XA Laceration without foreign body of unspecified part of head, initial encounter (principal); E87.5 Hyperkalemia; I48.91 Unspecified atrial fibrillation; R51.9 Headache, unspecified; M54.2 Cervicalgia; R07.89 Other chest pain; W01.0XXA Fall on same level from slipping, tripping and stumbling without subsequent striking against object, initial encounter; Y93.9 Activity, unspecified; Y92.9 Unspecified place or not applicable; Y99.9 Unspecified external cause status; Z20.822 Contact with and (suspected) exposure to COVID-19; Z79.899 Other long term (current) drug therapy; Z79.01 Long term (current) use of anticoagulants
CPT/HCPCS: 36415; 70450; 72125; 80053; 83735; 84484; 85027; 87635; 93005; 99284

== ENCOUNTER 2022-05-21 09:41 | Outpatient (REF) | payer MEDICARE, MEDICAID, SELFPAY ==
[2022-05-21 11:54] LABS: Anion Gap 13 (12-20); Carbon Dioxide 29 mmol/L (22-29); Chloride 108 mmol/L (96-108); Potassium 3.9 mmol/L (3.3-5.1); Sodium 146 mmol/L (135-145)
== END 2022-05-21 09:42 | disposition home or self-care (01) ==
LOC: HO.LAB 09:41
PROVIDERS: PCP Internal Medicine; Visit Provider Internal Medicine
DX: E87.5 Hyperkalemia (principal); Z93.0 Tracheostomy status
CPT/HCPCS: 36415; 80051; 99212

== ENCOUNTER → 2022-06-24 13:18 | Outpatient (BNVA) | payer MEDICARE, MEDICAID, SELFPAY | PROVIDERS: PCP Internal Medicine; Visit Provider Hospitalist | DX: Z43.0 Encounter for attention to tracheostomy (principal) | CPT/HCPCS: 99212 ==

== ENCOUNTER → 2022-07-23 13:42 | Outpatient (BNVA) | payer MEDICARE, MEDICAID, SELFPAY | PROVIDERS: PCP Internal Medicine; Visit Provider Hospitalist | DX: Z93.0 Tracheostomy status (principal) | CPT/HCPCS: 99212 ==

== ENCOUNTER → 2022-08-23 14:03 | Outpatient (BNVA) | payer MEDICARE, MEDICAID, SELFPAY | PROVIDERS: PCP Internal Medicine; Visit Provider Internal Medicine | DX: Z43.0 Encounter for attention to tracheostomy (principal); G47.33 Obstructive sleep apnea (adult) (pediatric); G71.11 Myotonic muscular dystrophy; J96.91 Respiratory failure, unspecified with hypoxia; J96.92 Respiratory failure, unspecified with hypercapnia; Z99.81 Dependence on supplemental oxygen; Z23 Encounter for immunization | CPT/HCPCS: 90471; 90686; 99212 ==

== ENCOUNTER → 2022-09-16 13:10 | Outpatient (BNVA) | payer MEDICARE, MEDICAID, SELFPAY | PROVIDERS: PCP Internal Medicine; Visit Provider Hospitalist | DX: Z43.0 Encounter for attention to tracheostomy (principal); J40 Bronchitis, not specified as acute or chronic | CPT/HCPCS: 99212 ==

== ENCOUNTER → 2022-10-11 15:03 | Outpatient (BNVA) | payer MEDICARE, MEDICAID, SELFPAY | PROVIDERS: PCP Internal Medicine; Visit Provider Hospitalist | DX: Z43.0 Encounter for attention to tracheostomy (principal) | CPT/HCPCS: 99212 ==

== ENCOUNTER → 2022-11-16 13:24 | Outpatient (BNVA) | payer MEDICARE, MEDICAID, SELFPAY | PROVIDERS: PCP Internal Medicine; Visit Provider Hospitalist | DX: Z43.0 Encounter for attention to tracheostomy (principal) | CPT/HCPCS: 99212 ==

== ENCOUNTER → 2023-02-02 14:48 | Outpatient (BNVA) | payer MEDICARE, MEDICAID, SELFPAY | PROVIDERS: PCP Internal Medicine; Visit Provider Internal Medicine | DX: G47.33 Obstructive sleep apnea (adult) (pediatric) (principal); R06.89 Other abnormalities of breathing; J96.91 Respiratory failure, unspecified with hypoxia; J96.92 Respiratory failure, unspecified with hypercapnia; J40 Bronchitis, not specified as acute or chronic; Z93.0 Tracheostomy status | CPT/HCPCS: Q3014 ==

== ENCOUNTER 2023-08-18 13:13 | Outpatient (AMB) | payer MEDICARE, MEDICAID, SELFPAY ==
--- NOTE | 2023-08-18 13:14 | A.OFFVIS_ITS ---
Intake Intake Visit Reasons: trach Allergies No Known Allergies [No Known Allergies*] Allergy (Verified 08/18/23 13:22) Medication List - Last Reconciled 08/18/23 by Kandis Saravia MD albuterol sulfate 2.5 mg inhalation QID PRN ascorbic acid (vitamin C) (Vitamin C) 500 mg PO DAILY 90 days chlorhexidine gluconate 0.12% 15 mL buccal DAILY 30 days colestipol 1 g PO MOWEFR 90 days ferrous sulfate ER 140 mg PO DAILY 90 days furosemide 20 mg PO QAM L.acid-L.rham-B.breve-S.therm 3 billion cell 1 tab PO DAILY metformin ER 500 mg PO BEDTIME metoprolol tartrate 50 mg PO BID 90 days miscellaneous medical supply 1 ea miscellaneous DAILY multivitamin (Daily Multi-Vitamin tablet) 1 tab PO DAILY mupirocin 2% 1 appl topical TID omeprazole 20 mg PO DAILY pravastatin 20 mg PO DAILY 90 days rivaroxaban (Xarelto) 20 mg PO DAILY 90 days [tracheostomy As directed] walker (Ultra-Light Rollator misc) As directed Do you need a note to return to daycare/school/sports/work: No HPI trach HPI Details This the visit was conducted by tele visit. The patient is the bed and wheelchair confined and finds it difficult to come to the office. His is providing full-time care. has been changing the trach once a month with the assistance of a nurse friend. Jose said that he is feeling okay. He does not have any respiratory distress. During the daytime he is on O2. 4 L/minute continuously At night he uses his home respirator. 7-8 hours per night and sleeps well He can eat well without any dysphagia. Lately there has been no respiratory infection. 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 Chronic respiratory failure Left bundle branch block Persistent atrial fibrillation Surgical History History of lithotripsy History of cholecystectomy History of tracheostomy Family History Father Medical history unknown Mother CVD (cardiovascular disease) Stroke Maternal Grandmother Cancer Maternal Grandfather Diabetes Social History Housing: House Alcohol intake: never Patient Tobacco Use Status: Never used Tobacco Second Hand Smoke Exposure: Yes service: No Current occupational status: disabled Cognitive needs: Yes Hearing needs: No Vision needs: No Review of Systems Const Denies daytime sleepiness, Denies excessive sweating, Denies fatigue, Denies fever(s), Denies lethargy, Denies malaise, Denies night sweats, Denies snoring and Denies weight loss Eyes Denies blurry vision and Denies itchy eyes ENT Denies nasal congestion, Denies post nasal drip, Denies sinus pain and Denies sinus pressure Card Denies chest pain, Denies pedal edema, Denies dyspnea, Denies orthopnea and Denies paroxysmal nocturnal dyspnea Resp Denies cough, Denies hemoptysis, Denies excessive phlegm production, Denies dyspnea, Denies snoring and Denies wheezing GI Denies abdominal pain and Denies heartburn Musc Denies myalgias, Denies arthralgias and Denies joint swelling Skin/Breast Denies rash Neuro Denies memory loss and Denies seizure-like activity Psych Denies abnormal sleep pattern, Denies anxiety and Denies memory loss Endo Denies excessive sweating, Denies fatigue and Denies heat intolerance Larry/Lymph Denies easy bruising Aller/Immun Denies itchy eyes, Denies seasonal rhinorrhea and Denies wheezing Physical Exam Const Other: TELE VISIT , . SO NO PHYSICAL EXAMINATION BUT OVER THE TELEPHONE HE SOUNDS VERY STABLE AND COMFORTABLE. Assessment & Plan Assessment & Plan (1) REBECA (obstructive sleep apnea): Comment: KNOWN CASE OF REBECA SINCE LONG-TIME, STATUS POST PERMANENT TRACH , PATIENT USES HOME VENTILATOR AT NIGHTTIME. Code(s): G47.33 - Obstructive sleep apnea (adult) (pediatric) (2) Hypoventilation syndrome: Comment: IN ADDITION TO REBECA HE HAS HAD HYPOVENTILATION SYNDROME FOR MANY YEARS , STATUS POST PERMANENT TRACH. PATIENT ON HOME VENTILATOR AT NIGHT. HAS DONE VERY WELL. USE ALBUTEROL IN THE NEBULIZER Q 4-6 HOURS BUT ONLY P.R.N.. Code(s): R06.89 - Other abnormalities of breathing (3) Respiratory failure with hypoxia and hypercapnia: Comment: CHRONIC RESPIRATORY FAILURE WHICH HAS BEEN TREATED WITH PERMANENT TRACH AND HOME VENTILATOR. O2 2 L/MINUTE WITH NASAL CANNULA. ALSO O2 4-6 L/MINUTE WHEN USING HOME VENTILATOR. PATIENT REMAINS STABLE. Code(s): J96.91 - Respiratory failure, unspecified with hypoxia; J96.92 - Respiratory failure, unspecified with hypercapnia (4) Tracheostomy dependent: Comment: HE GETS HIS TRACH TUBE CHANGED REGULARLY. PATIENT'S IS WELL TRAINED TO CHANGE THE TRACH AT HOME . WHICH SHE DOES ONCE A MONTH SHE ALSO PROVIDES GOOD TRACH. CARE ON A DAILY BASIS. Code(s): Z93.0 - Tracheostomy status Telehealth Telehealth Location of provider rendering services: practice address Location of patient: address on file Patient Identification confirmed using: Name, : Yes Telehealth method: voice only Patient verbally consented to treatment: Yes Patient verbally consented to billing insurance company: Yes Patient informed of any privacy concerns related to visit: Yes Minutes spent on Phone/Video with Pt.: 20 Coding Level of Care Code Tele Est Pt Level 4 (05183) Diagnoses REBECA (obstructive sleep apnea) G47.33 Hypoventilation syndrome R06.89 Respiratory failure with hypoxia and hypercapnia J96.91; J96.92 Tracheostomy dependent Z93.0
== END 2023-08-18 13:36 | disposition home or self-care (01) ==
LOC: HO.HPS 13:13
PROVIDERS: PCP Internal Medicine; Visit Provider Internal Medicine
DX: G47.33 Obstructive sleep apnea (adult) (pediatric) (principal); J96.91 Respiratory failure, unspecified with hypoxia; J96.92 Respiratory failure, unspecified with hypercapnia; Z93.0 Tracheostomy status
CPT/HCPCS: 99442

== ENCOUNTER → 2023-08-18 13:13 | Outpatient (BNVA) | payer MEDICARE, MEDICAID, SELFPAY | PROVIDERS: PCP Internal Medicine; Visit Provider Internal Medicine ==

== ENCOUNTER 2023-09-27 10:22 | Outpatient (REF) | payer MEDICARE, MEDICAID, SELFPAY ==
[2023-09-27 10:46] LABS: MANUAL DIFF FLAG NO
[2023-09-27 11:32] LABS: Basophils Percent Auto 0.5 % (0-2); Eosinophils Absolute Auto 0.3 X10*3/uL (0.0-0.4); Eosinophils Percent Auto 4.2 % (0-4); Hematocrit 36.9 % (42.0-52.0); Hemoglobin 10.9 g/dl (14.0-18.0); Imm Gran Abs Auto 0.09 X10*3/uL (0.00-0.03); Imm Gran Pct Auto 1.2 % (0.0-0.4); Lymphocytes Percent Auto 13.6 % (20-40); Mean Corpuscular HGB Conc 29.5 g/dl (31.0-36.0); Mean Corpuscular Hemoglobin 26.5 pg (27.0-33.0); Mean Corpuscular Volume 89.8 fL (80.0-98.0); Mean Platelet Volume 13.5 fL (9.4-12.4); Monocytes Absolute Auto 0.6 X10*3/uL (0.1-1.2); Monocytes Percent Auto 7.7 % (2-11); Neutrophils Absolute Auto 5.4 x10*3/uL (2.0-8.3); Neutrophils Percent Auto 72.8 % (45-73); Platelet Count 196 X10*3/uL (160-400); Red Blood Count 4.11 X10*6/uL (4.60-5.80); White Blood Count 7.5 X10*3/uL (4.8-10.8)
[2023-09-27 11:46] LABS: Estimated Average Glucose 157 mg/dL; Hemoglobin A1c % 7.1 % (<6.0)
[2023-09-27 12:28] LABS: Alanine Aminotransferase 16 U/L (0-40); Albumin Level 3.4 g/dL (3.5-5.0); Alkaline Phosphatase 181 U/L (39-117); Anion Gap 11 (12-20); Aspartate Amino Transferase 28 U/L (5-37); Blood Urea Nitrogen 20 mg/dL (9-16); Calcium 9.8 mg/dL (8.4-10.2); Carbon Dioxide 29 mmol/L (22-29); Chloride 108 mmol/L (96-108); Cholesterol 174 mg/dL (<200); Estimated Glomerular Filt Rate > 60; Glucose Fasting 233 mg/dL (60-99); HDL Cholesterol 28 mg/dL (>40); LDL Cholesterol Calculated 90 mg/dL (<100); Potassium 3.8 mmol/L (3.3-5.1); Sodium 144 mmol/L (135-145); TSH reflex Free T4 2.76 uIU/mL (0.32-4.0); Triglycerides 280 mg/dL (<150); Vitamin D 25-OH Total 44.1 ng/mL (>30)
[2023-09-27 12:36] LABS: Folate 17.5 ng/mL (> or = 4.0); Vitamin B12 483 pg/mL (200-900)
== END 2023-09-27 10:23 | disposition home or self-care (01) ==
LOC: HO.LAB 10:22
PROVIDERS: PCP Internal Medicine; Visit Provider Internal Medicine
DX: E78.00 Pure hypercholesterolemia, unspecified (principal); E11.9 Type 2 diabetes mellitus without complications; E55.9 Vitamin D deficiency, unspecified; I10 Essential (primary) hypertension; E53.8 Deficiency of other specified B group vitamins
CPT/HCPCS: 36415; 80053; 80061; 82306; 82607; 82746; 83036; 84443; 85025

== ENCOUNTER 2023-09-27 10:55 | Outpatient (AMB) | payer MEDICARE, MEDICAID, SELFPAY ==
[2023-09-27 10:58] VITALS: BP 132/80; PULSE 87; O2SAT 98
--- NOTE | 2023-09-27 10:58 | A.OFFPC_ITS ---
Vital Signs 09/27/23 10:58 Height 5 ft 6 in BMI Reason not done Patient refused/unable BP 132/80 Blood Pressure Location Lt brachial Position Sitting Pulse 87 Pulse Source Pulse Oximeter Pulse Oximetry (%) 98 Oxygen Delivery Method Room Air Intake Visit Reasons: REBECA, hypoventilation syndrome, hyperlipidemia, AF Marketing [employer] Required: No Accompanied by: Self / Same As Patient Allergies No Known Allergies [No Known Allergies*] Allergy (Verified 09/27/23 11:12) Medication List - Last Reconciled 09/27/23 by Constantino Foley MD albuterol sulfate 2.5 mg inhalation QID PRN ascorbic acid (vitamin C) (Vitamin C) 500 mg PO DAILY 90 days chlorhexidine gluconate 0.12% 15 mL buccal DAILY 30 days colestipol 1 g PO MOWEFR 90 days ferrous sulfate ER 140 mg PO DAILY 90 days furosemide 20 mg PO QAM L.acid-L.rham-B.breve-S.therm 3 billion cell 1 tab PO DAILY metformin ER 500 mg PO BEDTIME metoprolol tartrate 50 mg PO BID 90 days miscellaneous medical supply 1 ea miscellaneous DAILY multivitamin (Daily Multi-Vitamin tablet) 1 tab PO DAILY mupirocin 2% 1 appl topical TID omeprazole 20 mg PO DAILY pravastatin 20 mg PO DAILY 90 days rivaroxaban (Xarelto) 20 mg PO DAILY 90 days Shingrix (PF) 50 mcg/0.5 mL (varicella-zoster gE-AS01B (PF)) 0.5 mL IM ONCE NS [tracheostomy As directed] walker (Ultra-Light Rollator misc) As directed Tobacco use date assessed: 09/27/23 Dental Screening Dental Screen Date: 09/27/23 Did you have a dental visit in the last 12 months?: No Did you have a dental problem in the last 6 months where you did not have access to dental care?: No Was dental information given to patient?: No HPI REBECA, hypoventilation syndrome, hyperlipidemia, AF HPI Details Patient comes in today for his follow up visit - is as usual brought in by ambulance and accompanied by his , who is his primary caregiver and HCP His is also the one who now changes his tracheostomy every month Patient states that he feels okay He is still mostly sedentary due to his chronic muscular dystrophy and chronic respiratory failure but states that he does try to get up and walk around the house with his walker a few times a day whenever he can Patient reports feeling fatigued often - this is a chronic issue for him and is not new He denies any headaches or dizziness Denies any chest pains, no increased SOB - still has his oxygen on 23/05 No nausea/vomiting, no abdominal pain No change in bowel habits noted He needs a few of his Rx refilled; he also recently changed pharmacy and now uses [facility] [address] in [place] He had his follow up labs done earlier today - results of his labs are all still pending at this time He would like to also get his flu shot today [facility] Medical History (Updated 09/27/23 @ 12:45 by Constantino Foley MD) Diabetes mellitus Allergic rhinitis Respiratory failure with hypoxia and hypercapnia Hypoventilation syndrome REBECA (obstructive sleep apnea) Hyperkalemia Tracheostomy dependent Pneumonia Cardiomyopathy GERD (gastroesophageal reflux disease) Pure hypercholesterolemia Obesity Psoriasis Anemia Obstructive sleep apnea 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 Chronic respiratory failure Left bundle branch block Persistent atrial fibrillation Surgical History History of lithotripsy History of cholecystectomy History of tracheostomy Family History Father Medical history unknown Mother CVD (cardiovascular disease) Stroke Maternal Grandmother Cancer Maternal Grandfather Diabetes Social History Housing: House Alcohol intake: never Patient Tobacco Use Status: Never used Tobacco e-Cigarette/Vaping Use: Never Used Second Hand Smoke Exposure: Yes service: No Current occupational status: disabled Cognitive needs: Yes Hearing needs: No Vision needs: No Questionnaire PHQ-9 Over the last 2 weeks, how often have you been bothered by any of the following problems? 1. Little interest or pleasure in doing things: not at all 2. Feeling down, depressed, or hopeless: not at all 3. Trouble falling or staying asleep, or sleeping too much: not at all 4. Feeling tired or having little energy: not at all 5. Poor appetite or overeating: not at all 6. Feeling bad about yourself - or that you are a failure or have let yourself or your family down: not at all 7. Trouble concentrating on things, such as reading the newspaper or watching television: not at all 8. Moving or speaking so slowly that other people could have noticed. Or the opposite - being so fidgety or restless that you have been moving around a lot more than usual: not at all 9. Thoughts that you would be better off or of hurting yourself in some way: not at all Total score: 0 Depression Screening Interpretation: Negative Depression Screening Done: Yes [id number] - PHQ-9 Billing: Yes Source: Developed by Drs. Shiva Justin, Ira Birmingham, Joon Medina and colleagues, with an educational rogelio from [employer]. Thrive Questionnaire Date Thrive assessed: 03/22/23 I am a: Patient What is your living situation today?: I have a steady place to live Within the past 12 months, did the food you bought not last and you didn't have the money to get more?: Never true Within the past 12 months, did you worry whether your food would run out before you got money to buy more?: Never true Do you have trouble paying for medicines?: No Do you have trouble getting transportation to medical appointments?: No Do you have trouble paying your heating and electricity bill?: No Do you have trouble taking care of your child, family member or friend?: No Do you have trouble with day-to-day activities such as bathing, preparing meals, shopping, managing finances, etc.?: No Are you currently unemployed and looking for a job?: No Are you interested in more education?: No Please select the resources that you would like help with: None Currently or been in a relationship where the following occur: no concerns reported AUDIT C Alcohol Use Questionnaire (AUDIT-C) 1. How often do you have a drink containing alcohol?: Never 3. How often do you have six or more drinks on one occasion?: Never Total Score: 0 Score Reviewed/Action Taken: Yes ANTONIO-7 AMB Questionnaire ANTONIO-7 Date ANTONIO - 7 assessed: 09/27/23 Feeling nervous, anxious, or on edge: 0 = Not at all Not being able to stop or control worryin = Not at all Worrying too much about different things: 0 = Not at all Trouble relaxin = Not at all Being so restless that it is hard to sit still: 0 = Not at all Becoming easily annoyed or irritable: 0 = Not at all Feeling afraid as if something awful might happen: 0 = Not at all Total ANTONIO-7 score (0-4 normal; 5-9 mild; 10-14 moderate; 15-21 severe): 0 Source: Developed by Drs. Shiva Justin, Ira Birmingham, Joon Medina and colleagues, with an educational rogelio from [employer]. Review of Systems Const Denies chills, Reports fatigue, Denies fever(s), Denies headache(s) and Reports weakness (chronic) ENT Denies dysphagia, Denies dizziness, Denies otalgia, Denies headache(s), Denies nasal congestion, Denies odynophagia and Denies sore throat Card Denies chest pain, Denies palpitations and Reports dyspnea on exertion (is oxygen-dependent) Resp Details: (+) permanent tracheostomy Denies cough and Reports dyspnea on exertion (is oxygen-dependent) GI Denies abdominal pain, Denies constipation, Denies dysphagia, Denies heartburn, Denies diarrhea, Denies nausea, Denies odynophagia and Denies vomiting Denies dysuria, Denies nocturia and Denies urinary frequency Musc Reports arthralgias (recently over the right shoulder) Skin/Breast Details: (+) scattered scaling rash over his scalp, forehead and on the face Neuro Denies dizziness, Denies headache(s) and Reports weakness (chronic) Endo Reports fatigue and Denies palpitations Physical exam (Primary Care) Vital Signs: Last Vital Signs Pulse 87 09/27/23 10:58 BP 132/80 09/27/23 10:58 Pulse Ox 98 09/27/23 10:58 Oxygen Delivery Method Room Air 09/27/23 10:58 Tobacco/Smoking Status: Tobacco use Status Tobacco use date assessed 09/27/23 09/27/23 11:04 Patient Tobacco Use Status Never used Tobacco 09/27/23 11:04 e-Cigarette/Vaping Use Never Used 09/27/23 11:04 PHQ-9: PHQ-9 Score PHQ-9: Total score 0 09/27/23 11:14 Depression Screening Interpretation: Negative Thrive Assessment: Date of Thrive Assessment Date Thrive assessed 03/22/23 09/27/23 11:04 Currently or been in a relationship where the following occur: no concerns reported Const Other: Physical exam is limited as patient is bed (stretcher) bound General: no acute distress and alert Orientation/consciousness: patient oriented x3 HENMT Ears: TM's normal bilaterally and EAC's normal Throat: Yes posterior oropharynx normal and Yes tonsils normal (no TP congestion) Neck Neck: Yes no lymphadenopathy, Yes supple and Yes tracheostomy present Resp Auscultation: clear to auscultation bilaterally, no rales, no wheezes and diminished lung sounds (slightly) bilateral Cardio Rate: regular rate Rhythm: abnormal rhythm irregularly irregular Heart sounds: no murmurs GI Palpation (GI): Soft to palpation, nontender and no guarding Auscultation: normal bowel sounds Skin Other: (+) scattered patches of scaling rash over the scalp, forehead and on the face Neuro General: patient oriented x3 Cognition (Neuro): normal cognition Extrem General: Yes no clubbing, cyanosis or edema Office Procedures Flu Questionnaire Does the patient have a severe egg allergy?: No Does the patient have severe life threatening allergies?: No Does the patient have a fever or illness today?: No Has the patient ever had Guillain-[place] Syndrome?: No Has the patient ever had any past reaction to a flu shot?: No Immunizations flu vacc [id number] 6mos up(PF) 60 mcg(15 mcgx4)/0.5 mL IM syringe Performing Provider: Constantino Foley MD Performing Location: [facility] Administered by: Adriana Sibley on 09/27/23 11:38 Dose Route Admin Location Dispensed Lot Number Expiration Date NDC Stave Grader 0.5 mL IM Left Deltoid 0.5 mL [id number] 04/29/24 [id number] Exo VIS Given Date VIS Provided VIS Publication Date 09/27/23 Single Vaccine 21 Eligibility Eligibility Date Funding Source Not [facility] Eligible 09/27/23 Private Assessment and Plan Assessment & Plan (1) Chronic respiratory failure: Comment: hypoventilation syndrome Code(s): J96.10 - Chronic respiratory failure, unspecified whether with hypoxia or hypercapnia Qualifiers: Respiratory failure complication: unspecified whether with hypoxia or hypercapnia Qualified Code(s): J96.10 - Chronic respiratory failure, unspecified whether with hypoxia or hypercapnia Plan: (+) permanent tracheostomy and his changes his tracheostomy every 4 weeks Continues to require home ventilator therapy, primarily at night and as needed during the day Patientt uses his oxygen 23/05 Follow up with pulmonary medicine as scheduled (2) Tracheostomy in place: Code(s): Z93.0 - Tracheostomy status Plan: (+) permanent tracheostomy and his is now the one changing his tracheostomy at home every 4 weeks Follow up with pulmonary as scheduled (3) Myotonic dystrophy: Comment: CHRONIC, WITH GENERALIZED MUSCLE WASTING. PATIENT IS BED CONFINED. Code(s): G71.11 - Myotonic muscular dystrophy Plan: Stable but he is currently sedentary and bed-bound for most of the day but he is able to get up and move around when needed in a limited capacity He has VNA services available to request for when needed (4) Persistent atrial fibrillation: Code(s): I48.19 - Other persistent atrial fibrillation Plan: Continues to be rate-controlled on Metoprolol 50 mg BID Continue Xarelto 20 mg QD for thromboembolism prophylaxis He was advised by cardiology that his most recent echocardiogram showed findings consistent with ischemic cardiomyopathy, most likely in relation to his chronic atrial fibrillation and left bundle branch block Angiography would ideally be the next step in his work up but he is not a candidate for this as he would not be able to lie down flat on his back for the procedure and his numerous other comorbidities would increase his risks of intraoperative and post-op complications Was advised that an ICD placement at some point may be helpful but it is currently not indicated yet Follow up with cardiology as scheduled (5) Cardiomyopathy: Code(s): I42.9 - Cardiomyopathy, unspecified Qualifiers: Cardiomyopathy type: ischemic Qualified Code(s): I25.5 - Ischemic cardiomyopathy Plan: Echocardiogram done last year (2021) revealed moderated to severe LV systolic dysfunction with LVEF of 30 to 35% and limited visualization of the cardiac valves Cardiomyopathy is most likely ischemic in nature but patient is not a candidate for further work ups with angiography and percutaneous intervention Have discussed ICD as a potential option in the future, especially if his cardiac function continues to decline Follow up with cardiology as scheduled (6) Anemia: Code(s): D64.9 - Anemia, unspecified Qualifiers: Anemia type: unspecified type Qualified Code(s): D64.9 - Anemia, unspecified Plan: Continue Ferrous sulfate ER 140 mg QD with Vitamin C 500 mg QD Will continue to monitor his CBC regularly (7) Pure hypercholesterolemia: Code(s): E78.00 - Pure hypercholesterolemia, unspecified Plan: Results of his labs done earlier this morning are still pending at the time of this visit - have advised patient and his that we will follow up the results of his labs when they are available and check back with them for any concerns regarding his results Reinforced low cholesterol diet Continue Pravastatin 20 mg QD and Colestipol 1 gm every other day (MWF) (8) Diabetes mellitus: Code(s): E11.9 - Type 2 diabetes mellitus without complications Qualifiers: Diabetes mellitus type: type 2 Diabetes mellitus adjunct faculty for medical terminology insulin use: without adjunct faculty for medical terminology use Diabetes mellitus complication status: without complication Qualified Code(s): E11.9 - Type 2 diabetes mellitus without complications Plan: HgbA1c was at 6.0% when last checked in March 2022 - goal is at least <7.0% Repeat labs and HgbA1c done earlier today are all still pending at this time Reinforced diabetic diet Continue Metformin ER 500 mg Q HS (9) GERD (gastroesophageal reflux disease): Code(s): K21.9 - Gastro-esophageal reflux disease without esophagitis Qualifiers: Esophagitis presence: without esophagitis Qualified Code(s): K21.9 - Gastro-esophageal reflux disease without esophagitis Plan: Dietary restrictions reinforced Continue Omeprazole 20 mg QD (10) Allergic rhinitis: Code(s): J30.9 - Allergic rhinitis, unspecified Qualifiers: Allergic rhinitis trigger: unspecified Allergic rhinitis seasonality: unspecified Qualified Code(s): J30.9 - Allergic rhinitis, unspecified Plan: Will start patient on Cetirizine 10 mg QD PRN (11) Psoriasis: Code(s): L40.9 - Psoriasis, unspecified Plan: Follow up with dermatology as scheduled (12) Obesity (BMI 30-39.9): Code(s): E66.9 - Obesity, unspecified Plan: Reinforced diet; weight loss and exercise are unrealistic given patient's multiple comorbidities Plan Flu vaccine given today Follow up in 6 months - okay for video telehealth appt next time unless in- person visit needed for any reason Orders: Orders Influenza [id number] Immunization Today Z23 - Encounter for immunization Medications: New cetirizine 10 mg PO DAILY 90 days PRN 90 tabs 3RF allergy symptoms Refilled metformin ER 500 mg PO BEDTIME 90 tabs 1RF colestipol 1 g PO MOWEFR 90 days 39 tabs 1RF pravastatin 20 mg PO DAILY 90 days 90 tabs 1RF Coding Level of Care Code Est Pt Level 4 (20782) Diagnoses Chronic respiratory failure, unspecified whether with hypoxia or hypercapnia J96.10 Respiratory failure complication: unspecified whether with hypoxia or hypercapnia Tracheostomy in place Z93.0 Myotonic dystrophy G71.11 Persistent atrial fibrillation I48.19 Ischemic cardiomyopathy I25.5 Cardiomyopathy type: ischemic Anemia, unspecified type D64.9 Anemia type: unspecified type Pure hypercholesterolemia E78.00 Type 2 diabetes mellitus without complication, without long-term current use of insulin E11.9 Diabetes mellitus type: type 2 Diabetes mellitus adjunct faculty for medical terminology insulin use: without jail use Diabetes mellitus complication status: without complication Gastroesophageal reflux disease without esophagitis K21.9 Esophagitis presence: without esophagitis Allergic rhinitis, unspecified seasonality, unspecified trigger J30.9 Allergic rhinitis trigger: unspecified Allergic rhinitis seasonality: unspecified Psoriasis L40.9 Obesity (BMI 30-39.9) E66.9
== END 2023-09-27 11:41 | disposition home or self-care (01) ==
PROVIDERS: Visit Provider Internal Medicine
DX: Z23 Encounter for immunization (principal)
CPT/HCPCS: 90471; 90686; 99214

== ENCOUNTER 2023-12-20 10:10 | Outpatient (REF) | payer MEDICARE, MEDICAID, SELFPAY ==
[2023-12-20 13:18] LABS: MANUAL DIFF FLAG NO
[2023-12-20 13:34] LABS: Basophils Percent Auto 0.7 % (0-2); Eosinophils Absolute Auto 0.2 X10*3/uL (0.0-0.4); Eosinophils Percent Auto 3.4 % (0-4); Hematocrit 30.1 % (42.0-52.0); Imm Gran Abs Auto 0.02 X10*3/uL (0.00-0.03); Imm Gran Pct Auto 0.3 % (0.0-0.4); Lymphocytes Absolute Auto 1.2 X10*3/uL (1.2-4.9); Lymphocytes Percent Auto 21.1 % (20-40); Mean Corpuscular HGB Conc 29.9 g/dl (31.0-36.0); Mean Corpuscular Hemoglobin 25.9 pg (27.0-33.0); Mean Corpuscular Volume 86.5 fL (80.0-98.0); Mean Platelet Volume 13.6 fL (9.4-12.4); Monocytes Absolute Auto 0.6 X10*3/uL (0.1-1.2); Monocytes Percent Auto 9.6 % (2-11); Neutrophils Absolute Auto 3.8 x10*3/uL (2.0-8.3); Neutrophils Percent Auto 64.9 % (45-73); Platelet Count 193 X10*3/uL (160-400); Red Blood Count 3.48 X10*6/uL (4.60-5.80); Red Cell Distribution Width 16.2 % (11.0-16.0); White Blood Count 5.8 X10*3/uL (4.8-10.8)
[2023-12-20 13:57] LABS: Alanine Aminotransferase 17 U/L (0-40); Albumin Level 3.2 g/dL (3.5-5.0); Alkaline Phosphatase 146 U/L (39-117); Anion Gap 12 (12-20); Aspartate Amino Transferase 28 U/L (5-37); Bilirubin Total 0.8 mg/dL (0.0-1.0); Blood Urea Nitrogen 20 mg/dL (9-16); Calcium 9.6 mg/dL (8.4-10.2); Carbon Dioxide 27 mmol/L (22-29); Chloride 111 mmol/L (96-108); Cholesterol 165 mg/dL (<200); Estimated Glomerular Filt Rate > 60; Glucose Fasting 103 mg/dL (60-99); HDL Cholesterol 28 mg/dL (>40); LDL Cholesterol Calculated 91 mg/dL (<100); Potassium 4.3 mmol/L (3.3-5.1); Sodium 146 mmol/L (135-145); Total Protein 5.7 g/dL (6.5-8.0); Triglycerides 232 mg/dL (<150)
[2023-12-20 14:13] LABS: TSH reflex Free T4 2.41 uIU/mL (0.32-4.0)
[2023-12-20 15:07] LABS: Estimated Average Glucose 131 mg/dL; Hemoglobin A1c % 6.2 % (<6.0)
== END 2023-12-20 10:11 | disposition home or self-care (01) ==
LOC: HO.HVNA 10:10
PROVIDERS: PCP Internal Medicine; Visit Provider Internal Medicine
DX: E78.00 Pure hypercholesterolemia, unspecified (principal); E11.9 Type 2 diabetes mellitus without complications; E55.9 Vitamin D deficiency, unspecified; I10 Essential (primary) hypertension
CPT/HCPCS: 36415; 80053; 80061; 82306; 83036; 84443; 85025

== ENCOUNTER → 2023-12-28 23:59 | Outpatient (BNV) | payer MEDICARE, MEDICAID, SELFPAY | PROVIDERS: PCP Internal Medicine; Visit Provider Internal Medicine | DX: I12.9 Hypertensive chronic kidney disease with stage 1 through stage 4 chronic kidney disease, or unspecified chronic kidney disease (principal); E11.22 Type 2 diabetes mellitus with diabetic chronic kidney disease; N18.9 Chronic kidney disease, unspecified | CPT/HCPCS: G0180 ==

== ENCOUNTER 2024-01-09 11:20 | Outpatient (REF) | payer MEDICARE, MEDICAID, SELFPAY ==
[2024-01-09 13:05] LABS: Immature Retic Fraction 28.2 % (2.3-13.4); Retic HGB Equivalent 24.1 pg (30.0-35.0); Reticulocyte Percent 2.6 % (0.5-1.8); Reticulocytes Absolute 0.094 X10*6/uL (0.026-0.095)
[2024-01-09 13:36] LABS: Iron 25 mcg/dL (45-160); Percent Iron Saturation 7 % (15-50); Total Iron Binding Capacity 358 mcg/dL (228-428); Unsaturated Iron Binding 333 ug/dL
[2024-01-09 13:51] LABS: Ferritin 11 ng/mL (20-250)
== END 2024-01-09 11:21 | disposition home or self-care (01) ==
LOC: HO.HVNA 11:20
PROVIDERS: PCP Internal Medicine; Visit Provider Internal Medicine
DX: D64.9 Anemia, unspecified (principal)
CPT/HCPCS: 36415; 82728; 83540; 85045

== ENCOUNTER → 2024-01-13 11:20 | Outpatient (BNV) | payer MEDICARE, MEDICAID, SELFPAY | PROVIDERS: Visit Provider Internal Medicine | DX: D50.9 Iron deficiency anemia, unspecified (principal) | CPT/HCPCS: 99214 ==

== ENCOUNTER 2024-02-03 15:23 | Emergency (ER) | payer MEDICARE, MEDICAID, SELFPAY ==
--- NOTE | ~2024-02-03 | XR_ITS ---
EXAMINATION: XR CHEST CLINICAL INFORMATION: Cough. Dyspnea. COMPARISON: Chest x-ray January 12, 2022 TECHNIQUE: Frontal view of the chest was obtained. 4:27 PM FINDINGS: Tracheostomy tube. Lung volume low. Mild bibasilar atelectasis. This is similar prior chest x-ray. No pulmonary vascular congestion. No pleural effusion. XR/XR chest 1V IMPRESSION: Low lung volume with mild bibasilar atelectasis.
[2024-02-03 15:48] VITALS: BP 119/79; BP 142/84; PULSE 108; PULSE 130; RESP 16; TEMP 37; O2SAT 98; BMI 33.1
--- NOTE | 2024-02-03 16:11 | ECG_ITS ---
Test Reason : sob Blood Pressure : / mmHG Vent. Rate : 117 BPM Atrial Rate : 117 BPM P-R Int : 186 ms QRS Dur : 156 ms QT Int : 390 ms P-R-T Axes : 000 -19 146 degrees QTc Int : 544 ms Atrial fibrillation with rapid ventricular response Left bundle branch block Abnormal ECG When compared with ECG of 17-MAY-2022 14:54, Questionable change in QRS duration Referred By: Generic ED Physician Electronically Signed By:SUZANNE TAPIA MD
--- NOTE | 2024-02-03 16:28 | ED.SOB ---
HPI - SOB/Dyspnea General Chief Complaint: Dyspnea Stated Complaint: SOB Time Seen by Provider: 02/03/24 16:22 Source: patient, family and old records reviewed Mode of arrival: EMS Limitations: no limitations History of Present Illness HPI Narrative: 48 yo male with PMH of DM, tracheitis, chronic respiratory failure with trach and home vent that his manages very well, REBECA, pneumonia, cardiomyopathy, anemia, myotonic dystrophy, GERD, PAF on xarelto, LBBB here with c/o starting to feel tired, short of breath and ill since last night with increased dyspnea and secretions starting last night. did call special delivery messenger today and they recommended ED evaluation. No recent antibiotics. No fevers noted. MD elicited complaint: shortness of breath Pertinent past history: COPD, congestive heart failure and pneumonia Onset (ago): day(s) (last night) Context: other (prior episodes) Timing: progressively worsening Severity: moderate Exacerbating factors: lying flat and coughing Relieving factors: rest and upright position Known history of: COPD, congestive heart failure and recurrent pneumonia Associated symptoms: cough and sputum production Treatment prior to arrival: bronchodilator Related Data Home Medications ?Medication ?Instructions ?Recorded ?Confirmed multivitamin (Daily Multi-Vitamin 1 tab PO DAILY 06/17/21 09/27/23 tablet) L.acidophilus,rhamnosus-B.breve-S.thermophilus 1 tab PO DAILY 05/17/22 09/27/23 3 billion cell chew tab omeprazole 20 mg capsule,delayed 20 mg PO DAILY 05/17/22 02/03/24 release Previous Rx's ?Medication ?Instructions ?Recorded albuterol sulfate 2.5 mg/3 mL 2.5 mg (3 mL) inhalation QID PRN 06/17/21 (0.083 %) solution for nebulization Shortness Of Breath/chest congestion 30 days #180 mL tracheostomy #1 ea 12/08/21 miscellaneous medical supply 1 ea miscellaneous DAILY #2 ea 06/11/22 walker (Ultra-Light Rollator mis) #1 ea 11/09/22 mupirocin 2 % topical ointment 1 appl topical TID #200 grams 05/02/23 metoprolol tartrate 50 mg tablet 50 mg PO BID 90 days #180 tabs 06/14/23 ferrous sulfate 140 mg (45 mg 140 mg PO DAILY 90 days #90 tabs 08/15/23 iron) tablet,extended release furosemide 20 mg tablet 20 mg PO QAM #90 tabs 08/15/23 Shingrix (PF) 50 mcg/0.5 mL 0.5 ml IM ONCE #1 ea 09/15/23 intramuscular suspension, kit (varicella-zoster gE-AS01B (PF)) chlorhexidine gluconate 0.12 % 15 ml buccal DAILY 30 days #450 mL 09/16/23 mouthwash colestipol 1 gram tablet 1 g PO MOWEFR 90 days #39 tabs 09/27/23 pravastatin 20 mg tablet 20 mg PO DAILY 90 days #90 tabs 09/27/23 blood sugar diagnostic (OneTouch #100 ea 09/30/23 Ultra Test strips) blood-glucose meter (PlotWattTouch #1 ea 09/30/23 Ultra2 Meter) lancets 30 gauge (OneTouch #100 ea 09/30/23 UltraSoft 2 Lancet) loratadine 10 mg tablet (Allergy 10 mg PO DAILY #90 tabs 09/30/23 Relief (loratadine)) metformin 500 mg tablet,extended 500 mg PO BID 90 days #180 tabs 09/30/23 release 24 hr lancing device with lancets kit #1 ea 10/06/23 ([employer] Plus Lancing Device kit) lancets 33 gauge ([employer] #100 ea 10/12/23 Plus Lancet) albuterol sulfate 2.5 mg/3 mL 2.5 mg (3 mL) inhalation QID PRN 11/08/23 (0.083 %) solution for nebulization COPD/shortness of breath or wheezing 90 days #360 mL ascorbic acid (vitamin C) 500 mg 500 mg PO DAILY 90 days #90 tabs 12/01/23 tablet (Vitamin C) hydroxyzine HCl 10 mg tablet 10 mg PO TID PRN allergies #90 tabs 12/16/23 hydroxyzine HCl 25 mg tablet 25 mg PO TID PRN allergies 30 days 12/16/23 #90 tabs ferrous sulfate 140 mg (45 mg 140 mg PO BID #60 tabs 01/13/24 iron) tablet,extended release (Slow Release Iron) rivaroxaban 20 mg tablet (Xarelto) 20 mg PO DAILY 90 days #90 tabs 01/24/24 amoxicillin 875 mg-potassium 1 tab PO BID 10 days #20 tabs 02/03/24 clavulanate 125 mg tablet doxycycline hyclate 100 mg tablet 100 mg PO BID #14 tabs 02/03/24 Allergies Allergy/AdvReac Type Severity Reaction Status Date / Time No Known Allergies Allergy Verified 02/03/24 15:50 [No Known Allergies*] Review of Systems Review of Systems: Constitutional : No Fever, No Chills ENT/Mouth : No sore throat, No Rhinorrhea, No Swallowing Difficulty Eyes: No Eye Pain, No Swelling, No Redness Cardiovascular : No Chest Pain, positive SOB, No Orthopnea, no Edema Respiratory : pos Cough, pos Sputum, No Wheezing, positive dyspnea Gastrointestinal : No Nausea, No Vomiting, No Diarrhea, No abdominal Pain, No Hematochezia, No Melena Genitourinary : No Dysuria, No Urinary Frequency, No Hematuria Musculoskeletal : No joint pain, No Myalgias Skin : No Skin Lesions, No rash Neuro : No Weakness, No Numbness, No Dizziness, No Headache Psych : No Anxiety/Panic, No Depression All other systems reviewed and are negative [facility] Past Medical History Attestation statement: The following information was validated with the patient. Source: old records reviewed Medical History COPD (chronic obstructive pulmonary disease) Diabetes mellitus Allergic rhinitis Respiratory failure with hypoxia and hypercapnia Hypoventilation syndrome REBECA (obstructive sleep apnea) Hyperkalemia Tracheostomy dependent Pneumonia Cardiomyopathy GERD (gastroesophageal reflux disease) Pure hypercholesterolemia Obesity Psoriasis Anemia Obstructive sleep apnea 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 Chronic respiratory failure Left bundle branch block Persistent atrial fibrillation Surgical History History of lithotripsy History of cholecystectomy History of tracheostomy Family History Family History Father Medical history unknown Mother CVD (cardiovascular disease) Stroke Maternal Grandmother Cancer Maternal Grandfather Diabetes Social History Social History Housing: House Alcohol intake: never Patient Tobacco Use Status: Never used Tobacco Smoked in Last 30 Days: No e-Cigarette/Vaping Use: Never Used Second Hand Smoke Exposure: Yes Use of substances other than those prescribed or required for medical reasons: No Advance Directives: No Advance Directives Information Provided: No service: No Current occupational status: disabled Cognitive needs: Yes Hearing needs: No Vision needs: No Physical Exam Vital Signs: Vital Signs: Last Vital Signs Temp 98.6 F 02/03/24 15:48 Pulse 91 02/03/24 17:19 Resp 13 02/03/24 17:19 BP 119/79 02/03/24 15:48 Pulse Ox 98 02/03/24 15:48 O2 Del Method Nasal Cannula 02/03/24 15:48 Oxygen Flow Rate 4 02/03/24 15:48 BMI result Body Mass Index 33.1 Appearance: Alert. Oriented X3. No acute distress. Anxious Eyes: Pupils equal, round and reactive to light. ENT: Pharynx dry MM Neck: trachea in place secretions noted no sig odor but needs to be suctioned RT to come to bedside. CVS: tachycardic heart rate and rhythm. Pulses normal. Respiratory: No respiratory distress. Breath sounds very diminished both bases Abdomen: Soft and nontender. Skin: Skin warm and dry. pale skin color. Normal skin turgor. Extremities: No lower extremity edema. No calf ttp Neuro: Oriented X 3. No motor deficit. No sensory deficit. Medications Administered Discontinued Medications Generic Name Dose Route Start Last Admin Trade Name Freq PRN Reason Stop Dose Admin Albuterol Sulfate 2.5 mg/ 0 mg 02/03/24 17:00 02/03/24 17:13 Albuterol/Ipratropium 3 ml INHALE 02/03/24 17:01 5 dose ONCE ONE Administration Magnesium Sulfate 2 gm in 50 mls @ 25 mls/hr 02/03/24 16:26 02/03/24 19:34 Magnesium Sulfate/H2o IV 02/03/24 18:25 Infused ONCE ONE Infusion Cefepime HCl 1 gm/ Sodium 50 mls @ 100 mls/hr 02/03/24 16:36 02/03/24 17:40 Chloride IV 02/03/24 17:05 Infused ONCE ONE Infusion Methylprednisolone Sodium Succinate 60 mg 02/03/24 17:13 02/03/24 17:39 Methylprednisolone Sod Succ 125 Mg/2 Ml Vial IVPUSH 02/03/24 17:14 60 mg ONCE ONE Administration Medical Decision Making Medical Decision Making MDM Narrative: 48 yo male with PMH of DM, tracheitis, chronic respiratory failure with trach and home vent that his manages very well, REBECA, pneumonia, cardiomyopathy, anemia, myotonic dystrophy, GERD, PAF on xarelto, LBBB here with c/o dyspnea and increased sputum production and overall not feeling well at this time will need basic labs, cultures, CXR, tracheal aspirate, magnesium given prolonged qtc, empiric cefepime to cover for pseudomonas, possible admission. Differential Diagnosis Differential Diagnoses: The differential diagnosis associated with the presentation includes pneumonia, tracheitis, CHF Admission/Observation Consideration of admission/observation: Escalation of care including admission/observation considered planned admit but and decline admission state they have all breathing resources at home and the patient is not comfortable being admitted I even presented the case to hospitalist but patient and family decline. They are aware of risks and reasons for admission including cardiac, bacterial, respiratory issues but they defer. discussed prolonged qtc and they still defer admission Lab Data MDM Lab Attestation statement: I reviewed the patient's lab results. trop at baseline, labs at baseline including Na and K - H/H at baseline, chronically bumped trop BNP at baseline alk phos at baseline 02/03/24 16:57 02/03/24 16:57 Labs: Lab Results 02/03/24 02/03/24 02/03/24 Range/Units 16:57 16:58 17:01 WBC 13.8 H (4.8-10.8) X10*3/uL RBC 3.79 L (4.60-5.80) X10*6/uL Hgb 9.4 L (14.0-18.0) g/dl Hct 32.5 L (42.0-52.0) % MCV 85.8 (80.0-98.0) fL MCH 24.8 L (27.0-33.0) pg MCHC 28.9 L (31.0-36.0) g/dl RDW 17.0 H (11.0-16.0) % Plt Count 236 (160-400) X10*3/uL MPV 12.8 H (9.4-12.4) fL Immature Gran % (Auto) 0.5 H (0.0-0.4) % Neut % (Auto) 87.1 H (45-73) % Lymph % (Auto) 5.2 L (20-40) % Smith % (Auto) 6.1 (2-11) % Eos % (Auto) 0.8 (0-4) % Baso % (Auto) 0.3 (0-2) % Lymph # (Auto) 0.7 L (1.2-4.9) X10*3/uL Smith # (Auto) 0.8 (0.1-1.2) X10*3/uL Eos # (Auto) 0.1 (0.0-0.4) X10*3/uL Baso # (Auto) 0.0 (0.0-0.2) X10*3/uL Abs Immat Gran (auto) 0.07 H (0.00-0.03) X10*3/uL Absolute Neuts (auto) 12.0 H (2.0-8.3) x10*3/uL Absolute Nucleated RBC 0.000 (0.0-0.012) X10*3/uL Nucleated RBC % (auto) 0.0 (0.0-0.2) /100WBC VBG pH 7.35 (7.32-7.43) VBG pCO2 55 mmHg VBG pO2 39 mmHg VBG HCO3 31 H (22-26) mmol/L VBG O2 Saturation 50.0 % VBG Base Excess 4.9 mmol/L Sodium 147 H (135-145) mmol/L Potassium 5.2 H D (3.3-5.1) mmol/L Chloride 113 H (96-108) mmol/L Carbon Dioxide 27 (22-29) mmol/L Anion Gap 12 (12-20) BUN 20 H (9-16) mg/dL Creatinine 0.78 (0.5-1.4) mg/dL Estim Creat Clear Calc 120.9 Estimated GFR > 60 Random Glucose 235 H (60-115) mg/dL Lactic Acid 0.9 (0.5-2.0) mmol/L Calcium 10.2 D (8.4-10.2) mg/dL Total Bilirubin 0.8 (0.0-1.0) mg/dL AST 45 H (5-37) U/L ALT 22 (0-40) U/L Alkaline Phosphatase 186 H (39-117) U/L Troponin I High Sens 68.4 H (<3.5-35.0) ng/L B-Natriuretic Peptide 84 (<100) pg/mL Total Protein 7.7 (6.5-8.0) g/dL Albumin 3.5 (3.5-5.0) g/dL Influenza Type A (PCR) NEGATIVE (Negative) Influenza Type B (PCR) NEGATIVE (Negative) RSV RNA Qual (PCR) NEGATIVE (Negative) SARS-CoV-2 RNA (RT-PCR) NEGATIVE (Negative) Independent Interpretation I performed an independent interpretation of an: EKG and Plain X-Ray (no consolidation) Interpretation: Rate: 117 Rhythm: irregular rhythm Peralta: left wide QRS complex. LBBB qTC: 544 prior studies: elevated rate compared to prior The study has been interpreted contemporaneously by me. Rate: 81 Rhythm: afib Peralta: left LBBB ST T wave : no NIKKY tall t waves anterior neg sgarbossa qTC: 518 prior studies: The study has been interpreted contemporaneously by me. . Radiology Impression Discussion of test interpretation with radiology: I have reviewed the radiologist's reading. Independent Historian Clinical information obtained from an independent historian. History obtained from or confirmed by: Spouse External Record Review External record reviewed: Inpatient record and Office record Prescription Management I considered prescription management with: Antibiotic (doxy already has augmentin at home) Critical Care Time Critical Care Time Critical Care Time: Yes Total Critical Care Time: 45 Attestation: nebs, repeat discussion, IV magnesium, repeat discussions Discharge Plan Discharge Clinical Impression: Long QT interval Acute bacterial tracheitis Qualifiers: Airway obstruction: without obstruction Qualified Code(s): J04.10 - Acute tracheitis without obstruction Elevated WBC count Qualifiers: Leukocytosis type: unspecified Qualified Code(s): D72.829 - Elevated white blood cell count, unspecified Patient Disposition: Home, Self-Care Instructions: Leukocytosis (ED) Additional Instructions: fill and take augmentin. start doxycycline it can be harsh on stomach take with food and water you were offered admission but declined you can come back at any time for worsening symptoms do not wait at home return for worsening illness at any time. monitor breathing, fevers, weakness, or any other concerns. any changes in rate of heart or tachycardia seek medical care immediately - discuss prolonged qtc with doctor on Tuesday Prescriptions: New doxycycline hyclate 100 mg tablet 100 mg PO BID Qty: 14 0RF No Action (DME) tracheostomy 6 See Rx Instructions .Route .MEDSUPPLY Qty: 1 3RF Rx Instructions: As directed miscellaneous medical supply [facility] [place] 1 ea miscellaneous DAILY Qty: 2 0RF Rx Instructions: bilateral ankle foot orthoses (DME) Ultra-Light Rollator [facility] [place] See Rx Instructions .Route Qty: 1 0RF Rx Instructions: As directed mupirocin 2 % ointment 1 appl topical TID Qty: 200 1RF Rx Instructions: apply to wound on upper extremity 3 times a day until wound is healed metoprolol tartrate 50 mg tablet 50 mg PO BID 90 Days Qty: 180 1RF ferrous sulfate 140 mg (45 mg iron) tablet extended release 140 mg PO DAILY 90 Days Qty: 90 1RF furosemide 20 mg tablet 20 mg PO QAM Qty: 90 1RF Shingrix (PF) 50 mcg/0.5 mL suspension for reconstitution 0.5 ml IM ONCE Qty: 1 1RF chlorhexidine gluconate 0.12 % mouthwash 15 ml buccal DAILY 30 Days Qty: 450 3RF metformin 500 mg tablet extended release 24 hr 500 mg PO BID 90 Days Qty: 180 1RF loratadine [Allergy Relief (loratadine)] 10 mg tablet 10 mg PO DAILY Qty: 90 1RF (DME) blood-glucose meter [OneTouch Ultra2 Meter] [facility] [place] See Rx Instructions .Route Qty: 1 0RF Rx Instructions: test once per day (DME) OneTouch Ultra Test Strip See Rx Instructions .Route Qty: 100 4RF Rx Instructions: test once per day (DME) lancets [OneTouch UltraSoft 2 Lancet] 30 gauge [facility] [place] See Rx Instructions .Route Qty: 100 4RF Rx Instructions: test once per day (DME) lancing device with lancets [OneTouch Delica Plus Lanc Dev] Kit See Rx Instructions .Route Qty: 1 12RF Rx Instructions: test once per day (DME) lancets [OneTouch Delica Plus Lancet] [facility] See Rx Instructions .Route Qty: 100 12RF Rx Instructions: As directed once a day albuterol sulfate 2.5 mg /3 mL (0.083 %) solution for nebulization 2.5 mg inhalation QID PRN (Reason: Shortness Of Breath/chest congestion ) 30 Days Qty: 180 5RF albuterol sulfate 2.5 mg /3 mL (0.083 %) solution for nebulization 2.5 mg inhalation QID PRN (Reason: COPD/shortness of breath or wheezing) 90 Days Qty: 360 3RF ascorbic acid (vitamin C) [Vitamin C] 500 mg tablet 500 mg PO DAILY 90 Days Qty: 90 1RF hydroxyzine HCl 25 mg tablet 25 mg PO TID PRN (Reason: allergies) 30 Days Qty: 90 2RF hydroxyzine HCl 10 mg tablet 10 mg PO TID PRN (Reason: allergies) Qty: 90 5RF Xarelto 20 mg tablet 20 mg PO DAILY 90 Days Qty: 90 1RF amoxicillin-pot clavulanate 875-125 mg tablet 1 tab PO BID 10 Days Qty: 20 0RF omeprazole 20 mg capsule,delayed release(DR/EC) 20 mg PO DAILY Probiotic 3 billion cell Tablet,Chewable 1 tab PO DAILY Slow Release Iron 140 mg (45 mg iron) Tablet Extended Release 140 mg PO BID Qty: 60 3RF colestipol 1 gram tablet 1 g PO MOWEFR 90 Days Qty: 39 1RF pravastatin 20 mg tablet 20 mg PO DAILY 90 Days Qty: 90 1RF multivitamin [Daily Multi-Vitamin] Tablet 1 tab PO DAILY Print Language: Thai
[2024-02-03 17:05] LABS: MANUAL DIFF FLAG NO
[2024-02-03 17:08] LABS: VBG Base Excess 4.9 mmol/L; VBG HCO3 31 mmol/L (22-26); VBG pCO2 55 mmHg; VBG pH 7.35 (7.32-7.43); VBG pO2 39 mmHg
[2024-02-03 17:09] LABS: Venous Blood Gas Refer to POC result
[2024-02-03] MEDS: cefEPime HCl 1 GM in 0.9 % Sodium Chloride 50 ML IV (17:11)
[2024-02-03 17:12] LABS: Basophils Percent Auto 0.3 % (0-2); Eosinophils Absolute Auto 0.1 X10*3/uL (0.0-0.4); Eosinophils Percent Auto 0.8 % (0-4); Hematocrit 32.5 % (42.0-52.0); Hemoglobin 9.4 g/dl (14.0-18.0); Imm Gran Abs Auto 0.07 X10*3/uL (0.00-0.03); Imm Gran Pct Auto 0.5 % (0.0-0.4); Lymphocytes Absolute Auto 0.7 X10*3/uL (1.2-4.9); Lymphocytes Percent Auto 5.2 % (20-40); Mean Corpuscular HGB Conc 28.9 g/dl (31.0-36.0); Mean Corpuscular Hemoglobin 24.8 pg (27.0-33.0); Mean Corpuscular Volume 85.8 fL (80.0-98.0); Mean Platelet Volume 12.8 fL (9.4-12.4); Monocytes Absolute Auto 0.8 X10*3/uL (0.1-1.2); Monocytes Percent Auto 6.1 % (2-11); Neutrophils Percent Auto 87.1 % (45-73); Platelet Count 236 X10*3/uL (160-400); Red Blood Count 3.79 X10*6/uL (4.60-5.80); White Blood Count 13.8 X10*3/uL (4.8-10.8)
[2024-02-03] MEDS: Albuterol Sulfate 2.5 MG, Albuterol/Iprat 2.5/0.5MG 3 ML 3 ML INHALE (17:13)
[2024-02-03] MEDS: Magnesium Sulfate/H2O 2 GM/50 ML PIGGYBACK IV (17:14)
[2024-02-03 17:19] VITALS: PULSE 91; RESP 13; O2SAT 97
[2024-02-03 17:27] LABS: Alanine Aminotransferase 22 U/L (0-40); Albumin Level 3.5 g/dL (3.5-5.0); Alkaline Phosphatase 186 U/L (39-117); Anion Gap 12 (12-20); Aspartate Amino Transferase 45 U/L (5-37); Bilirubin Total 0.8 mg/dL (0.0-1.0); Blood Urea Nitrogen 20 mg/dL (9-16); Calcium 10.2 mg/dL (8.4-10.2); Carbon Dioxide 27 mmol/L (22-29); Chloride 113 mmol/L (96-108); Creatinine Clr Calc Pharmacy 120.9; Estimated Glomerular Filt Rate > 60; Glucose Random 235 mg/dL (60-115); Potassium 5.2 mmol/L (3.3-5.1); Sodium 147 mmol/L (135-145); Total Protein 7.7 g/dL (6.5-8.0)
[2024-02-03 17:27] LABS: Lactic Acid 0.9 mmol/L (0.5-2.0)
[2024-02-03 17:31] LABS: Troponin-I High Sensitivity 68.4 ng/L (<3.5-35.0)
[2024-02-03 17:37] LABS: B Type Natriuretic Peptide 84 pg/mL (<100)
[2024-02-03] MEDS: methylPREDNISolone Sod Succ 125 MG/2 ML VIAL 60 MG IVPUSH (17:39)
[2024-02-03 17:51] LABS: Influenza A PCR NEGATIVE (Negative); Influenza B PCR NEGATIVE (Negative); Resp Syncy Virus RNA Qual PCR NEGATIVE (Negative); SARS COV2 PCR INHOUSE NEGATIVE (Negative)
--- NOTE | 2024-02-03 18:02 | ECG_ITS ---
Test Reason : REPECT Blood Pressure : / mmHG Vent. Rate : 081 BPM Atrial Rate : 000 BPM P-R Int : 000 ms QRS Dur : 186 ms QT Int : 446 ms P-R-T Axes : 000 -14 149 degrees QTc Int : 518 ms Atrial fibrillation Left bundle branch block Abnormal ECG When compared with ECG of 03-FEB-2024 16:11, QRS duration has increased Referred By: Sinai Silva Electronically Signed By:SUZANNE TAPIA MD
[2024-02-03] MEDS: Metoprolol Tartrate 50 MG TABLET PO (21:41)
[2024-02-03] MEDS: metFORMIN HCl ER 500 MG TAB.ER.24H PO (21:41)
[2024-02-04 00:05] VITALS: BP 111/69; PULSE 83; RESP 14; O2SAT 99
[2024-02-04 02:00] VITALS: BP 113/71; PULSE 75; RESP 19; TEMP 36.8; O2SAT 99
== END 2024-02-04 02:02 | disposition home or self-care (01) ==
PROVIDERS: Emergency Provider Emergency Medicine
DX: J04.10 Acute tracheitis without obstruction (principal); D72.829 Elevated white blood cell count, unspecified; I45.81 Long QT syndrome; E11.9 Type 2 diabetes mellitus without complications; J44.9 Chronic obstructive pulmonary disease, unspecified; J96.10 Chronic respiratory failure, unspecified whether with hypoxia or hypercapnia; I48.0 Paroxysmal atrial fibrillation; Z79.01 Long term (current) use of anticoagulants; Z93.0 Tracheostomy status
CPT/HCPCS: 0241U; 36415; 71045; 80053; 82803; 83605; 83880; 84484; 85025; 87040; 87070; 87205; 93005; 94640; 96365; 96366; 96367; 96375; 99284; 99285; J0692; J2919; J2930; J3475

== ENCOUNTER → 2024-02-03 16:11 | Outpatient (BNV) | payer MEDICARE, MEDICAID, SELFPAY | PROVIDERS: Emergency Provider Emergency Medicine; Visit Provider Internal Medicine Cardiovascular Disease | DX: R94.31 Abnormal electrocardiogram [ECG] [EKG] (principal) | CPT/HCPCS: 93010 ==

== ENCOUNTER 2024-07-21 11:13 | Inpatient (IN) | payer MEDICARE, MEDICAID, SELFPAY ==
[2024-07-21] VITALS (18 sets, daily range): BP systolic 89–146; BP diastolic 55–90; PULSE 74–109; RESP 12–26; TEMP 36.4–36.9; O2SAT 95–100; BMI 36.3
[2024-07-21 11:57] LABS: MANUAL DIFF FLAG NO
[2024-07-21 11:58] LABS: Basophils Absolute Auto 0.1 X10*3/uL (0.0-0.2); Basophils Percent Auto 0.6 % (0-2); Eosinophils Absolute Auto 0.3 X10*3/uL (0.0-0.4); Eosinophils Percent Auto 3.9 % (0-4); Imm Gran Abs Auto 0.04 X10*3/uL (0.00-0.03); Imm Gran Pct Auto 0.5 % (0.0-0.4); Lymphocytes Absolute Auto 1.1 X10*3/uL (1.2-4.9); Lymphocytes Percent Auto 12.5 % (20-40); Mean Corpuscular HGB Conc 26.8 g/dl (31.0-36.0); Mean Corpuscular Hemoglobin 21.3 pg (27.0-33.0); Mean Corpuscular Volume 79.4 fL (80.0-98.0); Monocytes Absolute Auto 0.9 X10*3/uL (0.1-1.2); Monocytes Percent Auto 9.7 % (2-11); Neutrophils Absolute Auto 6.4 x10*3/uL (2.0-8.3); Neutrophils Percent Auto 72.8 % (45-73); Platelet Count 290 X10*3/uL (160-400); Red Blood Count 3.15 X10*6/uL (4.60-5.80); Red Cell Distribution Width 18.8 % (11.0-16.0); White Blood Count 8.7 X10*3/uL (4.8-10.8)
[2024-07-21 12:03] LABS: Hemoglobin 6.7 g/dl (14.0-18.0)
--- NOTE | 2024-07-21 12:08 | ED_ITS ---
HPI - General Adult General Chief complaint: Recheck/Abnormal Lab/Rx Stated complaint: ABN LABS PER EMS Time Seen by Provider: 07/21/24 11:57 Source: patient and family Mode of arrival: ambulatory Limitations: no limitations History of Present Illness ED Provider: Kecia HPI narrative: 48 yo M hx of DM, tracheitis, chronic respiratory failure with trach and home vent that his manages very well, REBECA, pneumonia, cardiomyopathy, anemia, myotonic dystrophy, GERD, PAF on xarelto, LBBB presents w/ abnormal labs that were drawn yesterday by his PCP. Reports he has low blood counts he was told by his PCP he may need a transfusion. Stools always dark due to patient taking iron at baseline. Patient denies fevers, chills, nausea, vomiting, abd pain, headache, vision changes, dizziness, weakness, palpitations. Related Data Home Medications ?Medication ?Instructions ?Recorded ?Confirmed multivitamin (Daily Multi-Vitamin 1 tab PO DAILY 06/17/21 09/27/23 tablet) L.acidophilus,rhamnosus-B.breve-S.thermophilus 1 tab PO DAILY 05/17/22 09/27/23 3 billion cell chew tab Previous Rx's ?Medication ?Instructions ?Recorded albuterol sulfate 2.5 mg/3 mL 2.5 mg (3 mL) inhalation QID PRN 06/17/21 (0.083 %) solution for nebulization Shortness Of Breath/chest congestion 30 days #180 mL tracheostomy #1 ea 12/08/21 miscellaneous medical supply 1 ea miscellaneous DAILY #2 ea 06/11/22 walker (Ultra-Light Rollator [facility] [place]) #1 ea 11/09/22 mupirocin 2 % topical ointment 1 appl topical TID #200 grams 05/02/23 Shingrix (PF) 50 mcg/0.5 mL 0.5 ml IM ONCE #1 ea 09/15/23 intramuscular suspension, kit (varicella-zoster [id number] (PF)) pravastatin 20 mg tablet 20 mg PO DAILY 90 days #90 tabs 09/27/23 blood-glucose meter (OneTouch #1 ea 09/30/23 Ultra2 Meter) lancets 30 gauge (OneTouch #100 ea 09/30/23 UltraSoft 2 Lancet) lancing device with lancets kit #1 ea 10/06/23 (Estoreify Plus Lancing Device kit) albuterol sulfate 2.5 mg/3 mL 2.5 mg (3 mL) inhalation QID PRN 11/08/23 (0.083 %) solution for nebulization COPD/shortness of breath or wheezing 90 days #360 mL hydroxyzine HCl 10 mg tablet 10 mg PO TID PRN allergies #90 tabs 12/16/23 hydroxyzine HCl 25 mg tablet 25 mg PO TID PRN allergies 30 days 12/16/23 #90 tabs amoxicillin 875 mg-potassium 1 tab PO BID 10 days #20 tabs 02/03/24 clavulanate 125 mg tablet doxycycline hyclate 100 mg tablet 100 mg PO BID #14 tabs 02/03/24 chlorhexidine gluconate 0.12 % 15 ml buccal DAILY 30 days #450 mL 02/28/24 mouthwash apixaban 5 mg tablet (Eliquis) 5 mg PO BID 30 days #60 tabs 03/06/24 blood sugar diagnostic ([facility] #100 ea 03/06/24 Ultra Test strips) ferrous sulfate 140 mg (45 mg 140 mg PO DAILY 90 days #90 tabs 03/06/24 iron) tablet,extended release furosemide 20 mg tablet 20 mg PO QAM #90 tabs 03/06/24 lancets 33 gauge ([facility] #100 ea 03/06/24 Plus Lancet) loratadine 10 mg tablet (Allergy 10 mg PO DAILY #90 tabs 03/06/24 Relief (loratadine)) metformin 500 mg tablet,extended 500 mg PO BID 90 days #180 tabs 03/06/24 release 24 hr omeprazole 20 mg capsule,delayed 20 mg PO DAILY #90 caps 03/06/24 release colestipol 1 gram tablet 1 g PO MOWEFR 90 days #39 tabs 06/07/24 ascorbic acid (vitamin C) 500 mg 500 mg PO DAILY 90 days #90 tabs 06/12/24 tablet (Vitamin C) ferrous sulfate 140 mg (45 mg 140 mg PO BID #60 tabs 07/12/24 iron) tablet,extended release (Slow Release Iron) rivaroxaban 20 mg tablet (Xarelto) 20 mg PO DAILY 90 days #90 tabs 07/17/24 metoprolol tartrate 50 mg tablet 50 mg PO BID 90 days #180 tabs 07/20/24 Allergies Allergy/AdvReac Type Severity Reaction Status Date / Time No Known Allergies Allergy Verified 07/21/24 11:27 [No Known Allergies*] Review of Systems 2 Review of Systems: Yes all other systems are reviewed and are negative [facility] Past Medical History Attestation statement: The following information was validated with the patient. 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 Chronic respiratory failure Left bundle branch block Persistent atrial fibrillation Surgical History History of lithotripsy History of cholecystectomy History of tracheostomy Family History Family History Father Medical history unknown Mother CVD (cardiovascular disease) Stroke Maternal Grandmother Cancer Maternal Grandfather Diabetes Social History Social History Housing: House Alcohol intake: never Patient Tobacco Use Status: Never used Tobacco Smoked in Last 30 Days: No e-Cigarette/Vaping Use: Never Used Second Hand Smoke Exposure: Yes Use of substances other than those prescribed or required for medical reasons: No Advance Directives: No Do you have a plan to hurt others: No Plan service: No Current occupational status: disabled Cognitive needs: Yes Hearing needs: No Vision needs: No Physical Exam ED Vital Signs: Vital Signs - 24 hr 07/21/24 11:23 07/21/24 13:16 07/21/24 13:36 Temperature 98.0 F 97.5 F 97.6 F Pulse Rate 104 H 96 105 H Respiratory Rate 22 H 22 H 23 H Blood Pressure 108/65 111/81 108/72 Pulse Oximetry 98 Oxygen Delivery Method Nasal Cannula BMI result Body Mass Index 36.3 vss Appearance: Alert.? Oriented X3.? No acute distress.? Head: Normocephalic, atraumatic, no step-offs or deformities Eyes: Pupils equal, round and reactive to light.? Neck: Normal inspection.? Neck supple.?Trach in place CVS: Normal heart rate and rhythm.? Pulses normal.? Respiratory: No respiratory distress.? Breath sounds normal.? Abdomen: Soft and nontender.? Skin: Skin warm and dry.? Pale skin color.? Normal skin turgor.? Extremities: No lower extremity edema.? No calf ttp. 5/5 strength to bilateral upper and lower extremities Neuro: Oriented X 3.? No motor deficit.? No sensory deficit. CN 2-12 intact Course Reevaluation(s) Reevaluation #1: CBC with a microcytic anemia, hemoglobin 6.7, hematocrit 25.0, MCV of 79.4, platelet count 290 and normal. Type and screen ordered as well as 2 units of packed red blood cells. Chemistries pending at this time. Will get verbal and written consent for blood transfusion. Time: 12:12 Reevaluation #2: It is guaiac positive. Likely lower GI bleed causing acute blood loss anemia. Plan is transfusion than hospital admission Time: 13:09 Reevaluation #3: Patient will be admitted to the ICU as patient is vent dependent at night. His pressure and tachycardia are improving. Patient aware of plan and so as . Time: 14:10 Medications Administered Generic Name Dose Route Start Last Admin Trade Name Freq PRN Reason Stop Dose Admin Sodium Chloride 1,000 mls @ 999 mls/hr 07/21/24 13:15 07/21/24 13:12 Ns IV 07/21/24 14:15 999 mls/hr .Q1H1M ALEX Administration Discontinued Medications Generic Name Dose Route Start Last Admin Trade Name Freq PRN Reason Stop Dose Admin Sodium Chloride 100 mls @ 100 mls/hr 07/21/24 12:10 07/21/24 13:12 Ns IV 07/21/24 13:09 100 mls/hr ONCE ONE Administration Medical Decision Making Medical Decision Making MDM Narrative: 1210 48-year-old male presents with abnormal labs from PCP. Was told he had low blood counts. Labs were done yesterday. He is on Eliquis. Physical exam benign In concerns for possible microscopic lower GI bleeding and acute blood loss anemia. No signs of acute hemorrhage at this time. Will rule out other metabolic derangements. No signs of shock at this time Plan labs, imaging, rectal exam Differential Diagnosis Differential Diagnoses: The differential diagnosis associated with the presentation includes In concerns for possible microscopic lower GI bleeding and acute blood loss anemia. No signs of acute hemorrhage at this time. Will rule out other metabolic derangements. No signs of shock at this time Admission/Observation Consideration of admission/observation: Escalation of care including admission/observation considered Likely Consult Healthcare Provider Management of the patient was discussed with: Hospitalist Lab Data MDM Lab Attestation statement: I reviewed the patient's lab results. 07/21/24 11:51 07/21/24 11:51 Labs: Lab Results 07/21/24 07/21/24 Range/Units 11:51 12:53 WBC 8.7 (4.8-10.8) X10*3/uL RBC 3.15 L (4.60-5.80) X10*6/uL Hgb 6.7 L* D (14.0-18.0) g/dl Hct 25.0 L D (42.0-52.0) % MCV 79.4 L (80.0-98.0) fL MCH 21.3 L (27.0-33.0) pg MCHC 26.8 L (31.0-36.0) g/dl RDW 18.8 H (11.0-16.0) % Plt Count 290 (160-400) X10*3/uL MPV 12.0 (9.4-12.4) fL Immature Gran % (Auto) 0.5 H (0.0-0.4) % Neut % (Auto) 72.8 (45-73) % Lymph % (Auto) 12.5 L (20-40) % [place] % (Auto) 9.7 (2-11) % Eos % (Auto) 3.9 (0-4) % Baso % (Auto) 0.6 (0-2) % Lymph # (Auto) 1.1 L (1.2-4.9) X10*3/uL [place] # (Auto) 0.9 (0.1-1.2) X10*3/uL Eos # (Auto) 0.3 (0.0-0.4) X10*3/uL Baso # (Auto) 0.1 (0.0-0.2) X10*3/uL Abs Immat Gran (auto) 0.04 H (0.00-0.03) X10*3/uL Absolute Neuts (auto) 6.4 (2.0-8.3) x10*3/uL Absolute Nucleated RBC 0.000 (0.0-0.012) X10*3/uL Nucleated RBC % (auto) 0.0 (0.0-0.2) /100WBC PT 17.8 H (10.9-12.4) SEC INR 1.5 H (0.9-1.1) Sodium 147 H (135-145) mmol/L Potassium 4.0 D (3.3-5.1) mmol/L Chloride 110 H (96-108) mmol/L Carbon Dioxide 29 (22-29) mmol/L Anion Gap 12 (12-20) BUN 25 H (9-16) mg/dL Creatinine 0.79 (0.5-1.4) mg/dL Estim Creat Clear Calc 125.1 Estimated GFR > 60 Random Glucose 185 H (60-115) mg/dL Calcium 10.1 (8.4-10.2) mg/dL Total Bilirubin 0.7 (0.0-1.0) mg/dL AST 29 (5-37) U/L ALT 14 (0-40) U/L Alkaline Phosphatase 162 H (39-117) U/L Total Protein 7.1 (6.5-8.0) g/dL Albumin 3.4 L (3.5-5.0) g/dL Stool Occult Blood POSITIVE (NEGATIVE) Blood Type A Positive Antibody Screen NEGATIVE Crossmatch See Detail Independent Historian Clinical information obtained from an independent historian. History obtained from or confirmed by: Spouse External Record Review External record reviewed: Inpatient record, Office record, Outpatient record, Prior outpatient labs, Prior outpatient radiology and Primary care record Chronic Conditions Patient?s care impacted by: Other (Please refer to HPI for full list of medical problems) Critical Care Time Critical Care Time Critical Care Time: Yes Total Critical Care Time: 45 Attestation: I attest to this time spent taking care of the patient, obtaining history, physical, reviewing labs, imaging, treatment of patients condition +/- specialist/hospitalist consult Discharge Plan Discharge Clinical Impression: ABLA (acute blood loss anemia), Acute lower gastrointestinal bleeding Patient Disposition: Admitted As Inpatient Print Language: Portuguese
[2024-07-21 12:09] LABS: INTERNATIONAL NORM RATIO 1.5 (0.9-1.1); Prothrombin Time 17.8 SEC (10.9-12.4)
[2024-07-21 12:13] LABS: Alanine Aminotransferase 14 U/L (0-40); Albumin Level 3.4 g/dL (3.5-5.0); Alkaline Phosphatase 162 U/L (39-117); Anion Gap 12 (12-20); Aspartate Amino Transferase 29 U/L (5-37); Bilirubin Total 0.7 mg/dL (0.0-1.0); Blood Urea Nitrogen 25 mg/dL (9-16); Calcium 10.1 mg/dL (8.4-10.2); Carbon Dioxide 29 mmol/L (22-29); Chloride 110 mmol/L (96-108); Creatinine Clr Calc Pharmacy 125.1; Estimated Glomerular Filt Rate > 60; Glucose Random 185 mg/dL (60-115); Sodium 147 mmol/L (135-145); Total Protein 7.1 g/dL (6.5-8.0)
[2024-07-21 13:02] LABS: OBS Int Ctl Valid YES; OBS1 POSITIVE (NEGATIVE)
[2024-07-21] MEDS: 0.9 % Sodium Chloride 1,000 ML 999 ML IV (13:12)
--- NOTE | 2024-07-21 13:59 | PC.NURSE ---
Patient placed on his home vent by . RT Trudi made aware, discharge rn made aware, VSS. is aware she cannot leave patient while he is on his vent. VSS, blood running.
--- NOTE | 2024-07-21 15:24 | P.HPCC_ITS ---
History of Present Illness Date of Service: 07/21/24 Chief Complaint: Low hemoglobin 48-year-old gentleman with past medical history chronic respiratory failure due to tracheitis, pneumonia status post tracheostomy and nighttime home ventilator which is managed by his , REBECA, cardiomyopathy, chronic anemia, myotonic dystrophy, GERD, PAF on xarelto, LBBB presents to the emergency room as he had abnormal labs that were drawn yesterday by his PCP. Reports he has low blood counts he was told by his PCP he may need a transfusion No other symptoms Review of Systems 2 Review of Systems: Unable to obtain due to patient's condition [facility] Past Medical History Medical History COPD (chronic obstructive pulmonary disease) Diabetes mellitus Allergic rhinitis Respiratory failure with hypoxia and hypercapnia Hypoventilation syndrome REBECA (obstructive sleep apnea) Hyperkalemia Tracheostomy dependent Pneumonia Cardiomyopathy GERD (gastroesophageal reflux disease) Pure hypercholesterolemia Obesity Psoriasis Anemia Obstructive sleep apnea 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 Chronic respiratory failure Left bundle branch block Persistent atrial fibrillation Family History Family History Father Medical history unknown Mother CVD (cardiovascular disease) Stroke Maternal Grandmother Cancer Maternal Grandfather Diabetes Surgical History Surgical History History of lithotripsy History of cholecystectomy History of tracheostomy Social History Social History Housing: House Alcohol intake: never Patient Tobacco Use Status: Never used Tobacco Smoked in Last 30 Days: No e-Cigarette/Vaping Use: Never Used Second Hand Smoke Exposure: Yes Use of substances other than those prescribed or required for medical reasons: No Advance Directives: No Do you have a plan to hurt others: No Plan Nutrition Risks: On aspiration precautions service: No Current occupational status: disabled Cognitive needs: Yes Hearing needs: No Vision needs: No Meds Allergies Allergy/AdvReac Type Severity Reaction Status Date / Time No Known Allergies Allergy Verified 07/21/24 11:27 [No Known Allergies*] Home Medications ?Medication ?Instructions ?Recorded ?Confirmed ?Last Taken ?Type multivitamin (Daily Multi-Vitamin 1 tab PO DAILY 06/17/21 07/21/24 07/20/24 History tablet) colestipol 1 gram tablet 1 g PO MOWEFR@0900 07/21/24 07/21/24 07/20/24 History ferrous sulfate 140 mg (45 mg 140 mg PO MOWEFR@0900,2100 07/21/24 07/21/24 07/20/24 History iron) tablet,extended release (Slow Release Iron) furosemide 20 mg tablet 20 mg PO DAILY 07/21/24 07/21/24 07/20/24 History omeprazole 20 mg capsule,delayed 20 mg PO DAILY@0630 07/21/24 07/21/24 07/20/24 History release Physical Exam 2 Vital Signs: Vital Signs: Last Vital Signs Temp 98.5 F 07/21/24 14:27 Pulse 88 07/21/24 14:27 Resp 12 07/21/24 14:27 BP 106/63 07/21/24 14:27 Pulse Ox 100 07/21/24 14:27 O2 Del Method Nasal Cannula 07/21/24 11:23 O2 Flow Rate 4 07/21/24 14:27 Oxygen Flow Rate 4 07/21/24 11:23 BMI result Body Mass Index 36.3 General: acute distress, ill appearing and tired appearing Nutritional Appearance: well nourished and overweight Eyes: appearance normal, both eyes and all related structures; Alignment and Position: alignment normal and position normal Neck: No lymphadenopathy, no thyromegaly Resp: bilateral air entry equal, occasional added sounds present Cardio: Regular rate, regular rhythm; Heart sounds: S1 normal heart sound present and S2 normal heart sound present GI: soft, nontender, no guarding, no hepatosplenomegaly : bladder normal to inspection, bladder normal to palpation, no renal angle tenderness Skin: no rashes or lesions noted and elasticity normal Neuro: oriented to person, oriented to place, oriented to time and moves all extremities Results Labs 07/21/24 11:51 07/21/24 11:51 Labs: Laboratory Results - last 24 hr 07/21/24 07/21/24 11:51 12:53 MCV 79.4 L MCH 21.3 L MCHC 26.8 L RDW 18.8 H Plt Count 290 MPV 12.0 Immature Gran % (Auto) 0.5 H Neut % (Auto) 72.8 Lymph % (Auto) 12.5 L [place] % (Auto) 9.7 Eos % (Auto) 3.9 Baso % (Auto) 0.6 Lymph # (Auto) 1.1 L [place] # (Auto) 0.9 Eos # (Auto) 0.3 Baso # (Auto) 0.1 Abs Immat Gran (auto) 0.04 H Absolute Neuts (auto) 6.4 Absolute Nucleated RBC 0.000 Nucleated RBC % (auto) 0.0 PT 17.8 H INR 1.5 H Anion Gap 12 Estim Creat Clear Calc 125.1 Estimated GFR > 60 Random Glucose 185 H Calcium 10.1 Total Bilirubin 0.7 AST 29 ALT 14 Alkaline Phosphatase 162 H Total Protein 7.1 Albumin 3.4 L Stool Occult Blood POSITIVE Blood Type A Positive Antibody Screen NEGATIVE Crossmatch See Detail Assessment and Plan (1) Acute lower gastrointestinal bleeding: Status: Acute (2) ABLA (acute blood loss anemia): Status: Acute (3) Malnutrition related to chronic disease: Status: Acute (4) COPD (chronic obstructive pulmonary disease): Status: Acute (5) Diabetes mellitus: Qualifiers: Diabetes mellitus type: type 2 Diabetes mellitus skilled nursing insulin use: without skilled nursing use Diabetes mellitus complication status: without complication Qualified Code(s): E11.9 - Type 2 diabetes mellitus without complications Status: Acute (6) Allergic rhinitis: Qualifiers: Allergic rhinitis trigger: unspecified Allergic rhinitis seasonality: u nspecified Qualified Code(s): J30.9 - Allergic rhinitis, unspecified Status: Acute Plan Acute blood anemia: Has microcytic anemia with hemoglobin of 6.7 His stool for occult blood is positive, fresh blood per rectum has been seen We will hold his Xarelto Receiving 1 unit of PRBC transfusion We will consult GI for endoscopy and colonoscopy Chronic respiratory failure: Secondary to tracheitis needing chronic tracheostomy since 2008 He also has obstructive sleep apnea for which he is on ventilator support at night He has a uncuffed trach due to tracheitis Cardiomyopathy: atrial fibrillation: will hold off on xarelto will continue home meds Prophylaxis: SCD
--- NOTE | 2024-07-21 15:28 | PHA.MEDREC ---
Addendum entered by Yvonne Greene RPh 07/21/24 15:56: CHECKED BY [facility] Original Note: Pharmacy Consult ? Medication Reconciliation Pharmacy has completed the medication reconciliation. Spouse and patient confirmed meds.
[2024-07-21 16:38] LABS: Iron 14 mcg/dL (45-160); Percent Iron Saturation 4 % (15-50); Total Iron Binding Capacity 344 mcg/dL (228-428); Unsaturated Iron Binding 330 ug/dL
[2024-07-21 17:49] LABS: Glucose, Whole Blood 111 mg/dL (60-115)
[2024-07-21 19:32] LABS: MANUAL DIFF FLAG NO
[2024-07-21 19:34] LABS: Basophils Percent Auto 0.4 % (0-2); Eosinophils Absolute Auto 0.2 X10*3/uL (0.0-0.4); Eosinophils Percent Auto 3.2 % (0-4); Hematocrit 30.2 % (42.0-52.0); Hemoglobin 8.9 g/dl (14.0-18.0); Imm Gran Abs Auto 0.04 X10*3/uL (0.00-0.03); Imm Gran Pct Auto 0.6 % (0.0-0.4); Lymphocytes Absolute Auto 0.6 X10*3/uL (1.2-4.9); Lymphocytes Percent Auto 8.6 % (20-40); Mean Corpuscular HGB Conc 29.5 g/dl (31.0-36.0); Mean Corpuscular Hemoglobin 24.3 pg (27.0-33.0); Mean Corpuscular Volume 82.5 fL (80.0-98.0); Mean Platelet Volume 12.5 fL (9.4-12.4); Monocytes Absolute Auto 0.8 X10*3/uL (0.1-1.2); Neutrophils Absolute Auto 5.3 x10*3/uL (2.0-8.3); Neutrophils Percent Auto 76.2 % (45-73); Platelet Count 210 X10*3/uL (160-400); Red Blood Count 3.66 X10*6/uL (4.60-5.80); Red Cell Distribution Width 17.9 % (11.0-16.0); White Blood Count 6.9 X10*3/uL (4.8-10.8)
[2024-07-21 19:47] LABS: Anion Gap 11 (12-20); Blood Urea Nitrogen 22 mg/dL (9-16); Calcium 9.7 mg/dL (8.4-10.2); Carbon Dioxide 27 mmol/L (22-29); Chloride 114 mmol/L (96-108); Creatinine Clr Calc Pharmacy 135.4; Estimated Glomerular Filt Rate > 60; Glucose Random 124 mg/dL (60-115); Potassium 4.2 mmol/L (3.3-5.1); Sodium 148 mmol/L (135-145)
[2024-07-22] VITALS (20 sets, daily range): BP systolic 86–130; BP diastolic 51–84; PULSE 74–114; RESP 12–32; TEMP 36.1; O2SAT 91–100; BMI 36.3
[2024-07-22 05:43] LABS: VBG Base Excess 4.4 mmol/L; VBG HCO3 26 mmol/L (22-26); VBG pCO2 30 mmHg; VBG pH 7.54 (7.32-7.43); VBG pO2 32 mmHg; Venous Blood Gas Refer to POC result
[2024-07-22 06:04] LABS: MANUAL DIFF FLAG NO
[2024-07-22 06:09] LABS: Basophils Absolute Auto 0.1 X10*3/uL (0.0-0.2); Basophils Percent Auto 0.8 % (0-2); Eosinophils Absolute Auto 0.2 X10*3/uL (0.0-0.4); Eosinophils Percent Auto 3.4 % (0-4); Hematocrit 30.1 % (42.0-52.0); Hemoglobin 8.9 g/dl (14.0-18.0); Imm Gran Abs Auto 0.02 X10*3/uL (0.00-0.03); Imm Gran Pct Auto 0.3 % (0.0-0.4); Lymphocytes Percent Auto 15.5 % (20-40); Mean Corpuscular HGB Conc 29.6 g/dl (31.0-36.0); Mean Corpuscular Hemoglobin 24.3 pg (27.0-33.0); Mean Corpuscular Volume 82.2 fL (80.0-98.0); Mean Platelet Volume 12.7 fL (9.4-12.4); Monocytes Absolute Auto 0.7 X10*3/uL (0.1-1.2); Monocytes Percent Auto 11.4 % (2-11); Neutrophils Absolute Auto 4.4 x10*3/uL (2.0-8.3); Neutrophils Percent Auto 68.6 % (45-73); Platelet Count 214 X10*3/uL (160-400); Red Blood Count 3.66 X10*6/uL (4.60-5.80); Red Cell Distribution Width 17.7 % (11.0-16.0); White Blood Count 6.4 X10*3/uL (4.8-10.8)
[2024-07-22 06:21] LABS: Albumin Level 2.9 g/dL (3.5-5.0); Anion Gap 13 (12-20); Blood Urea Nitrogen 19 mg/dL (9-16); Calcium 9.6 mg/dL (8.4-10.2); Carbon Dioxide 23 mmol/L (22-29); Chloride 116 mmol/L (96-108); Creatinine Clr Calc Pharmacy 143.2; Estimated Glomerular Filt Rate > 60; Glucose Random 98 mg/dL (60-115); Magnesium 2.1 mg/dL (1.6-2.6); Phosphorus 1.9 mg/dL (2.7-4.5); Potassium 3.9 mmol/L (3.3-5.1); Sodium 148 mmol/L (135-145)
[2024-07-22 06:22] LABS: INTERNATIONAL NORM RATIO 1.4 (0.9-1.1); Prothrombin Time 15.9 SEC (10.9-12.4)
[2024-07-22] MEDS: Albumin Human 25 % 100 ML IV ×2 (08:27→14:35)
[2024-07-22] MEDS: Potassium Phosphate/NS 15 MMOL/250 ML PLAST..BAG 62.5 MMOL IV (08:50)
--- NOTE | 2024-07-22 13:06 | MHC.CM.PN ---
IMM 07/22/24, EMR REVIEWED, PT W/ACUTE BLLOD LOSS ANEMIA AND BRADYCARDIA, CM MET W/PT AND PT'S AT BEDSIDE, PT LIVES W/, IS DEPENDENT W/CARE, HAS HOME O2 AND VENT AT NOC FROM [facility], CHRONIC TRACH AND ROLLATER WALKER, PT HAS NO HOME SERVICES AT THIS TIME AND PT'S CARES FOR HIM, PT/ ARE REQUESTING REFERRAL FOR [facility] FOR SN, REF SENT. [facility] ALSO REPORTS PT NEEDS BLS TRANSPORT. PCP ON FILE VERIFIED, PT'S [facility] REPORTS THEY WILL BRING COPY OF HCP TO PT'S PCP APPT ON 07/31
--- NOTE | 2024-07-22 14:20 | P.PNCC_ITS ---
Subjective Subjective Date of Service: 07/22/24 Critical Care Time (minutes): 35 Comment: Hemoglobin remained stable overnight No further episodes of bleeding Hemodynamically stable Using home vent for the night Physical Exam 2 Vital Signs: Vital Signs: Last Vital Signs Temp 96.9 F 07/22/24 00:00 Pulse 110 H 07/22/24 14:00 Resp 32 H 07/22/24 14:00 BP 130/70 07/22/24 14:00 Pulse Ox 100 07/22/24 14:00 O2 Del Method Nasal Cannula 07/22/24 14:00 O2 Flow Rate 4 07/22/24 14:00 FiO2 40 07/22/24 07:43 Oxygen Flow Rate 4 07/21/24 11:23 BMI result Body Mass Index 36.3 General: Not in acute distress, normal mentation, normal mood Nutritional Appearance: well nourished and overweight Eyes: appearance normal, both eyes and all related structures; Alignment and Position: alignment normal and position normal Neck: No lymphadenopathy, no thyromegaly Resp: bilateral air entry equal,no added sounds present Cardio: Regular rate, regular rhythm; Heart sounds: S1 normal heart sound present and S2 normal heart sound present GI: soft, nontender, no guarding, no hepatosplenomegaly : bladder normal to inspection, bladder normal to palpation, no renal angle tenderness Skin: no rashes or lesions noted and elasticity normal Neuro: oriented to person, oriented to place, oriented to time, quadriplegic Objective Data Labs 07/22/24 05:35 07/22/24 05:35 Labs: Laboratory Results - last 24 hr 07/21/24 07/21/24 07/21/24 11:51 17:45 19:27 WBC 6.9 RBC 3.66 L Hgb 8.9 L D Hct 30.2 L D MCV 82.5 MCH 24.3 L MCHC 29.5 L RDW 17.9 H Plt Count 210 D MPV 12.5 H Immature Gran % (Auto) 0.6 H Neut % (Auto) 76.2 H Lymph % (Auto) 8.6 L [place] % (Auto) 11.0 Eos % (Auto) 3.2 Baso % (Auto) 0.4 Lymph # (Auto) 0.6 L [place] # (Auto) 0.8 Eos # (Auto) 0.2 Baso # (Auto) 0.0 Abs Immat Gran (auto) 0.04 H Absolute Neuts (auto) 5.3 Absolute Nucleated RBC 0.000 Nucleated RBC % (auto) 0.0 PT INR VBG pH VBG pCO2 VBG pO2 VBG HCO3 VBG O2 Saturation VBG Base Excess Sodium 148 H Potassium 4.2 Chloride 114 H Carbon Dioxide 27 Anion Gap 11 L BUN 22 H Creatinine 0.73 Estim Creat Clear Calc 135.4 Estimated GFR > 60 POC Glucose 111 Random Glucose 124 H Calcium 9.7 Phosphorus Magnesium Iron 14 L TIBC 344 % Saturation 4 L Unsat Iron Binding 330 Albumin Blood Type A Positive Antibody Screen NEGATIVE Crossmatch See Detail 07/22/24 07/22/24 05:33 05:35 WBC 6.4 RBC 3.66 L Hgb 8.9 L Hct 30.1 L MCV 82.2 MCH 24.3 L MCHC 29.6 L RDW 17.7 H Plt Count 214 MPV 12.7 H Immature Gran % (Auto) 0.3 Neut % (Auto) 68.6 Lymph % (Auto) 15.5 L [place] % (Auto) 11.4 H Eos % (Auto) 3.4 Baso % (Auto) 0.8 Lymph # (Auto) 1.0 L [place] # (Auto) 0.7 Eos # (Auto) 0.2 Baso # (Auto) 0.1 Abs Immat Gran (auto) 0.02 Absolute Neuts (auto) 4.4 Absolute Nucleated RBC 0.000 Nucleated RBC % (auto) 0.0 PT 15.9 H INR 1.4 H VBG pH 7.54 H VBG pCO2 30 VBG pO2 32 VBG HCO3 26 VBG O2 Saturation 54.0 VBG Base Excess 4.4 Sodium 148 H Potassium 3.9 Chloride 116 H Carbon Dioxide 23 Anion Gap 13 BUN 19 H Creatinine 0.69 Estim Creat Clear Calc 143.2 Estimated GFR > 60 POC Glucose Random Glucose 98 Calcium 9.6 Phosphorus 1.9 L Magnesium 2.1 Iron TIBC % Saturation Unsat Iron Binding Albumin 2.9 L Blood Type Antibody Screen Crossmatch Progress Note: A&P Assessment and plan (1) Acute lower gastrointestinal bleeding: Status: Acute (2) ABLA (acute blood loss anemia): Status: Acute (3) Malnutrition related to chronic disease: Status: Acute (4) COPD (chronic obstructive pulmonary disease): Status: Acute (5) Diabetes mellitus: Status: Acute (6) Allergic rhinitis: Status: Acute Plan Acute blood anemia: Presented with microcytic anemia with hemoglobin of 6.7, received a unit of PRBC transfusion with appropriate rise in the hemoglobin. Hemoglobin remained stable overnight His stool for occult blood is positive, fresh blood per rectum has been seen, has an external and internal hemorrhoids upon examination Continued to withhold Xarelto Receiving 1 unit of PRBC transfusion Gastroenterology has been consulted for endoscopy and colonoscopy Chronic respiratory failure: Secondary to tracheitis needing chronic tracheostomy since 2008 He also has obstructive sleep apnea for which he is on ventilator support at night He has a uncuffed trach due to tracheitis, okay to use his home ventilator by his as his respiratory status is at his baseline Cardiomyopathy: atrial fibrillation: will hold off on xarelto will continue home meds Prophylaxis: SCD Quality Stroke Does the patient have a stroke diagnosis?: No VTE Prior VTE?: No VTE Risk Level:: Medical - low VTE Device Contraindication: N/A - Device Ordered VTE Drug Contraindication: Treatment Not Tolerated
[2024-07-22] MEDS: Metoprolol Tartrate 50 MG TABLET PO (15:08)
[2024-07-22] MEDS: Loratadine 10 MG TABLET PO (15:08)
[2024-07-22] MEDS: Omeprazole 20 MG CAPSULE.DR PO (15:08)
[2024-07-22] MEDS: Multivitamin TABLET 1 TAB PO (15:08)
[2024-07-22] MEDS: Iron Sucrose Complex 400 MG in 0.9 % Sodium Chloride 250 ML 180 MG IV (15:21)
[2024-07-22] MEDS: Chlorhexidine Gluc Oral Rinse 15 ML MOUTHWASH BUCCAL (15:53)
[2024-07-22] MEDS: Furosemide 20 MG TABLET PO (15:53)
[2024-07-22] MEDS: Pravastatin Sodium 20 MG TABLET PO (15:53)
--- NOTE | 2024-07-22 16:10 | P.EN_ITS ---
Event Note Date of Service: 07/22/24 Event Note: GI Consult-Full note dictated-History from patient, his , the EMR, and ICU staff. Imp: Iron deficiency anemia with Heme + stool in a 48 yo male with multiple comorbidities and on chronic Xarelto. He denies any new or worrisome GI complaints. There has been no gross evidence of blood loss. We did review the potential diagnoses of upper or lower GI neoplasm, silent ulcer disease, gastritis, esophagitis, and AVM's in detail. Rec: I advised an inpatient EGD/Colonoscopy after off the Xarelto for 2-3 days and off the Iron for at least a few days. I advised an outpatient bowel prep would not be a good idea given his condition and I think it would be too diff icult and unsafe for him and his . While his agrees with doing it as an inpatient, he adamantly refuses and wants to go home [facility]. As such, I advised them to think about things and to call me to set the procedures up as an outpatient if they think they can do it. They do have appointments coming up with his PCP and Senior Scheduler in July. I will advance his diet. He can resume his po Iron. He should continue his PPI. The resumption of his Xarelto will need to be decided by his PCP or Test Lead Application Testing, but his and he are aware of the increased risk of continued blood loss while on the Xarelto. Please contact me if I can be of any further assistance. Thanks Time Spent With Patient Time: Total time managing care of this patient today ____ minutes.
--- NOTE | 2024-07-22 16:40 | W.MHC.F2F ---
Service Date Service Date: 07/22/24 Encounter Date of encounter: 07/22/24 Reasons for Services Signs and symptoms assessed: quadriplegia, chronic respiratory failure on home ventilator Reason for half-way: neurological assessment, medication management and other (ventilator management) Homebound: Leaving the home is medically contraindicated at this time without the asist of a device and/or another person due th the listed conditions above and below. Reason homebound: bedbound/chairbound Homebound supporting statement: patient is chronically quadriplegic and bed bound with chronic respiratory failure and is on on home ventilator Certification: Based on the above findings, I certify that this patient is confined to the home and needs intermittent half-way care, physical therapy and/or speech therapy, or continues to need occupational therapy. The patient is under my care, and I have initiated the establishment of the plan of care. The patient will be followed by a physician who will periodically review the plan of care. Time Spent With Patient Time: Total time managing care of this patient today ___25_ minutes.
--- NOTE | 2024-07-22 16:49 | MHC.CM.PN ---
PT MEDICALLY CLEARED FOR DC HOME W/[facility] FOR [facility] FOR TRANSPORT AT 6PM.
--- NOTE | 2024-07-22 17:44 | CONS_ITS ---
DATE OF SERVICE: 07/22/2024 REASON FOR CONSULTATION: Iron-deficiency anemia and heme-positive stool. HISTORY OF PRESENT ILLNESS: This has been obtained from the patient, his , Evelia at the bedside, the medical record, and the ICU staff. The patient is a 48-year-old male with multiple comorbidities including chronic respiratory failure in relation to tracheitis, pneumonias, COPD, and myotonic dystrophy. He has a permanent tracheostomy and is ventilator dependent at night while he is sleeping. He is on chronic Xarelto in relation to atrial fibrillation. He came to the ER after being told he was very anemic after his primary care physician received the results of his outpatient laboratories. He apparently is on chronic iron, but his hemoglobin was down to 6.7 with MCV of 79 and stool tested positive for occult blood. The patient is on chronic omeprazole. He does not use any aspirin, NSAIDs, tobacco, nor alcohol. He denies any new GI symptoms and specifically denies any significant heartburn, dysphagia, anorexia, abdominal pain, nausea, vomiting, jaundice, change in bowel habits, hematochezia, nor melena. There is no family history of colorectal cancer. He has never had a colonoscopy. He did have an upper endoscopy with me in 2006 describing some gastritis. At that time, a PEG was placed as well. Since admission to the ICU, he has had no signs of bleeding. His stools are chronically dark on iron, but there has been no change in that according to the patient and his . The patient has been hemodynamically stable. He did receive a total of 2 units of blood since admission. His hemoglobin did respond appropriately going from 6.7 yesterday morning to 8.9 last evening and remaining stable at 8.9 this morning. MEDICATIONS: At home included vitamin C, colestipol, iron, furosemide, metformin, loratadine, metoprolol, vitamins, omeprazole, pravastatin, and Xarelto. His medications here in the hospital include colestipol, furosemide, intravenous iron infusion, loratadine, metoprolol, vitamins, omeprazole and pravastatin. PAST HISTORY: Tracheostomy, cholecystectomy, ERCP with sphincterotomy, previous PEG placement, which he no longer has, atrial fibrillation, diabetes mellitus, COPD, history of pneumonia, history of cardiomyopathy, gastroesophageal reflux, anemia, sleep apnea, myotonic dystrophy, left bundle-branch block. SOCIAL HISTORY: He lives at home. He does not smoke nor drink. FAMILY HISTORY: Negative for GI malignancy. REVIEW OF SYSTEMS: CONSTITUTIONAL: He denies any anorexia nor weakness other than his baseline issues. CARDIAC: No chest pain. PULMONARY: No coughing or hemoptysis. GI: As above. URINARY: No reported urinary issues such as dysuria, no hematuria. NEUROLOGIC: No reported headache or seizures. PHYSICAL EXAMINATION: GENERAL: The patient is a pleasant, alert, cooperative male. He has a tracheostomy in place, but is able to talk comfortably. SKIN: Warm and dry. He is pale. Anicteric sclerae. CARDIAC: Normal S1, S2. ABDOMEN: Soft, nondistended, nontender with normal bowel sounds. EXTREMITIES: Without edema. LABORATORY DATA: As above. Hemoglobin 8.9, MCV 82, platelets 214,000, white blood cell count 6.4, INR 1.4 with PT 15.9. Sodium 148, potassium 3.9, chloride 116, CO2 23, BUN 19, creatinine 0.7. Iron 14, iron saturation 4%. Normal LFTs except for an alkaline phosphatase of 162, albumin 3.4. IMPRESSION: Given the patient's clinical history, I did have a detailed discussion with he and his today regarding the potential diagnoses of upper or lower GI tract neoplasm, silent ulcer disease, gastritis, esophagitis, or gastrointestinal tract angiodysplasias. We did review that his continued use of Xarelto obviously will put him at increased risk of continued blood loss. I did recommend he undergo both upper endoscopy and colonoscopy while he is an inpatient given the clinical situation of his respiratory failure and relatively bedridden status. I advised him that we need to wait at least 2 to 3 days while he is off his Xarelto and then wait a total of at least several days while he is coming off the iron to allow for a decent bowel prep for the colonoscopy. I advised him that it would be unsafe and unwise from trying to do the prep at home given the clinical condition he is in. I advised him that he would be too difficult and unsafe for both he and his . His certainly agrees with doing this procedures inpatient, but he adamantly refuses and wants to go home as soon as possible. Again, we did review the potential for GI neoplasm and continued blood loss, particularly if he is placed back on Xarelto. Nonetheless, he continues to refuse and says he will try to do this as an outpatient. I did advise him and his to think about things and certainly call me to set the procedures up as an outpatient if they think they can do it safely. He does have appointments with his primary care physician and credit specialist coming up in July and I did advise him to speak with him about this and then call me to set up the procedures if they think they can do it. I would otherwise advance his diet. He can resume his oral iron. He should continue his PPI. The resumption of his Xarelto will need to be decided by his primary care physician and/or flatwork ironer, but he and his were aware that the continued use of Xarelto can lead to continued blood loss with anemia, needing readmission for transfusions. I did review all this with the bank officer as well. Please contact me if I can be of any further assistance. MD JENNIFER Rivas/MIGNON / [phone]
--- NOTE | 2024-08-08 09:40 | PM.DS ---
DS: Providers Provider Date of Service: 07/22/24 Date of admission: 07/21/24 14:50 Date of discharge: 07/22/24 Primary care physician: Constantino Foley MD Consults: 07/21/24 19:39 Consult to Gastroenterology Routine Consulting Provider: Shiva Walton Reason for consultation: GIB Attending physician on discharge: Armaan Valenzuela Discharging clinician: Armaan Valenzuela DS: Diagnosis Discharge Diagnosis (1) Acute lower gastrointestinal bleeding: Status: Resolved (2) ABLA (acute blood loss anemia): Status: Resolved (3) Malnutrition related to chronic disease: Status: Inactive (4) COPD (chronic obstructive pulmonary disease): Status: Inactive (5) Diabetes mellitus: Status: Acute (6) Allergic rhinitis: Status: Acute DS: Summary Hospital Course Hospital Course: 48-year-old gentleman with past medical history chronic respiratory failure due to tracheitis, pneumonia status post tracheostomy and nighttime home ventilator which is managed by his , REBECA, cardiomyopathy, chronic anemia, myotonic dystrophy, GERD, PAF on xarelto, LBBB presents to the emergency room as he had abnormal labs that were drawn yesterday by his PCP. Reports he has low blood counts he was told by his PCP he may need a transfusion. He tested stool for occult blood positive, received 1 unit of PRBC transfusion after which his hemoglobin remained stable. GI was consulted who upon that since he was on anticoagulation they had to wait for 48 hours before they could do a endoscopy and colonoscopy but patient refused to stay in the hospital anymore and wanted to leave the hospital. I explained for about 30 minutes to patient's Evelia the need to stay in the hospital to go the colonoscopy and endoscopy to see the root cause for bleeding but the patient insisted to leave the hospital. The risk for chronic bleeding, hemodynamic instability and has been well explained to patient's family but they chose to leave the hospital and follow up with GI and PCP on outpatient basis. We will continue to hold anticoagulation given the blood loss, needs to follow up with primary care physician to restart anticoagulation. Status at Discharge Functional status at discharge: bed bound Time Attestation Total time managing care of this patient today: 35 mintues. Discharge Coordination Time (in mins): 35 Quality: Safe Use of Opioids Does Pt have an Active Cancer Diagnosis on the Problem List?: No Quality: Stroke Does the patient have a stroke diagnosis?: No Reason for No Anticoagulant at DC: Drug intolerance Physical Exam Vital Signs: Vital Signs: Last Vital Signs Temp 96.9 F 07/22/24 00:00 Pulse 114 H 07/22/24 16:00 Resp 19 07/22/24 16:00 BP 130/84 07/22/24 16:00 Pulse Ox 98 07/22/24 16:00 O2 Del Method Nasal Cannula 07/22/24 16:00 O2 Flow Rate 4 07/22/24 16:00 FiO2 40 07/22/24 15:50 Oxygen Flow Rate 4 07/21/24 11:23 BMI result Body Mass Index 36.3 General: Not in acute distress, skin colored improved when compared to the previous day Nutritional Appearance: well nourished and overweight Eyes: appearance normal, both eyes and all related structures; Alignment and Position: alignment normal and position normal Neck: No lymphadenopathy, no thyromegaly Resp: bilateral air entry equal, occasional added sounds present Cardio: Regular rate, regular rhythm; Heart sounds: S1 normal heart sound present and S2 normal heart sound present GI: soft, nontender, no guarding, no hepatosplenomegaly : bladder normal to inspection, bladder normal to palpation, no renal angle tenderness Skin: no rashes or lesions noted and elasticity normal Neuro: oriented to person, oriented to place, quadriplegic DS: Data Data Completed and Pending Completed studies during hospitalization [Text1]: Procedures Change Tracheostomy Device in Trachea, External Approach (01/12/22) Transfusion of Nonautologous Red Blood Cells into Peripheral Vein, Percutaneous Approach (07/21/24) Discharge Plan Discharge Anticipated Discharge Date/Time: 07/22/24 16:55 Patient Disposition: Home Health Service Discharge Diagnosis: acute blood loss anemia Referrals: [facility] [Outside] - 3-5 Days (A NURSE WILL CONTACT YOU TO ARRANGE FIRST VISIT. ) Constantino Foley MD [Primary Care Provider] - 1 Week Discharge Medications: Continued albuterol sulfate 2.5 mg /3 mL (0.083 %) solution for nebulization 2.5 mg inhalation QID PRN (Reason: COPD/shortness of breath or wheezing) 90 Days Qty: 360 3RF chlorhexidine gluconate 0.12 % mouthwash 15 ml buccal DAILY 30 Days Qty: 450 3RF loratadine [Allergy Relief (loratadine)] 10 mg tablet 10 mg PO DAILY Qty: 90 1RF metformin 500 mg tablet extended release 24 hr 500 mg PO BID 90 Days Qty: 180 1RF ascorbic acid (vitamin C) [Vitamin C] 500 mg tablet 500 mg PO DAILY 90 Days Qty: 90 1RF metoprolol tartrate 50 mg tablet 50 mg PO BID 90 Days Qty: 180 3RF omeprazole 20 mg capsule,delayed release(DR/EC) 20 mg PO DAILY@0630 furosemide 20 mg tablet 20 mg PO DAILY colestipol 1 gram tablet 1 g PO MOWEFR@0900 Slow Release Iron 140 mg (45 mg iron) tablet extended release 140 mg PO MOWEFR@0900,2100 pravastatin 20 mg tablet 20 mg PO DAILY 90 Days Qty: 90 1RF multivitamin [Daily Multi-Vitamin] Tablet 1 tab PO DAILY No Action (DME) tracheostomy 6 See Rx Instructions .Route .MEDSUPPLY Qty: 1 3RF Rx Instructions: As directed (DME) Ultra-Light Rollator Misc See Rx Instructions .Route Qty: 1 0RF Rx Instructions: As directed (DME) blood-glucose meter [OneTouch Ultra2 Meter] Misc See Rx Instructions .Route Qty: 1 0RF Rx Instructions: test once per day (DME) lancets [OneTouch UltraSoft 2 Lancet] 30 gauge misc See Rx Instructions .Route Qty: 100 4RF Rx Instructions: test once per day (DME) lancing device with lancets [OneTouch Delica Plus Lanc Dev] Kit See Rx Instructions .Route Qty: 1 12RF Rx Instructions: test once per day (DME) OneTouch Ultra Test Strip See Rx Instructions .Route Qty: 100 4RF Rx Instructions: test once per day (DME) lancets [OneTouch Delica Plus Lancet] 33 gauge misc See Rx Instructions .Route Qty: 100 12RF Rx Instructions: As directed once a day Xarelto 20 mg tablet 20 mg PO DAILY 90 Days Qty: 90 3RF Discharge Orders: Discharge Order (Routine); Ordered 07/22/24 Ordered By: Armaan Valenzuela Diet: Advance to usual diet Activity on Discharge: As tolerated Stand Alone Forms: Patient Portal Discharge page Print Language: Bulgarian Care Plan Goals: Patient and his is requesting to be discharged home despite explaining them the need to stay in the hospital and evaluate the cause of lower GI bleed with endoscopy and colonoscopy She states her understanding the risks for chronic bleeding that might also lead to acute decompensation, understands the risk of stopping Xarelto for unknown duration until the colonosocpy is done which might lead to complications including stroke. If I let the patient leave against medical advice he might not be able to continue VNA services at home so as a courtesy he is being discahrged. Patient refuses to stay inpatient any further and also refuses to undergo inpateint colonscopy. I spent about 20 minutes discussing above with patient's . Health Concerns: Patient and his is requesting to be discharged home despite explaining them the need to stay in the hospital and evaluate the cause of lower GI bleed with endoscopy and colonoscopy She states her understanding the risks for chronic bleeding that might also lead to acute decompensation, understands the risk of stopping Xarelto for unknown duration until the colonosocpy is done which might lead to complications including stroke. If I let the patient leave against medical advice he might not be able to continue VNA services at home so as a courtesy he is being discharged. Patient refuses to stay inpatient any further and also refuses to undergo inpateint colonscopy. I spent about 20 minutes discussing above with his . Plan of Treatment: Patient refuses to stay inpatient any further, he needs to get colonoscopy and endoscopy which the family has to arrange and get done outpateint. Assessment: Patient and his is requesting to be discharged home despite explaining them the need to stay in the hospital and evaluate the cause of lower GI bleed with endoscopy and colonoscopy She states her understanding the risks for chronic bleeding that might also lead to acute decompensation, understands the risk of stopping Xarelto for unknown duration until the colonosocpy is done which might lead to complications including stroke. If I let the patient leave against medical advice he might not be able to continue VNA services at home so as a courtesy he is being discahrged. Patient refuses to stay inpatient any further and also refuses to undergo inpateint colonscopy. I spent about 20 minutes discussing above with patient's . Patient Instructions: Gastrointestinal Bleeding (DC) Discharge Date/Time: 07/22/24 19:27
== END 2024-07-22 19:27 | disposition home health service (06) | DRG 378 ==
LOC: HO.ED 13:09 → HO.EDOVER 14:53 → HO.ICU 16:39
PROVIDERS: Physician Assistant; Registered Nurse Community Health; Admitting Provider Internal Medicine Critical Care Medicine; Emergency Provider Emergency Medicine; PCP Internal Medicine; Visit Provider Internal Medicine Critical Care Medicine
DX: K92.2 Gastrointestinal hemorrhage, unspecified (principal); D62 Acute posthemorrhagic anemia; J96.10 Chronic respiratory failure, unspecified whether with hypoxia or hypercapnia; G71.11 Myotonic muscular dystrophy; G47.33 Obstructive sleep apnea (adult) (pediatric); Z93.0 Tracheostomy status; Z99.81 Dependence on supplemental oxygen; Z79.01 Long term (current) use of anticoagulants; Z79.84 Long term (current) use of oral hypoglycemic drugs; Z79.899 Other long term (current) drug therapy
CPT/HCPCS: 36415; 80048; 80053; 82040; 82272; 82803; 82947; 83540; 83735; 84100; 85025; 85610; 86850; 86900; 86901; 86923; 99285; J1756; P9016; P9047

== ENCOUNTER → 2024-07-21 14:50 | Outpatient (BNV) | payer MEDICARE, MEDICAID, SELFPAY | PROVIDERS: Admitting Provider Internal Medicine Critical Care Medicine; Emergency Provider Emergency Medicine; PCP Internal Medicine; Visit Provider Internal Medicine Critical Care Medicine | DX: J44.9 Chronic obstructive pulmonary disease, unspecified (principal); E46 Unspecified protein-calorie malnutrition; K92.2 Gastrointestinal hemorrhage, unspecified; D62 Acute posthemorrhagic anemia | CPT/HCPCS: 99223; 99232; 99239; G0180 ==

== ENCOUNTER 2024-07-31 12:12 | Outpatient (AMB) | payer MEDICARE, MEDICAID, SELFPAY ==
[2024-07-31 12:36] VITALS: BP 104/68; PULSE 65; O2SAT 99; BMI 28.2
--- NOTE | 2024-07-31 12:36 | MHC.PC.OV ---
Vital Signs 07/31/24 12:36 Height 5 ft 6 in Weight 175 lb BMI 28.2 BMI Reason not done Patient refused/unable BP 104/68 Blood Pressure Location Lt brachial Position Sitting Pulse 65 Pulse Source Pulse Oximeter Pulse Oximetry (%) 99 Oxygen Delivery Method Room Air Intake Visit Reasons: TCM ANEMIA Allergies No Known Allergies [No Known Allergies*] Allergy (Verified 08/06/24 02:20) Medication List - Last Reconciled 08/06/24 by Constantino Foley MD albuterol sulfate 2.5 mg (3 mL) inhalation QID PRN 90 days ascorbic acid (vitamin C) (Vitamin C) 500 mg PO DAILY 90 days blood sugar diagnostic ([employer]ovir [employer] Ultra Test strips) test once per day blood-glucose meter ([place] Ultra2 Meter) test once per day chlorhexidine gluconate 0.12% 15 mL buccal DAILY 30 days colestipol 1 g PO MOWEFR@0900 ferrous sulfate ER (Slow Release Iron) 140 mg PO MOWEFR@0900,2100 furosemide 20 mg PO DAILY lancets ([employer] UltraSoft 2 Lancet) test once per day lancets ([employer] Delica Plus Lancet) As directed once a day lancing device with lancets ([employer] Delica Plus Lancing Device kit) test once per day loratadine (Allergy Relief (loratadine)) 10 mg PO DAILY metformin ER 500 mg PO BID 90 days metoprolol tartrate 50 mg PO BID 90 days multivitamin (Daily Multi-Vitamin tablet) 1 tab PO DAILY omeprazole 20 mg PO DAILY@0630 pravastatin 20 mg PO DAILY 90 days rivaroxaban (Xarelto) 20 mg PO DAILY 90 days [tracheostomy As directed] walker (Ultra-Light Rollator misc) As directed Tobacco use date assessed: 07/31/24 Dental Screening Dental Screen Date: 07/31/24 HPI TCM ANEMIA HPI Details Patient comes in today for his follow up visit He (through his ) was advised to go to the ER [facility] a couple of weekends ago when his routine labs came back showing severe anemia (H/H was at 6.7/25.0) Work up done at the ER confirmed his severe anemia and he was given 1 unit of PRBC transfusion His stool was positive for occult blood when he was worked up in the hospital and (+) fresh blood per rectum was observed during so his anemia is most likely due to GI bleeding He was on Xarelto for thromboembolism prophylaxis for his persistent AF and this was held since he was at the ER on 07/22/2024 He was seen and evaluated by GI and they have recommended EGD and colonoscopy for further evaluation as the procedures will have to be done as an in-patient and he will need cardiology and pulmonary to clear him but patient declined to have these done at the time and just wanted to go home and despite attempt by GI to convince him otherwise, he would not change his mind He was therefore eventually discharged and was instructed to follow up with his PCP PENNIE Patient currently relates (+) fatigue, which is chronic for him He denies any headaches or dizziness Denies any chest pains, no increased SOB - he does have chronic dyspnea and is on oxygen 23/05 through his tracheostomy No nausea/vomiting, no abdominal pain No change in bowel habits noted TCM TCM Information Date of Discharge 07/22/24 Discharged From [facility] Interactive Contact Date (Reference documentation from this date) 07/23/24 [facility] Medical History (Updated 08/06/24 @ 03:00 by Constantino Foley MD) Diabetes mellitus Allergic rhinitis Malnutrition related to chronic disease COPD (chronic obstructive pulmonary disease) Respiratory failure with hypoxia and hypercapnia Hypoventilation syndrome REBECA (obstructive sleep apnea) Hyperkalemia Tracheostomy dependent Pneumonia Cardiomyopathy GERD (gastroesophageal reflux disease) Pure hypercholesterolemia Obesity Psoriasis Anemia Obstructive sleep apnea 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 Chronic respiratory failure Left bundle branch block Persistent atrial fibrillation Surgical History History of lithotripsy History of cholecystectomy History of tracheostomy Family History Father Medical history unknown Mother CVD (cardiovascular disease) Stroke Maternal Grandmother Cancer Maternal Grandfather Diabetes Social History Household Members: Spouse Housing: House Do you presently have visiting nurse or other home services: Yes Alcohol intake: never Comment: family at bedside Patient Tobacco Use Status: Never used Tobacco e-Cigarette/Vaping Use: Never Used Second Hand Smoke Exposure: Yes service: No Current occupational status: disabled Cognitive needs: Yes Hearing needs: No Vision needs: No Questionnaire PHQ-9 Over the last 2 weeks, how often have you been bothered by any of the following problems? 1. Little interest or pleasure in doing things: not at all 2. Feeling down, depressed, or hopeless: not at all 3. Trouble falling or staying asleep, or sleeping too much: not at all 4. Feeling tired or having little energy: not at all 5. Poor appetite or overeating: not at all 6. Feeling bad about yourself - or that you are a failure or have let yourself or your family down: not at all 7. Trouble concentrating on things, such as reading the newspaper or watching television: not at all 8. Moving or speaking so slowly that other people could have noticed. Or the opposite - being so fidgety or restless that you have been moving around a lot more than usual: not at all 9. Thoughts that you would be better off or of hurting yourself in some way: not at all Total score: 0 Depression Screening Interpretation: Negative Depression Screening Done: Yes 23236 - PHQ-9 Billing: Yes Source: Developed by Drs. Shiva Justin, Ira Birmingham, Joon Medina and colleagues, with an educational rogelio from [employer]. Thrive Questionnaire Date Thrive assessed: 07/31/24 I am a: Patient What is your living situation today?: I have a steady place to live Within the past 12 months, did the food you bought not last and you didn't have the money to get more?: Never true Within the past 12 months, did you worry whether your food would run out before you got money to buy more?: Never true Do you have trouble paying for medicines?: No Do you have trouble getting transportation to medical appointments?: No Do you have trouble paying your heating and electricity bill?: No Do you have trouble taking care of your child, family member or friend?: No Do you have trouble with day-to-day activities such as bathing, preparing meals, shopping, managing finances, etc.?: No Are you currently unemployed and looking for a job?: No Are you interested in more education?: No Please select the resources that you would like help with: None Currently or been in a relationship where the following occur: No concerns reported THRIVE Score: 0 AUDIT C Alcohol Use Questionnaire (AUDIT-C) 1. How often do you have a drink containing alcohol?: Never 3. How often do you have six or more drinks on one occasion?: Never Total Score: 0 Score Reviewed/Action Taken: Yes ANTONIO-7 AMB Questionnaire ANTONIO-7 Date ANTONIO - 7 assessed: 07/31/24 Feeling nervous, anxious, or on edge: 0 = Not at all Not being able to stop or control worryin = Not at all Worrying too much about different things: 0 = Not at all Trouble relaxin = Not at all Being so restless that it is hard to sit still: 0 = Not at all Becoming easily annoyed or irritable: 0 = Not at all Feeling afraid as if something awful might happen: 0 = Not at all Total ANTONIO-7 score (0-4 normal; 5-9 mild; 10-14 moderate; 15-21 severe): 0 Source: Developed by Drs. Shiva Justin, Ira Birmingham, Joon Medina and colleagues, with an educational rogelio from [employer]. Review of Systems Const Denies chills, Reports fatigue, Denies fever(s), Denies headache(s) and Reports weakness (chronic) ENT Denies dysphagia, Denies dizziness, Denies otalgia, Denies headache(s), Denies odynophagia and Denies sore throat Card Denies chest pain, Denies palpitations and Reports dyspnea on exertion (is oxygen-dependent) Resp Details: (+) permanent tracheostomy Denies chest congestion, Denies cough and Reports dyspnea on exertion (is oxygen-dependent) GI Denies abdominal pain, Denies constipation, Denies dysphagia, Denies heartburn, Denies diarrhea, Denies nausea, Denies odynophagia and Denies vomiting Denies dysuria, Denies nocturia and Denies urinary frequency Musc Reports back pain (on and off) and Reports arthralgias (recently over the right shoulder) Skin/Breast Details: (+) scattered scaling rash over his scalp, forehead and on the face Neuro Denies dizziness, Denies headache(s) and Reports weakness (chronic) Endo Reports fatigue and Denies palpitations Physical exam (Primary Care) Vital Signs: Last Vital Signs Pulse 65 07/31/24 12:36 BP 104/68 07/31/24 12:36 Pulse Ox 99 07/31/24 12:36 Oxygen Delivery Method Room Air 07/31/24 12:36 BMI result Body Mass Index 28.2 Tobacco/Smoking Status: Tobacco use Status Tobacco use date assessed 07/31/24 07/31/24 12:46 Patient Tobacco Use Status Never used Tobacco 07/31/24 12:39 e-Cigarette/Vaping Use Never Used 07/31/24 12:39 PHQ-9: PHQ-9 Score PHQ-9: Total score 0 07/31/24 13:23 Depression Screening Interpretation: Negative Thrive Assessment: Date of Thrive Assessment Date Thrive assessed 07/31/24 07/31/24 12:39 Currently or been in a relationship where the following occur: No concerns reported Const Other: Physical exam is limited as patient is bed (stretcher) bound General: no acute distress and alert Orientation/consciousness: patient oriented x3 HENMT Ears: TM's normal bilaterally and EAC's normal Throat: Yes posterior oropharynx normal and Yes tonsils normal (no TP congestion) Neck Neck: Yes no lymphadenopathy, Yes supple and Yes tracheostomy present Resp Auscultation: clear to auscultation bilaterally, no rales, no wheezes and diminished lung sounds (slightly) bilateral Cardio Rate: regular rate Rhythm: abnormal rhythm irregularly irregular Heart sounds: no murmurs GI Palpation (GI): Soft to palpation, nontender and no guarding Auscultation: normal bowel sounds Skin Other: (+) scattered patches of scaling rash over the scalp, forehead and on the face Neuro General: patient oriented x3 Cognition (Neuro): normal cognition Extrem General: Yes no clubbing, cyanosis or edema Office Procedures Flu Questionnaire Does the patient have a severe egg allergy?: No Does the patient have severe life threatening allergies?: No Does the patient have a fever or illness today?: No Has the patient ever had Guillain-[place] Syndrome?: No Has the patient ever had any past reaction to a flu shot?: No Results AMB Hemoglobin A1c AMB Hemoglobin A1c 5.1 % Last Edit by ZHENG Corcoran on 07/31/24 13:24 Immunizations Fluarix Triv [id number] (PF) 45 mcg (15 mcg x 3)/0.5 mL IM syringe Performing Provider: Constantino Foley MD Performing Location: [facility] [place] [facility] Administered by: ZHENG Corcoran on 07/31/24 13:07 Dose Route Admin Location Dispensed Lot Number Expiration Date NDC Sterilizer Operator 0.5 mL IM Right Deltoid 0.5 mL [id number] 04/29/25 [id number] [id number] VIS Given Date VIS Provided VIS Publication Date 07/31/24 Single Vaccine 21 Eligibility Eligibility Date Funding Source Not [place] Eligible 07/31/24 Private Results Reviewed Results Reviewed: Laboratory Last Values Hgb A1c (Clinic) 5.1 % (4.0-6.0) 07/31/24 13:06 Coding Level of Care Code TCM Mod MDM <= 14 Days Diagnoses Anemia, unspecified type D64.9 Anemia type: unspecified type Gastrointestinal hemorrhage, unspecified gastrointestinal hemorrhage type K92.2 GI bleed type/associated pathology: unspecified gastrointestinal hemorrhage type Chronic respiratory failure, unspecified whether with hypoxia or hypercapnia J96.10 Respiratory failure complication: unspecified whether with hypoxia or hypercapnia Tracheostomy in place Z93.0 Persistent atrial fibrillation I48.19 Ischemic cardiomyopathy I25.5 Cardiomyopathy type: ischemic Myotonic dystrophy G71.11 Pure hypercholesterolemia E78.00 Type 2 diabetes mellitus without complication, without long-term current use of insulin E11.9 Diabetes mellitus type: type 2 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: without halfway use Diabetes mellitus complication status: without complication Gastroesophageal reflux disease without esophagitis K21.9 Esophagitis presence: without esophagitis Allergic rhinitis, unspecified seasonality, unspecified trigger J30.9 Allergic rhinitis trigger: unspecified Allergic rhinitis seasonality: unspecified Psoriasis L40.9 Obesity with serious comorbidity, unspecified class, unspecified obesity type E66.9 Obesity type: unspecified obesity type Obesity classification: unspecified obesity classification Serious obesity comorbidity presence: with serious comorbidity Assessment & Plan Assessment & Plan (1) Anemia: Code(s): D64.9 - Anemia, unspecified Category: Medical Qualifiers: Anemia type: unspecified type Qualified Code(s): D64.9 - Anemia, unspecified Plan: Patient received 1 unit of PRBC while he was in the hospital, with appropriate increase in his H/H, which has remained stable since His H/H was most recently at 8.6/30.1 on 07/22/2024 and this will need to be repeated for follow up His stool was positive for occult blood when he was worked up in the hospital and (+) fresh blood per rectum has been observed during his recent admission so his anemia is most likely due to GI bleeding He was also on Xarelto for thromboembolism prophylaxis for his persistent AF and this was held since he was at the ER He was seen and evaluated by GI and they have recommended EGD and colonoscopy for further evaluation but patient declined to have these done at the time and just wanted to go home He is now agreeable to getting these done but due to his conditions and comorbidities, the procedures will have to be done as an in-patient and he has to get cleared first by both cardiology and pulmonary prior to undergoing the procedures He has a follow up appointment scheduled to see Dr. Sarvaia next month for pulmonary follow up but has not yet been able to schedule one with cardiology yet Once he is cleared by both pulmonary and cardiology, they will then reach out to Dr. Walton' office to get his GI work ups scheduled Will have him get his labs and CBC rechecked now and again in 1 month for follow up (2) GI bleeding: Code(s): K92.2 - Gastrointestinal hemorrhage, unspecified Category: Medical Qualifiers: GI bleed type/associated pathology: unspecified gastrointestinal hemorrhage type Qualified Code(s): K92.2 - Gastrointestinal hemorrhage, unspecified Plan: UNCLEAR at this time where his bleeding is but it is likely, at least in part, due to his hemorrhoids GI has recommended EGD and colonoscopy while he was in the hospital but patient declined at the time He is now awaiting clearance from both pulmonary and cardiology before proceeding with her GI evaluation His Xarelto has been held since his ER visit about a week ago and he will need to reach out to cardiology to see if there are any other options or recommendations regarding his AF management (3) Chronic respiratory failure: Comment: hypoventilation syndrome Code(s): J96.10 - Chronic respiratory failure, unspecified whether with hypoxia or hypercapnia Category: Medical Qualifiers: Respiratory failure complication: unspecified whether with hypoxia or hypercapnia Qualified Code(s): J96.10 - Chronic respiratory failure, unspecified whether with hypoxia or hypercapnia Plan: (+) permanent tracheostomy - his changes his tracheostomy every 4 weeks Patient continues to require home ventilator therapy, primarily at night and as needed during the day He uses his oxygen 23/05 Follow up with pulmonary medicine as scheduled (4) Tracheostomy in place: Code(s): Z93.0 - Tracheostomy status Category: Medical Plan: (+) permanent tracheostomy - his changes his tracheostomy at home every 4 weeks Follow up with pulmonary as scheduled (5) Persistent atrial fibrillation: Code(s): I48.19 - Other persistent atrial fibrillation Category: Medical Plan: Patient continues to be rate-controlled on Metoprolol 50 mg BID He was on Xarelto 20 mg QD for thromboembolism prophylaxis but this has been held a couple of weekends ago when he presented with severe anemia He was also previously advised by cardiology that his most recent echocardiogram showed findings consistent with ischemic cardiomyopathy, most likely in relation to his chronic atrial fibrillation and left bundle branch block Angiography would ideally be the next step in his work up but he is not a candidate for this as he would not be able to lie down flat on his back for the procedure and his numerous other comorbidities would increase his risks of intraoperative and post-op complications He was advised that an ICD placement at some point may be helpful but it is currently not indicated yet Follow up with cardiology as scheduled (6) Cardiomyopathy: Code(s): I42.9 - Cardiomyopathy, unspecified Category: Medical Qualifiers: Cardiomyopathy type: ischemic Qualified Code(s): I25.5 - Ischemic cardiomyopathy Plan: Echocardiogram done back in 2021 revealed moderated to severe LV systolic dysfunction with LVEF of 30 to 35% and limited visualization of the cardiac valves Cardiomyopathy is most likely ischemic in nature but patient is not a candidate for further work ups with angiography and percutaneous intervention Have discussed ICD as a potential option in the future, especially if his cardiac function continues to decline Follow up with cardiology as scheduled (7) Myotonic dystrophy: Comment: CHRONIC, WITH GENERALIZED MUSCLE WASTING. PATIENT IS BED CONFINED. Code(s): G71.11 - Myotonic muscular dystrophy Category: Medical Plan: Stable - he is sedentary and bed-bound for most of the day although he is able to get up and move around when needed in a limited capacity He has VNA services available to request for when needed (8) Pure hypercholesterolemia: Code(s): E78.00 - Pure hypercholesterolemia, unspecified Category: Medical Plan: Will have patient get his follow up labs done [facility] Reinforced low cholesterol diet Continue Pravastatin 20 mg QD and Colestipol 1 gm every other day (MWF) (9) Diabetes mellitus: Code(s): E11.9 - Type 2 diabetes mellitus without complications Category: Medical Qualifiers: Diabetes mellitus type: type 2 Diabetes mellitus halfway insulin use: without halfway use Diabetes mellitus complication status: without complication Qualified Code(s): E11.9 - Type 2 diabetes mellitus without complications Plan: His in-office HgbA1c today is at 5.1% (HgbA1c was previously at 6.2% back in December 2023 - goal is at least <7.0% Reinforced diabetic diet Continue Metformin ER 500 mg Q HS (10) GERD (gastroesophageal reflux disease): Code(s): K21.9 - Gastro-esophageal reflux disease without esophagitis Category: Medical Qualifiers: Esophagitis presence: without esophagitis Qualified Code(s): K21.9 - Gastro-esophageal reflux disease without esophagitis Plan: Dietary restrictions reinforced Continue Omeprazole 20 mg QD (11) Allergic rhinitis: Code(s): J30.9 - Allergic rhinitis, unspecified Category: Medical Qualifiers: Allergic rhinitis trigger: unspecified Allergic rhinitis seasonality: unspecified Qualified Code(s): J30.9 - Allergic rhinitis, unspecified Plan: Continue Cetirizine 10 mg QD PRN (12) Psoriasis: Code(s): L40.9 - Psoriasis, unspecified Category: Medical Plan: Follow up with dermatology as scheduled (13) Obesity: Code(s): E66.9 - Obesity, unspecified Category: Medical Qualifiers: Obesity type: unspecified obesity type Obesity classification: unspecified obesity classification Serious obesity comorbidity presence: with serious comorbidity Qualified Code(s): E66.9 - Obesity, unspecified Plan: Reinforced diet; weight loss and exercise are unrealistic given patient's multiple comorbidities Plan As requested, flu vaccine given to patient today Follow up in 6 months Orders: Orders Influenza [id number] Immunization 07/31/24 Z23 - Encounter for immunization AMB Hemoglobin A1c 07/31/24 Z13.9 - Encounter for screening, unspecified OT Evaluation and Treatment 07/31/24 M25.511 - Pain in right shoulder IRON PROFILE 07/31/24 D50.9 - Iron deficiency anemia, unspecified Complete Blood Count Auto Diff 1 Month D64.9 - Anemia, unspecified
== END 2024-07-31 13:32 | disposition home or self-care (01) ==
PROVIDERS: PCP Internal Medicine; Visit Provider Internal Medicine
DX: J96.10 Chronic respiratory failure, unspecified whether with hypoxia or hypercapnia (principal); Z93.0 Tracheostomy status; I48.19 Other persistent atrial fibrillation; E11.9 Type 2 diabetes mellitus without complications; G71.11 Myotonic muscular dystrophy; D64.9 Anemia, unspecified; K92.2 Gastrointestinal hemorrhage, unspecified; I25.5 Ischemic cardiomyopathy; E78.00 Pure hypercholesterolemia, unspecified; K21.9 Gastro-esophageal reflux disease without esophagitis; J30.9 Allergic rhinitis, unspecified; L40.9 Psoriasis, unspecified

== ENCOUNTER → 2024-07-31 12:12 | Outpatient (BNVA) | payer MEDICARE, MEDICAID, SELFPAY | PROVIDERS: PCP Internal Medicine; Visit Provider Internal Medicine | DX: Z23 Encounter for immunization (principal); E11.9 Type 2 diabetes mellitus without complications; D64.9 Anemia, unspecified | CPT/HCPCS: 83036; 90471; 90656; 96127; 99495 ==

== ENCOUNTER 2024-09-05 13:21 | Outpatient (AMB) | payer MEDICARE, MEDICAID, SELFPAY ==
--- NOTE | 2024-09-05 13:22 | A.OFFVIS_ITS ---
Intake Visit Reasons: hypoxemia Resort Housekeeper Required: No Accompanied by: Yessy/ spouse Allergies No Known Allergies [No Known Allergies*] Allergy (Verified 09/05/24 13:34) Medication List - Last Reconciled 09/05/24 by Kandis Saravia MD albuterol sulfate 2.5 mg (3 mL) inhalation QID PRN 90 days ascorbic acid (vitamin C) (Vitamin C) 500 mg PO DAILY 90 days blood sugar diagnostic ([employer] Ultra Test strips) test once per day blood-glucose meter ([employer] Ultra2 Meter) test once per day chlorhexidine gluconate 0.12% 15 mL buccal DAILY 30 days colestipol 1 g PO MOWEFR@0900 ferrous sulfate ER (Slow Release Iron) 140 mg PO MOWEFR@0900,2100 furosemide 20 mg PO QAM lancets ([employer] UltraSoft 2 Lancet) test once per day lancets ([employer] Delica Plus Lancet) As directed once a day lancing device with lancets ([employer] Delica Plus Lancing Device kit) test once per day loratadine (Allergy Relief (loratadine)) 10 mg PO DAILY metformin ER 500 mg PO BID metoprolol tartrate 50 mg PO BID 90 days multivitamin (Daily Multi-Vitamin tablet) 1 tab PO DAILY omeprazole 20 mg PO DAILY@0630 pravastatin 20 mg PO DAILY rivaroxaban (Xarelto) 20 mg PO DAILY 90 days [tracheostomy As directed] walker (Ultra-Light Rollator misc) As directed Do you need a note to return to daycare/school/sports/work: No HPI HPI hypoxemia: Details: MR. ARREOLA 48 YEARS OLD, A CASE OF MYOTONIC DYSTROPHY WITH CHRONIC OBSTRUCTIVE SLEEP APNEA/HYPOVENTILATION SYNDROME, HAS HAD TRACH CAST ME FOR MANY YEARS. HE IS ON HOME VENTILATOR, AND GETS TOTAL CARE BY HIS AND ALSO THE VISITING NURSE ASSOCIATION. HIS , YESSY, CALLED TODAY TO GO OVER HIS MEDS AND, .RESPIRATORY STATUS THERE HAS BEEN SOME INCREASE IN THE MUCUS PRODUCTION, LATELY, BUT NO FEVER AND NO MUCOPURULENT SPUTUM. SHE HAS A SUCTIONING MACHINE WHICH IS RELATIVELY GENTLE, AND YESSY DOES SUCTIONING A FEW TIMES DURING THE DAY. THE VISITING RESPIRATORY THERAPIST HAS ADVISED HER TO GET A STRONGER SUCTION EQUIPMENT, HOWEVER YESSY FEELS THAT WHAT SHE HAS IS FINE. SHE IS AFRAID THAT IF SHE STARTS USING THE STRONGER SUCTION, SHE MAY IRRITATE THE AIRWAYS. YESSY IS CHANGING THE TRACH MONTHLY AT HOME. MR. ARREOLA ALSO SPOKE TO ME AND EXPRESS THAT HE IS STABLE AND DOING FAIRLY WELL. HE DOES USE THE VENTILATOR EVERY NIGHT AND SOMETIME DURING THE DAY WELL. HE STAYS ALERT AND COMFORTABLE DURING THE DAY. HE CAN EAT SOFT DIET AND IS MAINTAINING HIS NUTRITION THAT. [facility] Medical History Diabetes mellitus Allergic rhinitis Malnutrition related to chronic disease COPD (chronic obstructive pulmonary disease) Respiratory failure with hypoxia and hypercapnia Hypoventilation syndrome REBECA (obstructive sleep apnea) Hyperkalemia Tracheostomy dependent Pneumonia Cardiomyopathy GERD (gastroesophageal reflux disease) Pure hypercholesterolemia Obesity Psoriasis Anemia Obstructive sleep apnea 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 Chronic respiratory failure Left bundle branch block Persistent atrial fibrillation Surgical History History of lithotripsy History of cholecystectomy History of tracheostomy Family History Father Medical history unknown Mother CVD (cardiovascular disease) Stroke Maternal Grandmother Cancer Maternal Grandfather Diabetes Social History Household Members: Spouse Housing: House Do you presently have visiting nurse or other home services: Yes Alcohol intake: never Comment: family at bedside Patient Tobacco Use Status: Never used Tobacco e-Cigarette/Vaping Use: Never Used Second Hand Smoke Exposure: Yes service: No Current occupational status: disabled Cognitive needs: Yes Hearing needs: No Vision needs: No Review of Systems Const Denies daytime sleepiness, Denies excessive sweating, Denies fatigue, Denies fever(s), Denies lethargy, Denies malaise, Denies night sweats, Denies snoring and Denies weight loss Eyes Denies blurry vision and Denies itchy eyes ENT Denies nasal congestion, Denies post nasal drip, Denies sinus pain and Denies sinus pressure Card Denies chest pain, Denies pedal edema, Denies dyspnea, Denies orthopnea and Denies paroxysmal nocturnal dyspnea Resp Denies cough, Denies hemoptysis, Denies excessive phlegm production, Denies dyspnea, Denies snoring and Denies wheezing GI Denies abdominal pain and Denies heartburn Musc Denies myalgias, Denies arthralgias and Denies joint swelling Skin/Breast Denies rash Neuro Denies memory loss and Denies seizure-like activity Psych Denies abnormal sleep pattern, Denies anxiety and Denies memory loss Endo Denies excessive sweating, Denies fatigue and Denies heat intolerance Larry/Lymph Denies easy bruising Aller/Immun Denies itchy eyes, Denies seasonal rhinorrhea and Denies wheezing Physical Exam Vital Signs: TELE VISIT, SO NO PHYSICAL EXAMINATION Assessment & Plan Assessment & Plan (1) REBECA (obstructive sleep apnea): Comment: KNOWN CASE OF REBECA SINCE LONG-TIME, STATUS POST PERMANENT TRACH , PATIENT USES HOME VENTILATOR AT NIGHTTIME. Code(s): G47.33 - Obstructive sleep apnea (adult) (pediatric) Category: Medical Plan: ADVISED TO CONTINUE USING THE VENTILATOR EVERY NIGHT AND DURING THE DAYTIME WELL FOR ANY RESPIRATORY DISTRESS. (2) Hypoventilation syndrome: Comment: IN ADDITION TO REBECA HE HAS HAD HYPOVENTILATION SYNDROME FOR MANY YEARS , STATUS POST PERMANENT TRACH. PATIENT ON HOME VENTILATOR AT NIGHT. HAS DONE VERY WELL. HIS YESSY PROVIDES FULL-TIME CARE AND TAKES CARE OF TRACH AND VENT SUPPORT. Code(s): R06.89 - Other abnormalities of breathing Category: Medical Plan: CONTINUE THE CURRENT MANAGEMENT. I ADVISE THAT LONG THERE IS NO RESPIRATORY DISTRESS AND MUCUS COMES OUT EASILY WITH THE CURRENT LOW PRESSURE SUCTION DEVICE IT IS OKAY. WHENEVER IT BECOMES A BIG ISSUE OR PROBLEM TO SUCTION THE MUCUS, I WILL GO AHEAD AND ORDER THE STRONGER SUCTIONING DEVICE . (3) Respiratory failure with hypoxia and hypercapnia: Comment: CHRONIC RESPIRATORY FAILURE WHICH HAS BEEN TREATED WITH PERMANENT TRACH AND HOME VENTILATOR. O2 2 L/MINUTE WITH NASAL CANNULA. ALSO O2 4-6 L/MINUTE WHEN USING HOME VENTILATOR. PATIENT REMAINS STABLE. Code(s): J96.91 - Respiratory failure, unspecified with hypoxia; J96.92 - Respiratory failure, unspecified with hypercapnia Category: Medical Plan: CONTINUE TO USE VENTILATOR WELL OXYGEN PRESCRIBED. (4) Tracheostomy dependent: Comment: HE GETS HIS TRACH TUBE CHANGED REGULARLY. HIS IS DOING THAT AT HOME WITH THE HELP OF RESPIRATORY THERAPIST, MONTHLY YESSY IS WELL TRAINED TO CHANGE THE TRACH AT HOME . SHE ALSO PROVIDES GOOD TRACH CARE ON A DAILY BASIS, SHE DOES SUCTIONING NEEDED. Code(s): Z93.0 - Tracheostomy status Category: Medical Plan: COMMENDED FOR TAKING GOOD CARE OF LULU (5) Myotonic dystrophy: Comment: CHRONIC, WITH GENERALIZED MUSCLE WASTING. PATIENT IS BED CONFINED, TRIES TO WALK WITH ROLLATOR WALKER WITH SOME ASSISTANCE. Code(s): G71.11 - Myotonic muscular dystrophy Category: Medical Plan: THIS IS CHRONIC PROBLEM, BEING THE UNDERLYING CAUSE OF OBESITY, REBECA/HYPOVENTILATION AND RESPIRATORY FAILURE. Coding Level of Care Code Tele New Pt Level 4 (72852) Diagnoses REBECA (obstructive sleep apnea) G47.33 Hypoventilation syndrome R06.89 Respiratory failure with hypoxia and hypercapnia J96.91; J96.92 Tracheostomy dependent Z93.0 Myotonic dystrophy G71.11
== END 2024-09-05 14:08 | disposition home or self-care (01) ==
LOC: HO.HPS 13:21
PROVIDERS: PCP Internal Medicine; Visit Provider Internal Medicine
DX: G47.33 Obstructive sleep apnea (adult) (pediatric) (principal); J96.91 Respiratory failure, unspecified with hypoxia; J96.92 Respiratory failure, unspecified with hypercapnia; Z93.0 Tracheostomy status; G71.11 Myotonic muscular dystrophy
CPT/HCPCS: 99442

== ENCOUNTER → 2024-09-05 13:21 | Outpatient (BNVA) | payer MEDICARE, MEDICAID, SELFPAY | PROVIDERS: PCP Internal Medicine; Visit Provider Internal Medicine ==

== ENCOUNTER 2024-10-09 14:25 | Outpatient (REF) | payer MEDICARE, MEDICAID, SELFPAY ==
[2024-10-09 15:42] LABS: VBG Base Excess 8.9 mmol/L; VBG HCO3 36 mmol/L (22-26); VBG O2 % Saturation < 30.0 %; VBG pCO2 59 mmHg; VBG pH 7.39 (7.32-7.43); VBG pO2 26 mmHg
[2024-10-09 15:43] LABS: Venous Blood Gas Refer to POC result
== END 2024-10-09 14:26 | disposition home or self-care (01) ==
LOC: HO.LAB 14:25
PROVIDERS: PCP Internal Medicine; Visit Provider Internal Medicine
DX: J96.91 Respiratory failure, unspecified with hypoxia (principal); J96.92 Respiratory failure, unspecified with hypercapnia; R06.89 Other abnormalities of breathing; G47.33 Obstructive sleep apnea (adult) (pediatric)
CPT/HCPCS: 36415; 82803; 99212

== ENCOUNTER 2024-10-09 14:25 | Outpatient (AMB) | payer MEDICARE, MEDICAID, SELFPAY ==
[2024-10-09 14:55] VITALS: PULSE 93; O2SAT 98; BMI 26.1
--- NOTE | 2024-10-09 14:55 | A.OFFVIS_ITS ---
Vital Signs 10/09/24 14:55 Height 5 ft 6 in Weight 162 lb BMI 26.1 Pulse 93 Pulse Source Pulse Oximeter Pulse Oximetry (%) 98 Oxygen Delivery Method Nasal Cannula Oxygen Flow Rate 4 Intake Visit Reasons: resp failure Intake Note: pt is here for follow up and states he is tired, using vent throughout the day as needed, not much eating happening not appetite. Answering Service Agent Required: No Allergies No Known Allergies [No Known Allergies*] Allergy (Verified 10/10/24 08:45) Medication List - Last Reconciled 10/10/24 by Kandis Saravia MD albuterol sulfate 2.5 mg (3 mL) inhalation QID PRN 90 days ascorbic acid (vitamin C) (Vitamin C) 500 mg PO DAILY 90 days blood sugar diagnostic ([employer] Ultra Test strips) test once per day blood-glucose meter ([employer] Ultra2 Meter) test once per day chlorhexidine gluconate 0.12% 15 mL buccal DAILY 30 days colestipol 1 g PO MOWEFR@0900 ferrous sulfate ER (Slow Release Iron) 140 mg PO MOWEFR@0900,2100 furosemide 20 mg PO QAM lancets ([employer] UltraSoft 2 Lancet) test once per day lancets ([employer] Delica Plus Lancet) As directed once a day lancing device with lancets ([employer] Delica Plus Lancing Device kit) test once per day loratadine (Allergy Relief (loratadine)) 10 mg PO DAILY metformin ER 500 mg PO BID metoprolol tartrate 50 mg PO BID 90 days multivitamin (Daily Multi-Vitamin tablet) 1 tab PO DAILY omeprazole 20 mg PO DAILY@0630 pravastatin 20 mg PO DAILY rivaroxaban (Xarelto) 20 mg PO DAILY 90 days sennosides-docusate sodium 8.6-50 mg (Senokot-S) 1 tab-cap PO BEDTIME PRN [tracheostomy As directed] walker (Ultra-Light Rollator mis) As directed Do you need a note to return to daycare/school/sports/work: No HPI HPI resp failure: Details: MR. ARREOLA 49 YEARS OLD, A CASE OF MYOTONIC DYSTROPHY WITH CHRONIC OBSTRUCTIVE SLEEP APNEA/HYPOVENTILATION SYNDROME, HAS HAD TRACHEOSTOMY FOR MANY YEARS. HE IS ON HOME VENTILATOR, AND GETS TOTAL CARE BY HIS AND ALSO THE VISITING NURSE ASSOCIATION/ RESP. THERAPIST .. HIS , YESSY, IS THE TOTAL CARE PROVIDER AT HOME . SHE HAS BROUGHT MERCEDES TO THE OFFICE TODAY FOR A PERSONAL VISIT AND EXAM. THERE HAS BEEN SOME INCREASE IN THE MUCUS PRODUCTION, LATELY, BUT NO FEVER AND NO MUCOPURULENT SPUTUM. MR. LAWRENCE DE LA CRUZ CONDITION HAS DECLINED OVER THE PAST SEVERAL WEEKS, HE HAS HAD PERIOD OF CONSTIPATION, APPETITE IS POOR, HE IS LOSING WEIGHT, AND BECOMING MORE DEBILITATED. HE HAS NO FEVER OR CHILLS , BUT COMPLAINS OF INCREASED THICK MUCUS. HIS HAS SUCTIONING HIM MORE OFTEN. YESSY IS CHANGING THE TRACH MONTHLY AT HOME, WITH THE HELP OF RESPIRATORY THERAPIST. MR. ARREOLA SPOKE IN A WEAK VOICE , CLAIMING THAT HE IS GETTING WEAKER , FEELS MORE SLEEPY DURING THE DAYTIME AND NEEDS THE LONGER PERIODS ON THE VENT EVEN DURING THE DAYTIME. HE STAYS ALERT AND COMFORTABLE BUT NOTED ABOVE WEAK AND NEEDS INCREASED WHEN SUPPORT. HE CAN EAT SOFT DIET BUT AT TIMES HAS DIFFICULTY IN SWALLOWING, HE HAS BEEN LOSING WEIGHT. HIS COLOR HAS BEEN WHITE, NOTED TO BE ANEMIC, HAS BEEN STARTED ON IRON SUPPLEMENTS . [facility] Medical History Diabetes mellitus Allergic rhinitis Malnutrition related to chronic disease COPD (chronic obstructive pulmonary disease) Respiratory failure with hypoxia and hypercapnia Hypoventilation syndrome REBECA (obstructive sleep apnea) Hyperkalemia Tracheostomy dependent Pneumonia Cardiomyopathy GERD (gastroesophageal reflux disease) Pure hypercholesterolemia Obesity Psoriasis Anemia Obstructive sleep apnea 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 Chronic respiratory failure Left bundle branch block Persistent atrial fibrillation Surgical History History of lithotripsy History of cholecystectomy History of tracheostomy Family History Father Medical history unknown Mother CVD (cardiovascular disease) Stroke Maternal Grandmother Cancer Maternal Grandfather Diabetes Social History Household Members: Spouse Housing: House Do you presently have visiting nurse or other home services: Yes Alcohol intake: never Comment: family at bedside Patient Tobacco Use Status: Never used Tobacco e-Cigarette/Vaping Use: Never Used Second Hand Smoke Exposure: Yes service: No Current occupational status: disabled Cognitive needs: Yes Hearing needs: No Vision needs: No Review of Systems Const Reports daytime sleepiness, Denies headache(s), Reports lethargy, Reports malaise, Reports weakness (GENERAL WEAKNESS, MOSTLY BED CONFINED) and Reports weight loss Eyes Denies blurry vision, Denies change in vision and Denies itchy eyes ENT Denies headache(s) and Reports nasal congestion (MILD) Card Denies chest pain, Denies pedal edema and Denies orthopnea Resp Details: PERMANENT TRACHEOSTOMY, USES VENT SUPPORT THROUGHOUT THE NIGHT AND FOR LONG PERIODS DURING THE DAY WELL Denies cough, Denies hemoptysis, Denies excessive phlegm production and Denies wheezing GI Denies abdominal pain, Reports constipation and Denies heartburn Reports no additional complaints Musc Denies myalgias, Denies arthralgias, Denies joint swelling and Reports muscle weakness (INCREASED ) Skin/Breast Denies rash Neuro Denies confusion, Denies headache(s), Denies memory loss, Denies seizure-like activity and Reports weakness (GENERAL WEAKNESS, MOSTLY BED CONFINED) Psych Denies abnormal sleep pattern, Denies anxiety, Denies confusion, Reports depression (HAS SOMEWHAT DEPRESSED MOOD) and Denies memory loss Endo Denies heat intolerance Larry/Lymph Denies easy bruising Aller/Immun Denies itchy eyes, Denies seasonal rhinorrhea and Denies wheezing Physical Exam Vital Signs: Last Vital Signs Pulse 93 10/09/24 14:55 Pulse Ox 98 10/09/24 14:55 Oxygen Delivery Method Nasal Cannula 10/09/24 14:55 Oxygen Flow Rate 4 10/09/24 14:55 BMI result Body Mass Index 26.1 THIS 49 YEARS OLD GENTLEMAN CHRONICALLY BED CONFINED AND DEBILITATED. HAS PERMANENT TRACHEOSTOMY, WHICH LOOKS CLEAN WITHOUT ANY SIGN OF BLEEDING OR INFECTION. ALSO NO EXCESSIVE SECRETIONS ARE NOTED. CHEST PERCUSSION RESONANT BREATH SOUNDS ARE DIMINISHED OVER THE LOWER LOBES, BUT THE LUNGS ARE MOSTLY CLEAR TO AUSCULTATION. CARDIAC SOUNDS. ARE NORMAL NO MURMURS OR GALLOP NOTED ABDOMEN IS FLAT NO PALPABLE MASS AND NO TENDERNESS. BACK. AND SPINE COULD NOT BE EXAMINED LOWER EXTREMITIES SHOW SIGN OF MUSCULAR ATROPHY HE WITH GENERAL WEAKNESS. THERE IS A MILD PITTING EDEMA AROUND THE ANKLES. NEUROLOGIC EXAMINATION: GENERALIZED MUSCULAR WEAKNESS AND ATROPHY NO FOCAL DEFICITS NOTED Const General: No confusion Orientation/consciousness: No confusion Neuro General: No confusion Results Reviewed Results Reviewed: COMPLETE LAP TEST ORDERED, VENOUS BLOOD GAS REPORT= PH=7.39 PCO2 59 PO2 26 HCO3 36 C/W CHRONIC RESPIRATORY FAILURE. Assessment & Plan Assessment & Plan (1) Myotonic dystrophy: Comment: CHRONIC, WITH GENERALIZED MUSCLE WASTING. PATIENT IS BED CONFINED, TRIES TO WALK WITH ROLLATOR WALKER WITH SOME ASSISTANCE. BUT LATELY HE IS NOT ABLE TO AMBULATE MUCH. Code(s): G71.11 - Myotonic muscular dystrophy Category: Medical Plan: HIS IS PROVIDING TOTAL CARE AT HOME WITH THE HELP OF VISITING NURSES AND VISITING RESPIRATORY THERAPIST. DISCUSSED WITH THE ABOUT ONGOING CARE AND MANAGEMENT AND COMMENDED HER FOR DOING A GOOD JOB. (2) REBECA (obstructive sleep apnea): Comment: KNOWN CASE OF REBECA SINCE LONG-TIME, STATUS POST PERMANENT TRACH , PATIENT USES HOME VENTILATOR AT NIGHTTIME. Code(s): G47.33 - Obstructive sleep apnea (adult) (pediatric) Category: Medical Plan: CONTINUE TO USE THE HOME VENTILATOR WHOLE NIGHT AND ALSO DURING THE DAYTIME NEEDED. (3) Hypoventilation syndrome: Comment: IN ADDITION TO REBECA HE HAS HAD HYPOVENTILATION SYNDROME FOR MANY YEARS , STATUS POST PERMANENT TRACH. PATIENT ON HOME VENTILATOR AT NIGHT. HAS DONE VERY WELL. HIS YESSY PROVIDES FULL-TIME CARE AND TAKES CARE OF TRACH AND VENT SUPPORT. Code(s): R06.89 - Other abnormalities of breathing Category: Medical Plan: UNDER REBECA. (4) Respiratory failure with hypoxia and hypercapnia: Comment: CHRONIC RESPIRATORY FAILURE WHICH HAS BEEN TREATED WITH PERMANENT TRACH AND HOME VENTILATOR. O2 2 L/MINUTE WITH NASAL CANNULA. ALSO O2 4-6 L/MINUTE WHEN USING HOME VENTILATOR. PATIENT HAS HAD GENERAL DECLINE AND WEAKNESS LATELY AND IS REQUIRING INCREASED VENT SUPPORT. Code(s): J96.91 - Respiratory failure, unspecified with hypoxia; J96.92 - Respiratory failure, unspecified with hypercapnia Category: Medical Plan: ADVISED TO CONTINUE THE VENT SUPPORT DURING THE WHOLE NIGHT AND ALSO FOR LONGER PERIODS DURING THE DAYTIME. (5) Tracheostomy dependent: Comment: HE GETS HIS TRACH TUBE CHANGED REGULARLY. HIS IS DOING THAT AT HOME WITH THE HELP OF RESPIRATORY THERAPIST, MONTHLY YESSY IS WELL TRAINED TO CHANGE THE TRACH AT HOME . SHE ALSO PROVIDES GOOD TRACH CARE ON A DAILY BASIS, SHE DOES SUCTIONING NEEDED. Code(s): Z93.0 - Tracheostomy status Category: Medical Plan: CONTINUE THE SAME Plan GENERAL OBSERVATION THERE IS ONGOING DECLINE IN HIS HEALTH STATUS. HE HAS EXPRESSED HIS WISHES , THAT HE SHOULD NOT BE TREATED WITH ANY AGGRESSIVE MEASURES. HE AND HIS FOR BOTH INCLINING TOWARDS COMFORT CARE. THE WAS EXPRESSING THAT HE DOES NOT WANT TO BE RESUSCITATED MOLST FORM IS GIVEN TO THE AND EXPLAINED. SHE WAS THINK ABOUT AND SIGNED THIS FORM . FOR THE RECORDS A COMPLETE LAP TEST HAS BEEN ORDERED BY HIS PCP DR. WEST . IF ANY SIGNIFICANT ABNORMALITY IN THE LAB FINDINGS THAT WOULD NEED TO BE ATTENDED. Orders: Orders Venous Blood Gas 10/09/24 G47.33 - Obstructive sleep apnea (adult) (pediatric), J96.91 - Respiratory failure, unspecified with hypoxia, J96.92 - Respiratory failure, unspecified with hypercapnia, R06.89 - Other abnormalities of breathing Coding Level of Care Code Est Pt Level 4 (77484) Diagnoses Myotonic dystrophy G71.11 REBECA (obstructive sleep apnea) G47.33 Hypoventilation syndrome R06.89 Respiratory failure with hypoxia and hypercapnia J96.91; J96.92 Tracheostomy dependent Z93.0
--- OUTSIDE RECORDS SUMMARY | 2024-10-10 22:05 | XMS_ITS | Clinical Summary ---
Author Organization Unknown Care Team Providers Care Police Dispatcher Name Role Phone JENNA INGRAM, OZIEL Unavailable Unavailable CEDRICK PARR, RAINER Unavailable Jonsa ALLEN RN, SONIA Unavailable Unavailable Payers Payer Name Policy Type Policy Number Effective Date Expira tion Date MEDICARE - NGS [place] - PDGM [id number] MEDICAID [facility] [id number] Problems Condition Name Condition Details Condition Category Status Onset Date Resolution Date Last Treatment Date Treating Clinician Comments GASTROINTEST INAL HEMORRHAGE, UNSPECIFIED Active 07-25 00:00: 00 ACUTE POSTHEMORRHA GIC ANEMIA Active 07-25 00:00: 00 PAROXYSMAL ATRIAL FIBRILLATION Active 07-25 00:00: 00 TYPE 2 DIABETES MELLITUS W DIABETIC CHRONIC KIDNEY DISEASE Active 07-25 00:00: 00 CHRONIC KIDNEY DISEASE, UNSPECIFIED Active 07-25 00:00: 00 GASTRO-ESOPH AGEAL REFLUX DISEASE WITHOUT ESOPHAGITIS Active 07-25 00:00: 00 HYPOTENSION, UNSPECIFIED Active 07-25 00:00: 00 UNSPECIFIED PROTEIN-MELLISA LEA MALNUTRITION Active 07-25 00:00: 00 CHRONIC OBSTRUCTIVE PULMONARY DISEASE, UNSPECIFIED Active 07-25 00:00: 00 PSORIASIS, UNSPECIFIED Active 07-25 00:00: 00 CARDIOMYOPAT HY, UNSPECIFIED Active 07-25 00:00: 00 QUADRIPLEGIA , UNSPECIFIED Active 07-25 00:00: 00 ALLERGIC RHINITIS, UNSPECIFIED Active 07-25 00:00: 00 PURE HYPERCHOLEST EROLEMIA, UNSPECIFIED Active 07-25 00:00: 00 MORBID (SEVERE) OBESITY WITH ALVEOLAR HYPOVENTILAT ION Active 07-25 00:00: 00 HISTORY OF FALLING Active 07-25 00:00: 00 BODY MASS INDEX [BMI] 26.0-26.9, ADULT Active 9- 00:00: 00 Allergies, Adverse Reactions, Alerts Allergy Name Allergy Type Status Severity Reaction(s) Onset Date Inactive Date Treating Clinician Comments NKA Propensity to adverse reactions Active 2024-07 05:04:3 1 Medications Ordered Medication Name Filled Medication Name Start Date Stop Date Current Medication? Ordering Clinician Indication Dosage Frequency Signature (SIG) Comments Components furosemide 20 mg tablet -18 00:00: 00 09-29 23:59 :00 No [id number] Per instruc tions EVERY Per instructio ns EVERY (route: oral) Med Classific ation: Cardiovas cular Therapy Agents pravastatin 20 mg tablet 11-10 00:00: 00 09-29 23:59 :00 No [id number] Per instruc tions DAILY Per instructio ns DAILY (route: oral) Med Classific ation: Cardiovas cular Therapy Agents Slow Release Iron 140 mg (45 mg iron) tablet,exte nded release 12-04 00:00: 00 09-29 23:59 :00 No [id number] Per instruc tions EVERY DAY Per instructio ns EVERY DAY (route: oral) Med Classific ation: Electroly te Balance-N utritiona l Products levofloxaci n 500 mg tablet 01-14 00:00: 00 01-19 23:59 :00 No [id number] 1 tablet DAILY 1 tablet DAILY (route: oral) Med Classific ation: Anti-Infe ctive Agents Xarelto 20 mg tablet -10 00:00: 00 09-29 23:59 :00 No [id number] Per instruc tions DAILY Per instructio ns DAILY (route: oral) Med Classific ation: Hematolog ical Agents metoprolol tartrate 50 mg tablet 2-03 00:00: 00 09-29 23:59 :00 No [id number] Per instruc tions TWICE DAILY Per instructio ns TWICE DAILY (route: oral) Med Classific ation: Cardiovas cular Therapy Agents clindamycin HCl 300 mg capsule 2022-0 3-17 00:00: 00 01-24 23:59 :00 No [id number] Per instruc tions 4 TIMES DAILY Per instructio ns 4 TIMES DAILY (route: oral) Med Classific ation: Anti-Infe ctive Agents metformin ER 500 mg tablet,exte nded release 24 hr 2-10 00:00: 00 09-29 23:59 :00 No [id number] Per instruc tions DAILY Per instructio ns DAILY (route: oral) Med Classific ation: Endocrine omeprazole 20 mg capsule,del ayed release 2-10 00:00: 00 09-29 23:59 :00 No [id number] Per instruc tions EVERY Per instructio ns EVERY (route: oral) Med Classific ation: Gastroint estinal Therapy Agents chlorhexidi ne gluconate 0.12 % mouthwash 2021-10 2-12 00:00: 00 04-20 23:59 :00 No [id number] Per instruc tions EVERY DAY Per instructio ns EVERY DAY (route: mucous membrane) Med Classific ation: Mouth-Thr oat-Denta l - Preparati ons colestipol 1 gram tablet 2021-10 2- 00:00: 00 04-20 23:59 :00 No [id number] Per instruc tions 3 TIMES A WEEK Per instructio ns 3 TIMES A WEEK (route: oral) Med Classific ation: Cardiovas cular Therapy Agents metformin ER 500 mg tablet,exte nded release 24 hr 2021-10 2- 00:00: 00 04-20 23:59 :00 No [id number] Per instruc tions DAILY Per instructio ns DAILY (route: oral) Med Classific ation: Endocrine Vitamin C 500 mg tablet 2021-10 1- 00:00: 00 04-20 23:59 :00 No [id number] Per instruc tions EVERY DAY Per instructio ns EVERY DAY (route: oral) Med Classific ation: Electroly te Balance-N utritiona l Products omeprazole 20 mg capsule,del ayed release 2021-10- 00:00: 00 04-20 23:59 :00 No [id number] Per instruc tions EVERY Per instructio ns EVERY (route: oral) Med Classific ation: Gastroint estinal Therapy Agents furosemide 20 mg tablet 2021-10 2- 00:00: 00 04-20 23:59 :00 No [id number] 1 tablet EVERY AM 1 tablet EVERY AM (route: oral) Med Classific ation: Cardiovas cular Therapy Agents metoprolol tartrate 50 mg tablet 2021-10 2 00:00: 00 04-20 23:59 :00 No [id number] 1 tablet 2 TIMES DAILY 1 tablet 2 TIMES DAILY (route: oral) Med Classific ation: Cardiovas cular Therapy Agents pravastatin 20 mg tablet 2021-10 00:00: 00 04-20 23:59 :00 No [id number] 1 tablet DAILY 1 tablet DAILY (route: oral) Med Classific ation: Cardiovas cular Therapy Agents Xarelto 20 mg tablet 2021-10 00:00: 00 04-20 23:59 :00 No [id number] 1 tablet DAILY 1 tablet DAILY (route: oral) Med Classific ation: Hematolog ical Agents O2 - OXYGEN 1- 00:00: 00 04-20 23:59 :00 No [id number] 3 Liter O2 - CONTINUOUS 3 Liter O2 - CONTINUOUS (route: Oxygen) Med Classific ation: Medical Oxygen mupirocin 2 % topical ointment 04-18 00:00: 00 09-01 23:59 :00 No [id number] Per instruc tions 3 TIMES DAILY Per instructio ns 3 TIMES DAILY (route: topical) Med Classific ation: Dermatolo gical metformin ER 500 mg tablet,exte nded release 24 hr 04-11 00:00: 00 04-20 23:59 :00 No [id number] Per instruc tions DAILY Per instructio ns DAILY (route: oral) Med Classific ation: Endocrine Slow Release Iron 140 mg (45 mg iron) tablet,exte nded release - 00:00: 00 09-01 23:59 :00 No [id number] Per instruc tions EVERY DAY Per instructio ns EVERY DAY (route: oral) Med Classific ation: Electroly te Balance-N utritiona l Products Vitamin C 500 mg tablet 03-22 00:00: 00 04-20 23:59 :00 No [id number] Per instruc tions EVERY DAY Per instructio ns EVERY DAY (route: oral) Med Classific ation: Electroly te Balance-N utritiona l Products omeprazole 20 mg capsule,del ayed release 03-21 00:00: 00 04-20 23:59 :00 No [id number] Per instruc tions EVERY Per instructio ns EVERY (route: oral) Med Classific ation: Gastroint estinal Therapy Agents albuterol sulfate 2.5 mg/3 mL (0.083 %) solution for nebulizatio n 04-20 00:00: 00 09-01 23:59 :00 No [id number] Per instruc tions 4 TIMES DAILY Per instructio ns 4 TIMES DAILY (route: inhalation ) Med Classific ation: Respirato ry Therapy Agents multivitami n tablet 04-20 00:00: 00 09-01 23:59 :00 No [id number] 1 tablet DAILY 1 tablet DAILY (route: oral) Med Classific ation: Electroly te Balance-N utritiona l Products metformin 500 mg tablet 05-05 00:00: 00 09-01 23:59 :00 No [id number] 1 tablet DAILY 1 tablet DAILY (route: oral) Med Classific ation: Endocrine colestipol 1 gram tablet 05-05 00:00: 00 09-01 23:59 :00 No [id number] 1 tablet DIRECTED 1 tablet DIRECTED (route: oral) Med Classific ation: Cardiovas cular Therapy Agents furosemide 20 mg tablet 05-05 00:00: 00 09-01 23:59 :00 No [id number] 1 tablet DAILY 1 tablet DAILY (route: oral) Med Classific ation: Cardiovas cular Therapy Agents metoprolol tartrate 50 mg tablet 05-05 00:00: 00 09-01 23:59 :00 No [id number] 1 tablet 2 TIMES DAILY 1 tablet 2 TIMES DAILY (route: oral) Med Classific ation: Cardiovas cular Therapy Agents omeprazole 20 mg capsule,del ayed release 05-05 00:00: 00 09-01 23:59 :00 No [id number] 1 capsule DAILY 1 capsule DAILY (route: oral) Med Classific ation: Gastroint estinal Therapy Agents pravastatin 20 mg tablet 05-05 00:00: 00 09-01 23:59 :00 No [id number] 1 tablet DAILY 1 tablet DAILY (route: oral) Med Classific ation: Cardiovas cular Therapy Agents Xarelto 20 mg tablet 05-05 00:00: 00 09-01 23:59 :00 No [id number] 1 tablet DAILY 1 tablet DAILY (route: oral) Med Classific ation: Hematolog ical Agents Xarelto 20 mg tablet 2022-10 0-20 00:00: 00 04-23 23:59 :00 No [id number] Per instruc tions DAILY Per instructio ns DAILY (route: oral) Med Classific ation: Hematolog ical Agents Slow Release Iron 140 mg (45 mg iron) tablet,exte nded release 2022-10 0-17 00:00: 00 04-23 23:59 :00 No [id number] Per instruc tions EVERY DAY Per instructio ns EVERY DAY (route: oral) Med Classific ation: Electroly te Balance-N utritiona l Products chlorhexidi ne gluconate 0.12 % mouthwash 2022-10 0-16 00:00: 00 04-23 23:59 :00 No [id number] Per instruc tions DAILY Per instructio ns DAILY (route: mucous membrane) Med Classific ation: Mouth-Thr oat-Denta l - Preparati ons Slow Release Iron 140 mg (45 mg iron) tablet,exte nded release 2022-10 0-10 00:00: 00 12-03 00:00 :00 No [id number] Per instruc tions DAILY FOR 90 DAYS Per instructio ns DAILY FOR 90 DAYS (route: oral) Med Classific ation: Electroly te Balance-N utritiona l Products furosemide 20 mg tablet 2022-10 010 00:00: 00 04-23 23:59 :00 No [id number] Per instruc tions EVERY Per instructio ns EVERY (route: oral) Med Classific ation: Cardiovas cular Therapy Agents pravastatin 20 mg tablet 2022-10 00:00: 00 04-23 23:59 :00 No [id number] Per instruc tions DAILY Per instructio ns DAILY (route: oral) Med Classific ation: Cardiovas cular Therapy Agents Vitamin C 500 mg tablet 2022-10 00:00: 00 04-23 23:59 :00 No [id number] Per instruc tions EVERY DAY Per instructio ns EVERY DAY (route: oral) Med Classific ation: Electroly te Balance-N utritiona l Products colestipol 1 gram tablet 2022-10 00:00: 00 02-20 14:54 :43 No [id number] 1 tablet DAILY 1 tablet DAILY (route: oral) Med Classific ation: Cardiovas cular Therapy Agents Daily Multi-Vitam in tablet 2022-10 00:00: 00 04-23 23:59 :00 No [id number] 1 tablet DAILY 1 tablet DAILY (route: oral) Med Classific ation: Electroly te Balance-N utritiona l Products L.acidophil us-bif.long um 15 mg (1 billion cell)capsul e,delayed release 2022-10 00:00: 00 04-23 23:59 :00 No [id number] 1 capsule DAILY 1 capsule DAILY (route: oral) Med Classific ation: Gastroint estinal Therapy Agents metformin 500 mg tablet 2022-10 00:00: 00 04-23 23:59 :00 No [id number] 1 tablet BEDTIME 1 tablet BEDTIME (route: oral) Med Classific ation: Endocrine metoprolol tartrate 50 mg tablet 2022-10 00:00: 04-23 23:59 :00 No [id number] 1 tablet 2 TIMES DAILY 1 tablet 2 TIMES DAILY (route: oral) Med Classific ation: Cardiovas cular Therapy Agents omeprazole 20 mg capsule,del ayed release 2022-10 00:00: 00 04-23 23:59 :00 No [id number] 1 capsule DAILY 1 capsule DAILY (route: oral) Med Classific ation: Gastroint estinal Therapy Agents pravastatin 20 mg tablet 2022-10 00:00: 00 12-03 00:00 :00 No [id number] 1 tablet DAILY 1 tablet DAILY (route: oral) Med Classific ation: Cardiovas cular Therapy Agents O2 - OXYGEN 12-03 00:00: 00 04-23 23:59 :00 No [id number] 4 Liter O2 - CONTINUOUS 4 Liter O2 - CONTINUOUS (route: Oxygen) Med Classific ation: Medical Oxygen Slow Release Iron 140 mg (45 mg iron) tablet,exte nded release 07-12 00:00: 00 07-25 00:00 :00 No [id number] Per instruc tions TWICE A DAY Per instructio ns TWICE A DAY (route: oral) Med Classific ation: Electroly te Balance-N utritiona l Products furosemide 20 mg tablet 07-10 00:00: 00 07-25 00:00 :00 No [id number] Per instruc tions Per instructio ns (route: oral) Med Classific ation: Cardiovas cular Therapy Agents metformin ER 500 mg tablet,exte nded release 24 hr 07-02 00:00: 00 07-25 00:00 :00 No [id number] Per instruc tions Per instructio ns (route: oral) Med Classific ation: Endocrine pravastatin 20 mg tablet 07-02 00:00: 00 07-25 00:00 :00 No [id number] Per instruc tions Per instructio ns (route: oral) Med Classific ation: Cardiovas cular Therapy Agents Colestid 1 gram tablet 07-25 00:00: 10-03 23:59 :00 No [id number] 1 tablet DAILY 1 tablet DAILY (route: oral) Med Classific ation: Cardiovas cular Therapy Agents ferrous sulfate ER 140 mg (45 mg iron) tablet,exte nded release 07-25 00:00: 00 10-03 23:59 :00 No [id number] 1 tablet DAILY 1 tablet DAILY (route: oral) Med Classific ation: Electroly te Balance-N utritiona l Products furosemide 20 mg tablet 07-25 00:00: 00 10-03 23:59 :00 No [id number] 1 tablet DAILY 1 tablet DAILY (route: oral) Med Classific ation: Cardiovas cular Therapy Agents multivitami n tablet 07-25 00:00: 00 10-03 23:59 :00 No [id number] 1 tablet DAILY 1 tablet DAILY (route: oral) Med Classific ation: Electroly te Balance-N utritiona l Products omeprazole 20 mg capsule,del ayed release 07-25 00:00: 00 10-03 23:59 :00 No [id number] 1 capsule DAILY 1 capsule DAILY (route: oral) Med Classific ation: Gastroint estinal Therapy Agents Immunizations Ordered Immunization Name Filled Immunization Name Date Status Comments Refusal Reason INFLUENZA, TIV (INACTIVATED) 2024-07-18 00:00:00 Vital Signs Vital Name Observation Time Observation Value Commen ts Temperature 2024 12:39:00.000 97.3 [degF] Temperature 2024-09-05 14:48:00.000 97.4 [degF] Temperature 2024-08-29 11:48:00.000 97.5 [degF] Temperature 2024-08-22 12:03:00.000 97 [degF] Temperature 2024-08-17 10:21:00.000 97.5 [degF] Temperature 2024-08-09 08:17:00.000 97 [degF] Temperature 2024-08-01 13:47:00.000 97.1 [degF] Temperature 2024-07-30 11:53:00.000 96.6 [degF] Temperature 2024-07-25 20:31:00.000 98 [degF] BMI (%) 2024-07-25 18:16:30.000 26 kg/m2 Height 2024-07-25 18:16:21.000 67 [in_us] Pulse 2024-09-18 12:15:00.000 80 /min Pulse 2024 12:39:00.000 60 /min Pulse 2024 11:57:00.000 97 /min Pulse 2024-09-05 14:48:00.000 60 /min Pulse 2024-09-03 12:16:00.000 94 /min Pulse 2024-08-30 12:07:00.000 98 /min Pulse 2024-08-29 11:48:00.000 93 /min Pulse 2024-08-22 12:03:00.000 93 /min Pulse 2024-08-17 10:21:00.000 65 /min Pulse 2024-08-09 08:17:00.000 50 /min Pulse 2024-08-01 13:47:00.000 78 /min Pulse 2024-07-30 11:53:00.000 96 /min Pulse 2024-07-25 20:31:00.000 64 /min O2 Saturation (%) 2024-09-18 12:15:00.000 98 % O2 Saturation (%) 2024 12:39:00.000 100 % O2 Saturation (%) 2024 11:57:00.000 99 % O2 Saturation (%) 2024-09-05 14:48:00.000 99 % O2 Saturation (%) 2024-09-03 12:16:00.000 100 % O2 Saturation (%) 2024-08-30 12:07:00.000 99 % O2 Saturation (%) 2024-08-29 11:48:00.000 99 % O2 Saturation (%) 2024-08-22 12:03:00.000 97 % O2 Saturation (%) 2024-08-17 10:21:00.000 99 % O2 Saturation (%) 2024-08-09 08:17:00.000 99 % O2 Saturation (%) 2024-08-01 13:47:00.000 98 % O2 Saturation (%) 2024-07-30 11:53:00.000 98 % O2 Saturation (%) 2024-07-25 20:31:00.000 97 % Respirations 2024 12:39:00.000 18 /min Respirations 2024-08-29 11:48:00.000 18 /min Respirations 2024-08-22 12:03:00.000 19 /min Respirations 2024-08-17 10:21:00.000 18 /min Respirations 2024-08-09 08:17:00.000 18 /min Respirations 2024-07-30 11:53:00.000 20 /min Respirations 2024-07-25 20:31:00.000 19 /min Weight (lbs) 2024-08-01 14:12:00.000 176.1 [lb_av] Weight (lbs) 2024-07-25 18:16:30.000 172 [lb_av] Systolic Blood Pressure 2024-09-18 12:15:00.000 116 mm [Hg] Systolic Blood Pressure 2024 12:39:00.000 102 mm [Hg] Systolic Blood Pressure 2024 11:57:00.000 108 mm [Hg] Systolic Blood Pressure 2024-09-05 14:48:00.000 100 mm [Hg] Systolic Blood Pressure 2024-09-03 12:16:00.000 122 mm [Hg] Systolic Blood Pressure 2024-08-30 12:09:00.000 110 mm [Hg] Systolic Blood Pressure 2024-08-29 11:48:00.000 110 mm [Hg] Systolic Blood Pressure 2024-08-22 12:03:00.000 108 mm [Hg] Systolic Blood Pressure 2024-08-17 10:21:00.000 100 mm [Hg] Systolic Blood Pressure 2024-08-09 08:17:00.000 102 mm [Hg] Systolic Blood Pressure 2024-08-01 13:47:00.000 108 mm [Hg] Systolic Blood Pressure 2024-07-30 11:53:00.000 118 mm [Hg] Systolic Blood Pressure 2024-07-25 20:31:00.000 100 mm [Hg] Diastolic Blood Pressure 2024-09-18 12:15:00.000 78 mm [Hg] Diastolic Blood Pressure 2024 12:39:00.000 60 mm [Hg] Diastolic Blood Pressure 2024 11:57:00.000 66 mm [Hg] Diastolic Blood Pressure 2024-09-05 14:48:00.000 62 mm [Hg] Diastolic Blood Pressure 2024-09-03 12:16:00.000 70 mm [Hg] Diastolic Blood Pressure 2024-08-30 12:09:00.000 82 mm [Hg] Diastolic Blood Pressure 2024-08-29 11:48:00.000 85 mm [Hg] Diastolic Blood Pressure 2024-08-22 12:03:00.000 82 mm [Hg] Diastolic Blood Pressure 2024-08-17 10:21:00.000 58 mm [Hg] Diastolic Blood Pressure 2024-08-09 08:17:00.000 60 mm [Hg] Diastolic Blood Pressure 2024-08-01 13:47:00.000 62 mm [Hg] Diastolic Blood Pressure 2024-07-30 11:53:00.000 60 mm [Hg] Diastolic Blood Pressure 2024-07-25 20:31:00.000 62 mm [Hg] Plan of Treatment Planned Activity Planned Date Details Comments Future Scheduled Test SKILLED NU RSE TO EVALUATE PATIENT, IDENTIFY PRIMARY AND CO-MORBID CONDITIONS CODED PER CODING GUIDELINES, AND DEVELOP PATIENT SPECIFIC PLAN OF CARE THAT INCLUDES PATIENT GOAL FOR HOME HEALTH. [code = SKILLED NURSE TO EVALUATE PATIENT, IDENTIFY PRIMARY AND CO-MORBID CONDITIONS CODED PER CODING GUIDELINES, AND DEVELOP PATIENT SPECIFIC PLAN OF CARE THAT INCLUDES PATIENT GOAL FOR HOME HEALTH.] Future Scheduled Test SKILLED NU RSE TO REVIEW PATIENT MEDICATIONS. INSTRUCT PATIENT/CAREGIVER ON MONITORING OF EFFECTIVENESS, ADVERSE DRUG REACTIONS, SIDE EFFECTS OF ALL MEDICATIONS (PRESCRIPTION/-OTC), AND HOW AND WHEN TO REPORT PROBLEMS. [code = SKILLED NURSE TO REVIEW PATIENT MEDICATIONS. INSTRUCT PATIENT/CAREGIVER ON MONITORING OF EFFECTIVENESS, ADVERSE DRUG REACTIONS, SIDE EFFECTS OF ALL MEDICATIONS (PRESCRIPTION/-OTC), AND HOW AND WHEN TO REPORT PROBLEMS.] Future Scheduled Test OXYGEN VIA NC AND VENTILATOR @ 2-3LITERS CONTINUOUS. SKILLED NURSE FOR O/A AND SKILLED TEACHING OF SAFE OXYGEN USE IN THE HOME. [code = OXYGEN VIA NC AND VENTILATOR @ 2-3LITERS CONTINUOUS. SKILLED NURSE FOR O/A AND SKILLED TEACHING OF SAFE OXYGEN USE IN THE HOME.] Future Scheduled Test SKILLED NU RSE FOR O/A, TEACHING, AND MANAGEMENT OF CARDIOMYOPATHY. [code = SKILLED NURSE FOR O/A, TEACHING, AND MANAGEMENT OF CARDIOMYOPATHY.] Future Scheduled Test SKILLED NU RSE FOR O/A, TEACHING RELATED TO GI BLEED, GERD FOR EARLY IDENTIFICATION OF EXACERBATION OF DISEASE PROCESS. [code = SKILLED NURSE FOR O/A, TEACHING RELATED TO GI BLEED, GERD FOR EARLY IDENTIFICATION OF EXACERBATION OF DISEASE PROCESS.] Future Scheduled Test SKILLED NU RSE FOR O/A, TEACHING AND MANAGEMENT OF CKD FOR EARLY IDENTIFICATION OF EXACERBATION OF DISEASE PROCESS [code = SKILLED NURSE FOR O/A, TEACHING AND MANAGEMENT OF CKD FOR EARLY IDENTIFICATION OF EXACERBATION OF DISEASE PROCESS] Future Scheduled Test SKILLED NU RSE FOR O/A OF RESPIRATORY SYSTEM TO IDENTIFY CHANGES ASSOCIATED WITH EXACERBATION AND TO PROVIDE SKILLED TEACHING ON MANAGEMENT OF TRACH CARE, RESPIRATORY DISEASE PROCESS. [code = SKILLED NURSE FOR O/A OF RESPIRATORY SYSTEM TO IDENTIFY CHANGES ASSOCIATED WITH EXACERBATION AND TO PROVIDE SKILLED TEACHING ON MANAGEMENT OF TRACH CARE, RESPIRATORY DISEASE PROCESS.] Future Scheduled Test SKILLED NU RSE FOR ADMINISTRATION AND TEACHING ON TRACHEOSTOMY CARE, INCLUDING STOMA CARE, SUCTIONING, AND DRESSING CHANGE. ENSURE AIRWAY PATENCY. [code = SKILLED NURSE FOR ADMINISTRATION AND TEACHING ON TRACHEOSTOMY CARE, INCLUDING STOMA CARE, SUCTIONING, AND DRESSING CHANGE. ENSURE AIRWAY PATENCY.] Future Scheduled Test SKILLED NU RSE FOR O/A OF SELF-CARE DEFICITS AND TO PROVIDE TEACHING RELATED TO SAFE PROVISION OF ADLS. [code = SKILLED NURSE FOR O/A OF SELF-CARE DEFICITS AND TO PROVIDE TEACHING RELATED TO SAFE PROVISION OF ADLS.] Future Scheduled Test SKILLED NU RSE FOR O/A TO IDENTIFY CHANGES ASSOCIATED WITH MYOTONIC DYSTROPHY AND PROVIDE INSTRUCTION RELATED TO SAFETY MEASURES TO PREVENT INJURY SECONDARY TO IMPAIRED NEUROLOGICAL STATUS. SKILLED NURSE TO REPORT SIGNIFICANT CHANGES OF NEUROLOGIC STATUS TO PHYSICIAN FOR EARLY INTERVENTION. [code = SKILLED NURSE FOR O/A TO IDENTIFY CHANGES ASSOCIATED WITH MYOTONIC DYSTROPHY AND PROVIDE INSTRUCTION RELATED TO SAFETY MEASURES TO PREVENT INJURY SECONDARY TO IMPAIRED NEUROLOGICAL STATUS. SKILLED NURSE TO REPORT SIGNIFICANT CHANGES OF NEUROLOGIC STATUS TO PHYSICIAN FOR EARLY INTERVENTION.] Future Scheduled Test PHYSICAL T HERAPIST TO EVALUATE PATIENT FOR GAIT STABILITY AND STRENGTH [code = PHYSICAL THERAPIST TO EVALUATE PATIENT FOR GAIT STABILITY AND STRENGTH ] Future Scheduled Test SKILLED NU RSE TO INSTRUCT PATIENT/CAREGIVER ON SIGNS AND SYMPTOMS, RISK FACTORS, COMPLICATIONS, AND MANAGEMENT OF ATRIAL FIBRILLATION. [code = SKILLED NURSE TO INSTRUCT PATIENT/CAREGIVER ON SIGNS AND SYMPTOMS, RISK FACTORS, COMPLICATIONS, AND MANAGEMENT OF ATRIAL FIBRILLATION.] Future Scheduled Test SKILLED NU RSE TO INSTRUCT PATIENT/CAREGIVER ON COPD TO INCLUDE TEACHING AND SELF-MANAGEMENT RELATED TO COPD DISEASE PROCESS, SIGNS AND SYMPTOMS, AND COMPLICATIONS. [code = SKILLED NURSE TO INSTRUCT PATIENT/CAREGIVER ON COPD TO INCLUDE TEACHING AND SELF-MANAGEMENT RELATED TO COPD DISEASE PROCESS, SIGNS AND SYMPTOMS, AND COMPLICATIONS.] Future Scheduled Test SKILLED NU RSE FOR O/A AND TEACHING ON SIGNS AND SYMPTOMS AND MANAGEMENT OF HYPOTENSION [code = SKILLED NURSE FOR O/A AND TEACHING ON SIGNS AND SYMPTOMS AND MANAGEMENT OF HYPOTENSION] Future Scheduled Test SKILLED NU RSE FOR O/A AND SKILLED TEACHING RELATED TO SIGNS AND SYMPTOMS AND MANAGEMENT OF ANEMIA. [code = SKILLED NURSE FOR O/A AND SKILLED TEACHING RELATED TO SIGNS AND SYMPTOMS AND MANAGEMENT OF ANEMIA.] Future Scheduled Test SKILLED NU RSE FOR O/A AND TEACHING OF DIABETIC MANAGEMENT INCLUDING BLOOD SUGAR MONITORING/USE OF GLUCOMETER, DIABETIC DIET, LOWER EXTREMITY SKIN INSPECTION, PROPER SKIN/FOOT CARE, AND SIGNS AND SYMPTOMS HYPO/HYPERGLYCEMIA TO REPORT. [code = SKILLED NURSE FOR O/A AND TEACHING OF DIABETIC MANAGEMENT INCLUDING BLOOD SUGAR MONITORING/USE OF GLUCOMETER, DIABETIC DIET, LOWER EXTREMITY SKIN INSPECTION, PROPER SKIN/FOOT CARE, AND SIGNS AND SYMPTOMS HYPO/HYPERGLYCEMIA TO REPORT.] Future Scheduled Test VIRTUAL SIT FREQUENCY: 3-4 PRN VIRTUAL VISITS FOR HIGH RISK ASSESSMENTS AND/OR CHANGE IN STATUS MAY BE PERFORMED UTILIZING TELECOMMUNICATIONS SYSTEM TO OPTIMIZE SKILLED SERVICES FURNISHED ON THE PLAN OF CARE. SKILLED NURSE TO ESTABLISH SUPPORT MEASURES TO MINIMIZE RISK OF REHOSPITALIZATION, AND INSTRUCT PATIENT/CAREGIVER ON METHODS TO REDUCE AVOIDABLE HOSPITALIZATION. [code = VIRTUAL VISIT FREQUENCY: 3-4 PRN VIRTUAL VISITS FOR HIGH RISK ASSESSMENTS AND/OR CHANGE IN STATUS MAY BE PERFORMED UTILIZING TELECOMMUNICATIONS SYSTEM TO OPTIMIZE SKILLED SERVICES FURNISHED ON THE PLAN OF CARE. SKILLED NURSE TO ESTABLISH SUPPORT MEASURES TO MINIMIZE RISK OF REHOSPITALIZATION, AND INSTRUCT PATIENT/CAREGIVER ON METHODS TO REDUCE AVOIDABLE HOSPITALIZATION.] Future Scheduled Test PATIENT MORENO S A RISK OF HOSPITALIZATION AND ED USE. SKILLED NURSE TO ESTABLISH SUPPORT MEASURES TO MINIMIZE RISK OF HOSPITALIZATION AND ED USE, AND INSTRUCT PATIENT/CAREGIVER ON METHODS TO REDUCE AVOIDABLE HOSPITALIZATION AND ED USE. [code = PATIENT HAS A RISK OF HOSPITALIZATION AND ED USE. SKILLED NURSE TO ESTABLISH SUPPORT MEASURES TO MINIMIZE RISK OF HOSPITALIZATION AND ED USE, AND INSTRUCT PATIENT/CAREGIVER ON METHODS TO REDUCE AVOIDABLE HOSPITALIZATION AND ED USE.] Future Scheduled Test SKILLED NU RSE TO PROVIDE INSTRUCTION TO PATIENT/CAREGIVER RELATED TO DISCHARGE PLANNING. [code = SKILLED NURSE TO PROVIDE INSTRUCTION TO PATIENT/CAREGIVER RELATED TO DISCHARGE PLANNING.] Future Scheduled Test SKILLED NU RSE TO PERFORM HOME SAFETY AND FALL ASSESSMENT AND PROVIDE INSTRUCTION TO IMPLEMENT HOME SAFETY AND FALL PREVENTION STRATEGIES. [code = SKILLED NURSE TO PERFORM HOME SAFETY AND FALL ASSESSMENT AND PROVIDE INSTRUCTION TO IMPLEMENT HOME SAFETY AND FALL PREVENTION STRATEGIES.] Future Scheduled Test SKILLED NU RSE FOR OBSERVATION AND ASSESSMENT OF PATIENTS PAIN LEVEL AND EFFECTIVENESS OF PAIN MANAGEMENT REGIMEN. SKILLED NURSE TO INSTRUCT PATIENT/CAREGIVER REGARDING PHARMACOLOGIC AND NON-PHARMACOLOGIC PAIN CONTROL MEASURES. SKILLED NURSE TO REPORT TO PHYSICIAN IF PAIN IS UNCONTROLLED WITH CURRENT PAIN MANAGEMENT REGIMEN. [code = SKILLED NURSE FOR OBSERVATION AND ASSESSMENT OF PATIENTS PAIN LEVEL AND EFFECTIVENESS OF PAIN MANAGEMENT REGIMEN. SKILLED NURSE TO INSTRUCT PATIENT/CAREGIVER REGARDING PHARMACOLOGIC AND NON-PHARMACOLOGIC PAIN CONTROL MEASURES. SKILLED NURSE TO REPORT TO PHYSICIAN IF PAIN IS UNCONTROLLED WITH CURRENT PAIN MANAGEMENT REGIMEN.] Future Scheduled Test SKILLED NU RSE TO ASSESS PATIENT'S SKIN INTEGRITY AND INSTRUCT PATIENT/CAREGIVER ON MEASURES TO PREVENT PRESSURE ULCERS. [code = SKILLED NURSE TO ASSESS PATIENT'S SKIN INTEGRITY AND INSTRUCT PATIENT/CAREGIVER ON MEASURES TO PREVENT PRESSURE ULCERS.] Future Scheduled Test PHYSICAL T HERAPY TO EVALUATE AND TREAT. PHYSICAL THERAPY EVALUATION PERFORMED. NO ADDITIONAL VISITS REQUIRED. PHYSICAL THERAPY EVALUATION ONLY (07/30/24) PATIENT IS 48 YO RIGHT HAND DOMINANT MALE WITH PHYSICAL THERAPY REFERRAL AFTER RECENT HOSPITALIZATION, DX: GI BLEED. PAST MD HX: MYOTONIC MUSCULAR DYSTROPHY (DX 2007), TRACHEOSTOMY (15 YEARS), AFIB, HLD, CARDIOMYOPATHY, CHRONIC RESPIRATORY FAILURE, PNA, TRACHEITIS, O2 DEPENDENT. PATIENT REPORTS MD MAKI R: SHOULDER BURSITIS LAST YEAR WITH NO TREATMENT. PATIENT LIVES IN SINGLE FAMILY WITH SUPPORTIVE YESSY WHO ASSIST WITH ADLS/IADLS. WHEN YESSY NOT AVAIL, COUSIN NAY ASSISTS. PATIENT LEAVES HOME VIA AMBULANCE STRETCHER SERVICE SERVICE DUE TO O2, TRACH AND RESPIRATORY STATUS. PATIENT HAS MOW. FALL HISTORY: NO RECENT FALLS REPORTED. PLOF: PAIN IN HOME WITH SUPERVISON MAY REQUIRE TRACH SUCTION. CLOF: DME: O2 (2-3L CONTINUOUS), ELECTRIC LIFT CHAIR, HOSPITAL BED, TUB SEAT, TUB TRANSFER BENCH, LIFE ALERT PATIENT REPORTS 8/10 R SHOULDER PAIN WITH AROM, DIMINISHED R SHOULDER ROM TO 90 DEGREES FLEX. PATIENT REPORTS DIFFICULTY COMPLETING ADLS. PATIENT REQUIRES SKILLED [facility] PT TO ADDRESS R SHOULDER DYSFUNCTION WITH PATIENT AND CG RECEPTIVE. PATIENT HAS BILAT LOWER EXTREMITIES TRACE EDEMA, EDUC ON EDEMA CONTROL. PATIENT HAS BILAT FOOT DROP, HAS BILAT AFO DISPENSED DURING PREVIOUS EPISODE OF CARE, HOWEVER HAS NOT BEEN WEARING TOO HEAVY . BILAT LE ROM WLF, EXPECT ANKLE ROM. BILAT LE STRENGTH HIPS: 4/5, KNEES 4+/5, ANKLES 2/5. PATIENT ABLE TO COMPLETE PREVIOUSLY DISPENSED BILAT LE HEP INDEP. PATIENT ABLE TO COMPLETE SIT-->STAND WITH ROLLATOR MOD I. STATIC STAND = FAIR+. PATIENT AMB 40' WITH ROLLATOR AND SUPERVISION PATIENT IS A FALL RISK WITH BILAT FOOT DROP AND REFUSES TO WEAR BILAT AFOS. PATIENT DEMO BILAT LE STEPS, BILAT FOOT DROP WITH ADEQUATE FEET CLEARANCE., 0 FALLS/LOB. PHYSICAL THERAPY EVAL ONLY PATIENT IS AT PLOF WITH REGARDS TO TRANSFERS AND AMB, INDEP WITH BILAT LE THER EXER/HEP. PATIENT AND CG INFORMED ABOUT PHYSICAL THERAPY EVAL ONLY, VERBALIZED ACCEPTANCE. MD NOTIFIED ABOUT PATIENT STATUS, PHYSICAL THERAPY EVAL ONLY WITH PATIENT DEMO NEED FOR SKILLED OT EVAL. OCCUPATIONAL THERAPIST TO EVALUATE PATIENT SECONDARY TO DEFICITS/CONCERNS FOUND DURING EVALUATION INCLUDING SHOULDER DEFICITS [code = PHYSICAL THERAPY TO EVALUATE AND TREAT. PHYSICAL THERAPY EVALUATION PERFORMED. NO ADDITIONAL VISITS REQUIRED. PHYSICAL THERAPY EVALUATION ONLY (07/30/24) PATIENT IS 48 YO RIGHT HAND DOMINANT MALE WITH PHYSICAL THERAPY REFERRAL AFTER RECENT HOSPITALIZATION, DX: GI BLEED. PAST MD HX: MYOTONIC MUSCULAR DYSTROPHY (DX 2007), TRACHEOSTOMY (15 YEARS), AFIB, HLD, CARDIOMYOPATHY, CHRONIC RESPIRATORY FAILURE, PNA, TRACHEITIS, O2 DEPENDENT. PATIENT REPORTS MD MAKI R: SHOULDER BURSITIS LAST YEAR WITH NO TREATMENT. PATIENT LIVES IN SINGLE FAMILY WITH SUPPORTIVE YESSY WHO ASSIST WITH ADLS/IADLS. WHEN YESSY NOT AVAIL, COUSIN NAY ASSISTS. PATIENT LEAVES HOME VIA AMBULANCE STRETCHER SERVICE SERVICE DUE TO O2, TRACH AND RESPIRATORY STATUS. PATIENT HAS MOW. FALL HISTORY: NO RECENT FALLS REPORTED. PLOF: PAIN IN HOME WITH SUPERVISON MAY REQUIRE TRACH SUCTION. CLOF: DME: O2 (2-3L CONTINUOUS), ELECTRIC LIFT CHAIR, HOSPITAL BED, TUB SEAT, TUB TRANSFER BENCH, LIFE ALERT PATIENT REPORTS 8/10 R SHOULDER PAIN WITH AROM, DIMINISHED R SHOULDER ROM TO 90 DEGREES FLEX. PATIENT REPORTS DIFFICULTY COMPLETING ADLS. PATIENT REQUIRES SKILLED HOMECARE PT TO ADDRESS R SHOULDER DYSFUNCTION WITH PATIENT AND CG RECEPTIVE. PATIENT HAS BILAT LOWER EXTREMITIES TRACE EDEMA, EDUC ON EDEMA CONTROL. PATIENT HAS BILAT FOOT DROP, HAS BILAT AFO DISPENSED DURING PREVIOUS EPISODE OF CARE, HOWEVER HAS NOT BEEN WEARING TOO HEAVY . BILAT LE ROM WLF, EXPECT ANKLE ROM. BILAT LE STRENGTH HIPS: 4/5, KNEES 4+/5, ANKLES 2/5. PATIENT ABLE TO COMPLETE PREVIOUSLY DISPENSED BILAT LE HEP INDEP. PATIENT ABLE TO COMPLETE SIT-->STAND WITH ROLLATOR MOD I. STATIC STAND = FAIR+. PATIENT AMB 40' WITH ROLLATOR AND SUPERVISION PATIENT IS A FALL RISK WITH BILAT FOOT DROP AND REFUSES TO WEAR BILAT AFOS. PATIENT DEMO BILAT LE STEPS, BILAT FOOT DROP WITH ADEQUATE FEET CLEARANCE., 0 FALLS/LOB. PHYSICAL THERAPY EVAL ONLY PATIENT IS AT PLOF WITH REGARDS TO TRANSFERS AND AMB, INDEP WITH BILAT LE THER EXER/HEP. PATIENT AND CG INFORMED ABOUT PHYSICAL THERAPY EVAL ONLY, VERBALIZED ACCEPTANCE. MD NOTIFIED ABOUT PATIENT STATUS, PHYSICAL THERAPY EVAL ONLY WITH PATIENT DEMO NEED FOR SKILLED OT EVAL. OCCUPATIONAL THERAPIST TO EVALUATE PATIENT SECONDARY TO DEFICITS/CONCERNS FOUND DURING EVALUATION INCLUDING SHOULDER DEFICITS ] Goal 2024-09-18 Patient Goal - FEEL WELL Goal Provider Goal - A PLAN OF CARE WILL BE ESTABLISHED THAT MEETS PATIENT'S JAIL NEEDS AND INCLUDES PATIENT GOAL FOR HOME HEALTH. Goal Provider Goal - PATIENT/CAREGIVER WILL VERBALIZE UNDERSTANDING OF EDUCATION PROVIDED ON MEDICATIONS BY THE END OF THE CERTIFICATION PERIOD. Goal Provider Goal - PATIENT/CAREGIVER WILL VERBALIZE/DEMONSTRATE UNDERSTANDING OF SAFE OXYGEN USE IN THE HOME THROUGHOUT THE EPISODE. Goal Provider Goal - PATIENT/CAREGIVER WILL VERBALIZE/DEMONSTRATE MANAGEMENT OF CARDIAC DISEASE PROCESS AND EXACERBATIONS WILL BE IDENTIFIED AND PROMPTLY REPORTED THROUGHOUT THE CERTIFICATION PERIOD. Goal Provider Goal - EXACERBATIONS OF GASTROINTESTINAL DISEASE WILL BE PROMPTLY IDENTIFIED AND INTERVENTIONS IMPLEMENTED TO MINIMIZE RISKS TO PATIENT BY END OF EPISODE. Goal Provider Goal - PATIENT/CAREGIVER WILL VERBALIZE UNDERSTANDING OF GENITOURINARY DISEASE PROCESS, AND EXACERBATIONS OF GENITOURINARY DISEASE WILL BE PROMPTLY IDENTIFIED FOR EARLY INTERVENTION THROUGHOUT THE CERTIFICATION PERIOD. Goal Provider Goal - PATIENT/CAREGIVER WILL VERBALIZE/DEMONSTRATE MANAGEMENT OF RESPIRATORY DISEASE PROCESS. CHANGES IN RESPIRATORY STATUS WILL BE IDENTIFIED AND REPORTED TO PHYSICIAN FOR PROMPT INTERVENTION THROUGHOUT THE CERTIFICATION PERIOD. Goal Provider Goal - A PATENT AIRWAY WILL BE MAINTAINED THROUGHOUT THE EPISODE. PATIENT/CAREGIVER WILL DEMONSTRATE MANAGEMENT OF TRACHEOSTOMY BY END OF THE EPISODE. Goal Provider Goal - PATIENT/CAREGIVER WILL VERBALIZE/DEMONSTRATE UNDERSTANDING OF SAFE PROVISION OF ADLS BY THE END OF THE CERTIFICATION PERIOD. Goal Provider Goal - CHANGES IN NEUROLOGIC STATUS WILL BE IDENTIFIED AND REPORTED TO THE PHYSICIAN FOR PROMPT INTERVENTION OF ASSOCIATED RISK. PATIENT/CAREGIVER WILL VERBALIZE/DEMONSTRATE APPROPRIATE SAFETY MEASURES TO PREVENT INJURY BY THE END OF THE CERTIFICATION PERIOD. Goal Provider Goal - A PHYSICAL THERAPY EVALUATION TO BE COMPLETED WITH RECOMMENDATIONS AND/OR WRITTEN PLAN OF TREATMENT ESTABLISHED FOR PHYSICIANS SIGNATURE. Goal Provider Goal - PATIENT/CAREGIVER WILL VERBALIZE UNDERSTANDING OF SIGNS AND SYMPTOMS, COMPLICATIONS, AND MANAGEMENT OF ATRIAL FIBRILLATION THROUGHOUT THE CERTIFICATION PERIOD. Goal Provider Goal - PATIENT/CAREGIVER WILL VERBALIZE/DEMONSTRATE KNOWLEDGE AND MANAGEMENT OF COPD BY END OF EPISODE. Goal Provider Goal - PATIENT/CAREGIVER WILL VERBALIZE SIGNS AND SYMPTOMS OF HYPOTENSION AND WILL BE ABLE TO DEMONSTRATE ABILITY TO MANAGE EXACERBATION BY END OF THE EPISODE. Goal Provider Goal - PATIENT/CARGIVER WILL VERBALIZE UNDERSTANDING OF ANEMIA INCLUDING SIGNS AND SYMPTOMS, MANAGEMENT OF COMPLICATIONS, AND PRESCRIBED TREATMENT REGIMEN BY END OF EPISODE. Goal Provider Goal - PATIENT/CAREGIVER WILL VERBALIZE/DEMONSTRATE KNOWLEDGE OF DIABETIC MANAGEMENT. CHANGES IN DIABETIC STATUS WILL BE IDENTIFIED AND REPORTED TO PHYSICIAN FOR PROMPT INTERVENTION THROUGHOUT THE CERTIFICATION PERIOD. Goal Provider Goal - PATIENT/CAREGIVER WILL UTILIZE VIRTUAL VISITS TO ACHIEVE GOALS OUTLINED ON THE PLAN OF CARE. PATIENT WILL HAVE SUPPORT MEASURES ESTABLISHED TO PREVENT HOSPITALIZATION AND PATIENT/CAREGIVER WILL VERBALIZE/DEMONSTRATE METHODS TO REDUCE AVOIDABLE HOSPITALIZATION THROUGHOUT THE CERTIFICATION PERIOD. Goal Provider Goal - PATIENT WILL HAVE SUPPORT MEASURES ESTABLISHED TO PREVENT HOSPITALIZATION AND ED USE AND PATIENT/CAREGIVER WILL VERBALIZE/DEMONSTRATE METHODS TO REDUCE AVOIDABLE HOSPITALIZATION AND ED USE BY END OF EPISODE. Goal Provider Goal - PATIENT/CAREGIVER WILL VERBALIZE UNDERSTANDING OF DISCHARGE PLANNING INSTRUCTIONS BY DATE OF DISCHARGE. Goal Provider Goal - PATIENT/CAREGIVER WILL VERBALIZE/DEMONSTRATE EFFECTIVE HOME SAFETY AND FALL PREVENTION STRATEGIES THROUGHOUT CERTIFICATION PERIOD. Goal Provider Goal - PATIENT/CAREGIVER WILL DEMONSTRATE UNDERSTANDING OF PHARMACOLOGIC AND NONPHARMACOLOGIC PAIN CONTROL MEASURES AND PATIENT WILL HAVE IMPROVEMENT IN PAIN INTERFERING WITH ACTIVITY EVIDENCED BY PAIN CONTROLLED AT LEVEL OF 7 OR LESS BY END OF CERTIFICATION PERIOD. Goal Provider Goal - PATIENT/CAREGIVER WILL VERBALIZE UNDERSTANDING OF PRESSURE ULCER PREVENTION BY END OF THE EPISODE. Goal Provider Goal - NONE OCCUPATIONAL THERAPY EVALUATION TO BE COMPLETED WITH RECOMMENDATIONS AND/OR WRITTEN TREATMENT PLAN OF CARE ESTABLISHED FOR THE PHYSICIANS SIGNATURE. Reason for Visit INDEPENDENT WITH USE OF ASSISTIVE DEVICE Encounters Start Date/Time End Date/Time Encounter Type Admission Type Attending [facility] Care Department Encounter ID Discharge Date Discharge Status Discharge Condition Discharge Reason Percent Goals Met 2024-07-25 00:00:00 2024-09-18 00:00:00 Outpatient SONIA CHINO [facility] [id number] 2024-09-18 00:00:00 DISCHARGE TO HOME OR SELF CARE INDEPENDEN T WITH USE OF ASSISTIVE DEVICE GOALS MET ( ONLY) 66.67
--- OUTSIDE RECORDS SUMMARY | 2024-10-10 22:05 | XMS_ITS ---
Author Organization [facility] Address [address] [place] [address] Care Team Providers Care Trapeze Performer Name Role Phone Og INGRAM, [place] Primary Care Provider Unava ilable Shiva Walton Unavailable [phone] PIPER LOCKWOOD Unavailable Unavailable REASON FOR VISIT thinking of having colonoscopy Encounters Encounter Location Date Provider Diagnosis [facility] [address] [place] [address] 07/24/2024 Shiva Walton PLAN OF TREATMENT No Information
--- OUTSIDE RECORDS SUMMARY | 2024-10-10 22:05 | XMS_ITS | Patient Health Record ---
Author Organization [facility] Address [address] [place] [address] Care Team Providers Care Crozer Operator Name Role Phone Og INGRAM, [place] Primary Care Provider Unava ilable Shiva Walton Unavailable [phone] PIPER LOCKWOOD Unavailable Unavailable REASON FOR REFERRAL No Information SOCIAL HISTORY Sex Assigned At : Social History Observation Description Sex Assigned At Unknown PROBLEMS Problem Type ICD Code Onset Dates Problem Status W/U Status Risk SNOMED Code Notes Problem Iron deficiency anemia (D50.9) Active confirmed Iron deficiency anemia (64709705) Encounters Encounter Location Date Provider Diagnosis [facility] [address] [place] [address] 07/24/2024 Shiva Walton PLAN OF TREATMENT No Information Insurance Providers Payer Name Payer Address Payer Phone Subscriber Number Group Number Insured Name Patient Relationship to Insured Coverage Start Date Coverage End Date MEDICARE OF [place] [address] DMITRIY RUSSELL [id number] LULU ARREOLA Self - patient is the insured MEDICAID OF [facility] [address] [place] [address] [phone] [id number] LULU ARREOLA Self - patient is the insured
== END 2024-10-09 16:24 | disposition home or self-care (01) ==
PROVIDERS: PCP Internal Medicine; Visit Provider Internal Medicine
DX: G71.11 Myotonic muscular dystrophy (principal); G47.33 Obstructive sleep apnea (adult) (pediatric); J96.91 Respiratory failure, unspecified with hypoxia; J96.92 Respiratory failure, unspecified with hypercapnia; Z93.0 Tracheostomy status
CPT/HCPCS: 99214

== ENCOUNTER 2024-10-13 20:16 | Emergency (ER) | payer MEDICARE, MEDICAID, SELFPAY ==
--- NOTE | ~2024-10-13 | XR_ITS ---
EXAMINATION: XR ELBOW, RIGHT CLINICAL INFORMATION: Fall, pain COMPARISON: None available. TECHNIQUE: Two views of the right elbow. FINDINGS: The bones and soft tissues are normal. No fracture or joint effusion. Alignment is anatomic. Joint spaces are maintained. XR/XR elbow RT min 3V IMPRESSION: Normal right elbow. Electronically signed by: Sebastian Santamaria MD 10/13/2024 11:14 PM [facility]
--- NOTE | ~2024-10-13 | CT_ITS ---
EXAMINATION: CT CERVICAL SPINE WITHOUT CONTRAST; UNENHANCED CT OF THE HEAD. CLINICAL INFORMATION: Fall and tenderness. COMPARISON: None TECHNIQUE: Routine unenhanced CT of the head with multiple coronal and sagittal reformatted images; routine unenhanced CT of the cervical spine with multiple coronal and sagittal reformatted images. This CT examination was performed using dose optimization techniques as appropriate, variously including the following: *Automated exposure control *Adjustment of mA and/or kV according to patient size (this includes techniques or standardized protocols for targeted exams where dose is matched to indication/reason for exam; i.e. extremities or head) *Use of iterative reconstruction technique DLP: 1063 mGy-cm FINDINGS: CT head: No intracranial hemorrhage, tumors or acute infarcts identified. Mild diffuse commensurate prominence of the ventricles and sulci. No focal parenchymal lesions of the brain. No abnormal extra-axial fluid collections. No significant opacification of the visualized paranasal sinuses, mastoid air cells and middle ear cavities. Normal appearance of the orbits and globes. No extra cranial soft tissue inflammatory changes. CT cervical spine: A 6 mm diameter nodule is present in the right upper pulmonary lobe. Partial visualization is made of a 6 mm x 5 mm nodule posteriorly within the visualized left upper pulmonary lobe. Possible 3 mm diameter nodule is noted more centrally within the left upper pulmonary lobe (series 11 image 307). A 3 mm nodule is present in the right upper pulmonary lobe series 11 image 290). Partial visualization is made of a tracheostomy tube. No fractures or acute-appearing subluxations of the cervical spine are identified. Diffuse osteopenia. No prevertebral fluid collections or soft tissue inflammatory changes. 1.9 cm x 1.5 cm exophytic nodule is noted in association with the posterior aspect of the right lobe of the thyroid. CT/CT head/brain wo IV con IMPRESSION: Unenhanced CT of the head: *No acute intracranial abnormalities. CT cervical spine: *No acute fractures or subluxations. *Partial visualization of four (4) subcentimeter pulmonary nodules within the incompletely visualized upper pulmonary lobes ranging in size up to 6 mm in maximum dimension. Recommend further evaluation with CT of the thorax to further assess these findings as clinically indicated. Findings could represent benign or malignant nodules. Electronically signed by: Uriel Calix MD 10/13/2024 11:23 PM [facility]
--- NOTE | ~2024-10-13 | XR_ITS ---
EXAMINATION: XR HAND/WRIST, LEFT CLINICAL INFORMATION: Fall, pain COMPARISON: X-ray of the left wrist July 2016 TECHNIQUE: PA, lateral, and oblique views of the left hand and wrist. FINDINGS: Mild deformity of the distal radius likely sequela of old fracture. Small ossicle distal to the ulna. Bones joints and soft tissues otherwise unremarkable. XR/XR hand wrist LT IMPRESSION: Deformity distal radius likely related to old fracture. Subtle lucency remains. If high clinical concern for recurrent fracture consider CT Electronically signed by: Sebastian Santamaria MD 10/13/2024 11:14 PM [facility]
--- NOTE | ~2024-10-13 | XR_ITS ---
EXAMINATION: XR HAND/WRIST, RIGHT CLINICAL INFORMATION: Fall, pain COMPARISON: None available. TECHNIQUE: PA, lateral, and oblique views of the right hand and wrist. FINDINGS: The bones and soft tissues are normal. No fracture. Alignment is anatomic. Joint spaces are maintained. No erosions or soft tissue calcifications. XR/XR hand wrist RT IMPRESSION: Normal radiographs of the hand and wrist. Electronically signed by: Sebastian Santamaria MD 10/13/2024 11:16 PM [facility]
--- NOTE | ~2024-10-13 | CT_ITS ---
EXAMINATION: CT CERVICAL SPINE WITHOUT CONTRAST; UNENHANCED CT OF THE HEAD. CLINICAL INFORMATION: Fall and tenderness. COMPARISON: None TECHNIQUE: Routine unenhanced CT of the head with multiple coronal and sagittal reformatted images; routine unenhanced CT of the cervical spine with multiple coronal and sagittal reformatted images. This CT examination was performed using dose optimization techniques as appropriate, variously including the following: *Automated exposure control *Adjustment of mA and/or kV according to patient size (this includes techniques or standardized protocols for targeted exams where dose is matched to indication/reason for exam; i.e. extremities or head) *Use of iterative reconstruction technique DLP: 1063 mGy-cm FINDINGS: CT head: No intracranial hemorrhage, tumors or acute infarcts identified. Mild diffuse commensurate prominence of the ventricles and sulci. No focal parenchymal lesions of the brain. No abnormal extra-axial fluid collections. No significant opacification of the visualized paranasal sinuses, mastoid air cells and middle ear cavities. Normal appearance of the orbits and globes. No extra cranial soft tissue inflammatory changes. CT cervical spine: A 6 mm diameter nodule is present in the right upper pulmonary lobe. Partial visualization is made of a 6 mm x 5 mm nodule posteriorly within the visualized left upper pulmonary lobe. Possible 3 mm diameter nodule is noted more centrally within the left upper pulmonary lobe (series 11 image 307). A 3 mm nodule is present in the right upper pulmonary lobe series 11 image 290). Partial visualization is made of a tracheostomy tube. No fractures or acute-appearing subluxations of the cervical spine are identified. Diffuse osteopenia. No prevertebral fluid collections or soft tissue inflammatory changes. 1.9 cm x 1.5 cm exophytic nodule is noted in association with the posterior aspect of the right lobe of the thyroid. CT/CT cervical spine wo IV con IMPRESSION: Unenhanced CT of the head: *No acute intracranial abnormalities. CT cervical spine: *No acute fractures or subluxations. *Partial visualization of four (4) subcentimeter pulmonary nodules within the incompletely visualized upper pulmonary lobes ranging in size up to 6 mm in maximum dimension. Recommend further evaluation with CT of the thorax to further assess these findings as clinically indicated. Findings could represent benign or malignant nodules. Electronically signed by: Uriel Calix MD 10/13/2024 11:23 PM [facility]
[2024-10-13 20:23] VITALS: BP 152/11; PULSE 93; RESP 20; O2SAT 99; BMI 24.6
[2024-10-13 20:41] VITALS: BP 146/74; PULSE 82; O2SAT 100
--- NOTE | 2024-10-13 20:45 | PC.RT ---
Patient arrives via EMS on home ventilator. Suction set up in room and connected to inline suction setup that patient arrived with.
--- NOTE | 2024-10-13 21:45 | PC.NURSE ---
Pt arrive to emergency dept via EMS with at bedside. pt has x of muscular dystrophy, per pt health has been declining pt arrives on home ventilator, with uncuffed trach, which pt , Evelia manages at home Pt arrives on 4L O2 which is what pt uses at home. Evelia reports that pt has required supplemental O2 more often d/t fatigue. Evelia sts that [place] [facility] trying to organize [place] services, but details are still being worked out. Evelia sts that she is exploring the possibility of hospice care, in addition to making pt DNR/DNI/DNH- family would like conservatve care measures. Pt rec imaging of bilateral hands/wrists and CT of Head/Neck report pending-- call renee within reach
--- NOTE | 2024-10-13 21:50 | ED_ITS ---
HPI - Fall General Chief Complaint: Fall Stated Complaint: HS w/ fall, Right hand pt on vent and trach Time Seen by Provider: 10/13/24 21:00 Source: patient, family and EMS Mode of arrival: EMS Limitations: no limitations History of Present Illness ED Provider: Dr. Comfort Mustafa HPI Narrative: Patient comes to the emergency room via ambulance from home for a fall. According to the patient, he was trying to get up to the bathroom, patient is on a chronic trach with oxygen, seems that he tripped over the cord for his oxygen. Seems that patient hit his head on the left. Patient reports pain on the fingers on his right hand. Patient used to be on Xarelto, taken off 3 months ago. 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 Patient has history of advanced muscular dystrophy. Patient's family is trying to get him to be comfort measures only versus hospice? They are still trying to get in touch with the patient's PCP to make arrangements. Related Data Home Medications ?Medication ?Instructions ?Recorded ?Confirmed multivitamin (Daily Multi-Vitamin 1 tab PO DAILY 06/17/21 09/05/24 tablet) colestipol 1 gram tablet 1 g PO MOWEFR@0900 07/21/24 09/05/24 ferrous sulfate 140 mg (45 mg 140 mg PO MOWEFR@0900,2100 07/21/24 09/05/24 iron) tablet,extended release (Slow Release Iron) omeprazole 20 mg capsule,delayed 20 mg PO DAILY@0630 07/21/24 09/05/24 release Previous Rx's ?Medication ?Instructions ?Recorded tracheostomy #1 ea 12/08/21 walker (Ultra-Light Rollator misc) #1 ea 11/09/22 blood-glucose meter (OneTouch #1 ea 09/30/23 Ultra2 Meter) lancets 30 gauge (OneTouch #100 ea 09/30/23 UltraSoft 2 Lancet) lancing device with lancets kit #1 ea 10/06/23 (OneTouch Delica Plus Lancing Device kit) albuterol sulfate 2.5 mg/3 mL 2.5 mg (3 mL) inhalation QID PRN 11/08/23 (0.083 %) solution for nebulization COPD/shortness of breath or wheezing 90 days #360 mL chlorhexidine gluconate 0.12 % 15 ml buccal DAILY 30 days #450 mL 02/28/24 mouthwash blood sugar diagnostic ([employer] #100 ea 03/06/24 Ultra Test strips) lancets 33 gauge (Os[employer] The[employer]Touch Delica #100 ea 03/06/24 Plus Lancet) loratadine 10 mg tablet (Allergy 10 mg PO DAILY #90 tabs 03/06/24 Relief (loratadine)) ascorbic acid (vitamin C) 500 mg 500 mg PO DAILY 90 days #90 tabs 06/12/24 tablet (Vitamin C) rivaroxaban 20 mg tablet (Xarelto) 20 mg PO DAILY 90 days #90 tabs 07/17/24 metoprolol tartrate 50 mg tablet 50 mg PO BID 90 days #180 tabs 07/20/24 metformin 500 mg tablet,extended 500 mg PO BID #180 tabs 08/27/24 release 24 hr pravastatin 20 mg tablet 20 mg PO DAILY #90 tabs 08/27/24 furosemide 20 mg tablet 20 mg PO QAM #90 tabs 09/04/24 sennosides 8.6 mg-docusate sodium 1 tab-cap PO BEDTIME PRN 09/07/24 50 mg tablet (Senokot-S) constipation #30 tabs Allergies Allergy/AdvReac Type Severity Reaction Status Date / Time No Known Allergies Allergy Verified 10/13/24 20:29 [No Known Allergies*] Review of Systems Review of Systems: Constitutional : Complaining of chronic fatigue ENT/Mouth : No Hearing loss, No Ear Pain, No Nasal Congestion, No Sinus Pain, No Hoarseness, No sore throat, No Rhinorrhea, No Swallowing Difficulty Eyes: No Eye Pain, No Swelling, No Redness, No Foreign Body, No Discharge, No Vision Changes Cardiovascular : No Chest Pain, No SOB, No Dyspnea on Exertion, No Orthopnea, No Edema, No Palpitations Respiratory : No Cough, No Sputum, No Wheezing, No Smoke Exposure, No Dyspnea Gastrointestinal : No Nausea, No Vomiting, No Diarrhea, No Constipation, No abdominal Pain, No Hematochezia, No Melena Genitourinary : no irregular bleeding, No Dysuria, No Urinary Frequency, No Hematuria, No Urinary Incontinence, No Urgency, No Flank Pain, No Urinary Flow Changes, No Hesitancy Musculoskeletal complaining of pain in the fingers of the right hand Skin : Complaining of an ecchymosis in the left side of the forehead Neuro : No Weakness, No Numbness, No Paresthesias, No Loss of Consciousness, No Dizziness, No Headache Psych : No Anxiety/Panic, No Depression, No SI/HI/AH/VH, No Social Issues, Heme/Lymph: No Bruising, No Bleeding,No Lymphadenopathy Endocrine : No Polyuria, No Polydipsia, No Temperature Intolerance [facility] Past Medical History Medical History Diabetes mellitus Allergic rhinitis Malnutrition related to chronic disease COPD (chronic obstructive pulmonary disease) Respiratory failure with hypoxia and hypercapnia Hypoventilation syndrome REBECA (obstructive sleep apnea) Hyperkalemia Tracheostomy dependent Pneumonia Cardiomyopathy GERD (gastroesophageal reflux disease) Pure hypercholesterolemia Obesity Psoriasis Anemia Obstructive sleep apnea 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 Chronic respiratory failure Left bundle branch block Persistent atrial fibrillation Surgical History History of lithotripsy History of cholecystectomy History of tracheostomy Family History Family History Father Medical history unknown Mother CVD (cardiovascular disease) Stroke Maternal Grandmother Cancer Maternal Grandfather Diabetes Social History Social History Household Members: Spouse Housing: House Do you presently have visiting nurse or other home services: Yes Alcohol intake: never Comment: family at bedside Patient Tobacco Use Status: Never used Tobacco Smoked in Last 30 Days: No e-Cigarette/Vaping Use: Never Used Second Hand Smoke Exposure: Yes Use of substances other than those prescribed or required for medical reasons: No Advance Directives: No Advance Directives Information Provided: No service: No Current occupational status: disabled Cognitive needs: Yes Hearing needs: No Vision needs: No Physical Exam Vital Signs: Vital Signs: Last Vital Signs Pulse 84 10/13/24 21:57 Resp 18 10/13/24 21:57 BP 96/71 10/13/24 21:57 Pulse Ox 99 10/13/24 21:57 O2 Del Method Trach Collar 10/13/24 21:57 O2 Flow Rate 4 10/13/24 21:57 Oxygen Flow Rate 4 10/13/24 20:23 BMI result Body Mass Index 24.6 Const: Other: Appearance: Alert. Oriented X3. No acute distress. Chronically ill Eyes: Pupils equal, round and reactive to light. ENT: Pharynx normal. Neck: Normal inspection. Neck supple. No lymph nodes noted. No crepitus CVS: Normal heart rate and rhythm. Pulses normal. Normal S1 and S2 Respiratory: No respiratory distress. Breath sounds normal. No Wheezing. No rales Abdomen: Soft and nontender. No rigidity. No distention. Skin: Skin warm and dry very pale skin color. Normal skin turgor. Extremities: +2 lower extremity edema bilaterally No Lacerations. No Rash Neuro: Oriented X 3. No motor deficit. No sensory deficit. Moving all extremities. No slurred speech. CN 2 through 12 grossly intact Psych: calm, cooperative, normal affect Course Course Course Narrative: Patient and his requesting that we do not do any blood work, patient's states that she is aware that he may be severely anemic and have electrolyte imbalances. However, they state that they want to keep the workup to a bare minimum. -Patient's states that the patient has been chronically ill for 16+ years and they are aware that his illness is slowly coming to an end. Patient states that he does not want to stay in the hospital and requesting to be discharged home after his head CT and his x-rays returned. On arrival, patient's blood pressure 152/11, when I saw the patient, patient's blood pressure in the mid 80s. Patient was placed in Trendelenburg. -options were discussed with the patient and his regarding further optional blood work versus more imaging. At this time, they declined. According to the patient's , the patient has not been eating and drinking much, over last week he has declined more than usual. The option of getting slowly IV fluids were given while we wait for the results, patient prefers to have p.o. hydration. Medical Decision Making Medical Decision Making MDM Narrative: -overall, the patient and his aware that he is decompensating. They do not want any labs at this time, they know that the lab work will not look good if we do them, and they would not want anything to be done. -sounds reasonable , per patient and family's wishes, we will wait for the head CT and x-rays and then discharge the patient home. -patient's is requesting that after we discharged him home, to place in a referral to case management, hopefully the case management team can help restart patient's home services -x-rays: No obvious abnormality head and cervical spine. X-rays did not show any acute abnormality. Patient has a known old fracture on the left wrist -CT scan of the cervical spine showed pulmonary nodules and a new thyroid nodule. I reviewed patient's CT scan of 2021, there were multiple solid nodule 6-8 mm. I discussed the above-mentioned with patient/family, at this time, they do not want to pursue any further testing for this. Patient states that he feels okay to go home. -case management consult for VNA services has been placed. I discussed with the patient's that she will likely get a phone call back from our case management team in the morning Differential Diagnosis Differential Diagnoses: The differential diagnosis associated with the presentation includes (Intracranial bleed, cervical spine injury, contusion, concussion, multiple electrolyte abnormalities, anemia, malignancy) Admission/Observation Consideration of admission/observation: Escalation of care including admission/observation considered (Further evaluation, labs, testing were offered, patient and family respectfully declined) Independent Interpretation I performed an independent interpretation of an: Plain X-Ray and CT Scan Radiology Impression Discussion of test interpretation with radiology: I have reviewed the radiologist's reading. Radiologist Impression: Normal radiographs of the hand and wrist. Deformity distal radius likely related to old fracture. Subtle lucency remains. Normal right elbow No acute fractures or subluxations. *Partial visualization of four (4) subcentimeter pulmonary nodules within the incompletely visualized upper pulmonary lobes ranging in size up to 6 mm in maximum dimension. Recommend further evaluation with CT of the thorax to further assess these findings as clinically indicated. Findings could represent benign or malignant nodules. As noted in the original finding section, a 1.9 cm x 1.5 cm exophytic nodules associated with the posterior aspect of the right lobe of the thyroid. This finding is indeterminate. Recommend further evaluation with thyroid ultrasonography as clinically indicated. Independent Historian Clinical information obtained from an independent historian. History obtained from or confirmed by: Spouse Chronic Conditions Patient?s care impacted by: Other (Muscular dystrophy) Discharge Plan Discharge Clinical Impression: Multiple contusions, Fall Patient Disposition: Home, Self-Care Instructions: Contusion in Adults (ED) Additional Instructions: Please follow-up with your primary care physician tomorrow. If you have any worsening or new symptoms, please return to the emergency room or call 911 Prescriptions: No Action (DME) tracheostomy 6 See Rx Instructions .Route .MEDSUPPLY Qty: 1 3RF Rx Instructions: As directed (DME) Ultra-Light Rollator Misc See Rx Instructions .Route Qty: 1 0RF Rx Instructions: As directed (DME) blood-glucose meter [OneTouch Ultra2 Meter] Misc See Rx Instructions .Route Qty: 1 0RF Rx Instructions: test once per day (DME) lancets [OneTouch UltraSoft 2 Lancet] 30 gauge misc See Rx Instructions .Route Qty: 100 4RF Rx Instructions: test once per day (DME) lancing device with lancets [OneTouch Delica Plus Lanc Dev] Kit See Rx Instructions .Route Qty: 1 12RF Rx Instructions: test once per day albuterol sulfate 2.5 mg /3 mL (0.083 %) solution for nebulization 2.5 mg inhalation QID PRN (Reason: COPD/shortness of breath or wheezing) 90 Days Qty: 360 3RF chlorhexidine gluconate 0.12 % mouthwash 15 ml buccal DAILY 30 Days Qty: 450 3RF (DME) OneTouch Ultra Test Strip See Rx Instructions .Route Qty: 100 4RF Rx Instructions: test once per day (DME) lancets [OneTouch Delica Plus Lancet] 33 gauge misc See Rx Instructions .Route Qty: 100 12RF Rx Instructions: As directed once a day loratadine [Allergy Relief (loratadine)] 10 mg tablet 10 mg PO DAILY Qty: 90 1RF ascorbic acid (vitamin C) [Vitamin C] 500 mg tablet 500 mg PO DAILY 90 Days Qty: 90 1RF Xarelto 20 mg tablet 20 mg PO DAILY 90 Days Qty: 90 3RF metoprolol tartrate 50 mg tablet 50 mg PO BID 90 Days Qty: 180 3RF metformin 500 mg tablet extended release 24 hr 500 mg PO BID Qty: 180 3RF pravastatin 20 mg tablet 20 mg PO DAILY Qty: 90 3RF furosemide 20 mg tablet 20 mg PO QAM Qty: 90 3RF sennosides-docusate sodium [Senokot-S] 8.6-50 mg tablet 1 tab-cap PO BEDTIME PRN (Reason: constipation) Qty: 30 3RF omeprazole 20 mg capsule,delayed release(DR/EC) 20 mg PO DAILY@0630 colestipol 1 gram tablet 1 g PO MOWEFR@0900 Slow Release Iron 140 mg (45 mg iron) tablet extended release 140 mg PO MOWEFR@0900,2100 multivitamin [Daily Multi-Vitamin] Tablet 1 tab PO DAILY Print Language: Honduran
--- OUTSIDE RECORDS SUMMARY | 2024-10-13 21:52 | XMS_ITS | Patient Health Record ---
Author Organization [facility] Address [address] [place] [address] Care Team Providers Care Educational Director Name Role Phone Og INGRAM, Constantino Primary Care Provider Unava ilable Shiva Walton Unavailable [phone] PIPER LOCKWOOD Unavailable Unavailable REASON FOR REFERRAL No Information SOCIAL HISTORY Sex Assigned At : Social History Observation Description Sex Assigned At Unknown PROBLEMS Problem Type ICD Code Onset Dates Problem Status W/U Status Risk SNOMED Code Notes Problem Iron deficiency anemia (D50.9) Active confirmed Iron deficiency anemia (90868985) Encounters Encounter Location Date Provider Diagnosis [facility] [address] [place] [address] 07/24/2024 Shiva Walton PLAN OF TREATMENT No Information Insurance Providers Payer Name Payer Address Payer Phone Subscriber Number Group Number Insured Name Patient Relationship to Insured Coverage Start Date Coverage End Date [place] [address] DMITRIY RUSSELL [id number] LULU ARREOLA Self - patient is the insured MEDICAID OF [facility] [address] [place] [address] [id number] LULU ARREOLA Self - patient is the insured
--- OUTSIDE RECORDS SUMMARY | 2024-10-13 21:52 | XMS_ITS | Clinical Summary ---
Author Organization Unknown Care Team Providers Care Patient Financial Counselor Name Role Phone JENNA INGRAM, OZIEL Unavailable Unavailable CEDRICK PARR, RAINER Unavailable Jonas ALLEN RN, SONIA Unavailable Unavailable Payers Payer Name Policy Type Policy Number Effective Date Expira tion Date MEDICARE - NGS [place] - PDGM [id number] MEDICAID [facility] [id number] Problems Condition Name Condition Details Condition Category [...] -18 00:00: 00 09-29 23:59 :00 No [id number] Per instruc tions EVERY Per instructio ns EVERY (route: oral) Med Classific ation: Cardiovas cular Therapy Agents pravastatin 20 mg tablet 11-10 00:00: 00 09-29 23:59 :00 No [id number] Per instruc tions DAILY Per instructio ns DAILY (route: oral) Med Classific ation: Cardiovas cular Therapy Agents Slow Release Iron 140 mg (45 mg iron) tablet,exte nded release 12-04 00:00: 00 09-29 23:59 :00 No [id number] Per instruc tions EVERY DAY Per instructio ns EVERY DAY (route: oral) Med Classific ation: Electroly te Balance-N utritiona l Products levofloxaci n 500 mg tablet 01-14 00:00: 00 01-19 23:59 :00 No [id number] 1 tablet DAILY 1 tablet DAILY (route: oral) Med Classific ation: Anti-Infe ctive Agents Xarelto 20 mg tablet -10 00:00: 00 09-29 23:59 :00 No [id number] Per instruc tions DAILY Per instructio ns DAILY (route: oral) Med Classific ation: Hematolog ical Agents metoprolol tartrate 50 mg tablet 2-03 00:00: 00 09-29 23:59 :00 No [id number] Per instruc tions TWICE DAILY Per instructio ns TWICE DAILY (route: oral) Med Classific ation: Cardiovas cular Therapy Agents clindamycin HCl 300 mg capsule 2022-0 3-17 00:00: 00 01-24 23:59 :00 No [id number] Per instruc tions 4 TIMES DAILY Per instructio ns 4 TIMES DAILY (route: oral) Med Classific ation: Anti-Infe ctive Agents metformin ER 500 mg tablet,exte nded release 24 hr 2-10 00:00: 00 09-29 23:59 :00 No [id number] Per instruc tions DAILY Per instructio ns DAILY (route: oral) Med Classific ation: Endocrine omeprazole 20 mg capsule,del ayed release 2-10 00:00: 00 09-29 23:59 :00 No [id number] Per instruc tions EVERY Per instructio ns EVERY (route: oral) Med Classific ation: Gastroint estinal Therapy Agents chlorhexidi ne gluconate 0.12 % mouthwash 2021-10 2-12 00:00: 00 04-20 23:59 :00 No [id number] Per instruc tions EVERY DAY Per instructio ns EVERY DAY (route: mucous membrane) Med Classific ation: Mouth-Thr oat-Denta l - Preparati ons colestipol 1 gram tablet 2021-10 2- 00:00: 00 04-20 23:59 :00 No [id number] Per instruc tions 3 TIMES A WEEK Per instructio ns 3 TIMES A WEEK (route: oral) Med Classific ation: Cardiovas cular Therapy Agents metformin ER 500 mg tablet,exte nded release 24 hr 2021-10 2- 00:00: 00 04-20 23:59 :00 No [id number] Per instruc tions DAILY Per instructio ns DAILY (route: oral) Med Classific ation: Endocrine Vitamin C 500 mg tablet 2021-10 1- 00:00: 00 04-20 23:59 :00 No [id number] Per instruc tions EVERY DAY Per instructio ns EVERY DAY (route: oral) Med Classific ation: Electroly te Balance-N utritiona l Products omeprazole 20 mg capsule,del ayed release 2021-10- 00:00: 00 04-20 23:59 :00 No [id number] Per instruc tions EVERY Per instructio ns EVERY (route: oral) Med Classific ation: Gastroint estinal Therapy Agents furosemide 20 mg tablet 2021-10 2- 00:00: 00 04-20 23:59 :00 No [id number] 1 tablet EVERY AM 1 tablet EVERY AM (route: oral) Med Classific ation: Cardiovas cular Therapy Agents metoprolol tartrate 50 mg tablet 2021-10 2 00:00: 00 04-20 23:59 :00 No [id number] 1 tablet 2 TIMES DAILY 1 tablet 2 TIMES DAILY (route: oral) Med Classific ation: Cardiovas cular Therapy Agents pravastatin 20 mg tablet 2021-10 00:00: 00 04-20 23:59 :00 No [id number] 1 tablet DAILY 1 tablet DAILY (route: oral) Med Classific ation: Cardiovas cular Therapy Agents Xarelto 20 mg tablet 2021-10 00:00: 00 04-20 23:59 :00 No [id number] 1 tablet DAILY 1 tablet DAILY (route: oral) Med Classific ation: Hematolog ical Agents O2 - OXYGEN 1- 00:00: 00 04-20 23:59 :00 No [id number] 3 Liter O2 - CONTINUOUS 3 Liter O2 - CONTINUOUS (route: Oxygen) Med Classific ation: Medical Oxygen mupirocin 2 % topical ointment 04-18 00:00: 00 09-01 23:59 :00 No [id number] Per instruc tions 3 TIMES DAILY Per instructio ns 3 TIMES DAILY (route: topical) Med Classific ation: Dermatolo gical metformin ER 500 mg tablet,exte nded release 24 hr 04-11 00:00: 00 04-20 23:59 :00 No [id number] Per instruc tions DAILY Per instructio ns DAILY (route: oral) Med Classific ation: Endocrine Slow Release Iron 140 mg (45 mg iron) tablet,exte nded release - 00:00: 00 09-01 23:59 :00 No [id number] Per instruc tions EVERY DAY Per instructio ns EVERY DAY (route: oral) Med Classific ation: Electroly te Balance-N utritiona l Products Vitamin C 500 mg tablet 03-22 00:00: 00 04-20 23:59 :00 No [id number] Per instruc tions EVERY DAY Per instructio ns EVERY DAY (route: oral) Med Classific ation: Electroly te Balance-N utritiona l Products omeprazole 20 mg capsule,del ayed release 03-21 00:00: 00 04-20 23:59 :00 No [id number] Per instruc tions EVERY Per instructio ns EVERY (route: oral) Med Classific ation: Gastroint estinal Therapy Agents albuterol sulfate 2.5 mg/3 mL (0.083 %) solution for nebulizatio n 04-20 00:00: 00 09-01 23:59 :00 No [id number] Per instruc tions 4 TIMES DAILY Per instructio ns 4 TIMES DAILY (route: inhalation ) Med Classific ation: Respirato ry Therapy Agents multivitami n tablet 04-20 00:00: 00 09-01 23:59 :00 No [id number] 1 tablet DAILY 1 tablet DAILY (route: oral) Med Classific ation: Electroly te Balance-N utritiona l Products metformin 500 mg tablet 05-05 00:00: 00 09-01 23:59 :00 No [id number] 1 tablet DAILY 1 tablet DAILY (route: oral) Med Classific ation: Endocrine colestipol 1 gram tablet 05-05 00:00: 00 09-01 23:59 :00 No [id number] 1 tablet DIRECTED 1 tablet DIRECTED (route: oral) Med Classific ation: Cardiovas cular Therapy Agents furosemide 20 mg tablet 05-05 00:00: 00 09-01 23:59 :00 No [id number] 1 tablet DAILY 1 tablet DAILY (route: oral) Med Classific ation: Cardiovas cular Therapy Agents metoprolol tartrate 50 mg tablet 05-05 00:00: 00 09-01 23:59 :00 No [id number] 1 tablet 2 TIMES DAILY 1 tablet 2 TIMES DAILY (route: oral) Med Classific ation: Cardiovas cular Therapy Agents omeprazole 20 mg capsule,del ayed release 05-05 00:00: 00 09-01 23:59 :00 No [id number] 1 capsule DAILY 1 capsule DAILY (route: oral) Med Classific ation: Gastroint estinal Therapy Agents pravastatin 20 mg tablet 05-05 00:00: 00 09-01 23:59 :00 No [id number] 1 tablet DAILY 1 tablet DAILY (route: oral) Med Classific ation: Cardiovas cular Therapy Agents Xarelto 20 mg tablet 05-05 00:00: 00 09-01 23:59 :00 No [id number] 1 tablet DAILY 1 tablet DAILY (route: oral) Med Classific ation: Hematolog ical Agents Xarelto 20 mg tablet 2022-10 0-20 00:00: 00 04-23 23:59 :00 No [id number] Per instruc tions DAILY Per instructio ns DAILY (route: oral) Med Classific ation: Hematolog ical Agents Slow Release Iron 140 mg (45 mg iron) tablet,exte nded release 2022-10 0-17 00:00: 00 04-23 23:59 :00 No [id number] Per instruc tions EVERY DAY Per instructio ns EVERY DAY (route: oral) Med Classific ation: Electroly te Balance-N utritiona l Products chlorhexidi ne gluconate 0.12 % mouthwash 2022-10 0-16 00:00: 00 04-23 23:59 :00 No [id number] Per instruc tions DAILY Per instructio ns DAILY (route: mucous membrane) Med Classific ation: Mouth-Thr oat-Denta l - Preparati ons Slow Release Iron 140 mg (45 mg iron) tablet,exte nded release 2022-10 0-10 00:00: 00 12-03 00:00 :00 No [id number] Per instruc tions DAILY FOR 90 DAYS Per instructio ns DAILY FOR 90 DAYS (route: oral) Med Classific ation: Electroly te Balance-N utritiona l Products furosemide 20 mg tablet 2022-10 010 00:00: 00 04-23 23:59 :00 No [id number] Per instruc tions EVERY Per instructio ns EVERY (route: oral) Med Classific ation: Cardiovas cular Therapy Agents pravastatin 20 mg tablet 2022-10 00:00: 00 04-23 23:59 :00 No [id number] Per instruc tions DAILY Per instructio ns DAILY (route: oral) Med Classific ation: Cardiovas cular Therapy Agents Vitamin C 500 mg tablet 2022-10 00:00: 00 04-23 23:59 :00 No [id number] Per instruc tions EVERY DAY Per instructio ns EVERY DAY (route: oral) Med Classific ation: Electroly te Balance-N utritiona l Products colestipol 1 gram tablet 2022-10 00:00: 00 02-20 14:54 :43 No [id number] 1 tablet DAILY 1 tablet DAILY (route: oral) Med Classific ation: Cardiovas cular Therapy Agents Daily Multi-Vitam in tablet 2022-10 00:00: 00 04-23 23:59 :00 No [id number] 1 tablet DAILY 1 tablet DAILY (route: oral) Med Classific ation: Electroly te Balance-N utritiona l Products L.acidophil us-bif.long um 15 mg (1 billion cell)capsul e,delayed release 2022-10 00:00: 00 04-23 23:59 :00 No [id number] 1 capsule DAILY 1 capsule DAILY (route: oral) Med Classific ation: Gastroint estinal Therapy Agents metformin 500 mg tablet 2022-10 00:00: 00 04-23 23:59 :00 No [id number] 1 tablet BEDTIME 1 tablet BEDTIME (route: oral) Med Classific ation: Endocrine metoprolol tartrate 50 mg tablet 2022-10 00:00: 04-23 23:59 :00 No [id number] 1 tablet 2 TIMES DAILY 1 tablet 2 TIMES DAILY (route: oral) Med Classific ation: Cardiovas cular Therapy Agents omeprazole 20 mg capsule,del ayed release 2022-10 00:00: 00 04-23 23:59 :00 No [id number] 1 capsule DAILY 1 capsule DAILY (route: oral) Med Classific ation: Gastroint estinal Therapy Agents pravastatin 20 mg tablet 2022-10 00:00: 00 12-03 00:00 :00 No [id number] 1 tablet DAILY 1 tablet DAILY (route: oral) Med Classific ation: Cardiovas cular Therapy Agents O2 - OXYGEN 12-03 00:00: 00 04-23 23:59 :00 No [id number] 4 Liter O2 - CONTINUOUS 4 Liter O2 - CONTINUOUS (route: Oxygen) Med Classific ation: Medical Oxygen Slow Release Iron 140 mg (45 mg iron) tablet,exte nded release 07-12 00:00: 00 07-25 00:00 :00 No [id number] Per instruc tions TWICE A DAY Per instructio ns TWICE A DAY (route: oral) Med Classific ation: Electroly te Balance-N utritiona l Products furosemide 20 mg tablet 07-10 00:00: 00 07-25 00:00 :00 No [id number] Per instruc tions Per instructio ns (route: oral) Med Classific ation: Cardiovas cular Therapy Agents metformin ER 500 mg tablet,exte nded release 24 hr 07-02 00:00: 00 07-25 00:00 :00 No [id number] Per instruc tions Per instructio ns (route: oral) Med Classific ation: Endocrine pravastatin 20 mg tablet 07-02 00:00: 00 07-25 00:00 :00 No [id number] Per instruc tions Per instructio ns (route: oral) Med Classific ation: Cardiovas cular Therapy Agents Colestid 1 gram tablet 07-25 00:00: 10-03 23:59 :00 No [id number] 1 tablet DAILY 1 tablet DAILY (route: oral) Med Classific ation: Cardiovas cular Therapy Agents ferrous sulfate ER 140 mg (45 mg iron) tablet,exte nded release 07-25 00:00: 00 10-03 23:59 :00 No [id number] 1 tablet DAILY 1 tablet DAILY (route: oral) Med Classific ation: Electroly te Balance-N utritiona l Products furosemide 20 mg tablet 07-25 00:00: 00 10-03 23:59 :00 No [id number] 1 tablet DAILY 1 tablet DAILY (route: oral) Med Classific ation: Cardiovas cular Therapy Agents multivitami n tablet 07-25 00:00: 00 10-03 23:59 :00 No [id number] 1 tablet DAILY 1 tablet DAILY (route: oral) Med Classific ation: Electroly te Balance-N utritiona l Products omeprazole 20 mg capsule,del ayed release 07-25 00:00: 00 10-03 23:59 :00 No [id number] 1 capsule DAILY 1 capsule DAILY (route: [...] CARE WILL BE ESTABLISHED THAT MEETS PATIENT'S SENIOR LIVING NEEDS AND INCLUDES PATIENT GOAL FOR HOME [...] End Date/Time Encounter Type Admission Type Attending [facility] Care Department Encounter ID Discharge Date Discharge Status Discharge Condition Discharge Reason Percent Goals Met 2024-07-25 00:00:00 2024-09-18 00:00:00 Outpatient SONIA CHINO [facility] [id number] 2024-09-18 00:00:00 DISCHARGE TO HOME OR SELF CARE INDEPENDEN T WITH USE OF ASSISTIVE DEVICE GOALS MET ( ONLY) 66.67
--- OUTSIDE RECORDS SUMMARY | 2024-10-13 21:52 | XMS_ITS ---
Author Organization [facility] Address [address] [place] [address] Care Team Providers Care Nut Packer Name Role Phone Og INGRAM, [place] Primary Care Provider Unava ilable Shiva Walton Unavailable [phone] PIPER LOCKWOOD Unavailable Unavailable REASON FOR VISIT thinking of having colonoscopy Encounters Encounter Location Date Provider Diagnosis [facility] [address] [place] [address] 07/24/2024 Shiva Walton PLAN OF TREATMENT No Information
--- OUTSIDE RECORDS SUMMARY | 2024-10-13 21:53 | XMS_ITS | Clinical Summary ---
Author Organization Unknown Care Team Providers Care Slasher Hand Name Role Phone JENNA INGRAM, OZIEL Unavailable Unavailable CEDRICK PARR, RAINER Unavailable Jonas ALLEN RN, SONIA Unavailable Unavailable Payers Payer Name Policy Type Policy Number Effective Date Expira tion Date MEDICARE - NGS [place] - PDGM [id number] MEDICAID [facility] [id number] Problems Condition Name Condition Details Condition Category [...] -18 00:00: 00 09-29 23:59 :00 No [id number] Per instruc tions EVERY Per instructio ns EVERY (route: oral) Med Classific ation: Cardiovas cular Therapy Agents pravastatin 20 mg tablet 11-10 00:00: 00 09-29 23:59 :00 No [id number] Per instruc tions DAILY Per instructio ns DAILY (route: oral) Med Classific ation: Cardiovas cular Therapy Agents Slow Release Iron 140 mg (45 mg iron) tablet,exte nded release 12-04 00:00: 00 09-29 23:59 :00 No [id number] Per instruc tions EVERY DAY Per instructio ns EVERY DAY (route: oral) Med Classific ation: Electroly te Balance-N utritiona l Products levofloxaci n 500 mg tablet 01-14 00:00: 00 01-19 23:59 :00 No [id number] 1 tablet DAILY 1 tablet DAILY (route: oral) Med Classific ation: Anti-Infe ctive Agents Xarelto 20 mg tablet -10 00:00: 00 09-29 23:59 :00 No [id number] Per instruc tions DAILY Per instructio ns DAILY (route: oral) Med Classific ation: Hematolog ical Agents metoprolol tartrate 50 mg tablet 2-03 00:00: 00 09-29 23:59 :00 No [id number] Per instruc tions TWICE DAILY Per instructio ns TWICE DAILY (route: oral) Med Classific ation: Cardiovas cular Therapy Agents clindamycin HCl 300 mg capsule 2022-0 3-17 00:00: 00 01-24 23:59 :00 No [id number] Per instruc tions 4 TIMES DAILY Per instructio ns 4 TIMES DAILY (route: oral) Med Classific ation: Anti-Infe ctive Agents metformin ER 500 mg tablet,exte nded release 24 hr 2-10 00:00: 00 09-29 23:59 :00 No [id number] Per instruc tions DAILY Per instructio ns DAILY (route: oral) Med Classific ation: Endocrine omeprazole 20 mg capsule,del ayed release 2-10 00:00: 00 09-29 23:59 :00 No [id number] Per instruc tions EVERY Per instructio ns EVERY (route: oral) Med Classific ation: Gastroint estinal Therapy Agents chlorhexidi ne gluconate 0.12 % mouthwash 2021-10 2-12 00:00: 00 04-20 23:59 :00 No [id number] Per instruc tions EVERY DAY Per instructio ns EVERY DAY (route: mucous membrane) Med Classific ation: Mouth-Thr oat-Denta l - Preparati ons colestipol 1 gram tablet 2021-10 2- 00:00: 00 04-20 23:59 :00 No [id number] Per instruc tions 3 TIMES A WEEK Per instructio ns 3 TIMES A WEEK (route: oral) Med Classific ation: Cardiovas cular Therapy Agents metformin ER 500 mg tablet,exte nded release 24 hr 2021-10 2- 00:00: 00 04-20 23:59 :00 No [id number] Per instruc tions DAILY Per instructio ns DAILY (route: oral) Med Classific ation: Endocrine Vitamin C 500 mg tablet 2021-10 1- 00:00: 00 04-20 23:59 :00 No [id number] Per instruc tions EVERY DAY Per instructio ns EVERY DAY (route: oral) Med Classific ation: Electroly te Balance-N utritiona l Products omeprazole 20 mg capsule,del ayed release 2021-10- 00:00: 00 04-20 23:59 :00 No [id number] Per instruc tions EVERY Per instructio ns EVERY (route: oral) Med Classific ation: Gastroint estinal Therapy Agents furosemide 20 mg tablet 2021-10 2- 00:00: 00 04-20 23:59 :00 No [id number] 1 tablet EVERY AM 1 tablet EVERY AM (route: oral) Med Classific ation: Cardiovas cular Therapy Agents metoprolol tartrate 50 mg tablet 2021-10 2 00:00: 00 04-20 23:59 :00 No [id number] 1 tablet 2 TIMES DAILY 1 tablet 2 TIMES DAILY (route: oral) Med Classific ation: Cardiovas cular Therapy Agents pravastatin 20 mg tablet 2021-10 00:00: 00 04-20 23:59 :00 No [id number] 1 tablet DAILY 1 tablet DAILY (route: oral) Med Classific ation: Cardiovas cular Therapy Agents Xarelto 20 mg tablet 2021-10 00:00: 00 04-20 23:59 :00 No [id number] 1 tablet DAILY 1 tablet DAILY (route: oral) Med Classific ation: Hematolog ical Agents O2 - OXYGEN 1- 00:00: 00 04-20 23:59 :00 No [id number] 3 Liter O2 - CONTINUOUS 3 Liter O2 - CONTINUOUS (route: Oxygen) Med Classific ation: Medical Oxygen mupirocin 2 % topical ointment 04-18 00:00: 00 09-01 23:59 :00 No [id number] Per instruc tions 3 TIMES DAILY Per instructio ns 3 TIMES DAILY (route: topical) Med Classific ation: Dermatolo gical metformin ER 500 mg tablet,exte nded release 24 hr 04-11 00:00: 00 04-20 23:59 :00 No [id number] Per instruc tions DAILY Per instructio ns DAILY (route: oral) Med Classific ation: Endocrine Slow Release Iron 140 mg (45 mg iron) tablet,exte nded release - 00:00: 00 09-01 23:59 :00 No [id number] Per instruc tions EVERY DAY Per instructio ns EVERY DAY (route: oral) Med Classific ation: Electroly te Balance-N utritiona l Products Vitamin C 500 mg tablet 03-22 00:00: 00 04-20 23:59 :00 No [id number] Per instruc tions EVERY DAY Per instructio ns EVERY DAY (route: oral) Med Classific ation: Electroly te Balance-N utritiona l Products omeprazole 20 mg capsule,del ayed release 03-21 00:00: 00 04-20 23:59 :00 No [id number] Per instruc tions EVERY Per instructio ns EVERY (route: oral) Med Classific ation: Gastroint estinal Therapy Agents albuterol sulfate 2.5 mg/3 mL (0.083 %) solution for nebulizatio n 04-20 00:00: 00 09-01 23:59 :00 No [id number] Per instruc tions 4 TIMES DAILY Per instructio ns 4 TIMES DAILY (route: inhalation ) Med Classific ation: Respirato ry Therapy Agents multivitami n tablet 04-20 00:00: 00 09-01 23:59 :00 No [id number] 1 tablet DAILY 1 tablet DAILY (route: oral) Med Classific ation: Electroly te Balance-N utritiona l Products metformin 500 mg tablet 05-05 00:00: 00 09-01 23:59 :00 No [id number] 1 tablet DAILY 1 tablet DAILY (route: oral) Med Classific ation: Endocrine colestipol 1 gram tablet 05-05 00:00: 00 09-01 23:59 :00 No [id number] 1 tablet DIRECTED 1 tablet DIRECTED (route: oral) Med Classific ation: Cardiovas cular Therapy Agents furosemide 20 mg tablet 05-05 00:00: 00 09-01 23:59 :00 No [id number] 1 tablet DAILY 1 tablet DAILY (route: oral) Med Classific ation: Cardiovas cular Therapy Agents metoprolol tartrate 50 mg tablet 05-05 00:00: 00 09-01 23:59 :00 No [id number] 1 tablet 2 TIMES DAILY 1 tablet 2 TIMES DAILY (route: oral) Med Classific ation: Cardiovas cular Therapy Agents omeprazole 20 mg capsule,del ayed release 05-05 00:00: 00 09-01 23:59 :00 No [id number] 1 capsule DAILY 1 capsule DAILY (route: oral) Med Classific ation: Gastroint estinal Therapy Agents pravastatin 20 mg tablet 05-05 00:00: 00 09-01 23:59 :00 No [id number] 1 tablet DAILY 1 tablet DAILY (route: oral) Med Classific ation: Cardiovas cular Therapy Agents Xarelto 20 mg tablet 05-05 00:00: 00 09-01 23:59 :00 No [id number] 1 tablet DAILY 1 tablet DAILY (route: oral) Med Classific ation: Hematolog ical Agents Xarelto 20 mg tablet 2022-10 0-20 00:00: 00 04-23 23:59 :00 No [id number] Per instruc tions DAILY Per instructio ns DAILY (route: oral) Med Classific ation: Hematolog ical Agents Slow Release Iron 140 mg (45 mg iron) tablet,exte nded release 2022-10 0-17 00:00: 00 04-23 23:59 :00 No [id number] Per instruc tions EVERY DAY Per instructio ns EVERY DAY (route: oral) Med Classific ation: Electroly te Balance-N utritiona l Products chlorhexidi ne gluconate 0.12 % mouthwash 2022-10 0-16 00:00: 00 04-23 23:59 :00 No [id number] Per instruc tions DAILY Per instructio ns DAILY (route: mucous membrane) Med Classific ation: Mouth-Thr oat-Denta l - Preparati ons Slow Release Iron 140 mg (45 mg iron) tablet,exte nded release 2022-10 0-10 00:00: 00 12-03 00:00 :00 No [id number] Per instruc tions DAILY FOR 90 DAYS Per instructio ns DAILY FOR 90 DAYS (route: oral) Med Classific ation: Electroly te Balance-N utritiona l Products furosemide 20 mg tablet 2022-10 010 00:00: 00 04-23 23:59 :00 No [id number] Per instruc tions EVERY Per instructio ns EVERY (route: oral) Med Classific ation: Cardiovas cular Therapy Agents pravastatin 20 mg tablet 2022-10 00:00: 00 04-23 23:59 :00 No [id number] Per instruc tions DAILY Per instructio ns DAILY (route: oral) Med Classific ation: Cardiovas cular Therapy Agents Vitamin C 500 mg tablet 2022-10 00:00: 00 04-23 23:59 :00 No [id number] Per instruc tions EVERY DAY Per instructio ns EVERY DAY (route: oral) Med Classific ation: Electroly te Balance-N utritiona l Products colestipol 1 gram tablet 2022-10 00:00: 00 02-20 14:54 :43 No [id number] 1 tablet DAILY 1 tablet DAILY (route: oral) Med Classific ation: Cardiovas cular Therapy Agents Daily Multi-Vitam in tablet 2022-10 00:00: 00 04-23 23:59 :00 No [id number] 1 tablet DAILY 1 tablet DAILY (route: oral) Med Classific ation: Electroly te Balance-N utritiona l Products L.acidophil us-bif.long um 15 mg (1 billion cell)capsul e,delayed release 2022-10 00:00: 00 04-23 23:59 :00 No [id number] 1 capsule DAILY 1 capsule DAILY (route: oral) Med Classific ation: Gastroint estinal Therapy Agents metformin 500 mg tablet 2022-10 00:00: 00 04-23 23:59 :00 No [id number] 1 tablet BEDTIME 1 tablet BEDTIME (route: oral) Med Classific ation: Endocrine metoprolol tartrate 50 mg tablet 2022-10 00:00: 04-23 23:59 :00 No [id number] 1 tablet 2 TIMES DAILY 1 tablet 2 TIMES DAILY (route: oral) Med Classific ation: Cardiovas cular Therapy Agents omeprazole 20 mg capsule,del ayed release 2022-10 00:00: 00 04-23 23:59 :00 No [id number] 1 capsule DAILY 1 capsule DAILY (route: oral) Med Classific ation: Gastroint estinal Therapy Agents pravastatin 20 mg tablet 2022-10 00:00: 00 12-03 00:00 :00 No [id number] 1 tablet DAILY 1 tablet DAILY (route: oral) Med Classific ation: Cardiovas cular Therapy Agents O2 - OXYGEN 12-03 00:00: 00 04-23 23:59 :00 No [id number] 4 Liter O2 - CONTINUOUS 4 Liter O2 - CONTINUOUS (route: Oxygen) Med Classific ation: Medical Oxygen Slow Release Iron 140 mg (45 mg iron) tablet,exte nded release 07-12 00:00: 00 07-25 00:00 :00 No [id number] Per instruc tions TWICE A DAY Per instructio ns TWICE A DAY (route: oral) Med Classific ation: Electroly te Balance-N utritiona l Products furosemide 20 mg tablet 07-10 00:00: 00 07-25 00:00 :00 No [id number] Per instruc tions Per instructio ns (route: oral) Med Classific ation: Cardiovas cular Therapy Agents metformin ER 500 mg tablet,exte nded release 24 hr 07-02 00:00: 00 07-25 00:00 :00 No [id number] Per instruc tions Per instructio ns (route: oral) Med Classific ation: Endocrine pravastatin 20 mg tablet 07-02 00:00: 00 07-25 00:00 :00 No [id number] Per instruc tions Per instructio ns (route: oral) Med Classific ation: Cardiovas cular Therapy Agents Colestid 1 gram tablet 07-25 00:00: 10-03 23:59 :00 No [id number] 1 tablet DAILY 1 tablet DAILY (route: oral) Med Classific ation: Cardiovas cular Therapy Agents ferrous sulfate ER 140 mg (45 mg iron) tablet,exte nded release 07-25 00:00: 00 10-03 23:59 :00 No [id number] 1 tablet DAILY 1 tablet DAILY (route: oral) Med Classific ation: Electroly te Balance-N utritiona l Products furosemide 20 mg tablet 07-25 00:00: 00 10-03 23:59 :00 No [id number] 1 tablet DAILY 1 tablet DAILY (route: oral) Med Classific ation: Cardiovas cular Therapy Agents multivitami n tablet 07-25 00:00: 00 10-03 23:59 :00 No [id number] 1 tablet DAILY 1 tablet DAILY (route: oral) Med Classific ation: Electroly te Balance-N utritiona l Products omeprazole 20 mg capsule,del ayed release 07-25 00:00: 00 10-03 23:59 :00 No [id number] 1 capsule DAILY 1 capsule DAILY (route: [...] CARE WILL BE ESTABLISHED THAT MEETS PATIENT'S [facility] NEEDS AND INCLUDES PATIENT GOAL FOR HOME [...] End Date/Time Encounter Type Admission Type Attending [facility] Care Department Encounter ID Discharge Date Discharge Status Discharge Condition Discharge Reason Percent Goals Met 2024-07-25 00:00:00 2024-09-18 00:00:00 Outpatient SONIA CHINO [facility] [id number] 2024-09-18 00:00:00 DISCHARGE TO HOME OR SELF CARE INDEPENDEN T WITH USE OF ASSISTIVE DEVICE GOALS MET ( ONLY) 66.67
[2024-10-13 21:57] VITALS: BP 96/71; PULSE 84; RESP 18; O2SAT 99
--- NOTE | 2024-10-13 22:38 | PC.NURSE ---
respiratory called to bedside for deep trach suctioning
[2024-10-14 01:14] VITALS: BP 96/71; PULSE 84; RESP 18; TEMP -17.7; TEMP 0; O2SAT 99
--- NOTE | 2024-10-14 11:10 | MHC.CM.PN ---
CM ED CONSULT RECEIVED. PT WAS DC FROM ED AND PER CONSULT, LOOKING FOR ASSIST WITH SERVICES IN THE HOME AND WOULD LIKE A CALL. FOSTER SPOKE WITH YESSY VIA TELEPHONE WHO STATES PT'S PCP ALREADY SENT A REFERRAL TO [facility] (FIRST CHOICE) BUT SHE HADN'T HEARD FROM THEM YET. CM SENT ANOTHER REFERRAL WITH REQUEST TO CALL PT'S TO CONFIRM. IS ALSO LOOKING FOR MORE INFORMATION REGARDING HOSPICE. SHE WOULD LIKE [facility] A FAMILY MEMBER HAD IN THE PAST. REFERRAL SENT TO [facility] TO SET UP AN INFORMATIONAL MEETING AT HOME.
== END 2024-10-14 01:15 | disposition home or self-care (01) ==
PROVIDERS: Emergency Provider Emergency Medicine; PCP Internal Medicine
DX: S00.83XA Contusion of other part of head, initial encounter (principal); T14.8XXA Other injury of unspecified body region, initial encounter; W06.XXXA Fall from bed, initial encounter; R60.0 Localized edema; E11.9 Type 2 diabetes mellitus without complications; J44.9 Chronic obstructive pulmonary disease, unspecified; J96.92 Respiratory failure, unspecified with hypercapnia; J96.91 Respiratory failure, unspecified with hypoxia; Z99.81 Dependence on supplemental oxygen; E78.00 Pure hypercholesterolemia, unspecified; I44.7 Left bundle-branch block, unspecified; I48.19 Other persistent atrial fibrillation; Y93.89 Activity, other specified; Y92.013 Bedroom of single-family (private) house as the place of occurrence of the external cause; Y99.9 Unspecified external cause status
CPT/HCPCS: 70450; 72125; 73080; 73110; 73130; 99284